=== PATIENT | male | born 1970 | race African-American/Black ===

== ENCOUNTER 2017-07-31 09:08 | Emergency (ER) | payer OTHER ==
[~2017-07-31] VITALS: Ht 177.8 cm; Wt 97.0 kg
[2017-07-31 09:15] VITALS: BP 193/103; PULSE 103; RESP 18; TEMP 98.4; O2SAT 97
[2017-07-31] MEDS ORDERED: MONT10TA4 PO (09:25)
[2017-07-31] MEDS ORDERED: AUGM875T3 PO (09:41)
--- NOTE | 2017-07-31 09:41 | PD ---
HPI Chief Complaint: ENT Complaint Time Seen by Provider: 09:31 Travel History International Travel<30 days: No Contact w/Intl Traveler<30days: No Traveled to known affect area: No History of Present Illness HPI Patient is a 46-year-old male who presents to emergency room with complaints of sinus congestion, sore throat, increased nasal congestion for the past week. Patient reports that his daughter was sick previously with similar symptoms. Patient reports that he has been having subjective fevers and chills. Patient reports that he has noticed a postnasal drip. Denies chest pain or shortness of breath. No other complaints at this time. PFSH Past Medical History Diabetes: Yes Diminished Hearing: No Hypertension: Yes Tetanus Vaccination: Unknown Influenza Vaccination: No Past Surgical History Surgical History: No Previous Surgery Social History Alcohol Use: No Tobacco Use: No Substance Use: No Allergies-Medications (Allergen,Severity, Reaction): Coded Allergies: No Known Allergies (Unverified , 07/31/17) Reported Meds & Prescriptions Reported Meds & Active Scripts Active Reported Montelukast (Montelukast Sodium) 10 Mg Tab 10 Mg PO HS Review of Systems General / Constitutional: Positive: Fever, Chills Eyes: No: Visual changes HENT: Positive: Sore Throat, No: Headaches, Neck Pain Cardiovascular: No: Chest Pain or Discomfort, Palpitations, Irregular Rhythm Respiratory: Positive: Cough, No: Shortness of Breath, Wheezing Gastrointestinal: No: Abdominal Pain Genitourinary: No: Dysuria Musculoskeletal: No: Pain Skin: No Rash Neurologic: No: Weakness Psychiatric: No: Depression Endocrine: No: Polydipsia Hematologic/Lymphatic: No: Easy Bruising Physical Exam Narrative GENERAL: NAD, Nontoxic SKIN: Focused skin assessment warm/dry. HEAD: Atraumatic. Normocephalic. Patient with increased frontal and maxillary sinus pressure on exam EYES: Pupils equal and round. No scleral icterus. No injection or drainage. ENT: No nasal bleeding or discharge. Mucous membranes pink and moist. Patient with injected posterior pharynx NECK: Trachea midline. No JVD. CARDIOVASCULAR: Regular rate and rhythm. No murmur appreciated. RESPIRATORY: No accessory muscle use. Clear to auscultation. Breath sounds equal bilaterally. GASTROINTESTINAL: Abdomen soft, non-tender, nondistended. Hepatic and splenic margins not palpable. MUSCULOSKELETAL: No obvious deformities. No clubbing. No cyanosis. No edema. NEUROLOGICAL: Awake and alert. No obvious cranial nerve deficits. Motor grossly within normal limits. Normal speech. PSYCHIATRIC: Appropriate mood and affect; insight and judgment normal. Data Data Last Documented VS Vital Signs Date Time Temp Pulse Resp B/P (MAP) Pulse Ox O2 Delivery O2 Flow Rate FiO2 07/31/17 09:15 98.4 103 18 193/103 (133) 97 Orders Orders Amoxicil-Clavulanate (Augmentin) (07/31/17 09:45) [facility] Medical Decision Making Medical Screen Exam Complete: Yes Emergency Medical Condition: Yes Medical Record Reviewed: Yes Interpretation(s) Vital Signs Date Time Temp Pulse Resp B/P (MAP) Pulse Ox O2 Delivery O2 Flow Rate FiO2 07/31/17 09:15 98.4 103 18 193/103 (133) 97 Differential Diagnosis Differential includes sinusitis, strep pharyngitis, pneumonia, viral syndrome Narrative Course 46-year-old male who presents to emergency room with complaints of increased sinus congestion, nasal congestion, postnasal drip, cough which has been ongoing for the past week. Reports objective fevers and chills, reports that his 3 year daughter was sick with similar symptoms prior to onset of his symptoms. Patient is nontoxic on evaluation, he has appeared to have increased sinus pressure with post nasal drip. His posterior pharynx is slightly erythematous, patient with no trismus on exam, no airway involvement. Rapid strep as well as strep culture was sent. Plan to treat with Augmentin for sinusitis and pharyngitis. Patient will follow-up with his primary care doctor and will return to emergency room as needed. Diagnosis Primary Impression: Sinusitis, acute Qualified Codes: J01.90 - Acute sinusitis, unspecified Patient Instructions: General Instructions Additional Instructions: Please take all medications as prescribed Please follow-up with your primary care doctor Please follow-up with all cultures from today Return to the emergency room as needed Med/Other Pt SpecificInfo: Prescription(s) given Scripts Amoxicillin-Clavulanate (Augmentin) 875-125 Mg Tab 1 TAB PO BID for Infection for 10 Days, #20 TAB 0 Refills Prov: Jessika Tristan DO 07/31/17 Disposition: 01 DISCHARGE HOME Condition: Stable Jessika Tristan DO Jul 31, 2017 09:41
[2017-07-31] MEDS ORDERED: AMOXICILLIN/CLAVULANATE K 875 MG TAB PO ONE (09:45)
== END 2017-07-31 10:13 | disposition home or self-care (01) ==
LOC: PHED 09:08
DX: J01.90 Acute sinusitis, unspecified (principal)
CPT/HCPCS: 87081; 87880; 99283

== ENCOUNTER 2018-01-30 21:08 | Emergency (ER) | payer OTHER ==
[~2018-01-30] VITALS: Ht 177.8 cm; Wt 98.0 kg
[~2018-01-30 21:08] MED LIST: AUGM875T3 PO; MONT10TA4 PO
[2018-01-30 21:16] VITALS: BP 217/127; PULSE 110; RESP 18; TEMP 100.2; O2SAT 95
[2018-01-30 21:31] VITALS: TEMP 103.1
[2018-01-30] MEDS ORDERED: ACETAMINOPHEN 325 MG TAB PO ONE (21:45)
[2018-01-30] MEDS ORDERED: LABETALOL HCL 100 MG/20 ML VIAL IV PUSH ONE (21:45)
--- NOTE | 2018-01-30 21:45 | PD ---
HPI Chief Complaint: Cold / Flu Symptoms Time Seen by Provider: 21:30 Travel History International Travel<30 days: No Contact w/Intl Traveler<30days: No Traveled to known affect area: No History of Present Illness HPI 47yo M with PMH of HTN, DM, CKD presents to the ED with c/o cough, nasal congestion, fever, headache, throat pain, muscle ache for about 1 week. Said he has not been feeling well and took cold medication this morning. Pt has long standing HTN and takes clonidine, valsartan, metoprolol but ran out of everything except clonidine which he took this morning. Denies any neck pain, visual changes, sob, n/v, abdominal pain, focal weakness or numbness. Pt said he has midsternal chest pain only with cough. PFSH Past Medical History Diabetes: Yes Patient Takes Glucophage: No Diminished Hearing: No Hypertension: Yes Renal Failure: Yes (60 % functioning) Tetanus Vaccination: Unknown Influenza Vaccination: No ?: Not Past Surgical History Surgical History: No Previous Surgery Social History Alcohol Use: No Tobacco Use: No Substance Use: No Allergies-Medications (Allergen,Severity, Reaction): Coded Allergies: No Known Allergies (Verified Allergy, Unknown, 01/30/18) Reported Meds & Prescriptions Reported Meds & Active Scripts Active Valsartan-Hydrochlorothiazide 80-12.5 Mg Tab 1 Tab PO DAILY Metoprolol Tartrate 100 Mg Tab 100 Mg PO BID Tylenol (Acetaminophen) 325 Mg Tab 650 Mg PO Q6H PRN Augmentin (Amoxicillin-Clavulanate) 875-125 Mg Tab 1 Tab PO BID 10 Days Reported Montelukast (Montelukast Sodium) 10 Mg Tab 10 Mg PO HS Review of Systems Except as stated in HPI: all other systems reviewed are Neg Physical Exam Narrative GENERAL: 47yo M in mild distress. SKIN: Focused skin assessment warm/dry. HEAD: Atraumatic. Normocephalic. EYES: Pupils equal and round. No scleral icterus. No injection or drainage. ENT: Mild erythema Uvula. No exudate. NECK: No nuchal rigidity. CARDIOVASCULAR: Regular rate and rhythm. No murmur appreciated. RESPIRATORY: + accessory muscle use. Decreased breath sounds in right lower lung. GASTROINTESTINAL: Abdomen soft, non-tender, nondistended. No rebound tenderness or guarding. MUSCULOSKELETAL: No obvious deformities. No clubbing. No cyanosis. No edema. NEUROLOGICAL: Awake and alert. No obvious cranial nerve deficits. Motor grossly within normal limits in all extremities. Sensation intact. Normal speech. PSYCHIATRIC: Appropriate mood and affect; insight and judgment normal. Data Data Last Documented VS Vital Signs Date Time Temp Pulse Resp B/P (MAP) Pulse Ox O2 Delivery O2 Flow Rate FiO2 01/30/18 23:05 100.3 103 18 163/89 (113) 01/30/18 22:32 100 Room Air Orders Orders Blood Culture (01/30/18 21:37) Complete Blood Count With Diff (01/30/18 21:37) Basic Metabolic Panel (Bmp) (01/30/18 21:37) Prothrombin Time / Inr (Pt) (01/30/18 21:37) Act Partial Throm Time (Ptt) (01/30/18 21:37) Lactic Acid Sepsis Protocol (01/30/18 21:37) Acetaminophen (Tylenol) (01/30/18 21:45) Influenzae A/B Antigen (01/30/18 21:37) Group A Rapid Strep Screen (01/30/18 21:37) Troponin I (01/30/18 21:37) Electrocardiogram (01/30/18 ) Labetalol Inj (Trandate Inj) (01/30/18 21:45) Strep Culture (Group A) (01/30/18 21:53) Chest, Single Ap (01/30/18 ) Metoprolol Tartrate (Lopressor) (01/30/18 23:30) Ed Discharge Order (01/31/18 00:04) Labs Laboratory Tests Test 01/30/18 21:53 White Blood Count 4.4 TH/MM3 Red Blood Count 6.06 MIL/MM3 Hemoglobin 15.6 GM/DL Hematocrit 47.2 % Mean Corpuscular Volume 77.9 FL Mean Corpuscular Hemoglobin 25.7 PG Mean Corpuscular Hemoglobin Concent 33.0 % Red Cell Distribution Width 13.0 % Platelet Count 171 TH/MM3 Mean Platelet Volume 8.6 FL CBC Comment AUTO DIFF Differential Total Cells Counted 100 Neutrophils % (Manual) 67 % Band Neutrophils % 2 % Lymphocytes % 20 % Monocytes % 11 % Neutrophils # (Manual) 3.0 TH/MM3 Differential Comment FINAL DIFF MANUAL Atypical Lymphocytes % Platelet Estimate NORMAL Platelet Morphology Comment NORMAL Red Cell Morphology Comment NORMAL Prothrombin Time 9.8 SEC Prothromb Time International Ratio 1.0 RATIO Activated Partial Thromboplast Time 25.4 SEC Blood Urea Nitrogen 9 MG/DL Creatinine 1.50 MG/DL Random Glucose 317 MG/DL Calcium Level 8.3 MG/DL Sodium Level 134 MEQ/L Potassium Level 3.3 MEQ/L Chloride Level 98 MEQ/L Carbon Dioxide Level 30.6 MEQ/L Anion Gap 5 MEQ/L Estimat Glomerular Filtration Rate 61 ML/MIN Lactic Acid Level 2.0 mmol/L Troponin I 0.02 NG/ML [facility] Medical Decision Making Medical Screen Exam Complete: Yes Emergency Medical Condition: Yes Interpretation(s) EKG: Sinus tachycardia at 115bpm. LAD. No ST segment elevation or depression. Differential Diagnosis Pneumonia vs. influenza vs. bronchitis vs. viral syndrome vs. hypertensive emergency Narrative Course 47yo M with flu like symptoms. Pt initially febrile and tachycardic and hypertensive. Pt has long standing HTN and is suppose to be on 3 medications for HTN but has not taken 2 of them for a long time. Labs reviewed, no leukocytosis. Lactic acid normal. Mild hypokalemia at 3.3, replace orally. Creatinine mildly elevated at 1.50 but pt has history of kidney disease. Glucose elevated at 317, no increased anion gap. Normal CO2. Troponin negative. Positive Flu B antigen. Symptoms has been over a week so will not give tamiflu. Explained to patient and he also does not want tamiflu. Group A strep negative. CXR negative. Pt given labetalol IV and acetaminophen. Temp decreased to 100.3 and pt feels better. BP also improved. Recheck BP was again elevated so metoprolol 100mg given. Pt has clonidine at home so will write prescription for the other 2 HTN meds. Return precautions given. Diagnosis Primary Impression: Influenza B Patient Instructions: General Instructions Departure Forms: Tests/Procedures Additional Instructions: Please follow up with your primary care physician in 2-3 days. Return to the ED if symptoms worsen. Med/Other Pt SpecificInfo: Prescription(s) given Scripts Valsartan-Hydrochlorothiazide (Valsartan-Hydrochlorothiazide) 80-12.5 Mg Tab 1 TAB PO DAILY for Blood Pressure Management, #30 TAB 0 Refills Prov: Nahed Wilson DO 01/31/18 Metoprolol Tartrate (Metoprolol Tartrate) 100 Mg Tab 100 MG PO BID, #60 TAB 0 Refills Prov: Nahed Wilson DO 01/31/18 Acetaminophen (Tylenol) 325 Mg Tab 650 MG PO Q6H Y for PAIN SCALE 1 TO 4, #20 TAB 0 Refills Prov: Nahed Wilson DO 01/31/18 Disposition: 01 DISCHARGE HOME Condition: Stable Nahed Wilson DO Jan 30, 2018 21:45
[2018-01-30 22:09] LABS: HEMATOCRIT 47.2 % (39.0-51.0); HEMOGLOBIN 15.6 GM/DL (13.0-17.0); MEAN CELL VOLUME 77.9 FL (80.0-100.0); MEAN CORPUSCULAR HEMOGLOBIN 25.7 PG (27.0-34.0); MEAN PLATELET VOLUME 8.6 FL (7.0-11.0); PLATELET COUNT 171 TH/MM3 (150-450); RED BLOOD COUNT 6.06 MIL/MM3 (4.50-5.90); WHITE BLOOD COUNT 4.4 TH/MM3 (4.0-11.0)
[2018-01-30 22:29] LABS: BICARBONATE 30.6 MEQ/L (21.0-32.0); CALCIUM 8.3 MG/DL (8.5-10.1)
[2018-01-30 22:32] VITALS: BP 162/93; PULSE 102; RESP 18; O2SAT 100
[2018-01-30 22:33] LABS: CREATININE 1.5 MG/DL (0.60-1.30)
[2018-01-30 22:34] LABS: PROTHROMBIN TIME - PATIENT 9.8 SEC (9.8-11.6)
[2018-01-30 22:37] LABS: TROPONIN I 0.02 NG/ML (0.02-0.05)
[2018-01-30 22:52] LABS: BANDS 2 % (0-6); MONOCYTES 11 % (0-8); POLYS (SEG NEUTROPHILS) 67 % (16-70)
[2018-01-30 22:53] LABS: LYMPHOCYTES 20 % (9-44)
[2018-01-30 23:05] VITALS: BP 163/89; PULSE 103; RESP 18; TEMP 100.3
--- NOTE | 2018-01-30 23:22 | RADRPT ---
EXAM DATE/TIME: 01/30/2018 22:54 [facility] COMPARISON: No previous studies available for comparison. INDICATIONS : Cough and short of breath. MEDICAL HISTORY : Renal failure, acute. SURGICAL HISTORY : None. ENCOUNTER: Initial ACUITY: 1 day PAIN SCORE: 0/10 LOCATION: Bilateral chest FINDINGS: A single view of the chest demonstrates the lungs to be symmetrically aerated without evidence of mas s, infiltrate or effusion. The cardiomediastinal contours are unremarkable. Osseous structures are intact. CONCLUSION: No acute cardiopulmonary disease demonstrated. Nando Segura MD on January 30, 2018 at 23:20 Board Certified Radiologist. This report was verified electronically.
[2018-01-30] MEDS ORDERED: METOPROLOL TARTRATE 50 MG TAB PO ONE (23:30)
[2018-01-30] MEDS ORDERED: METOPROLOL TARTRATE 100 MG TAB PO ONE (23:30)
[2018-01-31] MEDS ORDERED: TYLE325T PO (00:03)
[2018-01-31] MEDS ORDERED: METO100T PO (00:03)
[2018-01-31] MEDS ORDERED: VALS80TA2 PO (00:03)
[2018-01-31 00:15] VITALS: BP 168/97; TEMP 98.9
[2018-01-31] MEDS ORDERED: POTASSIUM CHLORIDE 20 MEQ CONTROLLED RELEASE TAB PO ONE (00:15)
--- NOTE | 2018-01-31 22:41 | EKG ---
Date Performed: 01/30/2018 Time Performed: 21:45:13 PTAGE: 47 years EKG: SINUS TACHYCARDIA BORDERLINE LEFT AXIS DEVIATION MODERATE VOLTAGE CRITERIA FOR LVH, CONSIDE R NORMAL VARIANT NONSPECIFIC ST ELEVATION ABNORMAL RHYTHM ECG NO PREVIOUS TRACING DOCTOR: Shayla Herring Interpretating Date/Time 01/31/2018 22:40:07
== END 2018-01-31 00:17 | disposition home or self-care (01) ==
LOC: PHED 21:08
DX: J10.1 Influenza due to other identified influenza virus with other respiratory manifestations (principal); E11.9 Type 2 diabetes mellitus without complications; I12.9 Hypertensive chronic kidney disease with stage 1 through stage 4 chronic kidney disease, or unspecified chronic kidney disease; R94.31 Abnormal electrocardiogram [ECG] [EKG]
CPT/HCPCS: 71045; 80048; 83605; 84484; 85007; 85027; 85610; 85730; 87040; 87081; 87804; 87880; 93005; 96374

== ENCOUNTER 2018-09-13 22:15 | Inpatient (IN) ==
[2018-09-13] MEDS: niCARdipine Inj 25 MG in Sodium Chlor 0.9% Inj 240 ML IV.CONT PRN (22:30)
--- NOTE | 2018-09-13 22:32 | ED ---
HPI General Chief complaint: Chest Pain Stated complaint: respiratory Time Seen by Provider: 09/13/18 22:20 History of Present Illness HPI narrative: Patient is a 47-year-old male with history of diabetes, high blood pressure presents emergency department with rather acute onset shortness of breath about an hour prior to arrival. Patient called 911 EMS states that his initial room air sat was 84 and he did have one expectoration of red frothy sputum. He was placed on CPAP he was given 2 doses of nitroglycerin sublingually as well as 100 mg Lasix and transported to this emergency department. Patient is complaining of some chest burning in the middle of his chest. He appears significantly short of breath. His history is somewhat limited on his shortness of breath Related Data Home Medications Medication Instructions Recorded Confirmed glyburide-metformin 2 tab PO BID 07/04/18 09/13/18 losartan 50 mg PO DAILY 07/04/18 09/13/18 Allergies Allergy/AdvReac Type Severity Reaction Status Date / Time No Known Allergies Allergy Unverified 07/04/18 08:26 Review of Systems ROS: all other systems reviewed are negative [facility] Social History Social History Substance History: No History of Abuse Second Hand Smoke Exposure: No Smoking Status: Never smoker How Often Do You Have a Drink Containing Alcohol: Never Recent Travel in [facility] within the Last 8 Weeks: No Recent Out of Country Travel within the Last 8 Weeks: No Immunization History Tetanus Immunization: Unsure Exam Narrative Exam Narrative: GENERAL: Well-developed well-nourished, appears significantly short of breath. SKIN: Focused skin assessment warm/dry. HEAD: Atraumatic. Normocephalic. EYES: Pupils equal and round. No scleral icterus. No injection or drainage. ENT: No nasal bleeding or discharge. Mucous membranes pink and moist. NECK: Trachea midline. No JVD. CARDIOVASCULAR: Regular rhythm with tachycardia. No murmur appreciated. RESPIRATORY: Tachypneic, rales throughout both lung higgins. GASTROINTESTINAL: Abdomen soft, non-tender, nondistended. Hepatic and splenic margins not palpable. MUSCULOSKELETAL: No obvious deformities. No clubbing. No cyanosis. No edema. NEUROLOGICAL: Awake and alert. No obvious cranial nerve deficits. Motor grossly within normal limits. Normal speech. PSYCHIATRIC: Appropriate mood and affect; insight and judgment normal. Course Initial Documented Vital Signs Temperature 98.2 F 09/13/18 22:17 Pulse Rate 160 H 09/13/18 22:17 Respiratory Rate 24 09/13/18 22:17 Blood Pressure 224/134 H 09/13/18 22:17 Pulse Oximetry 85 L 09/13/18 22:17 Last Documented Vital Signs Temperature 98.2 F 09/22/18 11:00 Pulse Rate 88 09/22/18 11:00 Respiratory Rate 18 09/22/18 11:00 Blood Pressure 124/86 09/22/18 11:00 Pulse Oximetry 94 L 09/22/18 13:56 Critical Care Time Critical Care Time: Yes Total Critical Care Time: 35 Attestation: Aggregate critical care time was 35 minutes. Time to perform other separately billable procedures was not included in the critical care time. My time did not include minutes spent treating any other patients simultaneously or on activities that did not directly contribute to the patient's treatment. The services I provided to this patient were to treat and/or prevent clinically significant deterioration that could result in: , disability, organ failure I provided critical care services requiring my management, as noted below: Chart data review, documentation time, medication orders and management, vital sign assessments/reviewing monitor data, ordering and reviewing lab tests, ordering and interpreting/reviewing x-rays and diagnostic studies, care of the patient and discussion of the patient with the admitting physicians. Medical Decision Making MDM Narrative Medical decision making narrative: Patient room in the emergency department, started on a Cardene drip, BiPAP, on my first revisit the patient he is feeling much better and his chest pain is resolved. His EKG shows sinus tachycardia without any signs of acute ischemia. Troponin minimally elevated, BNP minimally elevated. Chest x-ray shows acute pulmonary edema bilaterally. Patient is diuresing well with 100 mg of Lasix were administered to him. Shortly after my revisit with the patient he started complaining of nausea and self removed his mask. 8 mg of Zofran was given to him. He did not have any emesis. He again desaturated on nasal cannula down to 89. His nasal cannula was increased to 5 L and he is tolerating it fairly well. With his nausea we are very hesitant to place him back on BiPAP. Patient was discussed with Dr. Haney of the [facility] team to admit and she is agreeable. Medical Screen Exam Complete: Yes Emergency Medical Condition: Yes Lab Data Result diagrams: 09/22/18 03:45 09/22/18 03:45 Lab Results 09/13/18 09/13/18 09/13/18 Range/Units 22:20 22:20 22:20 WBC 9.7 (4.0-11.0) th/mm3 RBC 5.80 (4.50-5.90) mil/mm3 Hgb 14.7 (13.0-17.0) gm/dL Hct 47.0 (39.0-51.0) % MCV 81.0 (80.0-100.0) fL MCH 25.4 L (27.0-34.0) pg MCHC 31.4 L (32.0-36.0) % RDW 14.3 (11.6-17.2) % Plt Count 201 (150-450) th/mm3 MPV 9.6 (7.0-11.0) fL Neut % (Auto) 65.9 (16.0-70.0) % Lymph % (Auto) 24.1 (9.0-44.0) % [place] % (Auto) 7.9 (0.0-8.0) % Eos % (Auto) 1.3 (0.0-4.0) % Baso % (Auto) 0.8 (0.0-2.0) % Neut # (Auto) 6.4 (1.8-7.7) th/mm3 Lymph # (Auto) 2.3 (1.0-4.8) th/mm3 [place] # (Auto) 0.8 (0.0-0.9) th/mm3 Eos # (Auto) 0.1 (0.0-0.4) th/mm3 Baso # (Auto) 0.1 (0.0-0.2) th/mm3 WBC Differential . Differential Comment Auto diff final PT 9.4 L (9.8-11.6) sec INR 0.9 Ratio APTT 24.4 (23.4-31.7) sec Sodium 135 L (136-145) meq/L Potassium 3.4 L (3.5-5.1) meq/L Chloride 102 (98-107) meq/L Carbon Dioxide 24.5 (21.0-32.0) meq/L Anion Gap 9 (5-15) meq/L BUN 20 H (7-18) mg/dL Creatinine 1.84 H (0.60-1.30) mg/dL Estimated GFR 48 L (>89) mL/min POC Glucose (68-110) mg/dl Random Glucose 447 H (74-106) mg/dL Hemoglobin A1c (4.3-6.0) % Lactic Acid (0.4-2.0) mmol/L Calcium 8.6 (8.5-10.1) mg/dL Phosphorus (2.5-4.9) mg/dL Magnesium (1.5-2.5) mg/dL Total Bilirubin 0.5 (0.2-1.0) mg/dL AST 20 (15-37) U/L ALT 24 (12-78) U/L Alkaline Phosphatase 107 (45-117) U/L Total Creatine Kinase (39-308) U/L CK-MB (CK-2) (0.5-3.6) ng/mL CK-MB (CK-2) % (0.0-4.0) % Troponin I 0.11 H (0.02-0.05) ng/mL B-Natriuretic Peptide (0-100) pg/mL Total Protein 7.4 (6.4-8.2) g/dL Albumin 3.4 (3.4-5.0) g/dL Triglycerides (42-150) mg/dL Cholesterol (120-200) mg/dL LDL Cholesterol, Calc (0-99) mg/dL HDL Cholesterol (40.0-60.0) mg/dL Cholesterol/HDL Ratio Ratio Lipase (73-393) U/L TSH 1.760 (0.358-3.740) uIU/mL Urine Color (Yellw/Straw) Urine Clarity (Clear) Urine pH (5.0-8.5) Ur Specific [place] (1.002-1.035) Urine Protein (Neg-Trace) mg/dL Urine Glucose (UA) (Negative) mg/dL Urine Ketones (Negative) mg/dL Urine Occult Blood (Negative) Urine Nitrate (Negative) Urine Bilirubin (Negative) Urine Urobilinogen (Less than 2) mg/dL Ur Leukocyte Esterase (Negative) Urine RBC (0-3) /hpf Urine WBC (0-5) /hpf Ur Squamous Epith Cells (0-5) /hpf Urine Mucus (Occasional) /lpf Micro UA Comment Ur Microscopic Review Urine Culture Comments Urine Eosinophils (None Seen) /HPF Ur Random Creatinine (27-300) mg/dL Ur Random Sodium meq/L Nasal Screen MRSA (PCR) (Negative) 09/13/18 09/14/18 09/14/18 Range/Units 22:20 03:50 04:08 WBC (4.0-11.0) th/mm3 RBC (4.50-5.90) mil/mm3 Hgb (13.0-17.0) gm/dL Hct (39.0-51.0) % MCV (80.0-100.0) fL MCH (27.0-34.0) pg MCHC (32.0-36.0) % RDW (11.6-17.2) % Plt Count (150-450) th/mm3 MPV (7.0-11.0) fL Neut % (Auto) (16.0-70.0) % Lymph % (Auto) (9.0-44.0) % [place] % (Auto) (0.0-8.0) % Eos % (Auto) (0.0-4.0) % Baso % (Auto) (0.0-2.0) % Neut # (Auto) (1.8-7.7) th/mm3 Lymph # (Auto) (1.0-4.8) th/mm3 [place] # (Auto) (0.0-0.9) th/mm3 Eos # (Auto) (0.0-0.4) th/mm3 Baso # (Auto) (0.0-0.2) th/mm3 WBC Differential Differential Comment PT (9.8-11.6) sec INR Ratio APTT (23.4-31.7) sec Sodium (136-145) meq/L Potassium (3.5-5.1) meq/L Chloride (98-107) meq/L Carbon Dioxide (21.0-32.0) meq/L Anion Gap (5-15) meq/L BUN (7-18) mg/dL Creatinine (0.60-1.30) mg/dL Estimated GFR (>89) mL/min POC Glucose 497 H* (68-110) mg/dl Random Glucose (74-106) mg/dL Hemoglobin A1c (4.3-6.0) % Lactic Acid (0.4-2.0) mmol/L Calcium (8.5-10.1) mg/dL Phosphorus (2.5-4.9) mg/dL Magnesium (1.5-2.5) mg/dL Total Bilirubin (0.2-1.0) mg/dL AST (15-37) U/L ALT (12-78) U/L Alkaline Phosphatase (45-117) U/L Total Creatine Kinase (39-308) U/L CK-MB (CK-2) (0.5-3.6) ng/mL CK-MB (CK-2) % (0.0-4.0) % Troponin I (0.02-0.05) ng/mL B-Natriuretic Peptide 428 H (0-100) pg/mL Total Protein (6.4-8.2) g/dL Albumin (3.4-5.0) g/dL Triglycerides (42-150) mg/dL Cholesterol (120-200) mg/dL LDL Cholesterol, Calc (0-99) mg/dL HDL Cholesterol (40.0-60.0) mg/dL Cholesterol/HDL Ratio Ratio Lipase (73-393) U/L TSH (0.358-3.740) uIU/mL Urine Color (Yellw/Straw) Urine Clarity (Clear) Urine pH (5.0-8.5) Ur Specific [place] (1.002-1.035) Urine Protein (Neg-Trace) mg/dL Urine Glucose (UA) (Negative) mg/dL Urine Ketones (Negative) mg/dL Urine Occult Blood (Negative) Urine Nitrate (Negative) Urine Bilirubin (Negative) Urine Urobilinogen (Less than 2) mg/dL Ur Leukocyte Esterase (Negative) Urine RBC (0-3) /hpf Urine WBC (0-5) /hpf Ur Squamous Epith Cells (0-5) /hpf Urine Mucus (Occasional) /lpf Micro UA Comment Ur Microscopic Review Urine Culture Comments Urine Eosinophils (None Seen) /HPF Ur Random Creatinine (27-300) mg/dL Ur Random Sodium meq/L Nasal Screen MRSA (PCR) Not detected (Negative) 09/14/18 09/14/18 09/14/18 Range/Units 05:01 05:01 09:03 WBC 11.2 H (4.0-11.0) th/mm3 RBC 5.55 (4.50-5.90) mil/mm3 Hgb 14.3 (13.0-17.0) gm/dL Hct 44.7 (39.0-51.0) % MCV 80.6 (80.0-100.0) fL MCH 25.8 L (27.0-34.0) pg MCHC 32.0 (32.0-36.0) % RDW 14.1 (11.6-17.2) % Plt Count 201 (150-450) th/mm3 MPV 9.6 (7.0-11.0) fL Neut % (Auto) (16.0-70.0) % Lymph % (Auto) (9.0-44.0) % [place] % (Auto) (0.0-8.0) % Eos % (Auto) (0.0-4.0) % Baso % (Auto) (0.0-2.0) % Neut # (Auto) (1.8-7.7) th/mm3 Lymph # (Auto) (1.0-4.8) th/mm3 [place] # (Auto) (0.0-0.9) th/mm3 Eos # (Auto) (0.0-0.4) th/mm3 Baso # (Auto) (0.0-0.2) th/mm3 WBC Differential Differential Comment PT (9.8-11.6) sec INR Ratio APTT (23.4-31.7) sec Sodium 135 L (136-145) meq/L Potassium 4.0 (3.5-5.1) meq/L Chloride 102 (98-107) meq/L Carbon Dioxide 25.5 (21.0-32.0) meq/L Anion Gap 8 (5-15) meq/L BUN 20 H (7-18) mg/dL Creatinine 1.88 H (0.60-1.30) mg/dL Estimated GFR 47 L (>89) mL/min POC Glucose 315 H (68-110) mg/dl Random Glucose 546 H* (74-106) mg/dL Hemoglobin A1c (4.3-6.0) % Lactic Acid (0.4-2.0) mmol/L Calcium 7.6 L D (8.5-10.1) mg/dL Phosphorus (2.5-4.9) mg/dL Magnesium (1.5-2.5) mg/dL Total Bilirubin (0.2-1.0) mg/dL AST (15-37) U/L ALT (12-78) U/L Alkaline Phosphatase (45-117) U/L Total Creatine Kinase (39-308) U/L CK-MB (CK-2) (0.5-3.6) ng/mL CK-MB (CK-2) % (0.0-4.0) % Troponin I 0.13 H (0.02-0.05) ng/mL B-Natriuretic Peptide (0-100) pg/mL Total Protein (6.4-8.2) g/dL Albumin (3.4-5.0) g/dL Triglycerides (42-150) mg/dL Cholesterol (120-200) mg/dL LDL Cholesterol, Calc (0-99) mg/dL HDL Cholesterol (40.0-60.0) mg/dL Cholesterol/HDL Ratio Ratio Lipase (73-393) U/L TSH (0.358-3.740) uIU/mL Urine Color (Yellw/Straw) Urine Clarity (Clear) Urine pH (5.0-8.5) Ur Specific [place] (1.002-1.035) Urine Protein (Neg-Trace) mg/dL Urine Glucose (UA) (Negative) mg/dL Urine Ketones (Negative) mg/dL Urine Occult Blood (Negative) Urine Nitrate (Negative) Urine Bilirubin (Negative) Urine Urobilinogen (Less than 2) mg/dL Ur Leukocyte Esterase (Negative) Urine RBC (0-3) /hpf Urine WBC (0-5) /hpf Ur Squamous Epith Cells (0-5) /hpf Urine Mucus (Occasional) /lpf Micro UA Comment Ur Microscopic Review Urine Culture Comments Urine Eosinophils (None Seen) /HPF Ur Random Creatinine (27-300) mg/dL Ur Random Sodium meq/L Nasal Screen MRSA (PCR) (Negative) 09/14/18 09/14/18 09/14/18 Range/Units 11:23 11:23 11:52 WBC (4.0-11.0) th/mm3 RBC (4.50-5.90) mil/mm3 Hgb (13.0-17.0) gm/dL Hct (39.0-51.0) % MCV (80.0-100.0) fL MCH (27.0-34.0) pg MCHC (32.0-36.0) % RDW (11.6-17.2) % Plt Count (150-450) th/mm3 MPV (7.0-11.0) fL Neut % (Auto) (16.0-70.0) % Lymph % (Auto) (9.0-44.0) % [place] % (Auto) (0.0-8.0) % Eos % (Auto) (0.0-4.0) % Baso % (Auto) (0.0-2.0) % Neut # (Auto) (1.8-7.7) th/mm3 Lymph # (Auto) (1.0-4.8) th/mm3 [place] # (Auto) (0.0-0.9) th/mm3 Eos # (Auto) (0.0-0.4) th/mm3 Baso # (Auto) (0.0-0.2) th/mm3 WBC Differential Differential Comment PT (9.8-11.6) sec INR Ratio APTT (23.4-31.7) sec Sodium (136-145) meq/L Potassium (3.5-5.1) meq/L Chloride (98-107) meq/L Carbon Dioxide (21.0-32.0) meq/L Anion Gap (5-15) meq/L BUN (7-18) mg/dL Creatinine (0.60-1.30) mg/dL Estimated GFR (>89) mL/min POC Glucose 131 H (68-110) mg/dl Random Glucose (74-106) mg/dL Hemoglobin A1c 16.4 H (4.3-6.0) % Lactic Acid (0.4-2.0) mmol/L Calcium (8.5-10.1) mg/dL Phosphorus (2.5-4.9) mg/dL Magnesium (1.5-2.5) mg/dL Total Bilirubin (0.2-1.0) mg/dL AST (15-37) U/L ALT (12-78) U/L Alkaline Phosphatase (45-117) U/L Total Creatine Kinase (39-308) U/L CK-MB (CK-2) (0.5-3.6) ng/mL CK-MB (CK-2) % (0.0-4.0) % Troponin I 0.11 H (0.02-0.05) ng/mL B-Natriuretic Peptide (0-100) pg/mL Total Protein (6.4-8.2) g/dL Albumin (3.4-5.0) g/dL Triglycerides (42-150) mg/dL Cholesterol (120-200) mg/dL LDL Cholesterol, Calc (0-99) mg/dL HDL Cholesterol (40.0-60.0) mg/dL Cholesterol/HDL Ratio Ratio Lipase (73-393) U/L TSH (0.358-3.740) uIU/mL Urine Color (Yellw/Straw) Urine Clarity (Clear) Urine pH (5.0-8.5) Ur Specific [place] (1.002-1.035) Urine Protein (Neg-Trace) mg/dL Urine Glucose (UA) (Negative) mg/dL Urine Ketones (Negative) mg/dL Urine Occult Blood (Negative) Urine Nitrate (Negative) Urine Bilirubin (Negative) Urine Urobilinogen (Less than 2) mg/dL Ur Leukocyte Esterase (Negative) Urine RBC (0-3) /hpf Urine WBC (0-5) /hpf Ur Squamous Epith Cells (0-5) /hpf Urine Mucus (Occasional) /lpf Micro UA Comment Ur Microscopic Review Urine Culture Comments Urine Eosinophils (None Seen) /HPF Ur Random Creatinine (27-300) mg/dL Ur Random Sodium meq/L Nasal Screen MRSA (PCR) (Negative) 09/14/18 09/14/18 09/14/18 Range/Units 15:06 18:11 19:43 WBC (4.0-11.0) th/mm3 RBC (4.50-5.90) mil/mm3 Hgb (13.0-17.0) gm/dL Hct (39.0-51.0) % MCV (80.0-100.0) fL MCH (27.0-34.0) pg MCHC (32.0-36.0) % RDW (11.6-17.2) % Plt Count (150-450) th/mm3 MPV (7.0-11.0) fL Neut % (Auto) (16.0-70.0) % Lymph % (Auto) (9.0-44.0) % [place] % (Auto) (0.0-8.0) % Eos % (Auto) (0.0-4.0) % Baso % (Auto) (0.0-2.0) % Neut # (Auto) (1.8-7.7) th/mm3 Lymph # (Auto) (1.0-4.8) th/mm3 [place] # (Auto) (0.0-0.9) th/mm3 Eos # (Auto) (0.0-0.4) th/mm3 Baso # (Auto) (0.0-0.2) th/mm3 WBC Differential Differential Comment PT (9.8-11.6) sec INR Ratio APTT (23.4-31.7) sec Sodium (136-145) meq/L Potassium (3.5-5.1) meq/L Chloride (98-107) meq/L Carbon Dioxide (21.0-32.0) meq/L Anion Gap (5-15) meq/L BUN (7-18) mg/dL Creatinine (0.60-1.30) mg/dL Estimated GFR (>89) mL/min POC Glucose 145 H 225 H (68-110) mg/dl Random Glucose (74-106) mg/dL Hemoglobin A1c (4.3-6.0) % Lactic Acid (0.4-2.0) mmol/L Calcium (8.5-10.1) mg/dL Phosphorus (2.5-4.9) mg/dL Magnesium (1.5-2.5) mg/dL Total Bilirubin (0.2-1.0) mg/dL AST (15-37) U/L ALT (12-78) U/L Alkaline Phosphatase (45-117) U/L Total Creatine Kinase (39-308) U/L CK-MB (CK-2) (0.5-3.6) ng/mL CK-MB (CK-2) % (0.0-4.0) % Troponin I 0.10 H (0.02-0.05) ng/mL B-Natriuretic Peptide (0-100) pg/mL Total Protein (6.4-8.2) g/dL Albumin (3.4-5.0) g/dL Triglycerides (42-150) mg/dL Cholesterol (120-200) mg/dL LDL Cholesterol, Calc (0-99) mg/dL HDL Cholesterol (40.0-60.0) mg/dL Cholesterol/HDL Ratio Ratio Lipase (73-393) U/L TSH (0.358-3.740) uIU/mL Urine Color ([place]ellw/Straw) Urine Clarity (Clear) Urine pH (5.0-8.5) Ur Specific [place] (1.002-1.035) Urine Protein (Neg-Trace) mg/dL Urine Glucose (UA) (Negative) mg/dL Urine Ketones (Negative) mg/dL Urine Occult Blood (Negative) Urine Nitrate (Negative) Urine Bilirubin (Negative) Urine Urobilinogen (Less than 2) mg/dL Ur Leukocyte Esterase (Negative) Urine RBC (0-3) /hpf Urine WBC (0-5) /hpf Ur Squamous Epith Cells (0-5) /hpf Urine Mucus (Occasional) /lpf Micro UA Comment Ur Microscopic Review Urine Culture Comments Urine Eosinophils (None Seen) /HPF Ur Random Creatinine (27-300) mg/dL Ur Random Sodium meq/L Nasal Screen MRSA (PCR) (Negative) 09/14/18 09/14/18 09/14/18 Range/Units 22:25 22:25 23:02 WBC (4.0-11.0) th/mm3 RBC (4.50-5.90) mil/mm3 Hgb (13.0-17.0) gm/dL Hct (39.0-51.0) % MCV (80.0-100.0) fL MCH (27.0-34.0) pg MCHC (32.0-36.0) % RDW (11.6-17.2) % Plt Count (150-450) th/mm3 MPV (7.0-11.0) fL Neut % (Auto) (16.0-70.0) % Lymph % (Auto) (9.0-44.0) % [place] % (Auto) (0.0-8.0) % Eos % (Auto) (0.0-4.0) % Baso % (Auto) (0.0-2.0) % Neut # (Auto) (1.8-7.7) th/mm3 Lymph # (Auto) (1.0-4.8) th/mm3 [place] # (Auto) (0.0-0.9) th/mm3 Eos # (Auto) (0.0-0.4) th/mm3 Baso # (Auto) (0.0-0.2) th/mm3 WBC Differential Differential Comment PT (9.8-11.6) sec INR Ratio APTT (23.4-31.7) sec Sodium (136-145) meq/L Potassium (3.5-5.1) meq/L Chloride (98-107) meq/L Carbon Dioxide (21.0-32.0) meq/L Anion Gap (5-15) meq/L BUN (7-18) mg/dL Creatinine (0.60-1.30) mg/dL Estimated GFR (>89) mL/min POC Glucose 211 H (68-110) mg/dl Random Glucose (74-106) mg/dL Hemoglobin A1c (4.3-6.0) % Lactic Acid (0.4-2.0) mmol/L Calcium (8.5-10.1) mg/dL Phosphorus (2.5-4.9) mg/dL Magnesium (1.5-2.5) mg/dL Total Bilirubin (0.2-1.0) mg/dL AST (15-37) U/L ALT (12-78) U/L Alkaline Phosphatase (45-117) U/L Total Creatine Kinase (39-308) U/L CK-MB (CK-2) (0.5-3.6) ng/mL CK-MB (CK-2) % (0.0-4.0) % Troponin I (0.02-0.05) ng/mL B-Natriuretic Peptide (0-100) pg/mL Total Protein (6.4-8.2) g/dL Albumin (3.4-5.0) g/dL Triglycerides (42-150) mg/dL Cholesterol (120-200) mg/dL LDL Cholesterol, Calc (0-99) mg/dL HDL Cholesterol (40.0-60.0) mg/dL Cholesterol/HDL Ratio Ratio Lipase (73-393) U/L TSH (0.358-3.740) uIU/mL Urine Color ([place]ell[place]/Straw) Urine Clarity (Clear) Urine pH (5.0-8.5) Ur Specific [place] (1.002-1.035) Urine Protein (Neg-Trace) mg/dL Urine Glucose (UA) (Negative) mg/dL Urine Ketones (Negative) mg/dL Urine Occult Blood (Negative) Urine Nitrate (Negative) Urine Bilirubin (Negative) Urine Urobilinogen (Less than 2) mg/dL Ur Leukocyte Esterase (Negative) Urine RBC (0-3) /hpf Urine WBC (0-5) /hpf Ur Squamous Epith Cells (0-5) /hpf Urine Mucus (Occasional) /lpf Micro UA Comment Ur Microscopic Review Urine Culture Comments Urine Eosinophils None seen (None Seen) /HPF Ur Random Creatinine 39 (27-300) mg/dL Ur Random Sodium 92 meq/L Nasal Screen MRSA (PCR) (Negative) 09/15/18 09/15/18 09/15/18 Range/Units 01:10 01:10 01:10 WBC 8.6 (4.0-11.0) th/mm3 RBC 5.01 (4.50-5.90) mil/mm3 Hgb 13.1 (13.0-17.0) gm/dL Hct 39.6 (39.0-51.0) % MCV 79.0 L (80.0-100.0) fL MCH 26.1 L (27.0-34.0) pg MCHC 33.1 (32.0-36.0) % RDW 13.8 (11.6-17.2) % Plt Count 187 (150-450) th/mm3 MPV 9.0 (7.0-11.0) fL Neut % (Auto) 58.3 (16.0-70.0) % Lymph % (Auto) 31.4 (9.0-44.0) % [place] % (Auto) 8.2 H (0.0-8.0) % Eos % (Auto) 1.4 (0.0-4.0) % Baso % (Auto) 0.7 (0.0-2.0) % Neut # (Auto) 5.0 (1.8-7.7) th/mm3 Lymph # (Auto) 2.7 (1.0-4.8) th/mm3 [place] # (Auto) 0.7 (0.0-0.9) th/mm3 Eos # (Auto) 0.1 (0.0-0.4) th/mm3 Baso # (Auto) 0.1 (0.0-0.2) th/mm3 WBC Differential . Differential Comment Auto diff final PT 9.7 L (9.8-11.6) sec INR 1.0 Ratio APTT (23.4-31.7) sec Sodium 142 (136-145) meq/L Potassium 3.1 L D (3.5-5.1) meq/L Chloride 105 (98-107) meq/L Carbon Dioxide 29.6 (21.0-32.0) meq/L Anion Gap 7 (5-15) meq/L BUN 23 H (7-18) mg/dL Creatinine 1.76 H (0.60-1.30) mg/dL Estimated GFR 51 L (>89) mL/min POC Glucose (68-110) mg/dl Random Glucose 141 H D (74-106) mg/dL Hemoglobin A1c (4.3-6.0) % Lactic Acid (0.4-2.0) mmol/L Calcium 8.0 L (8.5-10.1) mg/dL Phosphorus 4.0 (2.5-4.9) mg/dL Magnesium 1.9 (1.5-2.5) mg/dL Total Bilirubin 0.3 (0.2-1.0) mg/dL AST 17 (15-37) U/L ALT 19 (12-78) U/L Alkaline Phosphatase 69 (45-117) U/L Total Creatine Kinase 276 (39-308) U/L CK-MB (CK-2) (0.5-3.6) ng/mL CK-MB (CK-2) % (0.0-4.0) % Troponin I 0.09 H (0.02-0.05) ng/mL B-Natriuretic Peptide (0-100) pg/mL Total Protein 6.4 D (6.4-8.2) g/dL Albumin 3.0 L (3.4-5.0) g/dL Triglycerides (42-150) mg/dL Cholesterol (120-200) mg/dL LDL Cholesterol, Calc (0-99) mg/dL HDL Cholesterol (40.0-60.0) mg/dL Cholesterol/HDL Ratio Ratio Lipase 210 (73-393) U/L TSH 0.287 L (0.358-3.740) uIU/mL Urine Color (Yellw/Straw) Urine Clarity (Clear) Urine pH (5.0-8.5) Ur Specific [place] (1.002-1.035) Urine Protein (Neg-Trace) mg/dL Urine Glucose (UA) (Negative) mg/dL Urine Ketones (Negative) mg/dL Urine Occult Blood (Negative) Urine Nitrate (Negative) Urine Bilirubin (Negative) Urine Urobilinogen (Less than 2) mg/dL Ur Leukocyte Esterase (Negative) Urine RBC (0-3) /hpf Urine WBC (0-5) /hpf Ur Squamous Epith Cells (0-5) /hpf Urine Mucus (Occasional) /lpf Micro UA Comment Ur Microscopic Review Urine Culture Comments Urine Eosinophils (None Seen) /HPF Ur Random Creatinine (27-300) mg/dL Ur Random Sodium meq/L Nasal Screen MRSA (PCR) (Negative) 09/15/18 09/15/18 09/15/18 Range/Units 01:10 03:25 08:15 WBC (4.0-11.0) th/mm3 RBC (4.50-5.90) mil/mm3 Hgb (13.0-17.0) gm/dL Hct (39.0-51.0) % MCV (80.0-100.0) fL MCH (27.0-34.0) pg MCHC (32.0-36.0) % RDW (11.6-17.2) % Plt Count (150-450) th/mm3 MPV (7.0-11.0) fL Neut % (Auto) (16.0-70.0) % Lymph % (Auto) (9.0-44.0) % [place] % (Auto) (0.0-8.0) % Eos % (Auto) (0.0-4.0) % Baso % (Auto) (0.0-2.0) % Neut # (Auto) (1.8-7.7) th/mm3 Lymph # (Auto) (1.0-4.8) th/mm3 [place] # (Auto) (0.0-0.9) th/mm3 Eos # (Auto) (0.0-0.4) th/mm3 Baso # (Auto) (0.0-0.2) th/mm3 WBC Differential Differential Comment PT (9.8-11.6) sec INR Ratio APTT (23.4-31.7) sec Sodium (136-145) meq/L Potassium (3.5-5.1) meq/L Chloride (98-107) meq/L Carbon Dioxide (21.0-32.0) meq/L Anion Gap (5-15) meq/L BUN (7-18) mg/dL Creatinine (0.60-1.30) mg/dL Estimated GFR (>89) mL/min POC Glucose 92 218 H (68-110) mg/dl Random Glucose (74-106) mg/dL Hemoglobin A1c (4.3-6.0) % Lactic Acid 1.1 (0.4-2.0) mmol/L Calcium (8.5-10.1) mg/dL Phosphorus (2.5-4.9) mg/dL Magnesium (1.5-2.5) mg/dL Total Bilirubin (0.2-1.0) mg/dL AST (15-37) U/L ALT (12-78) U/L Alkaline Phosphatase (45-117) U/L Total Creatine Kinase (39-308) U/L CK-MB (CK-2) (0.5-3.6) ng/mL CK-MB (CK-2) % (0.0-4.0) % Troponin I (0.02-0.05) ng/mL B-Natriuretic Peptide (0-100) pg/mL Total Protein (6.4-8.2) g/dL Albumin (3.4-5.0) g/dL Triglycerides (42-150) mg/dL Cholesterol (120-200) mg/dL LDL Cholesterol, Calc (0-99) mg/dL HDL Cholesterol (40.0-60.0) mg/dL Cholesterol/HDL Ratio Ratio Lipase (73-393) U/L TSH (0.358-3.740) uIU/mL Urine Color (Yellw/Straw) Urine Clarity (Clear) Urine pH (5.0-8.5) Ur Specific [place] (1.002-1.035) Urine Protein (Neg-Trace) mg/dL Urine Glucose (UA) (Negative) mg/dL Urine Ketones (Negative) mg/dL Urine Occult Blood (Negative) Urine Nitrate (Negative) Urine Bilirubin (Negative) Urine Urobilinogen (Less than 2) mg/dL Ur Leukocyte Esterase (Negative) Urine RBC (0-3) /hpf Urine WBC (0-5) /hpf Ur Squamous Epith Cells (0-5) /hpf Urine Mucus (Occasional) /lpf Micro UA Comment Ur Microscopic Review Urine Culture Comments Urine Eosinophils (None Seen) /HPF Ur Random Creatinine (27-300) mg/dL Ur Random Sodium meq/L Nasal Screen MRSA (PCR) (Negative) 09/15/18 09/15/18 09/15/18 Range/Units 10:56 12:08 16:40 WBC (4.0-11.0) th/mm3 RBC (4.50-5.90) mil/mm3 Hgb (13.0-17.0) gm/dL Hct (39.0-51.0) % MCV (80.0-100.0) fL MCH (27.0-34.0) pg MCHC (32.0-36.0) % RDW (11.6-17.2) % Plt Count (150-450) th/mm3 MPV (7.0-11.0) fL Neut % (Auto) (16.0-70.0) % Lymph % (Auto) (9.0-44.0) % [place] % (Auto) (0.0-8.0) % Eos % (Auto) (0.0-4.0) % Baso % (Auto) (0.0-2.0) % Neut # (Auto) (1.8-7.7) th/mm3 Lymph # (Auto) (1.0-4.8) th/mm3 [place] # (Auto) (0.0-0.9) th/mm3 Eos # (Auto) (0.0-0.4) th/mm3 Baso # (Auto) (0.0-0.2) th/mm3 WBC Differential Differential Comment PT (9.8-11.6) sec INR Ratio APTT (23.4-31.7) sec Sodium (136-145) meq/L Potassium (3.5-5.1) meq/L Chloride (98-107) meq/L Carbon Dioxide (21.0-32.0) meq/L Anion Gap (5-15) meq/L BUN (7-18) mg/dL Creatinine (0.60-1.30) mg/dL Estimated GFR (>89) mL/min POC Glucose 267 H 229 H (68-110) mg/dl Random Glucose (74-106) mg/dL Hemoglobin A1c (4.3-6.0) % Lactic Acid (0.4-2.0) mmol/L Calcium (8.5-10.1) mg/dL Phosphorus (2.5-4.9) mg/dL Magnesium 2.0 (1.5-2.5) mg/dL Total Bilirubin (0.2-1.0) mg/dL AST (15-37) U/L ALT (12-78) U/L Alkaline Phosphatase (45-117) U/L Total Creatine Kinase (39-308) U/L CK-MB (CK-2) (0.5-3.6) ng/mL CK-MB (CK-2) % (0.0-4.0) % Troponin I (0.02-0.05) ng/mL B-Natriuretic Peptide (0-100) pg/mL Total Protein (6.4-8.2) g/dL Albumin (3.4-5.0) g/dL Triglycerides (42-150) mg/dL Cholesterol (120-200) mg/dL LDL Cholesterol, Calc (0-99) mg/dL HDL Cholesterol (40.0-60.0) mg/dL Cholesterol/HDL Ratio Ratio Lipase (73-393) U/L TSH (0.358-3.740) uIU/mL Urine Color (Yellw/Straw) Urine Clarity (Clear) Urine pH (5.0-8.5) Ur Specific [place] (1.002-1.035) Urine Protein (Neg-Trace) mg/dL Urine Glucose (UA) (Negative) mg/dL Urine Ketones (Negative) mg/dL Urine Occult Blood (Negative) Urine Nitrate (Negative) Urine Bilirubin (Negative) Urine Urobilinogen (Less than 2) mg/dL Ur Leukocyte Esterase (Negative) Urine RBC (0-3) /hpf Urine WBC (0-5) /hpf Ur Squamous Epith Cells (0-5) /hpf Urine Mucus (Occasional) /lpf Micro UA Comment Ur Microscopic Review Urine Culture Comments Urine Eosinophils (None Seen) /HPF Ur Random Creatinine (27-300) mg/dL Ur Random Sodium meq/L Nasal Screen MRSA (PCR) (Negative) 09/15/18 09/16/18 09/16/18 Range/Units 20:31 00:13 04:36 WBC (4.0-11.0) th/mm3 RBC (4.50-5.90) mil/mm3 Hgb (13.0-17.0) gm/dL Hct (39.0-51.0) % MCV (80.0-100.0) fL MCH (27.0-34.0) pg MCHC (32.0-36.0) % RDW (11.6-17.2) % Plt Count (150-450) th/mm3 MPV (7.0-11.0) fL Neut % (Auto) (16.0-70.0) % Lymph % (Auto) (9.0-44.0) % [place] % (Auto) (0.0-8.0) % Eos % (Auto) (0.0-4.0) % Baso % (Auto) (0.0-2.0) % Neut # (Auto) (1.8-7.7) th/mm3 Lymph # (Auto) (1.0-4.8) th/mm3 [place] # (Auto) (0.0-0.9) th/mm3 Eos # (Auto) (0.0-0.4) th/mm3 Baso # (Auto) (0.0-0.2) th/mm3 WBC Differential Differential Comment PT (9.8-11.6) sec INR Ratio APTT (23.4-31.7) sec Sodium 140 (136-145) meq/L Potassium 3.0 L (3.5-5.1) meq/L Chloride 105 (98-107) meq/L Carbon Dioxide 27.9 (21.0-32.0) meq/L Anion Gap 7 (5-15) meq/L BUN 28 H (7-18) mg/dL Creatinine 1.74 H (0.60-1.30) mg/dL Estimated GFR 51 L (>89) mL/min POC Glucose 236 H 213 H (68-110) mg/dl Random Glucose 84 (74-106) mg/dL Hemoglobin A1c (4.3-6.0) % Lactic Acid (0.4-2.0) mmol/L Calcium 8.5 (8.5-10.1) mg/dL Phosphorus (2.5-4.9) mg/dL Magnesium 2.0 (1.5-2.5) mg/dL Total Bilirubin (0.2-1.0) mg/dL AST (15-37) U/L ALT (12-78) U/L Alkaline Phosphatase (45-117) U/L Total Creatine Kinase (39-308) U/L CK-MB (CK-2) (0.5-3.6) ng/mL CK-MB (CK-2) % (0.0-4.0) % Troponin I (0.02-0.05) ng/mL B-Natriuretic Peptide (0-100) pg/mL Total Protein (6.4-8.2) g/dL Albumin (3.4-5.0) g/dL Triglycerides (42-150) mg/dL Cholesterol (120-200) mg/dL LDL Cholesterol, Calc (0-99) mg/dL HDL Cholesterol (40.0-60.0) mg/dL Cholesterol/HDL Ratio Ratio Lipase (73-393) U/L TSH (0.358-3.740) uIU/mL Urine Color (Yellw/Straw) Urine Clarity (Clear) Urine pH (5.0-8.5) Ur Specific [place] (1.002-1.035) Urine Protein (Neg-Trace) mg/dL Urine Glucose (UA) (Negative) mg/dL Urine Ketones (Negative) mg/dL Urine Occult Blood (Negative) Urine Nitrate (Negative) Urine Bilirubin (Negative) Urine Urobilinogen (Less than 2) mg/dL Ur Leukocyte Esterase (Negative) Urine RBC (0-3) /hpf Urine WBC (0-5) /hpf Ur Squamous Epith Cells (0-5) /hpf Urine Mucus (Occasional) /lpf Micro UA Comment Ur Microscopic Review Urine Culture Comments Urine Eosinophils (None Seen) /HPF Ur Random Creatinine (27-300) mg/dL Ur Random Sodium meq/L Nasal Screen MRSA (PCR) (Negative) 09/16/18 09/16/18 09/16/18 Range/Units 05:16 11:34 13:40 WBC (4.0-11.0) th/mm3 RBC (4.50-5.90) mil/mm3 Hgb (13.0-17.0) gm/dL Hct (39.0-51.0) % MCV (80.0-100.0) fL MCH (27.0-34.0) pg MCHC (32.0-36.0) % RDW (11.6-17.2) % Plt Count (150-450) th/mm3 MPV (7.0-11.0) fL Neut % (Auto) (16.0-70.0) % Lymph % (Auto) (9.0-44.0) % [place] % (Auto) (0.0-8.0) % Eos % (Auto) (0.0-4.0) % Baso % (Auto) (0.0-2.0) % Neut # (Auto) (1.8-7.7) th/mm3 Lymph # (Auto) (1.0-4.8) th/mm3 [place] # (Auto) (0.0-0.9) th/mm3 Eos # (Auto) (0.0-0.4) th/mm3 Baso # (Auto) (0.0-0.2) th/mm3 WBC Differential Differential Comment PT (9.8-11.6) sec INR Ratio APTT (23.4-31.7) sec Sodium (136-145) meq/L Potassium (3.5-5.1) meq/L Chloride (98-107) meq/L Carbon Dioxide (21.0-32.0) meq/L Anion Gap (5-15) meq/L BUN (7-18) mg/dL Creatinine (0.60-1.30) mg/dL Estimated GFR (>89) mL/min POC Glucose 101 307 H (68-110) mg/dl Random Glucose (74-106) mg/dL Hemoglobin A1c (4.3-6.0) % Lactic Acid (0.4-2.0) mmol/L Calcium (8.5-10.1) mg/dL Phosphorus (2.5-4.9) mg/dL Magnesium (1.5-2.5) mg/dL Total Bilirubin (0.2-1.0) mg/dL AST (15-37) U/L ALT (12-78) U/L Alkaline Phosphatase (45-117) U/L Total Creatine Kinase 602 H (39-308) U/L CK-MB (CK-2) 3.6 (0.5-3.6) ng/mL CK-MB (CK-2) % 0.6 (0.0-4.0) % Troponin I 0.11 H (0.02-0.05) ng/mL B-Natriuretic Peptide (0-100) pg/mL Total Protein (6.4-8.2) g/dL Albumin (3.4-5.0) g/dL Triglycerides (42-150) mg/dL Cholesterol (120-200) mg/dL LDL Cholesterol, Calc (0-99) mg/dL HDL Cholesterol (40.0-60.0) mg/dL Cholesterol/HDL Ratio Ratio Lipase (73-393) U/L TSH (0.358-3.740) uIU/mL Urine Color (Yellw/Straw) Urine Clarity (Clear) Urine pH (5.0-8.5) Ur Specific [place] (1.002-1.035) Urine Protein (Neg-Trace) mg/dL Urine Glucose (UA) (Negative) mg/dL Urine Ketones (Negative) mg/dL Urine Occult Blood (Negative) Urine Nitrate (Negative) Urine Bilirubin (Negative) Urine Urobilinogen (Less than 2) mg/dL Ur Leukocyte Esterase (Negative) Urine RBC (0-3) /hpf Urine WBC (0-5) /hpf Ur Squamous Epith Cells (0-5) /hpf Urine Mucus (Occasional) /lpf Micro UA Comment Ur Microscopic Review Urine Culture Comments Urine Eosinophils (None Seen) /HPF Ur Random Creatinine (27-300) mg/dL Ur Random Sodium meq/L Nasal Screen MRSA (PCR) (Negative) 09/16/18 09/16/18 09/16/18 Range/Units 14:42 16:42 19:10 WBC (4.0-11.0) th/mm3 RBC (4.50-5.90) mil/mm3 Hgb (13.0-17.0) gm/dL Hct (39.0-51.0) % MCV (80.0-100.0) fL MCH (27.0-34.0) pg MCHC (32.0-36.0) % RDW (11.6-17.2) % Plt Count (150-450) th/mm3 MPV (7.0-11.0) fL Neut % (Auto) (16.0-70.0) % Lymph % (Auto) (9.0-44.0) % [place] % (Auto) (0.0-8.0) % Eos % (Auto) (0.0-4.0) % Baso % (Auto) (0.0-2.0) % Neut # (Auto) (1.8-7.7) th/mm3 Lymph # (Auto) (1.0-4.8) th/mm3 [place] # (Auto) (0.0-0.9) th/mm3 Eos # (Auto) (0.0-0.4) th/mm3 Baso # (Auto) (0.0-0.2) th/mm3 WBC Differential Differential Comment PT (9.8-11.6) sec INR Ratio APTT (23.4-31.7) sec Sodium (136-145) meq/L Potassium 4.5 D (3.5-5.1) meq/L Chloride (98-107) meq/L Carbon Dioxide (21.0-32.0) meq/L Anion Gap (5-15) meq/L BUN (7-18) mg/dL Creatinine (0.60-1.30) mg/dL Estimated GFR (>89) mL/min POC Glucose 298 H (68-110) mg/dl Random Glucose (74-106) mg/dL Hemoglobin A1c (4.3-6.0) % Lactic Acid (0.4-2.0) mmol/L Calcium (8.5-10.1) mg/dL Phosphorus (2.5-4.9) mg/dL Magnesium (1.5-2.5) mg/dL Total Bilirubin (0.2-1.0) mg/dL AST (15-37) U/L ALT (12-78) U/L Alkaline Phosphatase (45-117) U/L Total Creatine Kinase 607 H (39-308) U/L CK-MB (CK-2) 3.9 H (0.5-3.6) ng/mL CK-MB (CK-2) % 0.6 (0.0-4.0) % Troponin I 0.06 H (0.02-0.05) ng/mL B-Natriuretic Peptide (0-100) pg/mL Total Protein (6.4-8.2) g/dL Albumin (3.4-5.0) g/dL Triglycerides (42-150) mg/dL Cholesterol (120-200) mg/dL LDL Cholesterol, Calc (0-99) mg/dL HDL Cholesterol (40.0-60.0) mg/dL Cholesterol/HDL Ratio Ratio Lipase (73-393) U/L TSH (0.358-3.740) uIU/mL Urine Color (Yellw/Straw) Urine Clarity (Clear) Urine pH (5.0-8.5) Ur Specific [place] (1.002-1.035) Urine Protein (Neg-Trace) mg/dL Urine Glucose (UA) (Negative) mg/dL Urine Ketones (Negative) mg/dL Urine Occult Blood (Negative) Urine Nitrate (Negative) Urine Bilirubin (Negative) Urine Urobilinogen (Less than 2) mg/dL Ur Leukocyte Esterase (Negative) Urine RBC (0-3) /hpf Urine WBC (0-5) /hpf Ur Squamous Epith Cells (0-5) /hpf Urine Mucus (Occasional) /lpf Micro UA Comment Ur Microscopic Review Urine Culture Comments Urine Eosinophils (None Seen) /HPF Ur Random Creatinine (27-300) mg/dL Ur Random Sodium meq/L Nasal Screen MRSA (PCR) (Negative) 09/16/18 09/16/18 09/17/18 Range/Units 19:38 20:44 05:18 WBC (4.0-11.0) th/mm3 RBC (4.50-5.90) mil/mm3 Hgb (13.0-17.0) gm/dL Hct (39.0-51.0) % MCV (80.0-100.0) fL MCH (27.0-34.0) pg MCHC (32.0-36.0) % RDW (11.6-17.2) % Plt Count (150-450) th/mm3 MPV (7.0-11.0) fL Neut % (Auto) (16.0-70.0) % Lymph % (Auto) (9.0-44.0) % [place] % (Auto) (0.0-8.0) % Eos % (Auto) (0.0-4.0) % Baso % (Auto) (0.0-2.0) % Neut # (Auto) (1.8-7.7) th/mm3 Lymph # (Auto) (1.0-4.8) th/mm3 [place] # (Auto) (0.0-0.9) th/mm3 Eos # (Auto) (0.0-0.4) th/mm3 Baso # (Auto) (0.0-0.2) th/mm3 WBC Differential Differential Comment PT (9.8-11.6) sec INR Ratio APTT (23.4-31.7) sec Sodium 139 (136-145) meq/L Potassium 3.7 D (3.5-5.1) meq/L Chloride 104 (98-107) meq/L Carbon Dioxide 26.1 (21.0-32.0) meq/L Anion Gap 9 (5-15) meq/L BUN 26 H (7-18) mg/dL Creatinine 1.60 H (0.60-1.30) mg/dL Estimated GFR 56 L (>89) mL/min POC Glucose 157 H (68-110) mg/dl Random Glucose 176 H (74-106) mg/dL Hemoglobin A1c (4.3-6.0) % Lactic Acid (0.4-2.0) mmol/L Calcium 8.2 L (8.5-10.1) mg/dL Phosphorus (2.5-4.9) mg/dL Magnesium 2.0 (1.5-2.5) mg/dL Total Bilirubin (0.2-1.0) mg/dL AST (15-37) U/L ALT (12-78) U/L Alkaline Phosphatase (45-117) U/L Total Creatine Kinase (39-308) U/L CK-MB (CK-2) (0.5-3.6) ng/mL CK-MB (CK-2) % (0.0-4.0) % Troponin I 0.09 H (0.02-0.05) ng/mL B-Natriuretic Peptide (0-100) pg/mL Total Protein (6.4-8.2) g/dL Albumin (3.4-5.0) g/dL Triglycerides (42-150) mg/dL Cholesterol (120-200) mg/dL LDL Cholesterol, Calc (0-99) mg/dL HDL Cholesterol (40.0-60.0) mg/dL Cholesterol/HDL Ratio Ratio Lipase (73-393) U/L TSH (0.358-3.740) uIU/mL Urine Color Yellow (Yellw/Straw) Urine Clarity Clear (Clear) Urine pH 6.0 (5.0-8.5) Ur Specific [place] 1.025 (1.002-1.035) Urine Protein Negative (Neg-Trace) mg/dL Urine Glucose (UA) 500 or greater (Negative) mg/dL Urine Ketones Negative (Negative) mg/dL Urine Occult Blood Negative (Negative) Urine Nitrate Negative (Negative) Urine Bilirubin Negative (Negative) Urine Urobilinogen Less than 2 (Less than 2) mg/dL Ur Leukocyte Esterase Negative (Negative) Urine RBC Less than 1 (0-3) /hpf Urine WBC Less than 1 (0-5) /hpf Ur Squamous Epith Cells <1 (0-5) /hpf Urine Mucus Few H (Occasional) /lpf Micro UA Comment Culture not ind Ur Microscopic Review Not Reportable Urine Culture Comments Culture not ind Urine Eosinophils (None Seen) /HPF Ur Random Creatinine (27-300) mg/dL Ur Random Sodium meq/L Nasal Screen MRSA (PCR) (Negative) 09/17/18 09/17/18 09/17/18 Range/Units 05:18 05:18 11:30 WBC (4.0-11.0) th/mm3 RBC (4.50-5.90) mil/mm3 Hgb (13.0-17.0) gm/dL Hct (39.0-51.0) % MCV (80.0-100.0) fL MCH (27.0-34.0) pg MCHC (32.0-36.0) % RDW (11.6-17.2) % Plt Count (150-450) th/mm3 MPV (7.0-11.0) fL Neut % (Auto) (16.0-70.0) % Lymph % (Auto) (9.0-44.0) % [place] % (Auto) (0.0-8.0) % Eos % (Auto) (0.0-4.0) % Baso % (Auto) (0.0-2.0) % Neut # (Auto) (1.8-7.7) th/mm3 Lymph # (Auto) (1.0-4.8) th/mm3 [place] # (Auto) (0.0-0.9) th/mm3 Eos # (Auto) (0.0-0.4) th/mm3 Baso # (Auto) (0.0-0.2) th/mm3 WBC Differential Differential Comment PT (9.8-11.6) sec INR Ratio APTT (23.4-31.7) sec Sodium (136-145) meq/L Potassium (3.5-5.1) meq/L Chloride (98-107) meq/L Carbon Dioxide (21.0-32.0) meq/L Anion Gap (5-15) meq/L BUN (7-18) mg/dL Creatinine (0.60-1.30) mg/dL Estimated GFR (>89) mL/min POC Glucose 295 H (68-110) mg/dl Random Glucose (74-106) mg/dL Hemoglobin A1c (4.3-6.0) % Lactic Acid (0.4-2.0) mmol/L Calcium (8.5-10.1) mg/dL Phosphorus (2.5-4.9) mg/dL Magnesium (1.5-2.5) mg/dL Total Bilirubin (0.2-1.0) mg/dL AST (15-37) U/L ALT (12-78) U/L Alkaline Phosphatase (45-117) U/L Total Creatine Kinase (39-308) U/L CK-MB (CK-2) (0.5-3.6) ng/mL CK-MB (CK-2) % (0.0-4.0) % Troponin I (0.02-0.05) ng/mL B-Natriuretic Peptide 664 H (0-100) pg/mL Total Protein (6.4-8.2) g/dL Albumin (3.4-5.0) g/dL Triglycerides 124 (42-150) mg/dL Cholesterol 261 H (120-200) mg/dL LDL Cholesterol, Calc 195 H (0-99) mg/dL HDL Cholesterol 41.5 (40.0-60.0) mg/dL Cholesterol/HDL Ratio 6.28 Ratio Lipase (73-393) U/L TSH (0.358-3.740) uIU/mL Urine Color ([place]/Straw) Urine Clarity (Clear) Urine pH (5.0-8.5) Ur Specific [place] (1.002-1.035) Urine Protein (Neg-Trace) mg/dL Urine Glucose (UA) (Negative) mg/dL Urine Ketones (Negative) mg/dL Urine Occult Blood (Negative) Urine Nitrate (Negative) Urine Bilirubin (Negative) Urine Urobilinogen (Less than 2) mg/dL Ur Leukocyte Esterase (Negative) Urine RBC (0-3) /hpf Urine WBC (0-5) /hpf Ur Squamous Epith Cells (0-5) /hpf Urine Mucus (Occasional) /lpf Micro UA Comment Ur Microscopic Review Urine Culture Comments Urine Eosinophils (None Seen) /HPF Ur Random Creatinine (27-300) mg/dL Ur Random Sodium meq/L Nasal Screen MRSA (PCR) (Negative) 09/17/18 09/17/18 09/18/18 Range/Units 16:59 21:45 05:50 WBC (4.0-11.0) th/mm3 RBC (4.50-5.90) mil/mm3 Hgb (13.0-17.0) gm/dL Hct (39.0-51.0) % MCV (80.0-100.0) fL MCH (27.0-34.0) pg MCHC (32.0-36.0) % RDW (11.6-17.2) % Plt Count (150-450) th/mm3 MPV (7.0-11.0) fL Neut % (Auto) (16.0-70.0) % Lymph % (Auto) (9.0-44.0) % [place] % (Auto) (0.0-8.0) % Eos % (Auto) (0.0-4.0) % Baso % (Auto) (0.0-2.0) % Neut # (Auto) (1.8-7.7) th/mm3 Lymph # (Auto) (1.0-4.8) th/mm3 [place] # (Auto) (0.0-0.9) th/mm3 Eos # (Auto) (0.0-0.4) th/mm3 Baso # (Auto) (0.0-0.2) th/mm3 WBC Differential Differential Comment PT (9.8-11.6) sec INR Ratio APTT (23.4-31.7) sec Sodium 139 (136-145) meq/L Potassium 3.3 L (3.5-5.1) meq/L Chloride 106 (98-107) meq/L Carbon Dioxide 24.1 (21.0-32.0) meq/L Anion Gap 9 (5-15) meq/L BUN 24 H (7-18) mg/dL Creatinine 1.48 H (0.60-1.30) mg/dL Estimated GFR 62 L (>89) mL/min POC Glucose 109 277 H (68-110) mg/dl Random Glucose 97 (74-106) mg/dL Hemoglobin A1c (4.3-6.0) % Lactic Acid (0.4-2.0) mmol/L Calcium 8.1 L (8.5-10.1) mg/dL Phosphorus (2.5-4.9) mg/dL Magnesium 2.1 (1.5-2.5) mg/dL Total Bilirubin (0.2-1.0) mg/dL AST (15-37) U/L ALT (12-78) U/L Alkaline Phosphatase (45-117) U/L Total Creatine Kinase (39-308) U/L CK-MB (CK-2) (0.5-3.6) ng/mL CK-MB (CK-2) % (0.0-4.0) % Troponin I 0.06 H (0.02-0.05) ng/mL B-Natriuretic Peptide (0-100) pg/mL Total Protein (6.4-8.2) g/dL Albumin (3.4-5.0) g/dL Triglycerides (42-150) mg/dL Cholesterol (120-200) mg/dL LDL Cholesterol, Calc (0-99) mg/dL HDL Cholesterol (40.0-60.0) mg/dL Cholesterol/HDL Ratio Ratio Lipase (73-393) U/L TSH (0.358-3.740) uIU/mL Urine Color ([place]ell[place]/Straw) Urine Clarity (Clear) Urine pH (5.0-8.5) Ur Specific [place] (1.002-1.035) Urine Protein (Neg-Trace) mg/dL Urine Glucose (UA) (Negative) mg/dL Urine Ketones (Negative) mg/dL Urine Occult Blood (Negative) Urine Nitrate (Negative) Urine Bilirubin (Negative) Urine Urobilinogen (Less than 2) mg/dL Ur Leukocyte Esterase (Negative) Urine RBC (0-3) /hpf Urine WBC (0-5) /hpf Ur Squamous Epith Cells (0-5) /hpf Urine Mucus (Occasional) /lpf Micro UA Comment Ur Microscopic Review Urine Culture Comments Urine Eosinophils (None Seen) /HPF Ur Random Creatinine (27-300) mg/dL Ur Random Sodium meq/L Nasal Screen MRSA (PCR) (Negative) 09/18/18 09/18/18 09/18/18 Range/Units 05:50 11:12 16:28 WBC (4.0-11.0) th/mm3 RBC (4.50-5.90) mil/mm3 Hgb (13.0-17.0) gm/dL Hct (39.0-51.0) % MCV (80.0-100.0) fL MCH (27.0-34.0) pg MCHC (32.0-36.0) % RDW (11.6-17.2) % Plt Count (150-450) th/mm3 MPV (7.0-11.0) fL Neut % (Auto) (16.0-70.0) % Lymph % (Auto) (9.0-44.0) % [place] % (Auto) (0.0-8.0) % Eos % (Auto) (0.0-4.0) % Baso % (Auto) (0.0-2.0) % Neut # (Auto) (1.8-7.7) th/mm3 Lymph # (Auto) (1.0-4.8) th/mm3 [place] # (Auto) (0.0-0.9) th/mm3 Eos # (Auto) (0.0-0.4) th/mm3 Baso # (Auto) (0.0-0.2) th/mm3 WBC Differential Differential Comment PT (9.8-11.6) sec INR Ratio APTT (23.4-31.7) sec Sodium (136-145) meq/L Potassium (3.5-5.1) meq/L Chloride (98-107) meq/L Carbon Dioxide (21.0-32.0) meq/L Anion Gap (5-15) meq/L BUN (7-18) mg/dL Creatinine (0.60-1.30) mg/dL Estimated GFR (>89) mL/min POC Glucose 197 H 184 H (68-110) mg/dl Random Glucose (74-106) mg/dL Hemoglobin A1c (4.3-6.0) % Lactic Acid (0.4-2.0) mmol/L Calcium (8.5-10.1) mg/dL Phosphorus (2.5-4.9) mg/dL Magnesium (1.5-2.5) mg/dL Total Bilirubin (0.2-1.0) mg/dL AST (15-37) U/L ALT (12-78) U/L Alkaline Phosphatase (45-117) U/L Total Creatine Kinase (39-308) U/L CK-MB (CK-2) (0.5-3.6) ng/mL CK-MB (CK-2) % (0.0-4.0) % Troponin I (0.02-0.05) ng/mL B-Natriuretic Peptide 491 H (0-100) pg/mL Total Protein (6.4-8.2) g/dL Albumin (3.4-5.0) g/dL Triglycerides (42-150) mg/dL Cholesterol (120-200) mg/dL LDL Cholesterol, Calc (0-99) mg/dL HDL Cholesterol (40.0-60.0) mg/dL Cholesterol/HDL Ratio Ratio Lipase (73-393) U/L TSH (0.358-3.740) uIU/mL Urine Color (Yellw/Straw) Urine Clarity (Clear) Urine pH (5.0-8.5) Ur Specific [place] (1.002-1.035) Urine Protein (Neg-Trace) mg/dL Urine Glucose (UA) (Negative) mg/dL Urine Ketones (Negative) mg/dL Urine Occult Blood (Negative) Urine Nitrate (Negative) Urine Bilirubin (Negative) Urine Urobilinogen (Less than 2) mg/dL Ur Leukocyte Esterase (Negative) Urine RBC (0-3) /hpf Urine WBC (0-5) /hpf Ur Squamous Epith Cells (0-5) /hpf Urine Mucus (Occasional) /lpf Micro UA Comment Ur Microscopic Review Urine Culture Comments Urine Eosinophils (None Seen) /HPF Ur Random Creatinine (27-300) mg/dL Ur Random Sodium meq/L Nasal Screen MRSA (PCR) (Negative) 09/18/18 09/19/18 09/19/18 Range/Units 19:33 04:49 11:46 WBC (4.0-11.0) th/mm3 RBC (4.50-5.90) mil/mm3 Hgb (13.0-17.0) gm/dL Hct (39.0-51.0) % MCV (80.0-100.0) fL MCH (27.0-34.0) pg MCHC (32.0-36.0) % RDW (11.6-17.2) % Plt Count (150-450) th/mm3 MPV (7.0-11.0) fL Neut % (Auto) (16.0-70.0) % Lymph % (Auto) (9.0-44.0) % [place] % (Auto) (0.0-8.0) % Eos % (Auto) (0.0-4.0) % Baso % (Auto) (0.0-2.0) % Neut # (Auto) (1.8-7.7) th/mm3 Lymph # (Auto) (1.0-4.8) th/mm3 [place] # (Auto) (0.0-0.9) th/mm3 Eos # (Auto) (0.0-0.4) th/mm3 Baso # (Auto) (0.0-0.2) th/mm3 WBC Differential Differential Comment PT (9.8-11.6) sec INR Ratio APTT (23.4-31.7) sec Sodium 140 (136-145) meq/L Potassium 3.4 L (3.5-5.1) meq/L Chloride 105 (98-107) meq/L Carbon Dioxide 26.8 (21.0-32.0) meq/L Anion Gap 8 (5-15) meq/L BUN 24 H (7-18) mg/dL Creatinine 1.67 H (0.60-1.30) mg/dL Estimated GFR 54 L (>89) mL/min POC Glucose 266 H 224 H (68-110) mg/dl Random Glucose 127 H (74-106) mg/dL Hemoglobin A1c (4.3-6.0) % Lactic Acid (0.4-2.0) mmol/L Calcium 8.0 L (8.5-10.1) mg/dL Phosphorus (2.5-4.9) mg/dL Magnesium 2.2 (1.5-2.5) mg/dL Total Bilirubin (0.2-1.0) mg/dL AST (15-37) U/L ALT (12-78) U/L Alkaline Phosphatase (45-117) U/L Total Creatine Kinase (39-308) U/L CK-MB (CK-2) (0.5-3.6) ng/mL CK-MB (CK-2) % (0.0-4.0) % Troponin I (0.02-0.05) ng/mL B-Natriuretic Peptide (0-100) pg/mL Total Protein (6.4-8.2) g/dL Albumin (3.4-5.0) g/dL Triglycerides (42-150) mg/dL Cholesterol (120-200) mg/dL LDL Cholesterol, Calc (0-99) mg/dL HDL Cholesterol (40.0-60.0) mg/dL Cholesterol/HDL Ratio Ratio Lipase (73-393) U/L TSH (0.358-3.740) uIU/mL Urine Color (Yellw/Straw) Urine Clarity (Clear) Urine pH (5.0-8.5) Ur Specific [place] (1.002-1.035) Urine Protein (Neg-Trace) mg/dL Urine Glucose (UA) (Negative) mg/dL Urine Ketones (Negative) mg/dL Urine Occult Blood (Negative) Urine Nitrate (Negative) Urine Bilirubin (Negative) Urine Urobilinogen (Less than 2) mg/dL Ur Leukocyte Esterase (Negative) Urine RBC (0-3) /hpf Urine WBC (0-5) /hpf Ur Squamous Epith Cells (0-5) /hpf Urine Mucus (Occasional) /lpf Micro UA Comment Ur Microscopic Review Urine Culture Comments Urine Eosinophils (None Seen) /HPF Ur Random Creatinine (27-300) mg/dL Ur Random Sodium meq/L Nasal Screen MRSA (PCR) (Negative) 09/19/18 09/19/18 09/20/18 Range/Units 17:14 20:36 04:25 WBC (4.0-11.0) th/mm3 RBC (4.50-5.90) mil/mm3 Hgb (13.0-17.0) gm/dL Hct (39.0-51.0) % MCV (80.0-100.0) fL MCH (27.0-34.0) pg MCHC (32.0-36.0) % RDW (11.6-17.2) % Plt Count (150-450) th/mm3 MPV (7.0-11.0) fL Neut % (Auto) (16.0-70.0) % Lymph % (Auto) (9.0-44.0) % [place] % (Auto) (0.0-8.0) % Eos % (Auto) (0.0-4.0) % Baso % (Auto) (0.0-2.0) % Neut # (Auto) (1.8-7.7) th/mm3 Lymph # (Auto) (1.0-4.8) th/mm3 [place] # (Auto) (0.0-0.9) th/mm3 Eos # (Auto) (0.0-0.4) th/mm3 Baso # (Auto) (0.0-0.2) th/mm3 WBC Differential Differential Comment PT (9.8-11.6) sec INR Ratio APTT (23.4-31.7) sec Sodium 139 (136-145) meq/L Potassium 3.7 (3.5-5.1) meq/L Chloride 108 H (98-107) meq/L Carbon Dioxide 22.7 (21.0-32.0) meq/L Anion Gap 8 (5-15) meq/L BUN 21 H (7-18) mg/dL Creatinine 1.56 H (0.60-1.30) mg/dL Estimated GFR 58 L (>89) mL/min POC Glucose 193 H 216 H (68-110) mg/dl Random Glucose 116 H (74-106) mg/dL Hemoglobin A1c (4.3-6.0) % Lactic Acid (0.4-2.0) mmol/L Calcium 8.5 (8.5-10.1) mg/dL Phosphorus (2.5-4.9) mg/dL Magnesium 2.2 (1.5-2.5) mg/dL Total Bilirubin 0.6 (0.2-1.0) mg/dL AST 21 (15-37) U/L ALT 25 (12-78) U/L Alkaline Phosphatase 56 (45-117) U/L Total Creatine Kinase (39-308) U/L CK-MB (CK-2) (0.5-3.6) ng/mL CK-MB (CK-2) % (0.0-4.0) % Troponin I (0.02-0.05) ng/mL B-Natriuretic Peptide (0-100) pg/mL Total Protein 6.4 (6.4-8.2) g/dL Albumin 2.9 L (3.4-5.0) g/dL Triglycerides (42-150) mg/dL Cholesterol (120-200) mg/dL LDL Cholesterol, Calc (0-99) mg/dL HDL Cholesterol (40.0-60.0) mg/dL Cholesterol/HDL Ratio Ratio Lipase (73-393) U/L TSH (0.358-3.740) uIU/mL Urine Color (Yellw/Straw) Urine Clarity (Clear) Urine pH (5.0-8.5) Ur Specific [place] (1.002-1.035) Urine Protein (Neg-Trace) mg/dL Urine Glucose (UA) (Negative) mg/dL Urine Ketones (Negative) mg/dL Urine Occult Blood (Negative) Urine Nitrate (Negative) Urine Bilirubin (Negative) Urine Urobilinogen (Less than 2) mg/dL Ur Leukocyte Esterase (Negative) Urine RBC (0-3) /hpf Urine WBC (0-5) /hpf Ur Squamous Epith Cells (0-5) /hpf Urine Mucus (Occasional) /lpf Micro UA Comment Ur Microscopic Review Urine Culture Comments Urine Eosinophils (None Seen) /HPF Ur Random Creatinine (27-300) mg/dL Ur Random Sodium meq/L Nasal Screen MRSA (PCR) (Negative) 09/20/18 09/20/18 09/20/18 Range/Units 07:48 11:39 16:32 WBC (4.0-11.0) th/mm3 RBC (4.50-5.90) mil/mm3 Hgb (13.0-17.0) gm/dL Hct (39.0-51.0) % MCV (80.0-100.0) fL MCH (27.0-34.0) pg MCHC (32.0-36.0) % RDW (11.6-17.2) % Plt Count (150-450) th/mm3 MPV (7.0-11.0) fL Neut % (Auto) (16.0-70.0) % Lymph % (Auto) (9.0-44.0) % [place] % (Auto) (0.0-8.0) % Eos % (Auto) (0.0-4.0) % Baso % (Auto) (0.0-2.0) % Neut # (Auto) (1.8-7.7) th/mm3 Lymph # (Auto) (1.0-4.8) th/mm3 [place] # (Auto) (0.0-0.9) th/mm3 Eos # (Auto) (0.0-0.4) th/mm3 Baso # (Auto) (0.0-0.2) th/mm3 WBC Differential Differential Comment PT (9.8-11.6) sec INR Ratio APTT (23.4-31.7) sec Sodium (136-145) meq/L Potassium (3.5-5.1) meq/L Chloride (98-107) meq/L Carbon Dioxide (21.0-32.0) meq/L Anion Gap (5-15) meq/L BUN (7-18) mg/dL Creatinine (0.60-1.30) mg/dL Estimated GFR (>89) mL/min POC Glucose 122 H 165 H 187 H (68-110) mg/dl Random Glucose (74-106) mg/dL Hemoglobin A1c (4.3-6.0) % Lactic Acid (0.4-2.0) mmol/L Calcium (8.5-10.1) mg/dL Phosphorus (2.5-4.9) mg/dL Magnesium (1.5-2.5) mg/dL Total Bilirubin (0.2-1.0) mg/dL AST (15-37) U/L ALT (12-78) U/L Alkaline Phosphatase (45-117) U/L Total Creatine Kinase (39-308) U/L CK-MB (CK-2) (0.5-3.6) ng/mL CK-MB (CK-2) % (0.0-4.0) % Troponin I (0.02-0.05) ng/mL B-Natriuretic Peptide (0-100) pg/mL Total Protein (6.4-8.2) g/dL Albumin (3.4-5.0) g/dL Triglycerides (42-150) mg/dL Cholesterol (120-200) mg/dL LDL Cholesterol, Calc (0-99) mg/dL HDL Cholesterol (40.0-60.0) mg/dL Cholesterol/HDL Ratio Ratio Lipase (73-393) U/L TSH (0.358-3.740) uIU/mL Urine Color (Yellw/Straw) Urine Clarity (Clear) Urine pH (5.0-8.5) Ur Specific [place] (1.002-1.035) Urine Protein (Neg-Trace) mg/dL Urine Glucose (UA) (Negative) mg/dL Urine Ketones (Negative) mg/dL Urine Occult Blood (Negative) Urine Nitrate (Negative) Urine Bilirubin (Negative) Urine Urobilinogen (Less than 2) mg/dL Ur Leukocyte Esterase (Negative) Urine RBC (0-3) /hpf Urine WBC (0-5) /hpf Ur Squamous Epith Cells (0-5) /hpf Urine Mucus (Occasional) /lpf Micro UA Comment Ur Microscopic Review Urine Culture Comments Urine Eosinophils (None Seen) /HPF Ur Random Creatinine (27-300) mg/dL Ur Random Sodium meq/L Nasal Screen MRSA (PCR) (Negative) 09/20/18 09/21/18 09/21/18 Range/Units 20:50 04:51 04:51 WBC 7.3 (4.0-11.0) th/mm3 RBC 4.77 (4.50-5.90) mil/mm3 Hgb 12.4 L (13.0-17.0) gm/dL Hct 37.8 L (39.0-51.0) % MCV 79.4 L (80.0-100.0) fL MCH 26.1 L (27.0-34.0) pg MCHC 32.9 (32.0-36.0) % RDW 14.0 (11.6-17.2) % Plt Count 214 (150-450) th/mm3 MPV 9.3 (7.0-11.0) fL Neut % (Auto) 59.9 (16.0-70.0) % Lymph % (Auto) 25.5 (9.0-44.0) % [place] % (Auto) 12.2 H (0.0-8.0) % Eos % (Auto) 1.3 (0.0-4.0) % Baso % (Auto) 1.1 (0.0-2.0) % Neut # (Auto) 4.4 (1.8-7.7) th/mm3 Lymph # (Auto) 1.9 (1.0-4.8) th/mm3 [place] # (Auto) 0.9 (0.0-0.9) th/mm3 Eos # (Auto) 0.1 (0.0-0.4) th/mm3 Baso # (Auto) 0.1 (0.0-0.2) th/mm3 WBC Differential . Differential Comment Auto diff final PT (9.8-11.6) sec INR Ratio APTT (23.4-31.7) sec Sodium 142 (136-145) meq/L Potassium 3.6 (3.5-5.1) meq/L Chloride 110 H (98-107) meq/L Carbon Dioxide 24.5 (21.0-32.0) meq/L Anion Gap 8 (5-15) meq/L BUN 20 H (7-18) mg/dL Creatinine 1.63 H (0.60-1.30) mg/dL Estimated GFR 55 L (>89) mL/min POC Glucose 370 H (68-110) mg/dl Random Glucose 97 (74-106) mg/dL Hemoglobin A1c (4.3-6.0) % Lactic Acid (0.4-2.0) mmol/L Calcium 8.2 L (8.5-10.1) mg/dL Phosphorus (2.5-4.9) mg/dL Magnesium (1.5-2.5) mg/dL Total Bilirubin 0.5 (0.2-1.0) mg/dL AST 31 (15-37) U/L ALT 35 (12-78) U/L Alkaline Phosphatase 64 (45-117) U/L Total Creatine Kinase (39-308) U/L CK-MB (CK-2) (0.5-3.6) ng/mL CK-MB (CK-2) % (0.0-4.0) % Troponin I 0.05 (0.02-0.05) ng/mL B-Natriuretic Peptide (0-100) pg/mL Total Protein 6.4 (6.4-8.2) g/dL Albumin 2.9 L (3.4-5.0) g/dL Triglycerides (42-150) mg/dL Cholesterol (120-200) mg/dL LDL Cholesterol, Calc (0-99) mg/dL HDL Cholesterol (40.0-60.0) mg/dL Cholesterol/HDL Ratio Ratio Lipase (73-393) U/L TSH (0.358-3.740) uIU/mL Urine Color (Yellw/Straw) Urine Clarity (Clear) Urine pH (5.0-8.5) Ur Specific [place] (1.002-1.035) Urine Protein (Neg-Trace) mg/dL Urine Glucose (UA) (Negative) mg/dL Urine Ketones (Negative) mg/dL Urine Occult Blood (Negative) Urine Nitrate (Negative) Urine Bilirubin (Negative) Urine Urobilinogen (Less than 2) mg/dL Ur Leukocyte Esterase (Negative) Urine RBC (0-3) /hpf Urine WBC (0-5) /hpf Ur Squamous Epith Cells (0-5) /hpf Urine Mucus (Occasional) /lpf Micro UA Comment Ur Microscopic Review Urine Culture Comments Urine Eosinophils (None Seen) /HPF Ur Random Creatinine (27-300) mg/dL Ur Random Sodium meq/L Nasal Screen MRSA (PCR) (Negative) 09/21/18 09/21/18 09/21/18 Range/Units 04:51 08:15 09:36 WBC (4.0-11.0) th/mm3 RBC (4.50-5.90) mil/mm3 Hgb (13.0-17.0) gm/dL Hct (39.0-51.0) % MCV (80.0-100.0) fL MCH (27.0-34.0) pg MCHC (32.0-36.0) % RDW (11.6-17.2) % Plt Count (150-450) th/mm3 MPV (7.0-11.0) fL Neut % (Auto) (16.0-70.0) % Lymph % (Auto) (9.0-44.0) % [place] % (Auto) (0.0-8.0) % Eos % (Auto) (0.0-4.0) % Baso % (Auto) (0.0-2.0) % Neut # (Auto) (1.8-7.7) th/mm3 Lymph # (Auto) (1.0-4.8) th/mm3 [place] # (Auto) (0.0-0.9) th/mm3 Eos # (Auto) (0.0-0.4) th/mm3 Baso # (Auto) (0.0-0.2) th/mm3 WBC Differential Differential Comment PT (9.8-11.6) sec INR Ratio APTT (23.4-31.7) sec Sodium (136-145) meq/L Potassium (3.5-5.1) meq/L Chloride (98-107) meq/L Carbon Dioxide (21.0-32.0) meq/L Anion Gap (5-15) meq/L BUN (7-18) mg/dL Creatinine (0.60-1.30) mg/dL Estimated GFR (>89) mL/min POC Glucose 127 H 148 H (68-110) mg/dl Random Glucose (74-106) mg/dL Hemoglobin A1c (4.3-6.0) % Lactic Acid (0.4-2.0) mmol/L Calcium (8.5-10.1) mg/dL Phosphorus 3.3 (2.5-4.9) mg/dL Magnesium 2.0 (1.5-2.5) mg/dL Total Bilirubin (0.2-1.0) mg/dL AST (15-37) U/L ALT (12-78) U/L Alkaline Phosphatase (45-117) U/L Total Creatine Kinase (39-308) U/L CK-MB (CK-2) (0.5-3.6) ng/mL CK-MB (CK-2) % (0.0-4.0) % Troponin I (0.02-0.05) ng/mL B-Natriuretic Peptide (0-100) pg/mL Total Protein (6.4-8.2) g/dL Albumin (3.4-5.0) g/dL Triglycerides (42-150) mg/dL Cholesterol (120-200) mg/dL LDL Cholesterol, Calc (0-99) mg/dL HDL Cholesterol (40.0-60.0) mg/dL Cholesterol/HDL Ratio Ratio Lipase (73-393) U/L TSH (0.358-3.740) uIU/mL Urine Color (Yellw/Straw) Urine Clarity (Clear) Urine pH (5.0-8.5) Ur Specific [place] (1.002-1.035) Urine Protein (Neg-Trace) mg/dL Urine Glucose (UA) (Negative) mg/dL Urine Ketones (Negative) mg/dL Urine Occult Blood (Negative) Urine Nitrate (Negative) Urine Bilirubin (Negative) Urine Urobilinogen (Less than 2) mg/dL Ur Leukocyte Esterase (Negative) Urine RBC (0-3) /hpf Urine WBC (0-5) /hpf Ur Squamous Epith Cells (0-5) /hpf Urine Mucus (Occasional) /lpf Micro UA Comment Ur Microscopic Review Urine Culture Comments Urine Eosinophils (None Seen) /HPF Ur Random Creatinine (27-300) mg/dL Ur Random Sodium meq/L Nasal Screen MRSA (PCR) (Negative) 09/21/18 09/21/18 09/21/18 Range/Units 15:05 17:01 22:06 WBC 7.6 (4.0-11.0) th/mm3 RBC 4.71 (4.50-5.90) mil/mm3 Hgb 12.4 L (13.0-17.0) gm/dL Hct 37.9 L (39.0-51.0) % MCV 80.5 (80.0-100.0) fL MCH 26.3 L (27.0-34.0) pg MCHC 32.7 (32.0-36.0) % RDW 14.0 (11.6-17.2) % Plt Count 222 (150-450) th/mm3 MPV 9.2 (7.0-11.0) fL Neut % (Auto) 80.0 H (16.0-70.0) % Lymph % (Auto) 12.0 (9.0-44.0) % [place] % (Auto) 7.1 (0.0-8.0) % Eos % (Auto) 0.3 (0.0-4.0) % Baso % (Auto) 0.6 (0.0-2.0) % Neut # (Auto) 6.1 (1.8-7.7) th/mm3 Lymph # (Auto) 0.9 L (1.0-4.8) th/mm3 [place] # (Auto) 0.5 (0.0-0.9) th/mm3 Eos # (Auto) 0.0 (0.0-0.4) th/mm3 Baso # (Auto) 0.0 (0.0-0.2) th/mm3 WBC Differential . Differential Comment Auto diff final PT (9.8-11.6) sec INR Ratio APTT (23.4-31.7) sec Sodium (136-145) meq/L Potassium (3.5-5.1) meq/L Chloride (98-107) meq/L Carbon Dioxide (21.0-32.0) meq/L Anion Gap (5-15) meq/L BUN (7-18) mg/dL Creatinine (0.60-1.30) mg/dL Estimated GFR (>89) mL/min POC Glucose 203 H 207 H (68-110) mg/dl Random Glucose (74-106) mg/dL Hemoglobin A1c (4.3-6.0) % Lactic Acid (0.4-2.0) mmol/L Calcium (8.5-10.1) mg/dL Phosphorus (2.5-4.9) mg/dL Magnesium (1.5-2.5) mg/dL Total Bilirubin (0.2-1.0) mg/dL AST (15-37) U/L ALT (12-78) U/L Alkaline Phosphatase (45-117) U/L Total Creatine Kinase (39-308) U/L CK-MB (CK-2) (0.5-3.6) ng/mL CK-MB (CK-2) % (0.0-4.0) % Troponin I (0.02-0.05) ng/mL B-Natriuretic Peptide (0-100) pg/mL Total Protein (6.4-8.2) g/dL Albumin (3.4-5.0) g/dL Triglycerides (42-150) mg/dL Cholesterol (120-200) mg/dL LDL Cholesterol, Calc (0-99) mg/dL HDL Cholesterol (40.0-60.0) mg/dL Cholesterol/HDL Ratio Ratio Lipase (73-393) U/L TSH (0.358-3.740) uIU/mL Urine Color (Yellw/Straw) Urine Clarity (Clear) Urine pH (5.0-8.5) Ur Specific [place] (1.002-1.035) Urine Protein (Neg-Trace) mg/dL Urine Glucose (UA) (Negative) mg/dL Urine Ketones (Negative) mg/dL Urine Occult Blood (Negative) Urine Nitrate (Negative) Urine Bilirubin (Negative) Urine Urobilinogen (Less than 2) mg/dL Ur Leukocyte Esterase (Negative) Urine RBC (0-3) /hpf Urine WBC (0-5) /hpf Ur Squamous Epith Cells (0-5) /hpf Urine Mucus (Occasional) /lpf Micro UA Comment Ur Microscopic Review Urine Culture Comments Urine Eosinophils (None Seen) /HPF Ur Random Creatinine (27-300) mg/dL Ur Random Sodium meq/L Nasal Screen MRSA (PCR) (Negative) 09/22/18 09/22/18 09/22/18 Range/Units 03:45 03:45 11:41 WBC 7.7 (4.0-11.0) th/mm3 RBC 4.56 (4.50-5.90) mil/mm3 Hgb 12.1 L (13.0-17.0) gm/dL Hct 36.6 L (39.0-51.0) % MCV 80.1 (80.0-100.0) fL MCH 26.4 L (27.0-34.0) pg MCHC 33.0 (32.0-36.0) % RDW 13.8 (11.6-17.2) % Plt Count 203 (150-450) th/mm3 MPV 9.2 (7.0-11.0) fL Neut % (Auto) 63.5 (16.0-70.0) % Lymph % (Auto) 24.2 (9.0-44.0) % [place] % (Auto) 10.6 H (0.0-8.0) % Eos % (Auto) 1.0 (0.0-4.0) % Baso % (Auto) 0.7 (0.0-2.0) % Neut # (Auto) 4.9 (1.8-7.7) th/mm3 Lymph # (Auto) 1.9 (1.0-4.8) th/mm3 [place] # (Auto) 0.8 (0.0-0.9) th/mm3 Eos # (Auto) 0.1 (0.0-0.4) th/mm3 Baso # (Auto) 0.1 (0.0-0.2) th/mm3 WBC Differential . Differential Comment Auto diff final PT (9.8-11.6) sec INR Ratio APTT (23.4-31.7) sec Sodium 143 (136-145) meq/L Potassium 3.9 (3.5-5.1) meq/L Chloride 108 H (98-107) meq/L Carbon Dioxide 25.2 (21.0-32.0) meq/L Anion Gap 10 (5-15) meq/L BUN 20 H (7-18) mg/dL Creatinine 1.53 H (0.60-1.30) mg/dL Estimated GFR 59 L (>89) mL/min POC Glucose 166 H (68-110) mg/dl Random Glucose 115 H (74-106) mg/dL Hemoglobin A1c (4.3-6.0) % Lactic Acid (0.4-2.0) mmol/L Calcium 7.8 L (8.5-10.1) mg/dL Phosphorus (2.5-4.9) mg/dL Magnesium (1.5-2.5) mg/dL Total Bilirubin 0.6 (0.2-1.0) mg/dL AST 19 (15-37) U/L ALT 27 (12-78) U/L Alkaline Phosphatase 56 (45-117) U/L Total Creatine Kinase (39-308) U/L CK-MB (CK-2) (0.5-3.6) ng/mL CK-MB (CK-2) % (0.0-4.0) % Troponin I (0.02-0.05) ng/mL B-Natriuretic Peptide (0-100) pg/mL Total Protein 6.1 L (6.4-8.2) g/dL Albumin 2.6 L (3.4-5.0) g/dL Triglycerides (42-150) mg/dL Cholesterol (120-200) mg/dL LDL Cholesterol, Calc (0-99) mg/dL HDL Cholesterol (40.0-60.0) mg/dL Cholesterol/HDL Ratio Ratio Lipase (73-393) U/L TSH (0.358-3.740) uIU/mL Urine Color (Yellw/Straw) Urine Clarity (Clear) Urine pH (5.0-8.5) Ur Specific [place] (1.002-1.035) Urine Protein (Neg-Trace) mg/dL Urine Glucose (UA) (Negative) mg/dL Urine Ketones (Negative) mg/dL Urine Occult Blood (Negative) Urine Nitrate (Negative) Urine Bilirubin (Negative) Urine Urobilinogen (Less than 2) mg/dL Ur Leukocyte Esterase (Negative) Urine RBC (0-3) /hpf Urine WBC (0-5) /hpf Ur Squamous Epith Cells (0-5) /hpf Urine Mucus (Occasional) /lpf Micro UA Comment Ur Microscopic Review Urine Culture Comments Urine Eosinophils (None Seen) /HPF Ur Random Creatinine (27-300) mg/dL Ur Random Sodium meq/L Nasal Screen MRSA (PCR) (Negative) Imaging Data Radiologist's impression: Chest X-Ray 09/13/18 22:20 CONCLUSION: New bilateral pulmonary opacities most characteristic of pulmonary edema. The differential diagnosis includes cardiogenic and noncardiogenic causes. Chest X-Ray 09/14/18 09:40 CONCLUSION: Improving aeration Pulmonary Perfusion Imaging 09/15/18 00:00 CONCLUSION: 1. Negative examination. Venous Doppler Study 09/15/18 00:00 CONCLUSION: 1. No evidence of DVT. Abdomen/Bladder Ultrasound 09/16/18 00:00 CONCLUSION: 1. No evidence of hydronephrosis. 2. Mild increased echogenicity of the renal parenchyma bilaterally. This can be seen with chronic medical renal disease. Chest X-Ray 09/16/18 11:01 CONCLUSION: Mild increased interstitial markings with prominence of the pulmonary vessels suggestive of pulmonary edema. Chest X-Ray 09/21/18 00:00 CONCLUSION: Increased perihilar and lower lung zone airspace consolidation. The appearance could be consistent with pulmonary edema in the appropriate clinical setting. Chest X-Ray 09/22/18 04:00 CONCLUSION: Stable appearance of the chest. Discharge Plan Discharge Disposition Patient Disposition: ED Admit(ED Internal Use Only) Discharge Condition Condition: Fair Discharge Order Discharge Orders: ED Use Only Admit Order (Routine); Ordered 09/14/18 Ordered By: Alberto Feliciano Discharge Details Diagnosis: Malignant hypertension, Pulmonary edema, HTN (hypertension), NSTEMI (non-ST elevated myocardial infarction) Physicians Team ED Provider: Alberto Feliciano Primary Care Provider: UNKNOWN, Attending Provider: Starr Watkins Other Providers: Addy Cobian ; [facility],Insurance ; Jez Preston ; Starr Watkins ; Mike Avendaño Discharge Interventions Interventions: ED Discharge Assessment Last Done: 09/14/18 04:07 Status ED Status: Left Department Discharge Information Discharge Date/Time: 09/14/18 04:08
--- NOTE | 2018-09-13 22:38 | XR ---
EXAM DATE: 09/13/2018 10:32 PM EST AGE/SEX: 47 years / Male INDICATIONS: Short of breath, chest pain CLINICAL DATA: This is the patient's initial encounter. Patient reports that signs and symptoms have been present for 1 day and indicates a pain score of 2/10. MEDICAL/SURGICAL HISTORY: . Diabetes mellitus type II. Hypertension. Sleep apnea None. None. COMPARISON: [facility], CHEST SINGLE AP, 01/30/2018. . FINDINGS: A single AP erect portable view of the chest was obtained and demonstrates new bilateral alveolar opa cities greatest in the perihilar regions and lung bases. There is no distinct effusion. The heart siz e appears mildly prominent. The bony thorax is intact. There are multiple overlying electrocardiogram leads. CONCLUSION: New bilateral pulmonary opacities most characteristic of pulmonary edema. The differential diagnosis includes cardiogenic and noncardiogenic causes. Electronically signed by: Forrest Nova MD 09/13/2018 10:37 PM EST
[2018-09-13 22:48] LABS: Baso # (Auto) 0.1 th/mm3 (0.0-0.2); Baso % (Auto) 0.8 % (0.0-2.0); Eos # (Auto) 0.1 th/mm3 (0.0-0.4); Eos % (Auto) 1.3 % (0.0-4.0); Hemoglobin 14.7 gm/dL (13.0-17.0); Lymph # (Auto) 2.3 th/mm3 (1.0-4.8); Lymph % (Auto) 24.1 % (9.0-44.0); Mean Corpuscular HGB Conc 31.4 % (32.0-36.0); Mean Corpuscular Hemoglobin 25.4 pg (27.0-34.0); Mean Platelet Volume 9.6 fL (7.0-11.0); Mono # (Auto) 0.8 th/mm3 (0.0-0.9); Mono % (Auto) 7.9 % (0.0-8.0); Neut # (Auto) 6.4 th/mm3 (1.8-7.7); Neut % (Auto) 65.9 % (16.0-70.0); Platelet Count 201 th/mm3 (150-450); Red Cell Distribution Width 14.3 % (11.6-17.2); White Blood Count 9.7 th/mm3 (4.0-11.0)
[2018-09-13 23:00] LABS: Activated Partial Thrombo Time 24.4 sec (23.4-31.7); INR 0.9 Ratio; Prothrombin Time 9.4 sec (9.8-11.6)
[2018-09-13 23:13] LABS: Alanine Aminotransferase 24 U/L (12-78); Albumin 3.4 g/dL (3.4-5.0); Anion Gap 9 meq/L (5-15); Aspartate Aminotransferase 20 U/L (15-37); Blood Urea Nitrogen 20 mg/dL (7-18); Calcium 8.6 mg/dL (8.5-10.1); Carbon Dioxide 24.5 meq/L (21.0-32.0); Chloride 102 meq/L (98-107); Glomerular Filtration Rate 48 mL/min (>89); Glucose,Random 447 mg/dL (74-106); Potassium 3.4 meq/L (3.5-5.1); Sodium 135 meq/L (136-145)
[2018-09-13 23:22] LABS: Alkaline Phosphatase 107 U/L (45-117); Total Protein 7.4 g/dL (6.4-8.2); Troponin I 0.11 ng/mL (0.02-0.05)
--- NOTE | 2018-09-14 01:15 | P.HPCC ---
History of Present Illness Service: Critical care medicine Primary Care Physician: UNKNOWN Chief Complaint: SOB History of Present Illness: 47-year-old male with past medical history of hypertension, diabetes, obesity, obstructive sleep apnea presented to [facility] emergency department with acute onset of shortness of breath. When EVAC arrived his room air sats were in the 80s. He had rales on exam and was expectorating pink frothy sputum. He was also hypertensive with blood pressure 220s. He was given nitroglycerin sublingual x2, placed on CPAP and administer Lasix 100 mg IV prior to arrival. CXR demonstrated pulmonary edema. He was complaining of burning pain "throughout his whole chest". EKG demonstrated no ischemic changes. Troponin 0.11. He was started on cardene in the ED to control BP. Ingot [employer] has been consulted for admission. Patient states he has had nonproductive cough for about 2 weeks. No fevers or chills. He did not experience any shortness of breath until tonight. It was associated with diaphoresis. He had some nausea while he was on BiPAP but he has subsequently removed that and is on nasal cannula. Denies prior cardiac history. States he had a stress test and cath about 5 years ago in [place] that were negative. He previously was on multiple antihypertensive medications. A couple of years ago he was going to the gym frequently and lost some weight and then was taken off his antihypertensives. Has now stopped exercising and says his blood pressure has not been very well controlled. He now only takes losartan 50 mg p.o. daily which he did take today. He has diuresed 2 L in the emergency department. He does not have any chest pain currently. No headache or visual changes. He says he has had 2 prior sleep studies want a [place] and another in [place] and was told he needed CPAP but he moved away before he was able to establish with pulmonology or to get CPAP therapy. He is requesting assistance with this issue. - Diagnosis (1) Malignant hypertension (2) Pulmonary edema (3) CKD (chronic kidney disease), stage III (4) Poorly controlled type 2 diabetes mellitus (5) JULIANNE (obstructive sleep apnea) (6) Obesity (BMI 30.0-34.9) (7) Hypokalemia (8) Insomnia Inpatient Certification: I certify that the inpatient services were ordered in accordance with Medicare regulations governing the order. This includes certification that hospital inpatient services are reasonable and necessary and in the case of services not specified as inpatient-only under 42 CFR 419.22(n), that they are appropriately provided as inpatient services in accordance to with the 2-midnight benchmark under 43 CFR 412.3(e) Review of Systems All other systems reviewed negative except as stated in HPI PMFSH - History History Provided By: Patient - Medical History Medical History: Medical History (Last Updated 09/14/18 @ 08:04 by Coco Haney MD) Floaters Diabetes mellitus HTN (hypertension) Sleep apnea - Surgical History Surgical History: Surgical History (Last Reviewed 09/14/18 @ 01:14 by Coco Haney MD) No history of previous surgery - Family History Family History: Family History (Last Updated 09/14/18 @ 08:02 by Coco Haney MD) Father No significant medical problems Mother No significant medical problems - Tobacco History Second Hand Smoke Exposure: No Smoking Status: Never smoker - Alcohol History How Often Do You Have a Drink Containing Alcohol: Never - Substance Use History Substance History: No History of Abuse - Travel History Recent Travel in the [place] Within the Last 8 Weeks: No Recent Travel Out of the Country Within the Last 8 Weeks: No - Immunization History Tetanus Immunization: Unsure Medications and Allergies Active Medications: Active Medications Nicardipine HCl 25 mg/ Sodium (Chloride) 250 mls @ 50 mls/hr IV.CONT TITRATE PRN; Protocol PRN Reason: Per Protocol Last Admin: 09/13/18 22:30 Dose: 5 mg/hr, 50 mls/hr Sodium Chloride (Ns Flush) 2 ml IV.FLUSH UNSCH PRN PRN Reason: FLUSH AFTER USING IV ACCESS Allergies Allergy/AdvReac Type Severity Reaction Status Date / Time No Known Allergies Allergy Unverified 07/04/18 08:26 Home Medications Medication Instructions Recorded Confirmed Type glyburide-metformin 2 tab PO BID 07/04/18 09/13/18 History losartan 50 mg PO DAILY 07/04/18 09/13/18 History Results - Labs CBC & Chem 7: 09/14/18 05:01 09/14/18 05:01 Labs: Short CBC 09/13/18 Range/Units 22:20 WBC 9.7 (4.0-11.0) th/mm3 Hgb 14.7 (13.0-17.0) gm/dL Hct 47.0 (39.0-51.0) % Plt Count 201 (150-450) th/mm3 BMP 09/13/18 22:20 Sodium 135 L Potassium 3.4 L Chloride 102 Carbon Dioxide 24.5 BUN 20 H Creatinine 1.84 H Calcium 8.6 Cardiac Enzymes 09/13/18 Range/Units 22:20 Troponin I 0.11 H (0.02-0.05) ng/mL Liver Function 09/13/18 Range/Units 22:20 Total Bilirubin 0.5 (0.2-1.0) mg/dL AST 20 (15-37) U/L ALT 24 (12-78) U/L Alkaline Phosphatase 107 (45-117) U/L Albumin 3.4 (3.4-5.0) g/dL - Imaging Impressions Chest X-Ray 09/13/18 22:20 CONCLUSION: New bilateral pulmonary opacities most characteristic of pulmonary edema. The differential diagnosis includes cardiogenic and noncardiogenic causes. Exam Vital signs: Vital Signs 09/13/18 22:17 09/13/18 22:20 09/13/18 22:25 Temperature 98.2 F Pulse Rate 160 H 138 H Respiratory Rate 24 24 Blood Pressure 224/134 H 213/127 H Pulse Oximetry 85 L 93 L 94 L 09/13/18 22:55 09/13/18 23:25 09/13/18 23:30 Temperature Pulse Rate 135 H 126 H Respiratory Rate 28 H 28 H Blood Pressure 177/109 H 169/104 H Pulse Oximetry 97 9 L 97 09/14/18 00:00 09/14/18 00:30 Temperature Pulse Rate 124 H 122 H Respiratory Rate 34 H 29 H Blood Pressure 156/87 H 174/80 H Pulse Oximetry 93 L 91 L Intake & Output 09/13/18 09/13/18 09/14/18 06:59 18:59 06:59 Weight 90.718 kg Narrative: GENERAL: Well-nourished, well-developed overweight -[place] male who is sitting straight up in ED stretcher. On nasal cannula. SKIN: Warm and dry. HEAD: Atraumatic. Normocephalic. EYES: Pupils equal and round, 3 mm and reactive. No scleral icterus. No injection or drainage. ENT: No nasal bleeding or discharge. Mucous membranes pink and moist. NECK: Trachea midline. No JVD. CARDIOVASCULAR: Regular rate and rhythm. No murmurs rubs or gallops. RESPIRATORY: Mildly tachypneic but with no accessory muscle use. Bibasilar rales are present. No wheezes or rhonchi. GASTROINTESTINAL: Abdomen soft, non-tender, nondistended. Bowel sounds present. MUSCULOSKELETAL: Extremities without clubbing, cyanosis, or edema. No obvious deformities. NEUROLOGICAL: Awake and alert. No obvious cranial nerve deficits. Motor grossly within normal limits. Five out of 5 muscle strength in the arms and legs. Normal speech. Caprini VTE Risk Assessment Caprini VTE Risk Assessment: Moderate/High Risk (score >= 2) Caprini Risk Assessment Model: Point Value = 1 Point Value = 2 Point Value = 3 Point Value = 5 Age 41-60 Minor surgery BMI > 25 kg/m2 Swollen legs Varicose veins or History of unexplained or recurrent spontaneous Oral contraceptives or hormone replacement Sepsis (< 1 month) Serious lung disease, including pneumonia (< 1 month) Abnormal pulmonary function Acute myocardial infarction Congestive heart failure (< 1 month) History of inflammatory bowel disease Medical patient at bed rest Age 61-74 Arthroscopic surgery Major open surgery (> 45 min) Laparoscopic surgery (> 45 min) Malignancy Confined to bed (> 72 hours) Immobilizing plaster cast Central venous access Age >= 75 History of VTE Family history of VTE Factor V Leiden Prothrombin [id number] Lupus anticoagulant Anticardiolipin antibodies Elevated serum homocysteine Heparin-induced thrombocytopenia Other congenital or acquired thrombophilia Stroke (< 1 month) Elective arthroplasty Hip, pelvis, or leg fracture Acute spinal cord injury (< 1 month) Prophylaxis Regimen: Total Risk Factor Score Risk Level Prophylaxis Regimen 0-1 Low Early ambulation 2 Moderate Order ONE of the following: *Sequential Compression Device (SCD) *Heparin 5000 units SQ BID 3-4 Higher Order ONE of the following medications: *Heparin 5000 units SQ TID *Enoxaparin/Lovenox 40 mg SQ daily (WT < 150 kg, CrCl > 30 mL/min) *Enoxaparin/Lovenox 30 mg SQ daily (WT < 150 kg, CrCl > 10-29 mL/min) *Enoxaparin/Lovenox 30 mg SQ BID (WT < 150 kg, CrCl > 30 mL/min) AND/OR *Sequential Compression Device (SCD) 5 or more Highest Order ONE of the following medications: *Heparin 5000 units SQ TID (Preferred with Epidurals) *Enoxaparin/Lovenox 40 mg SQ daily (WT < 150 kg, CrCl > 30 mL/min) *Enoxaparin/Lovenox 30 mg SQ daily (WT < 150 kg, CrCl > 10-29 mL/min) *Enoxaparin/Lovenox 30 mg SQ BID (WT < 150 kg, CrCl > 30 mL/min) AND *Sequential Compression Device (SCD) Assessment and Plan - Problem List (1) Malignant hypertension Code(s): I10 - Essential (primary) hypertension Status: Acute (2) Pulmonary edema Code(s): J81.1 - Chronic pulmonary edema Status: Acute (3) CKD (chronic kidney disease), stage III Code(s): N18.3 - Chronic kidney disease, stage 3 (moderate) Status: Chronic (4) Poorly controlled type 2 diabetes mellitus Code(s): E11.65 - Type 2 diabetes mellitus with hyperglycemia Status: Chronic (5) JULIANNE (obstructive sleep apnea) Code(s): G47.33 - Obstructive sleep apnea (adult) (pediatric) Status: Chronic (6) Obesity (BMI 30.0-34.9) Code(s): E66.9 - Obesity, unspecified Status: Chronic (7) Hypokalemia Code(s): E87.6 - Hypokalemia Status: Acute (8) Insomnia Code(s): G47.00 - Insomnia, unspecified Status: Chronic - Assessment and Plan Plan: NEURO: Tylenol as needed for pain RESP: Acute pulmonary edema secondary to malignant hypertension Obstructive sleep apnea Blood pressure management as per below. On nasal cannula. Use BiPAP as needed. Received Lasix 100 mg IV prior to arrival. Has diuresed 2 L. Will monitor output and may need to give additional diuretic today. Schedule Lasix 40 mg IV daily. Counseled that JULIANNE can contribute to systemic and pulmonary HTN and should be managed. Patient is agreeable because has been troubled by daytime sleepiness and requests assistance because he has had difficulty getting followup care for home CPAP. Consult pulmonology to establish care and assist with obtaining home CPAP. CV: Malignant hypertension On Cardene drip weaning for systolic blood pressure less than 140 Continue losartan 50 mg p.o. daily Add metoprolol 50 mg p.o. twice daily Chest pain was atypical and resolved quickly with blood pressure control. Troponin is mildly elevated which may be secondary to severe hypertension. Trend troponin and follow-up EKG. Aspirin 162 mg p.o. now Follow-up 2D echo GI: Cardiac diet FEN/RENAL: Hypokalemia Replace with K-Dur 40 mg p.o. Chronic kidney disease stage III Voiding ID: Monitor for signs and symptoms of infection HEME: No acute hematologic issues ENDO: Diabetes mellitus poorly controlled Check hemoglobin A1c. Hold metformin/glyburide. Monitor bedside glucose every 4 hours and administer low-dose insulin sliding scale as indicated. TSH WNL PROPH: SCDs/Lovenox 40 mg subcu daily for DVT prophylaxis. Stress ulcer prophylaxis is not indicated. ACCESS: [facility] is providing adequate access at this time Full code Level 3 H&P
[2018-09-14] MEDS ORDERED: Dextrose 50% in Water 50 ML Vial IV.PUSH PRN (01:38)
[2018-09-14] MEDS ORDERED: Sodium Chloride 0.9% 2 ML Flush PRN IV.FLUSH (01:39)
[2018-09-14] MEDS ORDERED: Potassium Phosphate Inj 30 MMOL in Sodium Chlor 0.9% Inj 250 ML IV.SIG PRN (01:48)
[2018-09-14] MEDS ORDERED: Potassium Chlor 40 mEq Premix 40 MEQ/100 ML PIGGYBACK IV.SIG PRN ×2 (01:48)
[2018-09-14] MEDS ORDERED: Bisacodyl 10 MG Supp RECTAL PRN (01:48)
[2018-09-14] MEDS ORDERED: Potassium Chlor 20 mEq Premix 20 MEQ/100 ML PIGGYBACK IV.SIG PRN ×2 (01:48)
[2018-09-14] MEDS ORDERED: Sodium Phosphate Inj 30 MMOL in Sodium Chlor 0.9% Inj 250 ML IV.SIG PRN (01:48)
[2018-09-14] MEDS ORDERED: Magnesium Oxide 400 MG Tablet PO PRN (01:48)
[2018-09-14] MEDS ORDERED: Potassium Phosphate 500 MG Soluble Tablet PO PRN ×2 (01:48)
[2018-09-14] MEDS ORDERED: Potassium Chloride 25 MEQ Effervescent Tablet PO PRN (01:48)
[2018-09-14] MEDS ORDERED: Magnesium Sulfate Inj 4 GM in Sodium Chlor 0.9% Inj 92 ML IV.SIG PRN (01:48)
[2018-09-14] MEDS ORDERED: Acetaminophen 325 MG Tablet PO PRN (01:48)
[2018-09-14] MEDS ORDERED: Magnesium Sulfate Inj 2 GM in Sodium Chlor 0.9% Inj 96 ML IV.SIG PRN (01:48)
[2018-09-14] MEDS: Metoprolol Tartrate 50 MG Tablet PO SCH ×2 (03:23→20:03)
[2018-09-14] MEDS: niCARdipine Inj 25 MG in Sodium Chlor 0.9% Inj 240 ML IV.CONT PRN (03:59)
[2018-09-14] MEDS ORDERED: Chlorhexidine Gluconate 2% 1 Pack (2 Cloths) TOPICAL PRN (04:00)
[2018-09-14] MEDS: Insulin NovoLOG Aspart Correctional Sugar Inj SQ SCH ×6 (04:13→23:06)
[2018-09-14 05:17] LABS: Hematocrit 44.7 % (39.0-51.0); Hemoglobin 14.3 gm/dL (13.0-17.0); Mean Corpuscular Hemoglobin 25.8 pg (27.0-34.0); Mean Corpuscular Volume 80.6 fL (80.0-100.0); Mean Platelet Volume 9.6 fL (7.0-11.0); Platelet Count 201 th/mm3 (150-450); Red Blood Count 5.55 mil/mm3 (4.50-5.90); Red Cell Distribution Width 14.1 % (11.6-17.2); White Blood Count 11.2 th/mm3 (4.0-11.0)
[2018-09-14] MEDS: Chlorhexidine Gluconate 2% 1 Pack (2 Cloths) TOPICAL SCH (05:24)
[2018-09-14 05:47] LABS: Calcium 7.6 mg/dL (8.5-10.1); Carbon Dioxide 25.5 meq/L (21.0-32.0); Troponin I 0.13 ng/mL (0.02-0.05)
[2018-09-14] MEDS ORDERED: Sodium Chloride 0.9% 2 ML Flush BID IV.FLUSH SCH (09:00)
[2018-09-14] MEDS: Enoxaparin Inj 40 MG/0.4 ML Syringe SQ SCH (09:08)
[2018-09-14] MEDS: Insulin Detemir Inj 1,000 UNIT/10 ML Vial SQ SCH ×2 (09:08→20:04)
[2018-09-14] MEDS: Senna/Docusate Sodium 8.6/50 MG Tablet PO SCH ×2 (09:09→20:03)
--- NOTE | 2018-09-14 10:13 | XR ---
EXAM DATE: 09/14/2018 10:10 AM EST AGE/SEX: 47 years / Male INDICATIONS: Shortness of breath. CLINICAL DATA: This is the patient's subsequent encounter. Patient reports that signs and symptoms h ave been present for 3 days and indicates a pain score of 0/10. MEDICAL/SURGICAL HISTORY: Diabetes mellitus type II. Hypertension. None. [place] [facility] [place]13/[place]. . FINDINGS: There has been decrease in confluence of bilateral infiltrates. Cardiac contours are grossly unchange d. CONCLUSION: Improving aeration Electronically signed by: Nando Maxwell MD 09/14/2018 10:11 AM EST
--- NOTE | 2018-09-14 11:04 | MB ---
cc: Addy Cobian MD DATE: 09/14/2018 PULMONARY CONSULTATION HISTORY OF PRESENT ILLNESS: The patient is a 47-year-old male with past medical history of hypertension, diabetes mellitus, obesity, obstructive sleep apnea, who presented to [facility] with a 2-day history of progressive worsening shortness of breath associated with productive cough and wheezing. The patient denies any chest pain or constitutional symptoms. On arrival to the ED, he had O2 saturation in the 80s on room air and hypertensive with a systolic blood pressure in the 200s. A chest x-ray showed pulmonary edema. He was started on a Cardene drip in the ED and the patient was admitted to ICU under critical care service. He is currently off Cardene drip with current blood pressure of 130/82 and saturation of 95%-98% on 5 liters oxygen. The patient was given Lasix 40 mg IV push this morning. He is feeling overall better. The patient is a nonsmoker. He states that he was diagnosed with obstructive sleep apnea 5 years ago; however, he did not complete the second part of the sleep study. He denies any nausea, vomiting or abdominal pain. PAST MEDICAL HISTORY: Significant for hypertension, diabetes mellitus, obstructive sleep apnea. PAST SURGICAL HISTORY: Unremarkable. SOCIAL HISTORY: Nonsmoker, occasional drinker. ALLERGIES: NO KNOWN DRUG ALLERGIES. FAMILY HISTORY: Unremarkable. MEDICATIONS AT HOME: Include: 1. Losartan. 2. Glyburide/metformin. REVIEW OF SYSTEMS: As per HPI, rest of review of systems is unremarkable. PHYSICAL EXAMINATION: GENERAL: A 47-year-old male lying in bed, in no acute respiratory distress. VITAL SIGNS: Temperature of 98.8, pulse of 100, blood pressure 130/82, saturation of 95%-98% on 5 liters oxygen. HEENT: Atraumatic, normocephalic. Pupils are equal, round and reactive to light and accommodation. Extraocular muscles intact. Conjunctivae pink. Nonicteric sclerae. Oral mucosa within normal. NECK: Supple. No JVD, adenopathy, or thyromegaly. Trachea in the midline. CARDIOVASCULAR: Regular rate and rhythm. Normal S1, S2. No murmurs, rubs or gallops noted. PULMONARY: Bilateral equal air entry with few coarse breath sounds. ABDOMEN: Soft, nontender, nondistended, positive bowel sounds. EXTREMITIES: No cyanosis, clubbing or edema. NEUROLOGIC: No focal sensory deficit. LABORATORY DATA: WBC 11.2, hemoglobin 14.3, hematocrit 44, platelet count of 201. Sodium 135, potassium 4, chloride 102, CO2 of 25, BUN 20, creatinine 1.88, glucose of 315. Troponin 0.13. RADIOGRAPHIC STUDIES: A chest x-ray showed pulmonary edema on arrival. IMPRESSION: 1. Respiratory insufficiency. 2. Pulmonary edema. 3. Hypertensive urgency. 4. Obstructive sleep apnea. 5. Obesity. 6. Acute kidney injury. 7. Hyperglycemia with underlying history of diabetes mellitus. 8. History of hypertension. RECOMMENDATIONS: 1. Continue to wean down oxygen as tolerated and maintain sats above 92%. 2. We will place on bronchodilators in the form of DuoNeb every 4 hours plus 2 hours p.r.n. for shortness of breath. 3. BiPAP p.r.n. for respiratory distress. 4. Repeat chest x-ray obtained this morning showed improving aeration and decrease in confluence of bilateral infiltrates. 5. Followup on echo results. 6. Continue with diuretics. He was placed on Lasix 40 mg IV daily. 7. The patient will need a repeat sleep study as an outpatient. His last sleep study was 5 years ago. 8. Continue with antihypertensive medication. 9. Glycemic control. 10. Gastrointestinal and deep venous thrombosis prophylaxis. 11. Further recommendations will be based on hospital course. Thank you for this consultation and allowing us to participate in this patient's care. MD NAZ Carias/biju , 10:26 AM , 10:36 AM
--- NOTE | 2018-09-14 13:36 | ECHRPT ---
Indication: A-FIB CONCLUSIONS The left ventricular systolic function is moderately reduced with an estimated ejection fraction of 40% Normal left ventricular size. Mild concentric left ventricular hypertrophy. No regional wall motion abnormalities are present. BP: / HR: Rhythm: Sinus MEASUREMENTS (Male / Female) Normal Values Technical Quality:Good 2D ECHO LV Diastolic Diameter PLAX 5.4 cm 4.2 - 5.9 / 3.9 - 5.3 cm LV Systolic Diameter PLAX 4.3 cm IVS Diastolic Thickness 1.3 cm 0.6 - 1.0 / 0.6 - 0.9 cm LVPW Diastolic Thickness 1.3 cm 0.6 - 1.0 / 0.6 - 0.9 cm LV Relative Wall Thickness 0.5 RV Internal Dim ED PLAX 3.1 cm LVOT Diameter 1.9 cm LA Systolic Diameter LX 3.9 cm 3.0 - 4.0 / 2.7 - 3.8 cm LV Ejection Fraction MOD 4C 40.4 % LV Ejection Fraction 4C AL 40.9 % M-MODE LV Diastolic Diameter MM 6.4 cm 4.2 - 5.9 / 3.9 - 5.3 cm LV Systolic Diameter MM 5.1 cm LV Ejection Fraction MM Teich 40.3 % IVS Diastolic Thickness MM 1.3 cm 0.6 - 1.0 / 0.6 - 0.9 cm LVPW Diastolic Thickness MM 1.3 cm 0.6 - 1.0 / 0.6 - 0.9 cm LV Relative Wall Thickness MM 0.4 0.24 - 0.42 / 0.22 - 0.42 Aortic Root Diameter MM 2.8 cm LA Systolic Diameter MM 3.5 cm LA Ao Ratio MM 1.3 AV Cusp Separation MM 2.1 cm DOPPLER AV Peak Velocity 96.4 cm/s AV Peak Gradient 3.7 mmHg LVOT Peak Velocity 65.6 cm/s LVOT Peak Gradient 1.7 mmHg AV Area Cont Eq pk 1.9 cm MV Area PHT 7.1 cm Mitral E Point Velocity 66.1 cm/s Mitral A Point Velocity 58.2 cm/s Mitral E to A Ratio 1.1 FINDINGS LEFT VENTRICLE The left ventricular systolic function is moderately reduced with an estimated ejection fraction of 40%.normal left ventricular size. Mild concentric left ventricular hypertrophy. No regional wall motion abnormalities are present. RIGHT VENTRICLE Normal right ventricular size and systolic function. LEFT ATRIUM The left atrial size is normal. RIGHT ATRIUM The right atrial size is normal. ATRIAL SEPTUM Normal atrial septal thickness without atrial level shunting by limited color doppler interrogation. AORTA The aortic root and proximal ascending aorta are normal in size on limited imaging. MITRAL VALVE Structurally normal mitral valve. No mitral valve stenosis or regurgitation. AORTIC VALVE Trileaflet aortic valve. No aortic valve stenosis or regurgitation. TRICUSPID VALVE Structurally normal tricuspid valve. No tricuspid valve stenosis or regurgitation. PULMONARY VALVE The pulmonary valve is not well visualized. VESSELS The inferior vena cava is normal in size. PERICARDIUM No pericardial effusion. Jez Preston MD, FACC, [facility] (Electronically Signed) Final Date:14 September 2018 13:36
--- NOTE | 2018-09-14 13:43 | ECG ---
Date Performed: 09/14/2018 Time Performed: 08:58:50 PTAGE: 47 years EKG: Sinus rhythm POSSIBLE LEFT ATRIAL ENLARGEMENT MODERATE T-WAVE ABNORMALITY, CONSIDER ANTEROLATERAL ISCHEMIA ABNORM AL ECG Since the PREVIOUS TRACING , no significant change noted PREVIOUS TRACIN09/14/2018 03.56 DOCTOR: Jeremias Willams Interpretating Date/Time 09/14/2018 13:40:43
--- NOTE | 2018-09-14 13:43 | ECG ---
Date Performed: 09/13/2018 Time Performed: 22:22:10 PTAGE: 47 years EKG: SINUS TACHYCARDIA WITH SHORT CA INTERVAL, POSSIBLE ATRIAL FLUTTER NONSPECIFIC T-WAVE ABNORM ALITY ABNORMAL RHYTHM ECG Since the PREVIOUS TRACING , no significant change noted PREVIOUS TRACING 01/30/2018 21.45.13 DOCTOR: Jeremias Willams Interpretating Date/Time 09/14/2018 13:41:34
--- NOTE | 2018-09-14 13:43 | ECG ---
Date Performed: 09/14/2018 Time Performed: 03:56:36 PTAGE: 47 years EKG: Sinus tachycardia. Possible left atrial abnormality Anterolateral T wave changes are nonspe cific Borderline ECG Since the PREVIOUS TRACING , no significant change noted PREVIOUS TRACIN09/13/2018 22.22 DOCTOR: Jeremias Willams Interpretating Date/Time 09/14/2018 13:41:00
[2018-09-14 14:26] LABS: Hemoglobin A1c 16.4 % (4.3-6.0)
[2018-09-15 00:09] LABS: Creatinine,Urine Random 39 mg/dL (27-300); Sodium,Urine Random 92 meq/L
[2018-09-15 01:28] LABS: Baso # (Auto) 0.1 th/mm3 (0.0-0.2); Baso % (Auto) 0.7 % (0.0-2.0); Eos # (Auto) 0.1 th/mm3 (0.0-0.4); Eos % (Auto) 1.4 % (0.0-4.0); Hematocrit 39.6 % (39.0-51.0); Hemoglobin 13.1 gm/dL (13.0-17.0); Lymph # (Auto) 2.7 th/mm3 (1.0-4.8); Lymph % (Auto) 31.4 % (9.0-44.0); Mean Corpuscular HGB Conc 33.1 % (32.0-36.0); Mean Corpuscular Hemoglobin 26.1 pg (27.0-34.0); Mono # (Auto) 0.7 th/mm3 (0.0-0.9); Mono % (Auto) 8.2 % (0.0-8.0); Neut % (Auto) 58.3 % (16.0-70.0); Platelet Count 187 th/mm3 (150-450); Red Blood Count 5.01 mil/mm3 (4.50-5.90); Red Cell Distribution Width 13.8 % (11.6-17.2); White Blood Count 8.6 th/mm3 (4.0-11.0)
[2018-09-15 01:38] LABS: Prothrombin Time 9.7 sec (9.8-11.6)
[2018-09-15 02:11] LABS: Alanine Aminotransferase 19 U/L (12-78); Alkaline Phosphatase 69 U/L (45-117); Anion Gap 7 meq/L (5-15); Aspartate Aminotransferase 17 U/L (15-37); Blood Urea Nitrogen 23 mg/dL (7-18); Carbon Dioxide 29.6 meq/L (21.0-32.0); Chloride 105 meq/L (98-107); Creatine Kinase 276 U/L (39-308); Glomerular Filtration Rate 51 mL/min (>89); Glucose,Random 141 mg/dL (74-106); Lipase 210 U/L (73-393); Magnesium 1.9 mg/dL (1.5-2.5); Potassium 3.1 meq/L (3.5-5.1); Sodium 142 meq/L (136-145); Thyroid Stimulating Hormone 0.287 uIU/mL (0.358-3.740); Total Protein 6.4 g/dL (6.4-8.2); Troponin I 0.09 ng/mL (0.02-0.05)
[2018-09-15] MEDS: Chlorhexidine Gluconate 2% 1 Pack (2 Cloths) TOPICAL SCH (03:29)
[2018-09-15] MEDS: Insulin NovoLOG Aspart Correctional Sugar Inj SQ SCH ×5 (03:29→20:36)
[2018-09-15] MEDS ORDERED: Potassium Chlor 40 mEq Premix 40 MEQ/100 ML PIGGYBACK IV.SIG PRN ×2 (04:00)
[2018-09-15] MEDS ORDERED: Magnesium Sulfate Inj 2 GM in Sodium Chlor 0.9% Inj 96 ML IV.SIG PRN (04:00)
[2018-09-15] MEDS ORDERED: Sodium Phosphate Inj 30 MMOL in Sodium Chlor 0.9% Inj 250 ML IV.SIG PRN (04:00)
[2018-09-15] MEDS ORDERED: Potassium Chlor 20 mEq Premix 20 MEQ/100 ML PIGGYBACK IV.SIG PRN ×2 (04:00)
[2018-09-15] MEDS ORDERED: Magnesium Oxide 400 MG Tablet PO PRN (04:00)
[2018-09-15] MEDS ORDERED: Potassium Phosphate 500 MG Soluble Tablet PO PRN ×2 (04:00)
[2018-09-15] MEDS ORDERED: Magnesium Sulfate Inj 4 GM in Sodium Chlor 0.9% Inj 92 ML IV.SIG PRN (04:00)
[2018-09-15] MEDS ORDERED: Potassium Phosphate Inj 30 MMOL in Sodium Chlor 0.9% Inj 250 ML IV.SIG PRN (04:00)
[2018-09-15] MEDS: Potassium Chloride 25 MEQ Effervescent Tablet PO PRN (06:08)
[2018-09-15] MEDS: Enoxaparin Inj 40 MG/0.4 ML Syringe SQ SCH (08:17)
[2018-09-15] MEDS: Insulin Detemir Inj 1,000 UNIT/10 ML Vial SQ SCH ×3 (08:17→20:36)
[2018-09-15] MEDS: Metoprolol Tartrate 50 MG Tablet PO SCH ×2 (08:17→20:37)
[2018-09-15] MEDS: Senna/Docusate Sodium 8.6/50 MG Tablet PO SCH ×2 (08:17→20:37)
--- NOTE | 2018-09-15 10:20 | P.PN ---
Subjective Interval history: Follow-up HTN. Feels better on NC was on BIPAP. Off cardene Physical Exam Vital signs: Vital Signs 09/14/18 10:30 09/14/18 10:45 09/14/18 11:00 Temperature Pulse Rate 109 H 101 H 101 H Respiratory Rate 36 H 24 24 Blood Pressure 139/88 123/80 112/74 Pulse Oximetry 97 95 95 09/14/18 11:15 09/14/18 11:30 09/14/18 11:45 Temperature Pulse Rate 101 H 100 H 100 H Respiratory Rate 20 21 22 Blood Pressure 104/69 107/68 98/64 L Pulse Oximetry 95 93 L 95 09/14/18 11:50 09/14/18 12:00 09/14/18 13:00 Temperature 98.3 F Pulse Rate 100 H 101 H 102 H Respiratory Rate 18 22 28 H Blood Pressure 109/69 Pulse Oximetry 96 95 09/14/18 14:00 09/14/18 15:00 09/14/18 16:00 Temperature 98.5 F Pulse Rate 101 H 104 H 101 H Respiratory Rate 22 23 29 H Blood Pressure 123/77 Pulse Oximetry 94 L 94 L 09/14/18 16:23 09/14/18 17:00 09/14/18 17:03 Temperature Pulse Rate 104 H 104 H 104 H Respiratory Rate 26 H 22 12 Blood Pressure 123/77 Pulse Oximetry 97 96 94 L 09/14/18 18:00 09/14/18 19:43 09/14/18 20:00 Temperature 98.6 F Pulse Rate 109 H 11 L 112 H Respiratory Rate 30 H 18 19 Blood Pressure 132/79 Pulse Oximetry 93 L 100 93 L 09/14/18 22:00 09/14/18 23:00 09/14/18 23:02 Temperature Pulse Rate 99 H 96 H Respiratory Rate 20 Blood Pressure Pulse Oximetry 98 09/15/18 00:00 09/15/18 02:00 09/15/18 03:00 Temperature 98.6 F Pulse Rate 98 H 93 H 94 H Respiratory Rate 20 20 Blood Pressure 121/75 Pulse Oximetry 96 09/15/18 03:38 09/15/18 04:00 09/15/18 06:00 Temperature 98.6 F Pulse Rate 96 H 105 H Respiratory Rate 20 Blood Pressure 125/80 Pulse Oximetry 100 96 09/15/18 07:27 09/15/18 08:00 Temperature Pulse Rate 104 H Respiratory Rate 15 Blood Pressure Pulse Oximetry 97 98 Intake & Output 09/14/18 09/15/18 09/15/18 18:59 06:59 18:59 Intake Total 1740 / 1740 1060 / 1060 Output Total 1250 / 1250 1660 / 1660 Balance 490 / 490 -600 / -600 Weight 100.5 kg Intake: IV 100 / 100 KCl 20 mEq Premix Inj 20 meq In 100 / 100 100 ml @ 50 mls/hr IV.SIG Q2H PRN Rx#:[id number] Oral 1740 / 1740 960 / 960 Output: Urine 1250 / 1250 1660 / 1660 Other: Date of Last Bowel Movement 09/14/18 09/14/18 09/14/18 Narrative: GENERAL: Well-nourished, well-developed overweight -[place] male on nasal cannula. SKIN: Warm and dry. CARDIOVASCULAR: Regular rate and rhythm. No murmurs rubs or gallops. RESPIRATORY: no accessory muscle use. Bibasilar rales are present. No wheezes or rhonchi. GASTROINTESTINAL: Abdomen soft, non-tender, nondistended. Bowel sounds present. MUSCULOSKELETAL: Extremities without clubbing, cyanosis, or edema. No obvious deformities. NEUROLOGICAL: Awake and alert. No obvious cranial nerve deficits. Motor grossly within normal limits. Five out of 5 muscle strength in the arms and legs. Normal speech. Results - Labs CBC & Chem 7: 09/15/18 01:10 09/15/18 01:10 Laboratory Results - last 24 hr 09/14/18 09/14/18 09/14/18 11:23 11:23 11:52 WBC RBC Hgb Hct MCV MCH MCHC RDW Plt Count MPV Neut % (Auto) Lymph % (Auto) [place] % (Auto) Eos % (Auto) Baso % (Auto) Neut # (Auto) Lymph # (Auto) [place] # (Auto) Eos # (Auto) Baso # (Auto) WBC Differential Differential Comment PT INR Sodium Potassium Chloride Carbon Dioxide Anion Gap BUN Creatinine Estimated GFR POC Glucose 131 H Random Glucose Hemoglobin A1c 16.4 H Lactic Acid Calcium Phosphorus Magnesium Total Bilirubin AST ALT Alkaline Phosphatase Total Creatine Kinase Troponin I 0.11 H Total Protein Albumin Lipase TSH Urine Eosinophils Ur Random Creatinine Ur Random Sodium 09/14/18 09/14/1809/14/18 15:06 18:11 19:43 WBC RBC Hgb Hct MCV MCH MCHC RDW Plt Count MPV Neut % (Auto) Lymph % (Auto) [place] % (Auto) Eos % (Auto) Baso % (Auto) Neut # (Auto) Lymph # (Auto) [place] # (Auto) Eos # (Auto) Baso # (Auto) WBC Differential Differential Comment PT INR Sodium Potassium Chloride Carbon Dioxide Anion Gap BUN Creatinine Estimated GFR POC Glucose 145 H 225 H Random Glucose Hemoglobin A1c Lactic Acid Calcium Phosphorus Magnesium Total Bilirubin AST ALT Alkaline Phosphatase Total Creatine Kinase Troponin I 0.10 H Total Protein Albumin Lipase TSH Urine Eosinophils Ur Random Creatinine Ur Random Sodium 09/14/18 09/14/18 09/14/18 22:25 22:25 23:02 WBC RBC Hgb Hct MCV MCH MCHC RDW Plt Count MPV Neut % (Auto) Lymph % (Auto) [place] % (Auto) Eos % (Auto) Baso % (Auto) Neut # (Auto) Lymph # (Auto) [place] # (Auto) Eos # (Auto) Baso # (Auto) WBC Differential Differential Comment PT INR Sodium Potassium Chloride Carbon Dioxide Anion Gap BUN Creatinine Estimated GFR POC Glucose 211 H Random Glucose Hemoglobin A1c Lactic Acid Calcium Phosphorus Magnesium Total Bilirubin AST ALT Alkaline Phosphatase Total Creatine Kinase Troponin I Total Protein Albumin Lipase TSH Urine Eosinophils None seen Ur Random Creatinine 39 Ur Random Sodium 92 09/15/18 09/15/18 09/15/18 01:10 01:10 01:10 WBC 8.6 RBC 5.01 Hgb 13.1 Hct 39.6 MCV 79.0 L MCH 26.1 L MCHC 33.1 RDW 13.8 Plt Count 187 MPV 9.0 Neut % (Auto) 58.3 Lymph % (Auto) 31.4 [place] % (Auto) 8.2 H Eos % (Auto) 1.4 Baso % (Auto) 0.7 Neut # (Auto) 5.0 Lymph # (Auto) 2.7 [place] # (Auto) 0.7 Eos # (Auto) 0.1 Baso # (Auto) 0.1 WBC Differential . Differential Comment Auto diff final PT 9.7 L INR 1.0 Sodium 142 Potassium 3.1 L D Chloride 105 Carbon Dioxide 29.6 Anion Gap 7 BUN 23 H Creatinine 1.76 H Estimated GFR 51 L POC Glucose Random Glucose 141 H D Hemoglobin A1c Lactic Acid Calcium 8.0 L Phosphorus 4.0 Magnesium 1.9 Total Bilirubin 0.3 AST 17 ALT 19 Alkaline Phosphatase 69 Total Creatine Kinase 276 Troponin I 0.09 H Total Protein 6.4 D Albumin 3.0 L Lipase 210 TSH 0.287 L Urine Eosinophils Ur Random Creatinine Ur Random Sodium 09/15/18 09/15/18 09/15/18 01:10 03:25 08:15 WBC RBC Hgb Hct MCV MCH MCHC RDW Plt Count MPV Neut % (Auto) Lymph % (Auto) [place] % (Auto) Eos % (Auto) Baso % (Auto) Neut # (Auto) Lymph # (Auto) [place] # (Auto) Eos # (Auto) Baso # (Auto) WBC Differential Differential Comment PT INR Sodium Potassium Chloride Carbon Dioxide Anion Gap BUN Creatinine Estimated GFR POC Glucose 92 218 H Random Glucose Hemoglobin A1c Lactic Acid 1.1 Calcium Phosphorus Magnesium Total Bilirubin AST ALT Alkaline Phosphatase Total Creatine Kinase Troponin I Total Protein Albumin Lipase TSH Urine Eosinophils Ur Random Creatinine Ur Random Sodium - Imaging ITS Impressions Chest X-Ray 09/14/18 09:40 CONCLUSION: Improving aeration Assessment and Plan - Plan NEURO: Tylenol as needed for pain RESP: Acute pulmonary edema secondary to malignant hypertension Obstructive sleep apnea Blood pressure management as per below. On nasal cannula. Use BiPAP as needed. Received Lasix 100 mg IV prior to arrival. Has diuresed 2 L. Will monitor output and schedule Lasix 40 mg IV daily. Counseled that JULIANNE can contribute to systemic and pulmonary HTN and should be managed. Patient is agreeable because has been troubled by daytime sleepiness and requests assistance because he has had difficulty getting followup care for home CPAP. Consult pulmonology to establish care and assist with obtaining home CPAP. CV: Malignant hypertension. Improved S/p Cardene drip Continue losartan [address] metoprolol 50 mg p.o. twice daily Chest pain was atypical and resolved quickly with blood pressure control. Troponin is mildly elevated which may be secondary to severe hypertension. Trend troponin and follow-up EKG with lateral T wave inversion. Aspirin daily Follow-up 2D echo showed decreased systolic function EF of 40% Cardiology consult GI: Cardiac diet FEN/RENAL: Hypokalemia Replace with K-Dur 40 mg p.o. Chronic kidney disease stage III Voiding ID: Monitor for signs and symptoms of infection HEME: No acute hematologic issues ENDO: Diabetes mellitus poorly controlled A1c 16 hold metformin/glyburide. Monitor bedside glucose QID with sliding scale coverage with increase Levemir to 10 units twice a day TSH low but not suppressed PROPH: SCDs/Lovenox 40 mg subcu daily for DVT prophylaxis. Stress ulcer prophylaxis is not indicated. ACCESS: [facility] is providing adequate access at this time Full code Follow-up pending VQ scan and Doppler of the bilateral lower extremity Discharge Planning: transfer to [facility] in am if stable
--- NOTE | 2018-09-15 10:53 | P.PNPL ---
Subjective Interval history: Patient is feeling better, denies any SOB. Afebrile. Physical Exam Vital signs: Vital Signs 09/14/18 11:00 09/14/18 11:15 09/14/18 11:30 Temperature Pulse Rate 101 H 101 H 100 H Respiratory Rate 24 20 21 Blood Pressure 112/74 104/69 107/68 Pulse Oximetry 95 95 93 L 09/14/18 11:45 09/14/18 11:50 09/14/18 12:00 Temperature 98.3 F Pulse Rate 100 H 100 H 101 H Respiratory Rate 22 18 22 Blood Pressure 98/64 L 109/69 Pulse Oximetry 95 96 95 09/14/18 13:00 09/14/18 14:00 09/14/18 15:00 Temperature Pulse Rate 102 H 101 H 104 H Respiratory Rate 28 H 22 23 Blood Pressure Pulse Oximetry 94 L 09/14/18 16:00 09/14/18 16:23 09/14/18 17:00 Temperature 98.5 F Pulse Rate 101 H 104 H 104 H Respiratory Rate 29 H 26 H 22 Blood Pressure 123/77 123/77 Pulse Oximetry 94 L 97 96 09/14/18 17:03 09/14/18 18:00 09/14/18 19:43 Temperature Pulse Rate 104 H 109 H 11 L Respiratory Rate 12 30 H 18 Blood Pressure Pulse Oximetry 94 L 93 L 100 09/14/18 20:00 09/14/18 22:00 09/14/18 23:00 Temperature 98.6 F Pulse Rate 112 H 99 H Respiratory Rate 19 Blood Pressure 132/79 Pulse Oximetry 93 L 98 09/14/18 23:02 09/15/18 00:00 09/15/18 02:00 Temperature 98.6 F Pulse Rate 96 H 98 H 93 H Respiratory Rate 20 20 Blood Pressure 121/75 Pulse Oximetry 96 09/15/18 03:00 09/15/18 03:38 09/15/18 04:00 Temperature 98.6 F Pulse Rate 94 H 96 H Respiratory Rate 20 20 Blood Pressure 125/80 Pulse Oximetry 100 96 09/15/18 06:00 09/15/18 07:27 09/15/18 08:00 Temperature Pulse Rate 105 H 104 H Respiratory Rate 15 Blood Pressure Pulse Oximetry 97 98 Intake & Output 09/14/18 09/15/18 09/15/18 18:59 06:59 18:59 Intake Total 1740 / 1740 1060 / 1060 Output Total 1250 / 1250 1660 / 1660 Balance 490 / 490 -600 / -600 Weight 100.5 kg Intake: IV 100 / 100 KCl 20 mEq Premix Inj 20 meq In 100 / 100 100 ml @ 50 mls/hr IV.SIG Q2H PRN Rx#:[id number] Oral 1740 / 1740 960 / 960 Output: Urine 1250 / 1250 1660 / 1660 Other: Date of Last Bowel Movement 09/14/18 09/14/18 09/14/18 - Constitutional no acute distress - Routine HEENT Exam Head: Present: normocephalic, atraumatic Eye: Present: EOMI, PERRL, normal accommodation, conjunctivae pink ENT: Present: mucous membranes moist - Routine Neck Exam Present: supple, full ROM, trachea midline - Routine Respiratory Exam Present: CTA bilaterally - Routine Cardiovascular Exam Present: RRR, S1, S2 - Routine Abdominal Exam Present: soft, normoactive bowel sounds - Routine Extremities Exam Present: full ROM, pulses intact - Routine Skin Exam Present: intact - Routine Neurological Exam Present: alert, oriented X3, CN II-XII intact Assessment and Plan - Assessment (1) Malignant hypertension Code(s): I10 - Essential (primary) hypertension Status: Acute (2) Pulmonary edema Code(s): J81.1 - Chronic pulmonary edema Status: Acute (3) CKD (chronic kidney disease), stage III Code(s): N18.3 - Chronic kidney disease, stage 3 (moderate) Status: Chronic (4) Poorly controlled type 2 diabetes mellitus Code(s): E11.65 - Type 2 diabetes mellitus with hyperglycemia Status: Chronic (5) JULIANNE (obstructive sleep apnea) Code(s): G47.33 - Obstructive sleep apnea (adult) (pediatric) Status: Chronic (6) Obesity (BMI 30.0-34.9) Code(s): E66.9 - Obesity, unspecified Status: Chronic (7) Hypokalemia Code(s): E87.6 - Hypokalemia Status: Acute (8) Insomnia Code(s): G47.00 - Insomnia, unspecified Status: Chronic - Plan 1. Respiratory insufficiency. 2. Pulmonary edema. 3. Hypertensive urgency. 4. Obstructive sleep apnea. 5. Obesity. 6. Acute kidney injury. 7. Hyperglycemia with underlying history of diabetes mellitus. 8. History of hypertension. Plan Continue to wean down oxygen as tolerated and maintain sats >92% Bronchodilators BiPAP p.r.n. for respiratory distress and nocturnally CXR 09/14 showed improving aeration and decrease in confluence of bilateral infiltrates. Echo showed EF 40% Continue Lasix 20 mg IV daily. Will need a repeat sleep study as an outpatient. His last sleep study was 5 years ago. Continue with antihypertensive medication. Glycemic control. Gi/DVT prophylaxis.
--- NOTE | 2018-09-15 12:11 | US ---
EXAM DATE: 09/15/2018 12:08 PM EST AGE/SEX: 47 years / Male INDICATIONS: Bilateral lower extremity edema. CLINICAL DATA: This is the patient's initial encounter. Patient reports that signs and symptoms have been present for 1 day and indicates a pain score of 0/10. MEDICAL/SURGICAL HISTORY: . Diabetes mellitus. Hypertension. Sleep apnea. None. COMPARISON: No prior exams available for comparison. TECHNIQUE: Venous ultrasound of both lower extremities was performed from the inguinal ligament to t he proximal calf. Real-time, color Doppler and spectral tracing, compression and augmentation techni ques were used. FINDINGS: Right Leg: Normal compression of the deep venous system from the inguinal region to the proximal reji f. No echogenic clot is seen. Normal response of the venous system to augmentation and respiration. Left Leg: Normal compression of the deep venous system from the inguinal region to the proximal calf . No echogenic clot is seen. Normal response of the venous system to augmentation and respiration. Other: None. CONCLUSION: 1. No evidence of DVT. Electronically signed by: Gabriel Rockwell MD 09/15/2018 12:09 PM EST
--- NOTE | 2018-09-15 12:31 | MB ---
cc: Jez Preston MD DATE: 09/15/2018 HISTORY OF PRESENT ILLNESS: Adithya is a very pleasant 47-year-old gentleman with a history of hypertension, diabetes. He has a primary care doctor in [place]. He presents with severe chest pain, shortness of breath. Currently, he is asymptomatic, resting in bed, in no acute distress. Denies fever, chills, cough, GI or bleeding, PND, orthopnea, chest pain or dizziness. PAST MEDICAL HISTORY: Per history of present illness, also has a history of sleep apnea. ALLERGIES: NONE. SOCIAL HISTORY: Denies tobacco or alcohol use. MEDICATIONS: 1. Aspirin 81 mg a day. 2. Lovenox 40 mg subcutaneous daily. 3. Lasix 20 mg IV daily. 4. Insulin. 5. Lactulose. 6. Levemir. 7. Cozaar 50 daily. 8. Magnesium oxide 800 p.r.n. 9. Metoprolol 50 mg b.i.d. 10. Nicardipine drip. 11. Potassium supplementation. PHYSICAL EXAMINATION: VITAL SIGNS: Sats 98% on BiPAP earlier. Currently, he is 98% on 4 liters nasal cannula. The last charted blood pressure was 132/79 at 20 hours, 09/14/2018. Initial blood pressure was 224/134. Initial heart rate of 160. GENERAL: He is alert and oriented x3, no acute distress. NECK: Supple. No JVD. No bruit. CARDIOVASCULAR: S1, S2. No murmurs, rubs, gallops. LUNGS: Clear to auscultation bilaterally. ABDOMEN: Soft, nontender, nondistended with positive bowel sounds. EXTREMITIES: No extremity edema. LABORATORY DATA: Chest x-ray: New bilateral pulmonary opacities most characteristic of pulmonary edema. Differential diagnosis includes cardiogenic and "noncardiogenic causes." EKG: Sinus tachycardia at 140 beats per minute, nonspecific ST-T wave changes. Echocardiogram read by myself. EF 40%. Mild concentric left ventricular hypertrophy. LABORATORY DATA: White count 11.2, hemoglobin 14.3, hematocrit 44.7, platelet count 201. INR is 1.0. Sodium 142, potassium 3.1, chloride of 105, bicarbonate 29.6, BUN 23, creatinine 1.76, glucose initially 225. LFTs normal. Troponin 0.09, TSH 0.287. DIAGNOSES: 1. Hypertensive urgency. 2. Non-ST elevation myocardial infarction. 3. Diabetes mellitus. 4. Hypokalemia. 5. Acute renal failure. 6. Sleep apnea. 7. Sinus tachycardia. DISCUSSION: The patient is being appropriately treated with a nicardipine drip in addition to ARB and beta julia. Suspect even though he has multiple risk factors, that his troponin elevation is due to severe increased demand from severe hypertension and tachycardia. As a matter of fact, even with a blood pressure of 220 and a heart rate of 140, the patient has no ischemic ST-T wave changes, essentially meeting the criteria for a negative stress test. At this point in time, we will continue aspirin. Follow trends in troponin. He is being appropriately treated for his cardiomyopathy with Cozaar and Lopressor. Also, need to follow trends in his creatinine. He denies noncompliance or substance abuse. Jez Preston MD AWC/ct , 10:19 AM , 10:27 AM
--- NOTE | 2018-09-15 12:47 | ECG ---
Date Performed: 09/15/2018 Time Performed: 05:58:06 PTAGE: 47 years EKG: Sinus tachycardia. Lateral T wave changes may be due to myocardial ischemia Abnormal ECG Si nce the previous tracing, no significant change noted NO PREVIOUS TRACING DOCTOR: Jeremias Willams Interpretating Date/Time 09/15/2018 12:46:11
--- NOTE | 2018-09-15 12:47 | ECG ---
Date Performed: 09/14/2018 Time Performed: 22:20:50 PTAGE: 47 years EKG: Sinus tachycardia. Inferior/lateral T wave changes may be due to myocardial ischemia Since the PREVIOUS TRACING , no significant change noted PREVIOUS TRACIN09/14/2018 08.58 DOCTOR: Jeremias Willams Interpretating Date/Time 09/15/2018 12:46:28
--- NOTE | 2018-09-15 13:20 | NM ---
EXAM DATE: 09/15/2018 1:11 PM EST AGE/SEX: 47 years / Male INDICATIONS: Shortness of breath. CLINICAL DATA: This is the patient's initial encounter. Patient reports that signs and symptoms have been present for 2 days and indicates a pain score of 0/10. MEDICAL/SURGICAL HISTORY: Diabetes. Hypertension. Sleep apnea. None. COMPARISON: [facility], CHEST 1V SINGLE AP, 09/14/2018. [facility], CHEST 1V SINGLE AP, 09/13/2018. . DOSE: 1.5 mCi Tc99m DTPA aerosol 8.7 mCi Tc99m MAA IV TECHNIQUE: Following five minutes of tidal breathing of DTPA aerosol, planar images of the lungs wer e performed in eight projections. The patient was then injected with MAA, and eight-view perfusion s can was performed. FINDINGS: There is a homogeneous pattern of aerosol delivery to the periphery of both lungs. No focal ventilat ory defects are seen. The perfusion lung scan demonstrates a homogenous pattern of uptake in both lungs. No segmental or s ubsegmental defects are seen. CONCLUSION: 1. Negative examination. Electronically signed by: Alberto Mauro MD 09/15/2018 1:19 PM EST
[2018-09-16] MEDS: Insulin NovoLOG Aspart Correctional Sugar Inj SQ SCH ×6 (00:25→20:32)
[2018-09-16 05:32] LABS: Calcium 8.5 mg/dL (8.5-10.1); Carbon Dioxide 27.9 meq/L (21.0-32.0)
[2018-09-16] MEDS: Chlorhexidine Gluconate 2% 1 Pack (2 Cloths) TOPICAL SCH (05:45)
--- NOTE | 2018-09-16 08:23 | P.PN ---
Subjective Interval history: Follow-up hypertension. Complaining of right chest tightness with shortness of breath scale of 5 out of 10. EKG sinus rhythm with T changes in the lateral leads unchanged from previous. Physical Exam Vital signs: Vital Signs 09/15/18 09:00 09/15/18 10:00 09/15/18 11:00 Temperature Pulse Rate 109 H 100 H 97 H Respiratory Rate 25 H Blood Pressure Pulse Oximetry 96 98 95 09/15/18 12:00 09/15/18 13:00 09/15/18 13:10 Temperature 98.8 F Pulse Rate 98 H 97 H 97 H Respiratory Rate 22 Blood Pressure 121/82 120/83 Pulse Oximetry 95 95 94 L 09/15/18 13:11 09/15/18 14:00 09/15/18 15:00 Temperature Pulse Rate 100 H 109 H 104 H Respiratory Rate Blood Pressure 120/83 Pulse Oximetry 96 97 91 L 09/15/18 15:38 09/15/18 16:00 09/15/18 16:01 Temperature Pulse Rate 103 H 102 H 107 H Respiratory Rate 27 H Blood Pressure 132/89 132/86 Pulse Oximetry 94 L 94 L 95 09/15/18 17:33 09/15/18 17:53 09/15/18 18:10 Temperature Pulse Rate 103 H 107 H Respiratory Rate 22 Blood Pressure Pulse Oximetry 96 09/15/18 20:00 09/15/18 20:49 09/15/18 20:54 Temperature 98.9 F Pulse Rate 112 H 108 H Respiratory Rate 27 H 18 Blood Pressure 146/88 H Pulse Oximetry 98 98 09/15/18 21:00 09/15/18 22:00 09/15/18 23:32 Temperature Pulse Rate 101 H 101 H Respiratory Rate 20 Blood Pressure Pulse Oximetry 97 09/16/18 00:00 09/16/18 02:00 09/16/18 04:00 Temperature 98.7 F Pulse Rate 104 H 96 H 96 H Respiratory Rate 31 H 28 H Blood Pressure 135/85 141/92 H Pulse Oximetry 95 94 L 09/16/18 04:12 09/16/18 06:00 Temperature Pulse Rate 97 H 102 H Respiratory Rate 20 Blood Pressure Pulse Oximetry Intake & Output 09/15/18 09/16/18 09/16/18 18:59 06:59 18:59 Intake Total 900 / 900 Output Total 1200 / 1200 600 / 600 Balance -1200 / -1200 300 / 300 Weight 101 kg Intake: Oral 900 / 900 Output: Urine 1200 / 1200 600 / 600 Other: Date of Last Bowel Movement 09/14/18 09/15/18 # Bowel Movements 1 Narrative: GENERAL: Well-nourished, well-developed overweight -[place] male on nasal cannula. SKIN: Warm and dry. CARDIOVASCULAR: Regular rate and rhythm. No murmurs rubs or gallops. No chest wall tenderness RESPIRATORY: no accessory muscle use. Decreased breath sound. No wheezes or rhonchi. GASTROINTESTINAL: Abdomen soft, non-tender, nondistended. Bowel sounds present. MUSCULOSKELETAL: Extremities without clubbing, cyanosis, or edema. No obvious deformities. NEUROLOGICAL: Awake and alert. No obvious cranial nerve deficits. Motor grossly within normal limits. Five out of 5 muscle strength in the arms and legs. Normal speech. Results - Labs CBC & Chem 7: 09/15/18 01:10 09/16/18 04:36 Laboratory Results - last 24 hr 09/15/18 09/15/18 09/15/18 08:15 10:56 12:08 Sodium Potassium Chloride Carbon Dioxide Anion Gap BUN Creatinine Estimated GFR POC Glucose 218 H 267 H Random Glucose Calcium Magnesium 2.0 09/15/18 09/15/18 09/16/18 16:40 20:31 00:13 Sodium Potassium Chloride Carbon Dioxide Anion Gap BUN Creatinine Estimated GFR POC Glucose 229 H 236 H 213 H Random Glucose Calcium Magnesium 09/16/18 09/16/18 04:36 05:16 Sodium 140 Potassium 3.0 L Chloride 105 Carbon Dioxide 27.9 Anion Gap 7 BUN 28 H Creatinine 1.74 H Estimated GFR 51 L POC Glucose 101 Random Glucose 84 Calcium 8.5 Magnesium 2.0 - Imaging Impressions Pulmonary Perfusion Imaging 09/15/18 00:00 CONCLUSION: 1. Negative examination. Venous Doppler Study 09/15/18 00:00 CONCLUSION: 1. No evidence of DVT. Assessment and Plan - Plan NEURO: Tylenol as needed for pain RESP: Acute pulmonary edema secondary to malignant hypertension. Improved Obstructive sleep apnea rate stable Blood pressure management as per below. On nasal cannula. Use BiPAP as needed. Received Lasix 100 mg IV prior to arrival. Has diuresed 2 L. Will monitor output and schedule Lasix 40 mg IV daily. Counseled that JULIANNE can contribute to systemic and pulmonary HTN and should be managed. Patient is agreeable because has been troubled by daytime sleepiness and requests assistance because he has had difficulty getting followup care for home CPAP. Consult pulmonology to establish care and assist with obtaining home CPAP. CV: Malignant hypertension. Improved NSTEMI S/p Cardene drip Continue losartan 50 mg p.o. daily Increase metoprolol to 75 p.o. twice daily Recurrent chest pain Troponin is mildly elevated which may be secondary to severe hypertension. Trend troponin and follow-up EKG with lateral T wave inversion. Aspirin daily Follow-up 2D echo showed decreased systolic function EF of 40% Cardiology recommends medical management at this time. Left heart catheterization if renal function improved GI: Cardiac diet FEN/RENAL: Hypokalemia Replace electrolytes per protocol Chronic kidney disease stage III Voiding ID: Monitor for signs and symptoms of infection HEME: No acute hematologic issues ENDO: Diabetes mellitus poorly controlled A1c 16 hold metformin/glyburide. Monitor bedside glucose QID with sliding scale coverage with increase Levemir to 10 units twice a day TSH low but not suppressed PROPH: SCDs/Lovenox 40 mg subcu daily for DVT prophylaxis. Stress ulcer prophylaxis is not indicated. ACCESS: [facility] is providing adequate access at this time Full code Negative VQ scan and Doppler of the bilateral lower extremity Discharge Planning: transfer to [facility]
[2018-09-16] MEDS: Enoxaparin Inj 40 MG/0.4 ML Syringe SQ SCH (08:59)
[2018-09-16] MEDS: Metoprolol Tartrate 50 MG Tablet PO SCH ×2 (09:00→20:30)
[2018-09-16] MEDS: Insulin Detemir Inj 1,000 UNIT/10 ML Vial SQ SCH ×2 (09:00→20:32)
[2018-09-16] MEDS: Senna/Docusate Sodium 8.6/50 MG Tablet PO SCH ×2 (09:01→20:31)
--- NOTE | 2018-09-16 10:02 | US ---
EXAM DATE: 09/16/2018 9:58 AM EST AGE/SEX: 47 years / Male INDICATIONS: Increased BUN/creatinine. CLINICAL DATA: This is the patient's initial encounter. Patient reports that signs and symptoms have been present for 1 day and indicates a pain score of 0/10. MEDICAL/SURGICAL HISTORY: Hypertension. Diabetes. Sleep apnea. None. COMPARISON: [facility], CHEST 1V SINGLE AP, 09/14/2018. . MEASUREMENTS: Right Kidney:__10.2 x 4.6 x 5.3 cm Left Kidney:__11.1 x 4.6 x 5.7 cm FINDINGS: Right Kidney: Increased echotexture. No mass or hydronephrosis. Left Kidney: Increased echotexture. No mass or hydronephrosis. Bladder: Within normal limits given the degree of distension. Other: None. CONCLUSION: 1. No evidence of hydronephrosis. 2. Mild increased echogenicity of the renal parenchyma bilaterally. This can be seen with chronic me dical renal disease. Electronically signed by: Gabriel Rockwell MD 09/16/2018 10:01 AM EST
[2018-09-16] MEDS ORDERED: Acetaminophen 500 MG Tablet PO PRN (10:16)
--- NOTE | 2018-09-16 10:52 | P.PNCA ---
Subjective Interval history: having some chest pain intermittently, currently assymptomatic Medications and Allergies Active Medications: Active Medications Acetaminophen (Tylenol) 650 mg PO Q6H PRN PRN Reason: TEMPERATURE > 100.5 F Acetaminophen (Tylenol) 500 mg PO Q4H PRN PRN Reason: HEADACHE Hydrocodone Bitart/Acetaminophen ([place] 7.5/325) 1 tab PO Q4H PRN PRN Reason: PAIN SCALE 1 TO 7 Albuterol (Duoneb Neb (Iris)) 1 ampul NEB Q4HR NEB [facility] Last Admin: 09/16/18 08:41 Dose: 1 ampul Albuterol (Albuterol Neb (Prn)) 2.5 mg NEB Q2HR NEB PRN PRN Reason: DYSPNEA Aspirin (Aspirin Chew) 81 mg PO DAILY [facility] Last Admin: 09/16/18 08:59 Dose: 81 mg Bisacodyl (Dulcolax Supp) 10 mg RECTAL DAILY PRN PRN Reason: SEVERE CONSITIPATION Chlorhexidine Gluconate (Chlorhexidine 2% Cloth) 3 pack TOPICAL DAILY@0400 [facility] Stop: 09/19/18 03:59 Last Admin: 09/16/18 05:45 Dose: 3 pack Chlorhexidine Gluconate (Chlorhexidine 2% Cloth) 3 pack TOPICAL DAILY@0400 PRN PRN Reason: Extra cloth needed Stop: 09/19/18 03:59 Dextrose (D50w Vial) 50 ml IV.PUSH UNSCH PRN PRN Reason: PER HYPOGLYCEMIA PROTOCOL Enoxaparin Sodium (Lovenox Inj) 40 mg SQ DAILY [facility] Last Admin: 09/16/18 08:59 Dose: 40 mg Furosemide (Lasix Inj) 20 mg IV.PUSH DAILY [facility] Last Admin: 09/16/18 08:59 Dose: 20 mg Glucagon (Glucagon Inj) 1 mg OTHER PRN PRN PRN Reason: for Hypoglycemia Protocol Nicardipine HCl 25 mg/ Sodium (Chloride) 250 mls @ 50 mls/hr IV.CONT TITRATE PRN; Protocol PRN Reason: Per Protocol Last Titration: 09/14/18 04:30 Dose: 0 mg/hr, 0 mls/hr Magnesium Sulfate 4 gm/ Sodium (Chloride) 100 mls @ 50 mls/hr IV.SIG UNSCH PRN PRN Reason: For Magnesium 0.9 - 1.1 mg/dL Magnesium Sulfate 2 gm/ Sodium (Chloride) 100 mls @ 50 mls/hr IV.SIG UNSCH PRN PRN Reason: For Magnesium 1.2 - 1.6 mg/dL Potassium Chloride (Kcl 40 Meq Premix Inj) 40 meq in 100 mls @ 25 mls/hr IV.SIG Q2H PRN PRN Reason: For Potassium 2.8 - 3.2 mEq/L Potassium Chloride (Kcl 20 Meq Premix Inj) 20 meq in 100 mls @ 50 mls/hr IV.SIG Q2H PRN PRN Reason: For Potassium 3.3 - 3.5 mEq/L Potassium Chloride (Kcl 40 Meq Premix Inj) 40 meq in 100 mls @ 25 mls/hr IV.SIG UNSCH PRN PRN Reason: For Potassium 3.3 - 3.5 mEq/L Potassium Chloride (Kcl 20 Meq Premix Inj) 20 meq in 100 mls @ 50 mls/hr IV.SIG Q2H PRN PRN Reason: For Potassium 2.8 - 3.2 mEq/L Last Infusion: 09/15/18 06:25 Dose: Infused Potassium Phosphate 30 mmol/ (Sodium Chloride) 260 mls @ 42 mls/hr IV.SIG UNSCH PRN PRN Reason: SEE LABEL COMMENTS Sodium Phosphate 30 mmol/ (Sodium Chloride) 260 mls @ 42 mls/hr IV.SIG UNSCH PRN PRN Reason: For Phosphorus < 2.5 mg/dL Insulin Aspart (Novolog Insulin Correctional Sugar Inj) 0 unit SQ ACHS [facility]; Protocol Insulin Detemir (Levemir Inj) 10 unit SQ BID [facility] Last Admin: 09/16/18 09:00 Dose: 10 unit Lactulose (Lactulose Liq) 30 ml PO DAILY PRN PRN Reason: SEVERE CONSITIPATION Losartan Potassium (Cozaar) 50 mg PO DAILY [facility] Last Admin: 09/16/18 08:59 Dose: 50 mg Magnesium Oxide (Mag-Ox) 800 mg PO UNSCH PRN PRN Reason: For Magnesium 1.2 - 1.6 mg/dL Metoprolol Tartrate (Lopressor) 75 mg PO BID [facility] Last Admin: 09/16/18 09:00 Dose: 75 mg Miscellaneous (Pill Splitter) 1 each OTHER UNSCH PRN PRN Reason: SEE LABEL COMMENTS Morphine Sulfate (Morphine Inj) 2 mg IV.PUSH Q4H PRN PRN Reason: PAIN SCALE 8 TO 10 Nitroglycerin (Nitrostat Sl) 0.4 mg SL Q5M PRN PRN Reason: CHEST PAIN Ondansetron HCl (Zofran Inj) 4 mg IV.PUSH Q6H PRN PRN Reason: NAUSEA OR VOMITING Potassium Bicarb/Potassium Chloride (K-Lyte Cl Eff) 50 meq PO UNSCH PRN PRN Reason: For Potassium 3.3 - 3.5 mEq/L Last Admin: 09/15/18 06:08 Dose: 50 meq Potassium Phosphate (K-Phos Original) 2,000 mg PO Q4H PRN PRN Reason: Phosphorus Less Than 2.5 mg/dL Potassium Phosphate (K-Phos Original) 2,000 mg PO UNSCH PRN PRN Reason: SEE LABEL COMMENTS Senna/Docusate Sodium (Josephine-Colace) 1 tab PO BID [facility] Last Admin: 09/16/18 09:01 Dose: Not Given Sennosides (Senokot) 17.2 mg PO Q12H PRN PRN Reason: Moderate Constipation Sodium Chloride (Ns Flush) 2 ml IV.FLUSH BID [facility] Last Admin: 09/16/18 09:00 Dose: 2 ml Sodium Chloride (Ns Flush) 2 ml IV.FLUSH PRN PRN PRN Reason: FLUSH AFTER USING IV ACCESS Allergies Allergy/AdvReac Type Severity Reaction Status Date / Time No Known Allergies Allergy Unverified 07/04/18 08:26 Home Medications Medication Instructions Recorded Confirmed Type glyburide-metformin 2 tab PO BID 07/04/18 09/13/18 History losartan 50 mg PO DAILY 07/04/18 09/13/18 History Physical Exam Vital signs: Vital Signs 09/15/18 11:00 09/15/18 12:00 09/15/18 13:00 Temperature 98.8 F Pulse Rate 97 H 98 H 97 H Respiratory Rate 22 Blood Pressure 121/82 Pulse Oximetry 95 95 95 09/15/18 13:10 09/15/18 13:11 09/15/18 14:00 Temperature Pulse Rate 97 H 100 H 109 H Respiratory Rate Blood Pressure 120/83 120/83 Pulse Oximetry 94 L 96 97 09/15/18 15:00 09/15/18 15:38 09/15/18 16:00 Temperature Pulse Rate 104 H 103 H 102 H Respiratory Rate Blood Pressure 132/89 Pulse Oximetry 91 L 94 L 94 L 09/15/18 16:01 09/15/18 17:33 09/15/18 17:53 Temperature Pulse Rate 107 H 103 H Respiratory Rate 27 H Blood Pressure 132/86 Pulse Oximetry 95 96 09/15/18 18:10 09/15/18 20:00 09/15/18 20:49 Temperature 98.9 F Pulse Rate 107 H 112 H 108 H Respiratory Rate 22 27 H 18 Blood Pressure 146/88 H Pulse Oximetry 98 09/15/18 20:54 09/15/18 21:00 09/15/18 22:00 Temperature Pulse Rate 101 H Respiratory Rate Blood Pressure Pulse Oximetry 98 97 09/15/18 23:32 09/16/18 00:00 09/16/18 02:00 Temperature 98.7 F Pulse Rate 101 H 104 H 96 H Respiratory Rate 20 31 H Blood Pressure 135/85 Pulse Oximetry 95 09/16/18 04:00 09/16/18 04:12 09/16/18 06:00 Temperature Pulse Rate 96 H 97 H 102 H Respiratory Rate 28 H 20 Blood Pressure 141/92 H Pulse Oximetry 94 L 09/16/18 08:00 09/16/18 08:43 09/16/18 10:00 Temperature 97.6 F Pulse Rate 104 H 107 H 94 H Respiratory Rate 29 H 16 Blood Pressure 156/97 H Pulse Oximetry 97 94 L Intake & Output 09/15/18 09/16/18 09/16/18 18:59 06:59 18:59 Intake Total 900 / 900 Output Total 1200 / 1200 600 / 600 Balance -1200 / -1200 300 / 300 Weight 101 kg Intake: Oral 900 / 900 Output: Urine 1200 / 1200 600 / 600 Other: Date of Last Bowel Movement 09/14/18 09/15/18 09/15/18 # Bowel Movements 1 - Constitutional no acute distress - Routine HEENT Exam Head: Present: normocephalic - Routine Neck Exam Present: supple - Routine Respiratory Exam Present: CTA bilaterally - Routine Cardiovascular Exam Present: S1, S2 - Routine Abdominal Exam Present: soft - Routine Extremities Exam Comments: no jerry Results 09/15/18 01:10 09/16/18 04:36 Cardiac Enzymes 09/14/18 09/14/18 09/15/18 Range/Units 11:23 18:11 01:10 AST 17 (15-37) U/L Troponin I 0.11 H 0.10 H 0.09 H (0.02-0.05) ng/mL Coagulation 09/15/18 Range/Units 01:10 PT 9.7 L (9.8-11.6) sec CBC 09/15/18 Range/Units 01:10 WBC 8.6 (4.0-11.0) th/mm3 RBC 5.01 (4.50-5.90) mil/mm3 Hgb 13.1 (13.0-17.0) gm/dL Hct 39.6 (39.0-51.0) % Plt Count 187 (150-450) th/mm3 Neut # (Auto) 5.0 (1.8-7.7) th/mm3 Lymph # (Auto) 2.7 (1.0-4.8) th/mm3 [place] # (Auto) 0.7 (0.0-0.9) th/mm3 Eos # (Auto) 0.1 (0.0-0.4) th/mm3 Baso # (Auto) 0.1 (0.0-0.2) th/mm3 Comprehensive Metabolic Panel 09/15/18 09/16/18 Range/Units 01:10 04:36 Sodium 142 140 (136-145) meq/L Potassium 3.1 L D 3.0 L (3.5-5.1) meq/L Chloride 105 105 (98-107) meq/L Carbon Dioxide 29.6 27.9 (21.0-32.0) meq/L BUN 23 H 28 H (7-18) mg/dL Creatinine 1.76 H 1.74 H (0.60-1.30) mg/dL Calcium 8.0 L 8.5 (8.5-10.1) mg/dL AST 17 (15-37) U/L ALT 19 (12-78) U/L Alkaline Phosphatase 69 (45-117) U/L Total Protein 6.4 D (6.4-8.2) g/dL Albumin 3.0 L (3.4-5.0) g/dL Intake and Output 09/15/18 09/16/18 09/16/18 22:59 06:59 14:59 Intake Total 900 / 900 Output Total 1200 / 1200 600 / 600 Balance -1200 / -1200 300 / 300 Intake: Oral 900 / 900 Output: Urine 1200 / 1200 600 / 600 Other: Date of Last Bowel Movement 09/15/18 09/15/18 09/15/18 # Bowel Movements 1 Weight 101 kg - Imaging and Cardiology Imaging: Impressions Pulmonary Perfusion Imaging 09/15/18 00:00 CONCLUSION: 1. Negative examination. Venous Doppler Study 09/15/18 00:00 CONCLUSION: 1. No evidence of DVT. Abdomen/Bladder Ultrasound 09/16/18 00:00 CONCLUSION: 1. No evidence of hydronephrosis. 2. Mild increased echogenicity of the renal parenchyma bilaterally. This can be seen with chronic medical renal disease. Assessment and Plan - Assessment (1) HTN (hypertension) Code(s): I10 - Essential (primary) hypertension Status: Acute (2) NSTEMI (non-ST elevated myocardial infarction) Code(s): I21.4 - Non-ST elevation (NSTEMI) myocardial infarction Status: Acute (3) Cardiomyopathy Code(s): I42.9 - Cardiomyopathy, unspecified Status: Acute (4) Renal insufficiency Code(s): N28.9 - Disorder of kidney and ureter, unspecified Status: Acute (5) CKD (chronic kidney disease), stage III Code(s): N18.3 - Chronic kidney disease, stage 3 (moderate) Status: Chronic (6) Pulmonary edema Code(s): J81.1 - Chronic pulmonary edema Status: Acute - Plan 1.) NSTEMI - increase lopressor 75 mg bid, continue aspirin; cath if/when renal function improved; recheck trop 2.) Cardiomyopathy - continue lopressor and coazaar, lasix 3.) HTN - still on nicardipine drip, cautious reduction in bp due to cerebral autoregulation curve in setting of severe htn
[2018-09-16] MEDS: Morphine Sulfate Inj 2 MG/ML Vial IV.PUSH PRN (11:00)
[2018-09-16] MEDS: Potassium Chloride 25 MEQ Effervescent Tablet PO PRN (11:00)
--- NOTE | 2018-09-16 11:07 | P.PNPL ---
Subjective Interval history: Patient is on 1-2L oxygen with good sats. c/o SOB, V/Q scan negative and Doppler US LE negative for DVT. Physical Exam Vital signs: Vital Signs 09/15/18 12:00 09/15/18 13:00 09/15/18 13:10 Temperature 98.8 F Pulse Rate 98 H 97 H 97 H Respiratory Rate 22 Blood Pressure 121/82 120/83 Pulse Oximetry 95 95 94 L 09/15/18 13:11 09/15/18 14:00 09/15/18 15:00 Temperature Pulse Rate 100 H 109 H 104 H Respiratory Rate Blood Pressure 120/83 Pulse Oximetry 96 97 91 L 09/15/18 15:38 09/15/18 16:00 09/15/18 16:01 Temperature Pulse Rate 103 H 102 H 107 H Respiratory Rate 27 H Blood Pressure 132/89 132/86 Pulse Oximetry 94 L 94 L 95 09/15/18 17:33 09/15/18 17:53 09/15/18 18:10 Temperature Pulse Rate 103 H 107 H Respiratory Rate 22 Blood Pressure Pulse Oximetry 96 09/15/18 20:00 09/15/18 20:49 09/15/18 20:54 Temperature 98.9 F Pulse Rate 112 H 108 H Respiratory Rate 27 H 18 Blood Pressure 146/88 H Pulse Oximetry 98 98 09/15/18 21:00 09/15/18 22:00 09/15/18 23:32 Temperature Pulse Rate 101 H 101 H Respiratory Rate 20 Blood Pressure Pulse Oximetry 97 09/16/18 00:00 09/16/18 02:00 09/16/18 04:00 Temperature 98.7 F Pulse Rate 104 H 96 H 96 H Respiratory Rate 31 H 28 H Blood Pressure 135/85 141/92 H Pulse Oximetry 95 94 L 09/16/18 04:12 09/16/18 06:00 09/16/18 08:00 Temperature 97.6 F Pulse Rate 97 H 102 H 104 H Respiratory Rate 20 29 H Blood Pressure 156/97 H Pulse Oximetry 97 09/16/18 08:43 09/16/18 10:00 Temperature Pulse Rate 107 H 94 H Respiratory Rate 16 Blood Pressure Pulse Oximetry 94 L Intake & Output 09/15/18 09/16/18 09/16/18 18:59 06:59 18:59 Intake Total 900 / 900 Output Total 1200 / 1200 600 / 600 Balance -1200 / -1200 300 / 300 Weight 101 kg Intake: Oral 900 / 900 Output: Urine 1200 / 1200 600 / 600 Other: Date of Last Bowel Movement 09/14/18 09/15/18 09/15/18 # Bowel Movements 1 - Constitutional no acute distress - Routine HEENT Exam Head: Present: normocephalic, atraumatic Eye: Present: EOMI, PERRL, normal accommodation, conjunctivae pink ENT: Present: mucous membranes moist - Routine Neck Exam Present: supple, full ROM, trachea midline - Routine Respiratory Exam Present: CTA bilaterally - Routine Cardiovascular Exam Present: RRR, S1, S2 - Routine Abdominal Exam Present: soft, normoactive bowel sounds - Routine Extremities Exam Present: full ROM, pulses intact - Routine Skin Exam Present: intact, dry - Routine Neurological Exam Present: alert, oriented X3, CN II-XII intact Assessment and Plan - Assessment (1) Malignant hypertension Code(s): I10 - Essential (primary) hypertension Status: Acute (2) Pulmonary edema Code(s): J81.1 - Chronic pulmonary edema Status: Acute (3) CKD (chronic kidney disease), stage III Code(s): N18.3 - Chronic kidney disease, stage 3 (moderate) Status: Chronic (4) Poorly controlled type 2 diabetes mellitus Code(s): E11.65 - Type 2 diabetes mellitus with hyperglycemia Status: Chronic (5) JULIANNE (obstructive sleep apnea) Code(s): G47.33 - Obstructive sleep apnea (adult) (pediatric) Status: Chronic (6) Obesity (BMI 30.0-34.9) Code(s): E66.9 - Obesity, unspecified Status: Chronic (7) Hypokalemia Code(s): E87.6 - Hypokalemia Status: Acute (8) Insomnia Code(s): G47.00 - Insomnia, unspecified Status: Chronic - Plan 1. Respiratory insufficiency. 2. Pulmonary edema...resolving 3. Hypertension 4. Obstructive sleep apnea. 5. Obesity. 6. Acute kidney injury. 7. Hyperglycemia, hx DM 8. Hypokalemia Plan Continue with oxygen and maintain sats >92% Bronchodilators BiPAP p.r.n. for respiratory distress and nocturnally Check CXR today CXR 09/14 showed improving aeration and decrease in confluence of bilateral infiltrates. Echo showed EF 40%. Continue Lasix 20 mg IV daily. Cards is following- Dr. Preston. cath when renal function improves 09/15 V/Q scan negative and Doppler US LE negative for DVT. Will need a repeat sleep study as an outpatient. His last sleep study was 5 years ago. Continue with antihypertensive medication. Gi/DVT prophylaxis- On Lovenox 40mg daily
--- NOTE | 2018-09-16 11:45 | XR ---
EXAM DATE: 09/16/2018 11:38 AM EST AGE/SEX: 47 years / Male INDICATIONS: Short of breath CLINICAL DATA: This is the patient's initial encounter. Patient reports that signs and symptoms have been present for 1 day and indicates a pain score of 0/10. MEDICAL/SURGICAL HISTORY: . Hypertension. Diabetes. Sleep apnea . COMPARISON: [facility] [place] CHEST 1V SINGLE AP, 09/14/2018. . FINDINGS: There is some mild increased interstitial markings bilaterally with prominence of the pulmonary vascu lature suggestive of some pulmonary edema. Otherwise, the lungs are grossly clear. The heart size is mildly enlarged but stable. No significant pleural effusions. There is no evidence of any pneumothora x. CONCLUSION: Mild increased interstitial markings with prominence of the pulmonary vessels suggestive of pulmonary edema. Electronically signed by: Gabriel Rockwell MD 09/16/2018 11:44 AM EST
--- NOTE | 2018-09-16 13:01 | ECG ---
Date Performed: 09/16/2018 Time Performed: 10:37:37 PTAGE: 47 years EKG: Sinus rhythm ST DEVIATION AND MODERATE T-WAVE ABNORMALITY, CONSIDER LATERAL ISCHEMIA ABNORMAL ECG Since the PREVIOUS TRACING , no significant change noted PREVIOUS TRACIN09/15/2018 05.58 DOCTOR: Jeremias Willams Interpretating Date/Time 09/16/2018 12:58:35
[2018-09-16 13:12] LABS: Troponin I 0.11 ng/mL (0.02-0.05)
[2018-09-16] MEDS ORDERED: Aluminum/Magnesium/Simethacone Susp 30 ML UDC PO ONE (13:36)
[2018-09-16 13:37] LABS: CKMB Percent 0.6 % (0.0-4.0); Creatine Kinase MB 3.6 ng/mL (0.5-3.6)
[2018-09-16 15:41] LABS: Troponin I 0.06 ng/mL (0.02-0.05)
[2018-09-16 15:53] LABS: CKMB Percent 0.6 % (0.0-4.0); Creatine Kinase MB 3.9 ng/mL (0.5-3.6)
[2018-09-16 21:19] LABS: Bilirubin,Urine Negative (Negative); Clarity,Urine Clear (Clear); Color,Urine Yellow (Yellw/Straw); Glucose,Urine (UA) 500 or Greater mg/dL (Negative); Leukocyte Esterase,Urine Negative (Negative); Mucus,Urine Few /lpf (Occasional); Nitrite,Urine Negative (Negative); Specific Gravity,Urine 1.025 (1.002-1.035); Squamous Epithelial Cell,Urine <1 /hpf (0-5)
[2018-09-17] MEDS: Chlorhexidine Gluconate 2% 1 Pack (2 Cloths) TOPICAL SCH (04:02)
[2018-09-17 07:14] LABS: Calcium 8.2 mg/dL (8.5-10.1); Carbon Dioxide 26.1 meq/L (21.0-32.0); Potassium 3.7 meq/L (3.5-5.1)
[2018-09-17 07:18] LABS: Troponin I 0.09 ng/mL (0.02-0.05)
--- NOTE | 2018-09-17 08:21 | P.PN ---
Subjective Interval history: F/u HTN. Patient complains of congestion but no headache. Having difficulty sleeping. Still on 4 L. Physical Exam Vital signs: Vital Signs 09/16/18 08:43 09/16/18 10:00 09/16/18 11:38 Temperature Pulse Rate 107 H 94 H 95 H Respiratory Rate 16 16 Blood Pressure Pulse Oximetry 94 L 09/16/18 12:00 09/16/18 14:00 09/16/18 15:12 Temperature 98 F Pulse Rate 99 H 92 H 97 H Respiratory Rate 30 H 24 Blood Pressure 115/82 Pulse Oximetry 93 L 09/16/18 16:00 09/16/18 17:52 09/16/18 18:00 Temperature 97.9 F 98.0 F Pulse Rate 100 H 105 H 107 H Respiratory Rate 26 H 18 Blood Pressure 114/82 133/97 H Pulse Oximetry 96 94 L 09/16/18 20:00 09/16/18 21:00 09/16/18 21:24 Temperature 98.2 F Pulse Rate 109 H 105 H 109 H Respiratory Rate 20 Blood Pressure 158/107 H Pulse Oximetry 96 09/16/18 22:00 09/16/18 23:00 09/16/18 23:53 Temperature Pulse Rate 102 H 101 H 101 H Respiratory Rate 22 Blood Pressure Pulse Oximetry 09/16/18 23:54 09/17/18 00:00 09/17/18 01:00 Temperature 98.1 F Pulse Rate 100 H 102 H Respiratory Rate 22 Blood Pressure 136/103 H Pulse Oximetry 90 L 97 09/17/18 02:00 09/17/18 02:01 09/17/18 03:00 Temperature Pulse Rate 103 H 101 H Respiratory Rate Blood Pressure Pulse Oximetry 93 L 09/17/18 04:00 09/17/18 04:02 09/17/18 05:00 Temperature 98.6 F Pulse Rate 103 H 104 H 100 H Respiratory Rate 22 20 Blood Pressure 141/107 H Pulse Oximetry 97 95 09/17/18 05:54 09/17/18 07:48 Temperature Pulse Rate 101 H 105 H Respiratory Rate 16 Blood Pressure Pulse Oximetry 95 Intake & Output 09/16/18 09/17/18 09/17/18 18:59 06:59 18:59 Intake Total 240 / 240 960 / 960 Balance 240 / 240 960 / 960 Weight 97.5 kg Intake: Oral 240 / 240 960 / 960 Other: # Voids 3 Date of Last Bowel Movement 09/15/18 # Bowel Movements 0 Narrative: GENERAL: Well-nourished, well-developed overweight -[place] male on nasal cannula. SKIN: Warm and dry. CARDIOVASCULAR: Regular rate and rhythm. No murmurs rubs or gallops. No chest wall tenderness RESPIRATORY: no accessory muscle use. Decreased breath sound. No wheezes or rhonchi. GASTROINTESTINAL: Abdomen soft, non-tender, nondistended. Bowel sounds present. MUSCULOSKELETAL: Extremities without clubbing, cyanosis, or edema. No obvious deformities. NEUROLOGICAL: Awake and alert. No obvious cranial nerve deficits. Motor grossly within normal limits. Five out of 5 muscle strength in the arms and legs. Normal speech. Results - Labs CBC & Chem 7: 09/15/18 01:10 09/17/18 05:18 Laboratory Results - last 24 hr 09/16/18 09/16/18 09/16/18 11:34 13:40 14:42 Sodium Potassium Chloride Carbon Dioxide Anion Gap BUN Creatinine Estimated GFR POC Glucose 307 H Random Glucose Calcium Magnesium Total Creatine Kinase 602 H 607 H CK-MB (CK-2) 3.6 3.9 H CK-MB (CK-2) % 0.6 0.6 Troponin I 0.11 H 0.06 H B-Natriuretic Peptide Urine Color Urine Clarity Urine pH Ur Specific [place] Urine Protein Urine Glucose (UA) Urine Ketones Urine Occult Blood Urine Nitrate Urine Bilirubin Urine Urobilinogen Ur Leukocyte Esterase Urine RBC Urine WBC Ur Squamous Epith Cells Urine Mucus Micro UA Comment Ur Microscopic Review Urine Culture Comments 09/16/18 09/16/18 09/16/18 16:42 19:10 19:38 Sodium Potassium 4.5 D Chloride Carbon Dioxide Anion Gap BUN Creatinine Estimated GFR POC Glucose 298 H 157 H Random Glucose Calcium Magnesium Total Creatine Kinase CK-MB (CK-2) CK-MB (CK-2) % Troponin I B-Natriuretic Peptide Urine Color Urine Clarity Urine pH Ur Specific [place] Urine Protein Urine Glucose (UA) Urine Ketones Urine Occult Blood Urine Nitrate Urine Bilirubin Urine Urobilinogen Ur Leukocyte Esterase Urine RBC Urine WBC Ur Squamous Epith Cells Urine Mucus Micro UA Comment Ur Microscopic Review Urine Culture Comments 09/16/18 09/17/18 09/17/18 20:44 05:18 05:18 Sodium 139 Potassium 3.7 D Chloride 104 Carbon Dioxide 26.1 Anion Gap 9 BUN 26 H Creatinine 1.60 H Estimated GFR 56 L POC Glucose Random Glucose 176 H Calcium 8.2 L Magnesium 2.0 Total Creatine Kinase CK-MB (CK-2) CK-MB (CK-2) % Troponin I 0.09 H B-Natriuretic Peptide 664 H Urine Color Yellow Urine Clarity Clear Urine pH 6.0 Ur Specific [place] 1.025 Urine Protein Negative Urine Glucose (UA) 500 or greater Urine Ketones Negative Urine Occult Blood Negative Urine Nitrate Negative Urine Bilirubin Negative Urine Urobilinogen Less than 2 Ur Leukocyte Esterase Negative Urine RBC Less than 1 Urine WBC Less than 1 Ur Squamous Epith Cells <1 Urine Mucus Few H Micro UA Comment Culture not ind Ur Microscopic Review Not Reportable Urine Culture Comments Culture not ind - Imaging Impressions Abdomen/Bladder Ultrasound 09/16/18 00:00 CONCLUSION: 1. No evidence of hydronephrosis. 2. Mild increased echogenicity of the renal parenchyma bilaterally. This can be seen with chronic medical renal disease. Chest X-Ray 09/16/18 11:01 CONCLUSION: Mild increased interstitial markings with prominence of the pulmonary vessels suggestive of pulmonary edema. Assessment and Plan - Plan NEURO: Tylenol as needed for pain RESP: Acute pulmonary edema secondary to malignant hypertension. Improved Obstructive sleep apnea rate stable Blood pressure management as per below. On nasal cannula. Use BiPAP as needed. Received Lasix 100 mg IV prior to arrival. Has diuresed 2 L. Will monitor output and schedule Lasix 40 mg IV daily. Counseled that JULIANNE can contribute to systemic and pulmonary HTN and should be managed. Patient is agreeable because has been troubled by daytime sleepiness and requests assistance because he has had difficulty getting followup care for home CPAP. Consult pulmonology to establish care and assist with obtaining home CPAP. CV: Malignant hypertension. Improved NSTEMI S/p Cardene drip Continue losartan 50 mg p.o. daily Increase metoprolol to 100 p.o. twice daily Recurrent chest pain Troponin is mildly elevated which may be secondary to severe hypertension. Trend troponin and follow-up EKG with lateral T wave inversion. Aspirin daily Follow-up 2D echo showed decreased systolic function EF of 40% Cardiology recommends medical management at this time. Left heart catheterization if renal function improved ck lipid profile RF modifications will likely need statin GI: Cardiac diet FEN/RENAL: Hypokalemia Replace electrolytes per protocol Chronic kidney disease stage III Voiding ID: Monitor for signs and symptoms of infection HEME: No acute hematologic issues ENDO: Diabetes mellitus poorly controlled A1c 16 hold metformin/glyburide. Monitor bedside glucose QID with sliding scale coverage with increase Levemir to 20 units in the morning and continue 10 units at bedtime for better coverage TSH low but not suppressed PROPH: SCDs/Lovenox 40 mg subcu daily for DVT prophylaxis. Stress ulcer prophylaxis is not indicated. ACCESS: [facility] is providing adequate access at this time Full code Negative VQ scan and Doppler of the bilateral lower extremity Discharge Planning: when cleared by cards
[2018-09-17] MEDS: Metoprolol Tartrate 50 MG Tablet PO SCH ×2 (08:57→21:46)
[2018-09-17] MEDS: Senna/Docusate Sodium 8.6/50 MG Tablet PO SCH ×2 (08:57→21:46)
[2018-09-17] MEDS: Enoxaparin Inj 40 MG/0.4 ML Syringe SQ SCH (08:58)
[2018-09-17] MEDS: Insulin NovoLOG Aspart Correctional Sugar Inj SQ SCH ×4 (08:58→21:46)
[2018-09-17] MEDS: Insulin Detemir Inj 1,000 UNIT/10 ML Vial SQ SCH ×3 (08:58→21:46)
[2018-09-17 09:41] LABS: Chol/HDL Ratio 6.28 Ratio; HDL Cholesterol 41.5 mg/dL (40.0-60.0)
[2018-09-17] MEDS ORDERED: Sodium Chloride 0.65% Nasal Spray 45 ML Bottle EACH NARE PRN (13:00)
--- NOTE | 2018-09-17 14:07 | P.PNCA ---
Subjective Interval history: assymptomatic, in nad Medications and Allergies Active Medications: Active Medications Acetaminophen (Tylenol) 650 mg PO Q6H PRN PRN Reason: TEMPERATURE > 100.5 F Acetaminophen (Tylenol) 500 mg PO Q4H PRN PRN Reason: HEADACHE Hydrocodone Bitart/Acetaminophen ([place] 7.5/325) 1 tab PO Q4H PRN PRN Reason: PAIN SCALE 1 TO 7 Albuterol (Duoneb Neb (Iris)) 1 ampul NEB Q4HR NEB [facility] Last Admin: 09/17/18 12:03 Dose: Not Given Albuterol (Albuterol Neb (Prn)) 2.5 mg NEB Q2HR NEB PRN PRN Reason: DYSPNEA Aspirin (Aspirin Chew) 81 mg PO DAILY [facility] Last Admin: 09/17/18 08:57 Dose: 81 mg Bisacodyl (Dulcolax Supp) 10 mg RECTAL DAILY PRN PRN Reason: SEVERE CONSITIPATION Calcium Carbonate (Tums Chew) 500 mg CHEW Q6H PRN PRN Reason: DYSPEPSIA OR HEARTBURN Chlorhexidine Gluconate (Chlorhexidine 2% Cloth) 3 pack TOPICAL DAILY@0400 [facility] Stop: 09/19/18 03:59 Last Admin: 09/17/18 04:02 Dose: Not Given Chlorhexidine Gluconate (Chlorhexidine 2% Cloth) 3 pack TOPICAL DAILY@0400 PRN PRN Reason: Extra cloth needed Stop: 09/19/18 03:59 Dextrose (D50w Vial) 50 ml IV.PUSH UNSCH PRN PRN Reason: PER HYPOGLYCEMIA PROTOCOL Enoxaparin Sodium (Lovenox Inj) 40 mg SQ DAILY [facility] Last Admin: 09/17/18 08:58 Dose: 40 mg Furosemide (Lasix Inj) 20 mg IV.PUSH DAILY [facility] Last Admin: 09/17/18 08:57 Dose: 20 mg Glucagon (Glucagon Inj) 1 mg OTHER PRN PRN PRN Reason: for Hypoglycemia Protocol Nicardipine HCl 25 mg/ Sodium (Chloride) 250 mls @ 50 mls/hr IV.CONT TITRATE PRN; Protocol PRN Reason: Per Protocol Last Titration: 09/14/18 04:30 Dose: 0 mg/hr, 0 mls/hr Magnesium Sulfate 4 gm/ Sodium (Chloride) 100 mls @ 50 mls/hr IV.SIG UNSCH PRN PRN Reason: For Magnesium 0.9 - 1.1 mg/dL Magnesium Sulfate 2 gm/ Sodium (Chloride) 100 mls @ 50 mls/hr IV.SIG UNSCH PRN PRN Reason: For Magnesium 1.2 - 1.6 mg/dL Potassium Chloride (Kcl 40 Meq Premix Inj) 40 meq in 100 mls @ 25 mls/hr IV.SIG Q2H PRN PRN Reason: For Potassium 2.8 - 3.2 mEq/L Potassium Chloride (Kcl 20 Meq Premix Inj) 20 meq in 100 mls @ 50 mls/hr IV.SIG Q2H PRN PRN Reason: For Potassium 3.3 - 3.5 mEq/L Potassium Chloride (Kcl 40 Meq Premix Inj) 40 meq in 100 mls @ 25 mls/hr IV.SIG UNSCH PRN PRN Reason: For Potassium 3.3 - 3.5 mEq/L Potassium Chloride (Kcl 20 Meq Premix Inj) 20 meq in 100 mls @ 50 mls/hr IV.SIG Q2H PRN PRN Reason: For Potassium 2.8 - 3.2 mEq/L Last Infusion: 09/15/18 06:25 Dose: Infused Potassium Phosphate 30 mmol/ (Sodium Chloride) 260 mls @ 42 mls/hr IV.SIG UNSCH PRN PRN Reason: SEE LABEL COMMENTS Sodium Phosphate 30 mmol/ (Sodium Chloride) 260 mls @ 42 mls/hr IV.SIG UNSCH PRN PRN Reason: For Phosphorus < 2.5 mg/dL Insulin Aspart (Novolog Insulin Correctional Sugar Inj) 0 unit SQ ACHS [facility]; Protocol Last Admin: 09/17/18 12:21 Dose: 15 unit Insulin Detemir (Levemir Inj) 10 unit SQ HS [facility] Insulin Detemir (Levemir Inj) 20 unit SQ DAILY [facility] Last Admin: 09/17/18 12:22 Dose: Not Given Lactulose (Lactulose Liq) 30 ml PO DAILY PRN PRN Reason: SEVERE CONSITIPATION Losartan Potassium (Cozaar) 50 mg PO DAILY [facility] Last Admin: 09/17/18 08:57 Dose: 50 mg Magnesium Oxide (Mag-Ox) 800 mg PO UNSCH PRN PRN Reason: For Magnesium 1.2 - 1.6 mg/dL Melatonin (Melatonin) 5 mg PO HS PRN PRN Reason: INSOMNIA Metoprolol Tartrate (Lopressor) 100 mg PO BID [facility] Last Admin: 09/17/18 08:57 Dose: 100 mg Miscellaneous (Pill Splitter) 1 each OTHER UNSCH PRN PRN Reason: SEE LABEL COMMENTS Morphine Sulfate (Morphine Inj) 2 mg IV.PUSH Q4H PRN PRN Reason: PAIN SCALE 8-10 Last Admin: 09/16/18 11:00 Dose: 2 mg Ondansetron HCl (Zofran Inj) 4 mg IV.PUSH Q6H PRN PRN Reason: NAUSEA OR VOMITING Pantoprazole Sodium (Protonix) 40 mg PO DAILY [facility] Last Admin: 09/17/18 08:57 Dose: 40 mg Potassium Bicarb/Potassium Chloride (K-Lyte Cl Eff) 50 meq PO UNSCH PRN PRN Reason: For Potassium 3.3 - 3.5 mEq/L Last Admin: 09/16/18 11:00 Dose: 50 meq Potassium Phosphate (K-Phos Original) 2,000 mg PO Q4H PRN PRN Reason: Phosphorus Less Than 2.5 mg/dL Potassium Phosphate (K-Phos Original) 2,000 mg PO UNSCH PRN PRN Reason: SEE LABEL COMMENTS Senna/Docusate Sodium (Josephine-Colace) 1 tab PO BID [facility] Last Admin: 09/17/18 08:57 Dose: 1 tab Sennosides (Senokot) 17.2 mg PO Q12H PRN PRN Reason: Moderate Constipation Sodium Chloride (Ns Flush) 2 ml IV.FLUSH BID [facility] Last Admin: 09/17/18 09:04 Dose: 2 ml Sodium Chloride (Ns Flush) 2 ml IV.FLUSH PRN PRN PRN Reason: FLUSH AFTER USING IV ACCESS Sodium Chloride ([place] Nasal [place]) 2 spray EACH NARE Q4H PRN PRN Reason: congestion Allergies Allergy/AdvReac Type Severity Reaction Status Date / Time No Known Allergies Allergy Unverified 07/04/18 08:26 Home Medications Medication Instructions Recorded Confirmed Type glyburide-metformin 2 tab PO BID 07/04/18 09/13/18 History losartan 50 mg PO DAILY 07/04/18 09/13/18 History Physical Exam Vital signs: Vital Signs 09/16/18 15:12 09/16/18 16:00 09/16/18 17:52 Temperature 97.9 F 98.0 F Pulse Rate 97 H 100 H 105 H Respiratory Rate 24 26 H 18 Blood Pressure 114/82 133/97 H Pulse Oximetry 96 94 L 09/16/18 18:00 09/16/18 20:00 09/16/18 21:00 Temperature 98.2 F Pulse Rate 107 H 109 H 105 H Respiratory Rate 20 Blood Pressure 158/107 H Pulse Oximetry 96 09/16/18 21:24 09/16/18 22:00 09/16/18 23:00 Temperature Pulse Rate 109 H 102 H 101 H Respiratory Rate Blood Pressure Pulse Oximetry 09/16/18 23:53 09/16/18 23:54 09/17/18 00:00 Temperature 98.1 F Pulse Rate 101 H 100 H Respiratory Rate 22 22 Blood Pressure 136/103 H Pulse Oximetry 90 L 97 09/17/18 01:00 09/17/18 02:00 09/17/18 02:01 Temperature Pulse Rate 102 H 103 H Respiratory Rate Blood Pressure Pulse Oximetry 93 L 09/17/18 03:00 09/17/18 04:00 09/17/18 04:02 Temperature 98.6 F Pulse Rate 101 H 103 H 104 H Respiratory Rate 22 20 Blood Pressure 141/107 H Pulse Oximetry 97 95 09/17/18 05:00 09/17/18 05:54 09/17/18 07:00 Temperature Pulse Rate 100 H 101 H 106 H Respiratory Rate Blood Pressure Pulse Oximetry 09/17/18 07:48 09/17/18 08:00 09/17/18 09:00 Temperature 98.8 F Pulse Rate 105 H 100 H 98 H Respiratory Rate 16 20 Blood Pressure 132/102 H Pulse Oximetry 95 96 09/17/18 10:00 09/17/18 11:00 09/17/18 12:00 Temperature Pulse Rate 100 H 96 H 102 H Respiratory Rate Blood Pressure Pulse Oximetry 09/17/18 13:00 Temperature Pulse Rate 99 H Respiratory Rate Blood Pressure Pulse Oximetry Intake & Output 09/16/18 09/17/18 09/17/18 18:59 06:59 18:59 Intake Total 240 / 240 960 / 960 Balance 240 / 240 960 / 960 Weight 97.5 kg Intake: Oral 240 / 240 960 / 960 Other: # Voids 3 Date of Last Bowel Movement 09/15/18 # Bowel Movements 0 - Constitutional no acute distress - Routine HEENT Exam Head: Present: normocephalic - Routine Neck Exam Present: supple - Routine Respiratory Exam Present: CTA bilaterally - Routine Cardiovascular Exam Present: S1, S2 - Routine Abdominal Exam Present: soft - Routine Skin Exam Comments: no jerry Results 09/15/18 01:10 09/17/18 05:18 Cardiac Enzymes 09/16/18 09/16/18 09/17/18 Range/Units 11:34 14:42 05:18 CK-MB (CK-2) 3.6 3.9 H (0.5-3.6) ng/mL Troponin I 0.11 H 0.06 H 0.09 H (0.02-0.05) ng/mL B-Natriuretic Peptide (0-100) pg/mL 09/17/18 Range/Units 05:18 CK-MB (CK-2) (0.5-3.6) ng/mL Troponin I (0.02-0.05) ng/mL B-Natriuretic Peptide 664 H (0-100) pg/mL Coagulation 09/17/18 Range/Units 05:18 B-Natriuretic Peptide 664 H (0-100) pg/mL Lipids 09/17/18 Range/Units 05:18 Triglycerides 124 (42-150) mg/dL Cholesterol 261 H (120-200) mg/dL HDL Cholesterol 41.5 (40.0-60.0) mg/dL Cholesterol/HDL Ratio 6.28 Ratio Comprehensive Metabolic Panel 09/16/18 09/16/18 09/17/18 Range/Units 04:36 19:10 05:18 Sodium 140 139 (136-145) meq/L Potassium 3.0 L 4.5 D 3.7 D (3.5-5.1) meq/L Chloride 105 104 (98-107) meq/L Carbon Dioxide 27.9 26.1 (21.0-32.0) meq/L BUN 28 H 26 H (7-18) mg/dL Creatinine 1.74 H 1.60 H (0.60-1.30) mg/dL Calcium 8.5 8.2 L (8.5-10.1) mg/dL Intake and Output 09/16/18 09/17/18 09/17/18 22:59 06:59 14:59 Intake Total 240 / 240 960 / 960 Balance 240 / 240 960 / 960 Intake: Oral 240 / 240 960 / 960 Other: # Voids 3 Date of Last Bowel Movement 09/15/18 # Bowel Movements 0 Weight 97.5 kg - Imaging and Cardiology Imaging: Impressions Abdomen/Bladder Ultrasound 09/16/18 00:00 CONCLUSION: 1. No evidence of hydronephrosis. 2. Mild increased echogenicity of the renal parenchyma bilaterally. This can be seen with chronic medical renal disease. Chest X-Ray 09/16/18 11:01 CONCLUSION: Mild increased interstitial markings with prominence of the pulmonary vessels suggestive of pulmonary edema. Assessment and Plan - Assessment (1) HTN (hypertension) Code(s): I10 - Essential (primary) hypertension Status: Acute (2) NSTEMI (non-ST elevated myocardial infarction) Code(s): I21.4 - Non-ST elevation (NSTEMI) myocardial infarction Status: Acute (3) Cardiomyopathy Code(s): I42.9 - Cardiomyopathy, unspecified Status: Acute (4) Renal insufficiency Code(s): N28.9 - Disorder of kidney and ureter, unspecified Status: Acute (5) CKD (chronic kidney disease), stage III Code(s): N18.3 - Chronic kidney disease, stage 3 (moderate) Status: Chronic (6) Pulmonary edema Code(s): J81.1 - Chronic pulmonary edema Status: Acute - Plan 1.) NSTEMI - increase lopressor 75 mg bid, continue aspirin; cath if/when renal function improved; recheck trop 2.) Cardiomyopathy - continue lopressor and cozaar, lasix; f/u bnp in am 3.) HTN - improved
--- NOTE | 2018-09-17 17:50 | P.PN ---
Subjective Interval history: Alert and breathing OK. Has some cough with wheezing. No chest pain. On O2 2 L. Physical Exam Vital signs: Vital Signs 09/16/18 17:52 09/16/18 18:00 09/16/18 20:00 Temperature 98.0 F 98.2 F Pulse Rate 105 H 107 H 109 H Respiratory Rate 18 20 Blood Pressure 133/97 H 158/107 H Pulse Oximetry 94 L 96 09/16/18 21:00 09/16/18 21:24 09/16/18 22:00 Temperature Pulse Rate 105 H 109 H 102 H Respiratory Rate Blood Pressure Pulse Oximetry 09/16/18 23:00 09/16/18 23:53 09/16/18 23:54 Temperature Pulse Rate 101 H 101 H Respiratory Rate 22 Blood Pressure Pulse Oximetry 90 L 09/17/18 00:00 09/17/18 01:00 09/17/18 02:00 Temperature 98.1 F Pulse Rate 100 H 102 H 103 H Respiratory Rate 22 Blood Pressure 136/103 H Pulse Oximetry 97 09/17/18 02:01 09/17/18 03:00 09/17/18 04:00 Temperature 98.6 F Pulse Rate 101 H 103 H Respiratory Rate 22 Blood Pressure 141/107 H Pulse Oximetry 93 L 97 09/17/18 04:02 09/17/18 05:00 09/17/18 05:54 Temperature Pulse Rate 104 H 100 H 101 H Respiratory Rate 20 Blood Pressure Pulse Oximetry 95 09/17/18 07:00 09/17/18 07:48 09/17/18 08:00 Temperature 98.8 F Pulse Rate 106 H 105 H 100 H Respiratory Rate 16 20 Blood Pressure 132/102 H Pulse Oximetry 95 96 09/17/18 09:00 09/17/18 10:00 09/17/18 11:00 Temperature Pulse Rate 98 H 100 H 96 H Respiratory Rate Blood Pressure Pulse Oximetry 09/17/18 12:00 09/17/18 13:00 09/17/18 14:00 Temperature Pulse Rate 90 99 H 92 H Respiratory Rate 20 Blood Pressure Pulse Oximetry 09/17/18 17:25 Temperature Pulse Rate 102 H Respiratory Rate 16 Blood Pressure Pulse Oximetry Intake & Output 09/16/18 09/17/18 09/17/18 18:59 06:59 18:59 Intake Total 240 / 240 960 / 960 Balance 240 / 240 960 / 960 Weight 97.5 kg Intake: Oral 240 / 240 960 / 960 Other: # Voids 3 Date of Last Bowel Movement 09/15/18 # Bowel Movements 0 Narrative: GENERAL: Well-nourished, overweight -Citizen Of [place] male on nasal cannula. SKIN: Warm and dry. CARDIOVASCULAR: Regular rate and rhythm. No murmurs rubs or gallops. No chest wall tenderness RESPIRATORY: no accessory muscle use. Decreased breath sound. No wheezes or rhonchi. GASTROINTESTINAL: Abdomen soft, non-tender, nondistended. Bowel sounds present. MUSCULOSKELETAL: Extremities without clubbing, cyanosis, or edema. No obvious deformities. NEUROLOGICAL: Awake and alert. No obvious cranial nerve deficits. Motor grossly within normal limits. Five out of 5 muscle strength in the arms and legs. Normal speech. Results - Labs CBC & Chem 7: 09/15/18 01:10 09/17/18 05:18 Laboratory Results - last 24 hr 09/16/18 09/16/18 09/16/18 19:10 19:38 20:44 Sodium Potassium 4.5 D Chloride Carbon Dioxide Anion Gap BUN Creatinine Estimated GFR POC Glucose 157 H Random Glucose Calcium Magnesium Troponin I B-Natriuretic Peptide Triglycerides Cholesterol LDL Cholesterol, Calc HDL Cholesterol Cholesterol/HDL Ratio Urine Color Yellow Urine Clarity Clear Urine pH 6.0 Ur Specific [place] 1.025 Urine Protein Negative Urine Glucose (UA) 500 or greater Urine Ketones Negative Urine Occult Blood Negative Urine Nitrate Negative Urine Bilirubin Negative Urine Urobilinogen Less than 2 Ur Leukocyte Esterase Negative Urine RBC Less than 1 Urine WBC Less than 1 Ur Squamous Epith Cells <1 Urine Mucus Few H Micro UA Comment Culture not ind Ur Microscopic Review Not Reportable Urine Culture Comments Culture not ind 09/17/18 09/17/18 09/17/18 05:18 05:18 05:18 Sodium 139 Potassium 3.7 D Chloride 104 Carbon Dioxide 26.1 Anion Gap 9 BUN 26 H Creatinine 1.60 H Estimated GFR 56 L POC Glucose Random Glucose 176 H Calcium 8.2 L Magnesium 2.0 Troponin I 0.09 H B-Natriuretic Peptide 664 H Triglycerides 124 Cholesterol 261 H LDL Cholesterol, Calc 195 H HDL Cholesterol 41.5 Cholesterol/HDL Ratio 6.28 Urine Color Urine Clarity Urine pH Ur Specific [place] Urine Protein Urine Glucose (UA) Urine Ketones Urine Occult Blood Urine Nitrate Urine Bilirubin Urine Urobilinogen Ur Leukocyte Esterase Urine RBC Urine WBC Ur Squamous Epith Cells Urine Mucus Micro UA Comment Ur Microscopic Review Urine Culture Comments 09/17/18 09/17/18 11:30 16:59 Sodium Potassium Chloride Carbon Dioxide Anion Gap BUN Creatinine Estimated GFR POC Glucose 295 H 109 Random Glucose Calcium Magnesium Troponin I B-Natriuretic Peptide Triglycerides Cholesterol LDL Cholesterol, Calc HDL Cholesterol Cholesterol/HDL Ratio Urine Color Urine Clarity Urine pH Ur Specific [place] Urine Protein Urine Glucose (UA) Urine Ketones Urine Occult Blood Urine Nitrate Urine Bilirubin Urine Urobilinogen Ur Leukocyte Esterase Urine RBC Urine WBC Ur Squamous Epith Cells Urine Mucus Micro UA Comment Ur Microscopic Review Urine Culture Comments Assessment and Plan - Assessment (1) Insomnia Code(s): G47.00 - Insomnia, unspecified Status: Chronic (2) Allergic rhinitis Code(s): J30.9 - Allergic rhinitis, unspecified Status: Acute (3) Renal insufficiency Code(s): N28.9 - Disorder of kidney and ureter, unspecified Status: Acute (4) Hypothyroidism Code(s): E03.9 - Hypothyroidism, unspecified Status: Acute (5) Sinusitis Code(s): J32.9 - Chronic sinusitis, unspecified Status: Acute (6) CKD (chronic kidney disease), stage III Code(s): N18.3 - Chronic kidney disease, stage 3 (moderate) Status: Chronic (7) Pulmonary edema Code(s): J81.1 - Chronic pulmonary edema Status: Acute - Plan - Plan 1. Respiratory insufficiency. 2. Pulmonary edema...resolving 3. Hypertension 4. Obstructive sleep apnea. 5. Obesity. 6. Acute kidney injury. 7. Hyperglycemia, hx DM 8. Hypokalemia Plan 1.Continue with O2 2 L 2.Duo nebs qid PRN 3.BiPAP p.r.n. for respiratory distress and nocturnally 4.Continue Lasix 20 mg IV daily. 5. Dr. Preston. cath when renal function improves 09/15 V/Q scan negative and Doppler US LE negative for DVT. 6. Will need a repeat sleep study as an outpatient. His last sleep study was 5 years ago. 7. Continue with antihypertensive medication. 8. DVT prophylaxis- On Lovenox 40mg daily (5) Sinusitis Qualifiers: Sinusitis location: unspecified location Chronicity: acute Recurrence: not specified as recurrent Qualified Code(s): J01.90 - Acute sinusitis, unspecified
--- NOTE | 2018-09-17 20:02 | ECG ---
Date Performed: 09/16/2018 Time Performed: 13:16:18 PTAGE: 47 years EKG: Sinus tachycardia. Lateral T wave changes are nonspecific Borderline ECG PREVIOUS TRACING :09/16/2018 @10.37 Since the previous tracing, no significant change noted DOCTOR: Marium Musa Interpretating Date/Time 09/17/2018 19:55:45
[2018-09-17] MEDS: Melatonin 5 MG Tablet PO PRN (21:46)
[2018-09-18] MEDS: Chlorhexidine Gluconate 2% 1 Pack (2 Cloths) TOPICAL SCH (04:00)
[2018-09-18 06:36] LABS: Calcium 8.1 mg/dL (8.5-10.1); Carbon Dioxide 24.1 meq/L (21.0-32.0); Magnesium 2.1 mg/dL (1.5-2.5); Potassium 3.3 meq/L (3.5-5.1)
[2018-09-18 06:40] LABS: Troponin I 0.06 ng/mL (0.02-0.05)
--- NOTE | 2018-09-18 08:36 | P.PN ---
Subjective Interval history: Follow-up [place], pulmonary edema, hypertension and diabetes mellitus. Tolerating room air. Did not sleep well despite melatonin because of coughing fits. Reports of blurriness with near vision Physical Exam Vital signs: Vital Signs 09/17/18 09:00 09/17/18 10:00 09/17/18 11:00 Temperature Pulse Rate 98 H 100 H 96 H Respiratory Rate Blood Pressure Pulse Oximetry 09/17/18 12:00 09/17/18 13:00 09/17/18 14:00 Temperature Pulse Rate 90 99 H 92 H Respiratory Rate 20 Blood Pressure Pulse Oximetry 09/17/18 15:00 09/17/18 16:00 09/17/18 17:00 Temperature Pulse Rate 100 H 100 H 92 H Respiratory Rate 20 Blood Pressure 120/90 Pulse Oximetry 09/17/18 17:25 09/17/18 18:00 09/17/18 19:00 Temperature Pulse Rate 102 H 92 H 105 H Respiratory Rate 16 Blood Pressure Pulse Oximetry 09/17/18 19:46 09/17/18 20:00 09/17/18 21:00 Temperature 98.4 F Pulse Rate 107 H 104 H 105 H Respiratory Rate 15 19 Blood Pressure 122/83 Pulse Oximetry 97 93 L 09/17/18 22:00 09/17/18 23:00 09/18/18 00:00 Temperature 98.6 F Pulse Rate 103 H 96 H 96 H Respiratory Rate 18 Blood Pressure 121/90 Pulse Oximetry 95 09/18/18 01:00 09/18/18 02:00 09/18/18 03:00 Temperature Pulse Rate 97 H 88 95 H Respiratory Rate Blood Pressure Pulse Oximetry 09/18/18 04:00 09/18/18 05:00 09/18/18 05:05 Temperature 98.3 F Pulse Rate 96 H 94 H 73 Respiratory Rate 19 15 Blood Pressure 117/73 Pulse Oximetry 92 L 09/18/18 06:00 09/18/18 07:00 09/18/18 07:22 Temperature Pulse Rate 99 H 98 H 102 H Respiratory Rate 16 Blood Pressure Pulse Oximetry 96 09/18/18 08:00 Temperature 98.3 F Pulse Rate 98 H Respiratory Rate 20 Blood Pressure 135/95 H Pulse Oximetry 94 L Intake & Output 09/17/18 09/18/18 09/18/18 18:59 06:59 18:59 Intake Total 1000 / 1000 240 / 240 Balance 1000 / 1000 240 / 240 Weight 97.8 kg Intake: Oral 1000 / 1000 240 / 240 Other: # Voids 5 2 Date of Last Bowel Movement 09/17/18 Narrative: GENERAL: Well-nourished, overweight -[place] male SKIN: Warm and dry. CARDIOVASCULAR: Regular rate and rhythm. No murmurs rubs or gallops. No chest wall tenderness RESPIRATORY: no accessory muscle use. Decreased breath sound. No wheezes or rhonchi. GASTROINTESTINAL: Abdomen soft, non-tender, nondistended. Bowel sounds present. MUSCULOSKELETAL: Extremities without clubbing, cyanosis, or edema. No obvious deformities. NEUROLOGICAL: Awake and alert. Nonfocal Results - Labs CBC & Chem 7: 09/15/18 01:10 09/18/18 05:50 Laboratory Results - last 24 hr 09/17/18 09/17/18 09/17/18 05:18 11:30 16:59 Sodium Potassium Chloride Carbon Dioxide Anion Gap BUN Creatinine Estimated GFR POC Glucose 295 H 109 Random Glucose Calcium Magnesium Troponin I B-Natriuretic Peptide Triglycerides 124 Cholesterol 261 H LDL Cholesterol, Calc 195 H HDL Cholesterol 41.5 Cholesterol/HDL Ratio 6.28 09/17/18 09/18/18 09/18/18 21:45 05:50 05:50 Sodium 139 Potassium 3.3 L Chloride 106 Carbon Dioxide 24.1 Anion Gap 9 BUN 24 H Creatinine 1.48 H Estimated GFR 62 L POC Glucose 277 H Random Glucose 97 Calcium 8.1 L Magnesium 2.1 Troponin I 0.06 H B-Natriuretic Peptide 491 H Triglycerides Cholesterol LDL Cholesterol, Calc HDL Cholesterol Cholesterol/HDL Ratio - Imaging ITS Impressions Pulmonary Perfusion Imaging 09/15/18 00:00 CONCLUSION: 1. Negative examination. Venous Doppler Study 09/15/18 00:00 CONCLUSION: 1. No evidence of DVT. Abdomen/Bladder Ultrasound 09/16/18 00:00 CONCLUSION: 1. No evidence of hydronephrosis. 2. Mild increased echogenicity of the renal parenchyma bilaterally. This can be seen with chronic medical renal disease. Chest X-Ray 09/16/18 11:01 CONCLUSION: Mild increased interstitial markings with prominence of the pulmonary vessels suggestive of pulmonary edema. Assessment and Plan - Plan NEURO: Tylenol as needed for pain RESP: Acute pulmonary edema secondary to malignant hypertension. Improved Obstructive sleep apnea rate stable Blood pressure management as per below. Prn nasal cannula. Use BiPAP as needed. Received Lasix 100 mg IV prior to arrival. Has diuresed 2 L. Will monitor output and schedule Lasix 40 mg IV daily. Counseled that JULIANNE can contribute to systemic and pulmonary HTN and should be managed. Patient is agreeable because has been troubled by daytime sleepiness and requests assistance because he has had difficulty getting followup care for home CPAP. Consult pulmonology to establish care and assist with obtaining home CPAP will need repeat sleep study. CV: Malignant hypertension. Improved NSTEMI S/p Cardene drip Continue losartan 50 mg p.o. daily Increase metoprolol to 100 p.o. twice daily Recurrent chest pain Troponin is mildly elevated which may be secondary to severe hypertension. Trend troponin and follow-up EKG with lateral T wave inversion. Decreasing troponin and BNP. Aspirin daily Follow-up 2D echo showed decreased systolic function EF of 40% Cardiology recommends medical management at this time. Left heart catheterization if renal function improved RF modifications agrees with statin GI: Cardiac diet FEN/RENAL: Hypokalemia Replace electrolytes per protocol Chronic kidney disease stage III. Improving Voiding ID: Monitor for signs and symptoms of infection HEME: No acute hematologic issues ENDO: Diabetes mellitus poorly controlled A1c 16 hold metformin/glyburide. Monitor bedside glucose QID with sliding scale coverage with increase Levemir to 20 units in the morning and continue 10 units at bedtime for better coverage TSH low but not suppressed Blurred vision likely presbyopia. Needs ophthalmology consultation can be done outpatient PROPH: SCDs/Lovenox 40 mg subcu daily for DVT prophylaxis. Stress ulcer prophylaxis is not indicated. ACCESS: PIV is providing adequate access at this time Full code Negative VQ scan and Doppler of the bilateral lower extremity Discharge Planning: when cleared by cards
[2018-09-18] MEDS: Senna/Docusate Sodium 8.6/50 MG Tablet PO SCH ×2 (09:00→21:11)
[2018-09-18] MEDS: Insulin Detemir Inj 1,000 UNIT/10 ML Vial SQ SCH ×2 (09:00→21:12)
[2018-09-18] MEDS: Enoxaparin Inj 40 MG/0.4 ML Syringe SQ SCH (09:00)
[2018-09-18] MEDS: Metoprolol Tartrate 50 MG Tablet PO SCH ×2 (09:00→21:12)
[2018-09-18] MEDS: Insulin NovoLOG Aspart Correctional Sugar Inj SQ SCH ×4 (10:07→21:12)
--- NOTE | 2018-09-18 11:56 | P.PN ---
Subjective Interval history: Some progress. Off O2 . Did not use BIPAP last PM. Will have cardiac Cath in am Physical Exam Vital signs: Vital Signs 09/17/18 12:00 09/17/18 13:00 09/17/18 14:00 Temperature Pulse Rate 90 99 H 92 H Respiratory Rate 20 Blood Pressure Pulse Oximetry 09/17/18 15:00 09/17/18 16:00 09/17/18 17:00 Temperature Pulse Rate 100 H 100 H 92 H Respiratory Rate 20 Blood Pressure 120/90 Pulse Oximetry 09/17/18 17:25 09/17/18 18:00 09/17/18 19:00 Temperature Pulse Rate 102 H 92 H 105 H Respiratory Rate 16 Blood Pressure Pulse Oximetry 09/17/18 19:46 09/17/18 20:00 09/17/18 21:00 Temperature 98.4 F Pulse Rate 107 H 104 H 105 H Respiratory Rate 15 19 Blood Pressure 122/83 Pulse Oximetry 97 93 L 09/17/18 22:00 09/17/18 23:00 09/18/18 00:00 Temperature 98.6 F Pulse Rate 103 H 96 H 96 H Respiratory Rate 18 Blood Pressure 121/90 Pulse Oximetry 95 09/18/18 01:00 09/18/18 02:00 09/18/18 03:00 Temperature Pulse Rate 97 H 88 95 H Respiratory Rate Blood Pressure Pulse Oximetry 09/18/18 04:00 09/18/18 05:00 09/18/18 05:05 Temperature 98.3 F Pulse Rate 96 H 94 H 73 Respiratory Rate 19 15 Blood Pressure 117/73 Pulse Oximetry 92 L 09/18/18 06:00 09/18/18 07:00 09/18/18 07:22 Temperature Pulse Rate 99 H 98 H 102 H Respiratory Rate 16 Blood Pressure Pulse Oximetry 96 09/18/18 08:00 09/18/18 09:00 09/18/18 10:00 Temperature 98.3 F Pulse Rate 98 H 90 92 H Respiratory Rate 20 Blood Pressure 135/95 H Pulse Oximetry 94 L 09/18/18 11:00 09/18/18 11:51 Temperature Pulse Rate 90 90 Respiratory Rate 18 Blood Pressure 124/98 H Pulse Oximetry 98 Intake & Output 09/17/18 09/18/18 09/18/18 18:59 06:59 18:59 Intake Total 1000 / 1000 240 / 240 Balance 1000 / 999 240 / 240 Weight 97.8 kg Intake: Oral 999 / 999 240 / 240 Other: # Voids 5 2 Date of Last Bowel Movement 09/17/18 Narrative: GENERAL: Well-nourished, overweight -[place] male SKIN: Warm and dry. CARDIOVASCULAR: Regular rate and rhythm. No murmurs rubs or gallops. No chest wall tenderness RESPIRATORY: no accessory muscle use. Decreased breath sound. No wheezes or rhonchi. GASTROINTESTINAL: Abdomen soft, non-tender, nondistended. Bowel sounds present. MUSCULOSKELETAL: Extremities without clubbing, cyanosis, or edema. No obvious deformities. NEUROLOGICAL: Awake and alert. Nonfocal Results - Labs CBC & Chem 7: 09/15/18 01:10 09/18/18 05:50 Laboratory Results - last 24 hr 09/17/18 09/17/18 09/18/18 16:59 21:45 05:50 Sodium 139 Potassium 3.3 L Chloride 106 Carbon Dioxide 24.1 Anion Gap 9 BUN 24 H Creatinine 1.48 H Estimated GFR 62 L POC Glucose 109 277 H Random Glucose 97 Calcium 8.1 L Magnesium 2.1 Troponin I 0.06 H B-Natriuretic Peptide 09/18/18 09/18/18 05:50 11:12 Sodium Potassium Chloride Carbon Dioxide Anion Gap BUN Creatinine Estimated GFR POC Glucose 197 H Random Glucose Calcium Magnesium Troponin I B-Natriuretic Peptide 491 H Assessment and Plan - Assessment (1) Insomnia Code(s): G47.00 - Insomnia, unspecified Status: Chronic (2) Allergic rhinitis Code(s): J30.9 - Allergic rhinitis, unspecified Status: Acute (3) Renal insufficiency Code(s): N28.9 - Disorder of kidney and ureter, unspecified Status: Acute (4) Hypothyroidism Code(s): E03.9 - Hypothyroidism, unspecified Status: Acute (5) Sinusitis Code(s): J32.9 - Chronic sinusitis, unspecified Status: Acute (6) CKD (chronic kidney disease), stage III Code(s): N18.3 - Chronic kidney disease, stage 3 (moderate) Status: Chronic (7) Pulmonary edema Code(s): J81.1 - Chronic pulmonary edema Status: Acute - Plan - Plan 1. Respiratory insufficiency. 2. Pulmonary edema...resolving 3. Hypertension 4. Obstructive sleep apnea. 5. Obesity. 6. Acute kidney injury. 7. Hyperglycemia, hx DM 8. Hypokalemia Plan 1. D/C O2 2 L 2.Duo nebs qid PRN 3.D/C BiPAP p.r.n. 4.Change Lasix 20 mg PO daily. 5. Dr. Preston. for cath in am 12/1 V/Q scan negative and Doppler US LE negative for DVT. 6. Will need a repeat sleep study as an outpatient. His last sleep study was 5 years ago. 7. Continue with antihypertensive medication. 8. DVT prophylaxis- On Lovenox 40mg daily (5) Sinusitis Qualifiers: Sinusitis location: unspecified location Chronicity: acute Recurrence: not specified as recurrent Qualified Code(s): J01.90 - Acute sinusitis, unspecified
[2018-09-18] MEDS: Benzonatate 100 MG Capsule PO PRN (13:58)
--- NOTE | 2018-09-18 14:44 | P.PNCA ---
Subjective Interval history: ambulating in halls in [facility] Medications and Allergies Active Medications: Active Medications Acetaminophen (Tylenol) 650 mg PO Q6H PRN PRN Reason: TEMPERATURE > 100.5 F Acetaminophen (Tylenol) 500 mg PO Q4H PRN PRN Reason: HEADACHE Hydrocodone Bitart/Acetaminophen ([place] 7.5/325) 1 tab PO Q4H PRN PRN Reason: PAIN SCALE 1 TO 7 Albuterol (Albuterol Neb (Prn)) 2.5 mg NEB Q2HR NEB PRN PRN Reason: DYSPNEA Aspirin (Aspirin Chew) 81 mg PO DAILY [facility] Last Admin: 09/18/18 09:00 Dose: 81 mg Atorvastatin Calcium (Lipitor) 40 mg PO HS MARIO Benzonatate (Tessalon Perles) 200 mg PO Q8H PRN PRN Reason: COUGH Last Admin: 09/18/18 13:58 Dose: 200 mg Bisacodyl (Dulcolax Supp) 10 mg RECTAL DAILY PRN PRN Reason: SEVERE CONSITIPATION Calcium Carbonate (Tums Chew) 500 mg CHEW Q6H PRN PRN Reason: DYSPEPSIA OR HEARTBURN Chlorhexidine Gluconate (Chlorhexidine 2% Cloth) 3 pack TOPICAL DAILY@0400 MARIO Stop: 09/19/18 03:59 Last Admin: 09/18/18 04:00 Dose: Not Given Chlorhexidine Gluconate (Chlorhexidine 2% Cloth) 3 pack TOPICAL DAILY@0400 PRN PRN Reason: Extra cloth needed Stop: 09/19/18 03:59 Dextrose (D50w Vial) 50 ml IV.PUSH UNSCH PRN PRN Reason: PER HYPOGLYCEMIA PROTOCOL Enoxaparin Sodium (Lovenox Inj) 40 mg SQ DAILY [facility] Last Admin: 09/18/18 09:00 Dose: 40 mg Furosemide (Lasix) 20 mg PO DAILY [facility] Glucagon (Glucagon Inj) 1 mg OTHER PRN PRN PRN Reason: for Hypoglycemia Protocol Guaifenesin (Mucinex Er) 600 mg PO BID [facility] Nicardipine HCl 25 mg/ Sodium (Chloride) 250 mls @ 50 mls/hr IV.CONT TITRATE PRN; Protocol PRN Reason: Per Protocol Last Titration: 09/14/18 04:30 Dose: 0 mg/hr, 0 mls/hr Magnesium Sulfate 4 gm/ Sodium (Chloride) 100 mls @ 50 mls/hr IV.SIG UNSCH PRN PRN Reason: For Magnesium 0.9 - 1.1 mg/dL Magnesium Sulfate 2 gm/ Sodium (Chloride) 100 mls @ 50 mls/hr IV.SIG UNSCH PRN PRN Reason: For Magnesium 1.2 - 1.6 mg/dL Potassium Chloride (Kcl 40 Meq Premix Inj) 40 meq in 100 mls @ 25 mls/hr IV.SIG Q2H PRN PRN Reason: For Potassium 2.8 - 3.2 mEq/L Potassium Chloride (Kcl 20 Meq Premix Inj) 20 meq in 100 mls @ 50 mls/hr IV.SIG Q2H PRN PRN Reason: For Potassium 3.3 - 3.5 mEq/L Potassium Chloride (Kcl 40 Meq Premix Inj) 40 meq in 100 mls @ 25 mls/hr IV.SIG UNSCH PRN PRN Reason: For Potassium 3.3 - 3.5 mEq/L Potassium Chloride (Kcl 20 Meq Premix Inj) 20 meq in 100 mls @ 50 mls/hr IV.SIG Q2H PRN PRN Reason: For Potassium 2.8 - 3.2 mEq/L Last Infusion: 09/15/18 06:25 Dose: Infused Potassium Phosphate 30 mmol/ (Sodium Chloride) 260 mls @ 42 mls/hr IV.SIG UNSCH PRN PRN Reason: SEE LABEL COMMENTS Sodium Phosphate 30 mmol/ (Sodium Chloride) 260 mls @ 42 mls/hr IV.SIG UNSCH PRN PRN Reason: For Phosphorus < 2.5 mg/dL Insulin Aspart (Novolog Insulin Correctional Sugar Inj) 0 unit SQ [facility]; Protocol Last Admin: 09/18/18 11:19 Dose: 5 unit Insulin Detemir (Levemir Inj) 10 unit SQ [facility] Last Admin: 09/17/18 21:46 Dose: 10 unit Insulin Detemir (Levemir Inj) 20 unit SQ DAILY [facility] Last Admin: 09/18/18 09:00 Dose: 20 unit Lactulose (Lactulose Liq) 30 ml PO DAILY PRN PRN Reason: SEVERE CONSITIPATION Losartan Potassium (Cozaar) 50 mg PO DAILY [facility] Last Admin: 09/18/18 09:00 Dose: 50 mg Magnesium Oxide (Mag-Ox) 800 mg PO UNSCH PRN PRN Reason: For Magnesium 1.2 - 1.6 mg/dL Melatonin (Melatonin) 5 mg PO HS PRN PRN Reason: INSOMNIA Last Admin: 09/17/18 21:46 Dose: 5 mg Metoprolol Tartrate (Lopressor) 100 mg PO BID [facility] Last Admin: 09/18/18 09:00 Dose: 100 mg Miscellaneous (Pill Splitter) 1 each OTHER UNSCH PRN PRN Reason: SEE LABEL COMMENTS Morphine Sulfate (Morphine Inj) 2 mg IV.PUSH Q4H PRN PRN Reason: PAIN SCALE 8-10 Last Admin: 09/16/18 11:00 Dose: 2 mg Ondansetron HCl (Zofran Inj) 4 mg IV.PUSH Q6H PRN PRN Reason: NAUSEA OR VOMITING Pantoprazole Sodium (Protonix) 40 mg PO DAILY [facility] Last Admin: 09/18/18 09:00 Dose: 40 mg Potassium Bicarb/Potassium Chloride (K-Lyte Cl Eff) 50 meq PO UNSCH PRN PRN Reason: For Potassium 3.3 - 3.5 mEq/L Last Admin: 09/16/18 11:00 Dose: 50 meq Potassium Phosphate (K-Phos Original) 2,000 mg PO Q4H PRN PRN Reason: Phosphorus Less Than 2.5 mg/dL Potassium Phosphate (K-Phos Original) 2,000 mg PO UNSCH PRN PRN Reason: SEE LABEL COMMENTS Senna/Docusate Sodium (Josephine-Colace) 1 tab PO BID [facility] Last Admin: 09/18/18 09:00 Dose: 1 tab Sennosides (Senokot) 17.2 mg PO Q12H PRN PRN Reason: Moderate Constipation Sodium Chloride (Ns Flush) 2 ml IV.FLUSH BID [facility] Last Admin: 09/18/18 09:00 Dose: 2 ml Sodium Chloride (Ns Flush) 2 ml IV.FLUSH PRN PRN PRN Reason: FLUSH AFTER USING IV ACCESS Sodium Chloride ([place] Nasal [place]) 2 spray EACH NARE Q4H PRN PRN Reason: congestion Allergies Allergy/AdvReac Type Severity Reaction Status Date / Time No Known Allergies Allergy Unverified 07/04/18 08:26 Home Medications Medication Instructions Recorded Confirmed Type glyburide-metformin 2 tab PO BID 07/04/18 09/13/18 History losartan 50 mg PO DAILY 07/04/18 09/13/18 History Physical Exam Vital signs: Vital Signs 09/17/18 15:00 09/17/18 16:00 09/17/18 17:00 Temperature Pulse Rate 100 H 100 H 92 H Respiratory Rate 20 Blood Pressure 120/90 Pulse Oximetry 09/17/18 17:25 09/17/18 18:00 09/17/18 19:00 Temperature Pulse Rate 102 H 92 H 105 H Respiratory Rate 16 Blood Pressure Pulse Oximetry 09/17/18 19:46 09/17/18 20:00 09/17/18 21:00 Temperature 98.4 F Pulse Rate 107 H 104 H 105 H Respiratory Rate 15 19 Blood Pressure 122/83 Pulse Oximetry 97 93 L 09/17/18 22:00 09/17/18 23:00 09/18/18 00:00 Temperature 98.6 F Pulse Rate 103 H 96 H 96 H Respiratory Rate 18 Blood Pressure 121/90 Pulse Oximetry 95 09/18/18 01:00 09/18/18 02:00 09/18/18 03:00 Temperature Pulse Rate 97 H 88 95 H Respiratory Rate Blood Pressure Pulse Oximetry 09/18/18 04:00 09/18/18 05:00 09/18/18 05:05 Temperature 98.3 F Pulse Rate 96 H 94 H 73 Respiratory Rate 19 15 Blood Pressure 117/73 Pulse Oximetry 92 L 09/18/18 06:00 09/18/18 07:00 09/18/18 07:22 Temperature Pulse Rate 99 H 98 H 102 H Respiratory Rate 16 Blood Pressure Pulse Oximetry 96 09/18/18 08:00 09/18/18 09:00 09/18/18 10:00 Temperature 98.3 F Pulse Rate 98 H 90 92 H Respiratory Rate 20 Blood Pressure 135/95 H Pulse Oximetry 94 L 09/18/18 11:00 09/18/18 11:51 09/18/18 11:52 Temperature Pulse Rate 90 90 72 Respiratory Rate 18 Blood Pressure 124/98 H Pulse Oximetry 98 09/18/18 11:59 09/18/18 13:00 09/18/18 14:00 Temperature Pulse Rate 91 H 90 88 Respiratory Rate 16 Blood Pressure Pulse Oximetry Intake & Output 09/17/18 09/18/18 09/18/18 18:59 06:59 18:59 Intake Total 1000 / 1000 240 / 240 Balance 1000 / 1000 240 / 240 Weight 97.8 kg Intake: Oral 1000 / 1000 240 / 240 Other: # Voids 5 2 Date of Last Bowel Movement 09/17/18 - Constitutional no acute distress - Routine HEENT Exam Head: Present: normocephalic - Routine Neck Exam Present: supple - Routine Respiratory Exam Present: CTA bilaterally - Routine Cardiovascular Exam Present: S1, S2 - Routine Abdominal Exam Present: soft - Routine Extremities Exam Comments: no jerry Results 09/15/18 01:10 09/18/18 05:50 Cardiac Enzymes 09/16/18 09/17/18 09/17/18 Range/Units 14:42 05:18 05:18 CK-MB (CK-2) 3.9 H (0.5-3.6) ng/mL Troponin I 0.06 H 0.09 H (0.02-0.05) ng/mL B-Natriuretic Peptide 664 H (0-100) pg/mL 09/18/18 09/18/18 Range/Units 05:50 05:50 CK-MB (CK-2) (0.5-3.6) ng/mL Troponin I 0.06 H (0.02-0.05) ng/mL B-Natriuretic Peptide 491 H (0-100) pg/mL Coagulation 09/17/18 09/18/18 Range/Units 05:18 05:50 B-Natriuretic Peptide 664 H 491 H (0-100) pg/mL Lipids 09/17/18 Range/Units 05:18 Triglycerides 124 (42-150) mg/dL Cholesterol 261 H (120-200) mg/dL HDL Cholesterol 41.5 (40.0-60.0) mg/dL Cholesterol/HDL Ratio 6.28 Ratio Comprehensive Metabolic Panel 09/16/18 09/17/18 09/18/18 Range/Units 19:10 05:18 05:50 Sodium 139 139 (136-145) meq/L Potassium 4.5 D 3.7 D 3.3 L (3.5-5.1) meq/L Chloride 104 106 (98-107) meq/L Carbon Dioxide 26.1 24.1 (21.0-32.0) meq/L BUN 26 H 24 H (7-18) mg/dL Creatinine 1.60 H 1.48 H (0.60-1.30) mg/dL Calcium 8.2 L 8.1 L (8.5-10.1) mg/dL Intake and Output 09/17/18 09/18/18 09/18/18 22:59 06:59 14:59 Intake Total 1000 / 1000 240 / 240 Balance 1000 / 1000 240 / 240 Intake: Oral 1000 / 1000 240 / 240 Other: # Voids 5 2 Date of Last Bowel Movement 09/17/18 09/17/18 Weight 97.8 kg Assessment and Plan - Assessment (1) HTN (hypertension) Code(s): I10 - Essential (primary) hypertension Status: Acute (2) NSTEMI (non-ST elevated myocardial infarction) Code(s): I21.4 - Non-ST elevation (NSTEMI) myocardial infarction Status: Acute (3) Cardiomyopathy Code(s): I42.9 - Cardiomyopathy, unspecified Status: Acute (4) Renal insufficiency Code(s): N28.9 - Disorder of kidney and ureter, unspecified Status: Acute (5) CKD (chronic kidney disease), stage III Code(s): N18.3 - Chronic kidney disease, stage 3 (moderate) Status: Chronic (6) Pulmonary edema Code(s): J81.1 - Chronic pulmonary edema Status: Acute - Plan 1.) NSTEMI - continue lopressor 100 mg bid, continue aspirin; cath if/when renal function improved; recheck trop 2.) Cardiomyopathy - continue lopressor and cozaar, lasix; f/u bnp in am 3.) HTN - improved
--- NOTE | 2018-09-18 15:59 | P.DIET ---
Nutritional Evaluation Type of nutrition evaluation: initial Nutrition screening: MDC (diet education) Assessment Assessment: [facility] [place] for diet education for diabetes received on 09/17. RD provided printed materials for diabetic education. Pts A1c 16.0%. Pt explained that he had practiced being a vegan for 6 months prior this Thanksgiving and then burned out by consuming a diet not consistent w/ the DM diet. Pt stated he had been taking his DM medications. Pt also mentioned he had reading materials on food lists pertinent to diabetics and also information on how the DM diet works. Pt as receptive, positive about the education and had questions. RD answered pt and encouraged pt to consider the carb consistent diet. Consult RD if pt had any other questions that may arise. Recommendations: Consult RD if pt had any other questions that may arise
[2018-09-18] MEDS: Melatonin 5 MG Tablet PO PRN (21:12)
[2018-09-18] MEDS: guaiFENesin 600 MG ER Tablet PO SCH (21:12)
[2018-09-19 06:58] LABS: Carbon Dioxide 26.8 meq/L (21.0-32.0); Magnesium 2.2 mg/dL (1.5-2.5); Potassium 3.4 meq/L (3.5-5.1)
[2018-09-19] MEDS: Senna/Docusate Sodium 8.6/50 MG Tablet PO SCH ×2 (09:42→20:42)
[2018-09-19] MEDS: Furosemide 20 MG Tablet PO SCH (09:42)
[2018-09-19] MEDS: Insulin NovoLOG Aspart Correctional Sugar Inj SQ SCH ×4 (09:42→20:42)
[2018-09-19] MEDS: guaiFENesin 600 MG ER Tablet PO SCH ×2 (09:42→20:42)
[2018-09-19] MEDS: Metoprolol Tartrate 50 MG Tablet PO SCH ×2 (09:42→20:42)
[2018-09-19] MEDS: Enoxaparin Inj 40 MG/0.4 ML Syringe SQ SCH (09:43)
[2018-09-19] MEDS: Insulin Detemir Inj 1,000 UNIT/10 ML Vial SQ SCH ×2 (09:43→20:43)
--- NOTE | 2018-09-19 11:15 | P.PNIM ---
Subjective Interval history: Current plan is for heart catheterization tomorrow. Primary complaint from the patient today's blurred vision. We discussed correlation of blood sugars and blurred vision. Physical Exam Vital signs: Last Vital Signs Temp 98.2 F 09/19/18 08:00 Pulse 90 09/19/18 10:00 Resp 18 09/19/18 08:00 BP 148/107 H 09/19/18 08:00 Pulse Ox 93 L 09/19/18 10:08 Intake & Output 09/17/18 09/18/18 09/19/18 09/20/18 06:59 06:59 06:59 06:59 Intake Total 1200 / 1200 1240 / 1240 1120 / 1120 Output Total 850 / 850 Balance 1200 / 1200 1240 / 1240 270 / 270 Weight 97.5 kg 97.8 kg 98 kg Narrative: GENERAL: NAD, A&Ox3 HEAD: Normocephalic. NECK: Supple, trachea midline. No lymphadenopathy. EYES: No scleral icterus. No injection or drainage. CARDIOVASCULAR: Regular rate and rhythm without murmurs, gallops, or rubs. RESPIRATORY: Breath sounds equal bilaterally. No accessory muscle use. GASTROINTESTINAL: Abdomen soft, non-tender, nondistended. MUSCULOSKELETAL: No cyanosis, or edema. SKIN: Warm and dry. NEURO: No focal neurological deficits. Results Labs CBC & Chem 7: 09/15/18 01:10 09/19/18 04:49 Assessment and Plan Plan 47-year-old male admitted secondary to acute pulmonary edema and hypertensive urgency with NSTEMI. Malignant hypertension Resolved Continue losartan Continue metoprolol NSTEMI Plan for heart cath tomorrow Cardiology following Ejection fraction of 40% on most recent echocardiogram Continue daily aspirin Acute pulmonary edema This was secondary to malignant hypertension This has resolved Follow clinically Obstructive sleep apnea No acute changes Outpatient sleep study CPAP recommended Hypokalemia Monitor potassium and replace as needed Chronic kidney disease stage III IV hydration pre-heart cath IV hydration to continue after heart cath Follow renal function Diabetes mellitus type 2, uncontrolled Blurred vision (secondary to uncontrolled DM2) Follow blood sugars Insulin sliding scale Diabetic diet Levemir will be continued at an increased dose, after heart cath For now increase aspart insulin provide with meals as patient will be n.p.o. after midnight Adjuuse insulins for control DVT Prophylaxis Lovenox Progress Note: Quality VTE Deep Vein Thrombosis/Pulmonary Embolism Present on Admission: No
[2018-09-19] MEDS: Sod Chloride 0.9% Inj 1,000 ML IV.CONT SCH (12:50)
--- NOTE | 2018-09-19 13:51 | P.PNCA ---
Subjective Interval history: assymptomatic in nad Medications and Allergies Active Medications: Active Medications Acetaminophen (Tylenol) 650 mg PO Q6H PRN PRN Reason: TEMPERATURE > 100.5 F Acetaminophen (Tylenol) 500 mg PO Q4H PRN PRN Reason: HEADACHE Hydrocodone Bitart/Acetaminophen ([place] 7.5/325) 1 tab PO Q4H PRN PRN Reason: PAIN SCALE 1 TO 7 Albuterol (Albuterol Neb (Prn)) 2.5 mg NEB Q2HR NEB PRN PRN Reason: DYSPNEA Last Admin: 09/18/18 22:02 Dose: 2.5 mg Aspirin (Aspirin Chew) 81 mg PO DAILY [facility] Last Admin: 09/19/18 09:42 Dose: 81 mg Atorvastatin Calcium (Lipitor) 40 mg PO HS [facility] Last Admin: 09/18/18 21:11 Dose: 40 mg Benzonatate (Tessalon Perles) 200 mg PO Q8H PRN PRN Reason: COUGH Last Admin: 09/18/18 13:58 Dose: 200 mg Bisacodyl (Dulcolax Supp) 10 mg RECTAL DAILY PRN PRN Reason: SEVERE CONSITIPATION Calcium Carbonate (Tums Chew) 500 mg CHEW Q6H PRN PRN Reason: DYSPEPSIA OR HEARTBURN Dextrose (D50w Vial) 50 ml IV.PUSH UNSCH PRN PRN Reason: PER HYPOGLYCEMIA PROTOCOL Enoxaparin Sodium (Lovenox Inj) 40 mg SQ DAILY [facility] Last Admin: 09/19/18 09:43 Dose: 40 mg Furosemide (Lasix) 20 mg PO DAILY [facility] Last Admin: 09/19/18 09:42 Dose: 20 mg Glucagon (Glucagon Inj) 1 mg OTHER PRN PRN PRN Reason: for Hypoglycemia Protocol Guaifenesin (Mucinex Er) 600 mg PO BID [facility] Last Admin: 09/19/18 09:42 Dose: 600 mg Nicardipine HCl 25 mg/ Sodium (Chloride) 250 mls @ 50 mls/hr IV.CONT TITRATE PRN; Protocol PRN Reason: Per Protocol Last Titration: 09/14/18 04:30 Dose: 0 mg/hr, 0 mls/hr Magnesium Sulfate 4 gm/ Sodium (Chloride) 100 mls @ 50 mls/hr IV.SIG UNSCH PRN PRN Reason: For Magnesium 0.9 - 1.1 mg/dL Magnesium Sulfate 2 gm/ Sodium (Chloride) 100 mls @ 50 mls/hr IV.SIG UNSCH PRN PRN Reason: For Magnesium 1.2 - 1.6 mg/dL Potassium Chloride (Kcl 40 Meq Premix Inj) 40 meq in 100 mls @ 25 mls/hr IV.SIG Q2H PRN PRN Reason: For Potassium 2.8 - 3.2 mEq/L Potassium Chloride (Kcl 20 Meq Premix Inj) 20 meq in 100 mls @ 50 mls/hr IV.SIG Q2H PRN PRN Reason: For Potassium 3.3 - 3.5 mEq/L Potassium Chloride (Kcl 40 Meq Premix Inj) 40 meq in 100 mls @ 25 mls/hr IV.SIG UNSCH PRN PRN Reason: For Potassium 3.3 - 3.5 mEq/L Potassium Chloride (Kcl 20 Meq Premix Inj) 20 meq in 100 mls @ 50 mls/hr IV.SIG Q2H PRN PRN Reason: For Potassium 2.8 - 3.2 mEq/L Last Infusion: 09/15/18 06:25 Dose: Infused Potassium Phosphate 30 mmol/ (Sodium Chloride) 260 mls @ 42 mls/hr IV.SIG UNSCH PRN PRN Reason: SEE LABEL COMMENTS Sodium Phosphate 30 mmol/ (Sodium Chloride) 260 mls @ 42 mls/hr IV.SIG UNSCH PRN PRN Reason: For Phosphorus < 2.5 mg/dL Sodium Chloride (Ns Inj) 1,000 mls @ 50 mls/hr IV.CONT .Q20H [facility] Last Admin: 09/19/18 12:50 Dose: 50 mls/hr Insulin Aspart (Novolog Insulin Correctional Sugar Inj) 0 unit SQ ACHS [facility]; Protocol Last Admin: 09/19/18 12:49 Dose: 4 unit Insulin Detemir (Levemir Inj) 10 unit SQ HS [facility] Last Admin: 09/18/18 21:12 Dose: 10 unit Insulin Detemir (Levemir Inj) 20 unit SQ DAILY [facility] Last Admin: 09/19/18 09:43 Dose: 20 unit Lactulose (Lactulose Liq) 30 ml PO DAILY PRN PRN Reason: SEVERE CONSITIPATION Losartan Potassium (Cozaar) 50 mg PO DAILY [facility] Last Admin: 09/19/18 09:42 Dose: 50 mg Magnesium Oxide (Mag-Ox) 800 mg PO UNSCH PRN PRN Reason: For Magnesium 1.2 - 1.6 mg/dL Melatonin (Melatonin) 5 mg PO HS PRN PRN Reason: INSOMNIA Last Admin: 09/18/18 21:12 Dose: 5 mg Metoprolol Tartrate (Lopressor) 100 mg PO BID [facility] Last Admin: 09/19/18 09:42 Dose: 100 mg Miscellaneous (Pill Splitter) 1 each OTHER UNSCH PRN PRN Reason: SEE LABEL COMMENTS Morphine Sulfate (Morphine Inj) 2 mg IV.PUSH Q4H PRN PRN Reason: PAIN SCALE 8-10 Last Admin: 09/16/18 11:00 Dose: 2 mg Ondansetron HCl (Zofran Inj) 4 mg IV.PUSH Q6H PRN PRN Reason: NAUSEA OR VOMITING Pantoprazole Sodium (Protonix) 40 mg PO DAILY [facility] Last Admin: 09/19/18 09:42 Dose: 40 mg Potassium Bicarb/Potassium Chloride (K-Lyte Cl Eff) 50 meq PO UNSCH PRN PRN Reason: For Potassium 3.3 - 3.5 mEq/L Last Admin: 09/16/18 11:00 Dose: 50 meq Potassium Phosphate (K-Phos Original) 2,000 mg PO Q4H PRN PRN Reason: Phosphorus Less Than 2.5 mg/dL Potassium Phosphate (K-Phos Original) 2,000 mg PO UNSCH PRN PRN Reason: SEE LABEL COMMENTS Senna/Docusate Sodium (Josephine-Colace) 1 tab PO BID [facility] Last Admin: 09/19/18 09:42 Dose: 1 tab Sennosides (Senokot) 17.2 mg PO Q12H PRN PRN Reason: Moderate Constipation Sodium Chloride (Ns Flush) 2 ml IV.FLUSH BID [facility] Last Admin: 09/19/18 09:43 Dose: 2 ml Sodium Chloride (Ns Flush) 2 ml IV.FLUSH PRN PRN PRN Reason: FLUSH AFTER USING IV ACCESS Sodium Chloride ([place] Nasal [place]) 2 spray EACH NARE Q4H PRN PRN Reason: congestion Allergies Allergy/AdvReac Type Severity Reaction Status Date / Time No Known Allergies Allergy Unverified 07/04/18 08:26 Home Medications Medication Instructions Recorded Confirmed Type glyburide-metformin 2 tab PO BID 07/04/18 09/13/18 History losartan 50 mg PO DAILY 07/04/18 09/13/18 History Physical Exam Vital signs: Vital Signs 09/18/18 14:00 09/18/18 15:00 09/18/18 16:00 Temperature Pulse Rate 88 98 H 96 H Respiratory Rate 20 Blood Pressure 131/86 Pulse Oximetry 95 09/18/18 17:00 09/18/18 18:00 09/18/18 19:00 Temperature Pulse Rate 92 H 90 106 H Respiratory Rate Blood Pressure Pulse Oximetry 09/18/18 20:00 09/18/18 21:00 09/18/18 22:00 Temperature 97.7 F Pulse Rate 96 H 104 H 102 H Respiratory Rate 20 Blood Pressure 164/93 H Pulse Oximetry 92 L 09/18/18 22:06 09/18/18 22:07 09/18/18 23:00 Temperature Pulse Rate 104 H 89 Respiratory Rate 18 Blood Pressure Pulse Oximetry 97 09/19/18 00:00 09/19/18 01:00 09/19/18 02:00 Temperature 97.9 F Pulse Rate 92 H 89 90 Respiratory Rate 17 Blood Pressure 128/89 Pulse Oximetry 92 L 09/19/18 03:00 09/19/18 04:00 09/19/18 05:00 Temperature 97.9 F Pulse Rate 97 H 96 H 101 H Respiratory Rate 15 Blood Pressure 126/88 Pulse Oximetry 94 L 09/19/18 06:00 09/19/18 07:00 09/19/18 08:00 Temperature 98.2 F Pulse Rate 101 H 96 H 98 H Respiratory Rate 18 Blood Pressure 148/107 H Pulse Oximetry 98 09/19/18 09:00 09/19/18 10:00 09/19/18 10:08 Temperature Pulse Rate 95 H 90 Respiratory Rate Blood Pressure Pulse Oximetry 93 L 09/19/18 11:00 09/19/18 13:00 Temperature 98.2 F Pulse Rate 95 H Respiratory Rate 16 Blood Pressure 141/113 H 120/87 Pulse Oximetry 95 Intake & Output 09/18/18 09/19/18 09/19/18 18:59 06:59 18:59 Intake Total 880 / 880 240 / 240 Output Total 850 / 850 Balance 30 / 30 240 / 240 Weight 98 kg Intake: Oral 880 / 880 240 / 240 Output: Urine 850 / 850 Other: Date of Last Bowel Movement 09/17/18 09/17/18 - Constitutional no acute distress - Routine HEENT Exam Head: Present: normocephalic - Routine Neck Exam Present: supple - Routine Respiratory Exam Present: CTA bilaterally - Routine Cardiovascular Exam Present: S1, S2 - Routine Abdominal Exam Present: soft - Routine Extremities Exam Comments: no jerry Results 09/15/18 01:10 09/19/18 04:49 Cardiac Enzymes 09/18/18 09/18/18 Range/Units 05:50 05:50 Troponin I 0.06 H (0.02-0.05) ng/mL B-Natriuretic Peptide 491 H (0-100) pg/mL Coagulation 09/18/18 Range/Units 05:50 B-Natriuretic Peptide 491 H (0-100) pg/mL Comprehensive Metabolic Panel 09/18/18 09/19/18 Range/Units 05:50 04:49 Sodium 139 140 (136-145) meq/L Potassium 3.3 L 3.4 L (3.5-5.1) meq/L Chloride 106 105 (98-107) meq/L Carbon Dioxide 24.1 26.8 (21.0-32.0) meq/L BUN 24 H 24 H (7-18) mg/dL Creatinine 1.48 H 1.67 H (0.60-1.30) mg/dL Calcium 8.1 L 8.0 L (8.5-10.1) mg/dL Intake and Output 09/18/18 09/19/18 09/19/18 22:59 06:59 14:59 Intake Total 880 / 880 240 / 240 Output Total 850 / 850 Balance 30 / 30 240 / 240 Intake: Oral 880 / 880 240 / 240 Output: Urine 850 / 850 Other: Date of Last Bowel Movement 09/17/18 09/17/18 09/17/18 Weight 98 kg Assessment and Plan - Assessment (1) HTN (hypertension) Code(s): I10 - Essential (primary) hypertension Status: Acute (2) NSTEMI (non-ST elevated myocardial infarction) Code(s): I21.4 - Non-ST elevation (NSTEMI) myocardial infarction Status: Acute (3) Cardiomyopathy Code(s): I42.9 - Cardiomyopathy, unspecified Status: Acute (4) Renal insufficiency Code(s): N28.9 - Disorder of kidney and ureter, unspecified Status: Acute (5) CKD (chronic kidney disease), stage III Code(s): N18.3 - Chronic kidney disease, stage 3 (moderate) Status: Chronic (6) Pulmonary edema Code(s): J81.1 - Chronic pulmonary edema Status: Acute - Plan 1.) NSTEMI - continue lopressor 100 mg bid, continue aspirin; possible cath 09/21 2.) Cardiomyopathy - continue lopressor and cozaar, lasix; f/u bnp in am 3.) HTN - improved
--- NOTE | 2018-09-19 19:07 | P.PN ---
Subjective Interval history: Alert and Off O2. No chest pains. Will go for cardiac cath in am. Good output and renal profile better. Physical Exam Vital signs: Vital Signs 09/18/18 20:00 09/18/18 21:00 09/18/18 22:00 Temperature 97.7 F Pulse Rate 96 H 104 H 102 H Respiratory Rate 20 Blood Pressure 164/93 H Pulse Oximetry 92 L 09/18/18 22:06 09/18/18 22:07 09/18/18 23:00 Temperature Pulse Rate 104 H 89 Respiratory Rate 18 Blood Pressure Pulse Oximetry 97 09/19/18 00:00 09/19/18 01:00 09/19/18 02:00 Temperature 97.9 F Pulse Rate 92 H 89 90 Respiratory Rate 17 Blood Pressure 128/89 Pulse Oximetry 92 L 09/19/18 03:00 09/19/18 04:00 09/19/18 05:00 Temperature 97.9 F Pulse Rate 97 H 96 H 101 H Respiratory Rate 15 Blood Pressure 126/88 Pulse Oximetry 94 L 09/19/18 06:00 09/19/18 07:00 09/19/18 08:00 Temperature 98.2 F Pulse Rate 101 H 96 H 98 H Respiratory Rate 18 Blood Pressure 148/107 H Pulse Oximetry 98 09/19/18 09:00 09/19/18 10:00 09/19/18 10:08 Temperature Pulse Rate 95 H 90 Respiratory Rate Blood Pressure Pulse Oximetry 93 L 09/19/18 11:00 09/19/18 12:00 09/19/18 13:00 Temperature 98.2 F Pulse Rate 95 H 90 92 H Respiratory Rate 16 Blood Pressure 141/113 H 120/87 Pulse Oximetry 95 09/19/18 14:00 09/19/18 15:00 09/19/18 16:00 Temperature 98.7 F Pulse Rate 96 H 98 H 98 H Respiratory Rate 16 Blood Pressure 136/92 H Pulse Oximetry 97 09/19/18 17:00 09/19/18 18:00 Temperature Pulse Rate 94 H 102 H Respiratory Rate Blood Pressure Pulse Oximetry Intake & Output 09/19/18 09/19/18 09/20/18 06:59 18:59 06:59 Intake Total 240 / 240 960 / 960 Balance 240 / 240 960 / 960 Weight 98 kg Intake: Oral 240 / 240 960 / 960 Other: # Voids 1 Date of Last Bowel Movement 09/17/18 09/17/18 Narrative: GENERAL: Obese mid aged male ,NAD, A&Ox3 HEAD: Normocephalic. NECK: Supple, trachea midline. No lymphadenopathy. EYES: No scleral icterus. No injection or drainage. CARDIOVASCULAR: Regular rate and rhythm without murmurs, gallops, or rubs. RESPIRATORY: Breath sounds equal bilaterally. No accessory muscle use.No wheezing. GASTROINTESTINAL: Abdomen soft, non-tender, nondistended. MUSCULOSKELETAL: No cyanosis, or edema. SKIN: Warm and dry. NEURO: No focal neurological deficits. Results - Labs CBC & Chem 7: 09/15/18 01:10 09/19/18 04:49 Laboratory Results - last 24 hr 09/18/18 09/19/18 09/19/18 19:33 04:49 11:46 Sodium 140 Potassium 3.4 L Chloride 105 Carbon Dioxide 26.8 Anion Gap 8 BUN 24 H Creatinine 1.67 H Estimated GFR 54 L POC Glucose 266 H 224 H Random Glucose 127 H Calcium 8.0 L Magnesium 2.2 09/19/18 17:14 Sodium Potassium Chloride Carbon Dioxide Anion Gap BUN Creatinine Estimated GFR POC Glucose 193 H Random Glucose Calcium Magnesium Assessment and Plan - Assessment (1) Insomnia Code(s): G47.00 - Insomnia, unspecified Status: Chronic (2) Allergic rhinitis Code(s): J30.9 - Allergic rhinitis, unspecified Status: Acute (3) Renal insufficiency Code(s): N28.9 - Disorder of kidney and ureter, unspecified Status: Acute (4) Hypothyroidism Code(s): E03.9 - Hypothyroidism, unspecified Status: Acute (5) Sinusitis Code(s): J32.9 - Chronic sinusitis, unspecified Status: Acute (6) CKD (chronic kidney disease), stage III Code(s): N18.3 - Chronic kidney disease, stage 3 (moderate) Status: Chronic (7) Pulmonary edema Code(s): J81.1 - Chronic pulmonary edema Status: Acute - Plan - Plan 1. Respiratory insufficiency. 2. Pulmonary edema...resolving 3. Hypertension 4. Obstructive sleep apnea. 5. Obesity. 6. Acute kidney injury. 7. Hyperglycemia, hx DM 8. Hypokalemia Plan 1. D/C O2 2. Duo nebs qid PRN 3. Ok for cardiac cath. 4.Cont Lasix 20 mg PO daily. 5. Dr. Preston. for cath in am 12/ V/Q scan negative and Doppler US LE negative for DVT. 6. Will need a repeat sleep study as an outpatient. His last sleep study was 5 years ago. 7. Continue with antihypertensive medication. 8. Cont Lovenox 40 mg S/Q (5) Sinusitis Qualifiers: Sinusitis location: unspecified location Chronicity: acute Recurrence: not specified as recurrent Qualified Code(s): J01.90 - Acute sinusitis, unspecified
[2018-09-19] MEDS: Melatonin 5 MG Tablet PO PRN (20:42)
[2018-09-20 04:59] LABS: Albumin 2.9 g/dL (3.4-5.0); Anion Gap 8 meq/L (5-15); Aspartate Aminotransferase 21 U/L (15-37); Blood Urea Nitrogen 21 mg/dL (7-18); Calcium 8.5 mg/dL (8.5-10.1); Carbon Dioxide 22.7 meq/L (21.0-32.0); Chloride 108 meq/L (98-107); Glomerular Filtration Rate 58 mL/min (>89); Glucose,Random 116 mg/dL (74-106); Magnesium 2.2 mg/dL (1.5-2.5); Potassium 3.7 meq/L (3.5-5.1); Sodium 139 meq/L (136-145)
[2018-09-20 05:00] LABS: Alanine Aminotransferase 25 U/L (12-78)
[2018-09-20 05:02] LABS: Alkaline Phosphatase 56 U/L (45-117); Total Protein 6.4 g/dL (6.4-8.2)
[2018-09-20] MEDS: Furosemide 20 MG Tablet PO SCH (08:18)
[2018-09-20] MEDS: Enoxaparin Inj 40 MG/0.4 ML Syringe SQ SCH (08:19)
[2018-09-20] MEDS: Senna/Docusate Sodium 8.6/50 MG Tablet PO SCH ×2 (08:19→20:47)
[2018-09-20] MEDS: Metoprolol Tartrate 50 MG Tablet PO SCH ×2 (08:19→20:47)
[2018-09-20] MEDS: Insulin Detemir Inj 1,000 UNIT/10 ML Vial SQ SCH ×2 (08:19→21:00)
[2018-09-20] MEDS: guaiFENesin 600 MG ER Tablet PO SCH ×2 (08:19→20:47)
[2018-09-20] MEDS: Insulin NovoLOG Aspart Correctional Sugar Inj SQ SCH ×2 (08:19→21:00)
[2018-09-20] MEDS: Sod Chloride 0.9% Inj 1,000 ML IV.CONT SCH (08:28)
--- NOTE | 2018-09-20 11:08 | P.PNIM ---
Subjective Interval history: Renal function improved on light IV hydration. We will continue IV hydration preprocedure and postprocedure. Blood sugar slightly improved, further adjustments needed. Physical Exam Vital signs: Last Vital Signs Temp 98.2 F 09/20/18 07:00 Pulse 101 H 09/20/18 07:00 Resp 16 09/20/18 07:00 BP 142/97 H 09/20/18 07:00 Pulse Ox 95 09/20/18 09:42 Intake & Output 09/18/18 09/19/18 09/20/18 09/21/18 06:59 06:59 06:59 06:59 Intake Total 1240 / 1240 1120 / 1120 1680 / 1680 1000 / 1000 Output Total 850 / 850 500 / 500 Balance 1240 / 1240 270 / 270 1180 / 1180 1000 / 1000 Weight 97.8 kg 98 kg 100.9 kg Narrative: GENERAL: NAD, A&Ox3 HEAD: Normocephalic. NECK: Supple, trachea midline. No lymphadenopathy. EYES: No scleral icterus. No injection or drainage. CARDIOVASCULAR: Regular rate and rhythm without murmurs, gallops, or rubs. RESPIRATORY: Breath sounds equal bilaterally. No accessory muscle use. GASTROINTESTINAL: Abdomen soft, non-tender, nondistended. MUSCULOSKELETAL: No cyanosis, or edema. SKIN: Warm and dry. NEURO: No focal neurological deficits. Results Labs CBC & Chem 7: 09/15/18 01:10 09/20/18 04:25 Assessment and Plan Plan 47-year-old male admitted secondary to acute pulmonary edema and hypertensive urgency with NSTEMI. Increase mealtime insulins for now adding 6 units of aspart insulin pre-meal in addition to sliding scale. Blurred vision remains a complaint from this patient. Improved blood sugars control should improve his blurred vision. Heart cath planned for tomorrow. Continue monitoring renal function and continue light IV hydration. Malignant hypertension Resolved Continue losartan Continue metoprolol NSTEMI Plan for heart cath tomorrow Cardiology following Ejection fraction of 40% on most recent echocardiogram Continue daily aspirin Acute pulmonary edema This was secondary to malignant hypertension This has resolved Follow clinically Obstructive sleep apnea No acute changes Outpatient sleep study CPAP recommended Hypokalemia Monitor potassium and replace as needed Chronic kidney disease stage III IV hydration pre-heart cath IV hydration to continue after heart cath Follow renal function Diabetes mellitus type 2, uncontrolled Blurred vision (secondary to uncontrolled DM2) Follow blood sugars Insulin sliding scale Diabetic diet Levemir will be continued at an increased dose, after heart cath For now increase aspart insulin provide with meals as patient will be n.p.o. after midnight Adjuuse insulins for control DVT Prophylaxis Lovenox Progress Note: Quality VTE Deep Vein Thrombosis/Pulmonary Embolism Present on Admission: No
[2018-09-20] MEDS ORDERED: Insulin NovoLOG Aspart Correctional Sugar Inj SQ SCH (12:00)
[2018-09-20] MEDS: Melatonin 5 MG Tablet PO PRN (20:47)
[2018-09-21] MEDS: Sod Chloride 0.9% Inj 1,000 ML IV.CONT SCH (03:31)
[2018-09-21 06:25] LABS: Baso # (Auto) 0.1 th/mm3 (0.0-0.2); Baso % (Auto) 1.1 % (0.0-2.0); Eos # (Auto) 0.1 th/mm3 (0.0-0.4); Eos % (Auto) 1.3 % (0.0-4.0); Hematocrit 37.8 % (39.0-51.0); Hemoglobin 12.4 gm/dL (13.0-17.0); Lymph # (Auto) 1.9 th/mm3 (1.0-4.8); Lymph % (Auto) 25.5 % (9.0-44.0); Mean Corpuscular HGB Conc 32.9 % (32.0-36.0); Mean Corpuscular Hemoglobin 26.1 pg (27.0-34.0); Mean Corpuscular Volume 79.4 fL (80.0-100.0); Mean Platelet Volume 9.3 fL (7.0-11.0); Mono # (Auto) 0.9 th/mm3 (0.0-0.9); Mono % (Auto) 12.2 % (0.0-8.0); Neut # (Auto) 4.4 th/mm3 (1.8-7.7); Neut % (Auto) 59.9 % (16.0-70.0); Platelet Count 214 th/mm3 (150-450); Red Blood Count 4.77 mil/mm3 (4.50-5.90); White Blood Count 7.3 th/mm3 (4.0-11.0)
[2018-09-21] MEDS: Benzonatate 100 MG Capsule PO PRN (06:25)
[2018-09-21 06:44] LABS: Albumin 2.9 g/dL (3.4-5.0); Anion Gap 8 meq/L (5-15); Aspartate Aminotransferase 31 U/L (15-37); Blood Urea Nitrogen 20 mg/dL (7-18); Calcium 8.2 mg/dL (8.5-10.1); Carbon Dioxide 24.5 meq/L (21.0-32.0); Chloride 110 meq/L (98-107); Glomerular Filtration Rate 55 mL/min (>89); Glucose,Random 97 mg/dL (74-106); Potassium 3.6 meq/L (3.5-5.1); Sodium 142 meq/L (136-145)
[2018-09-21 06:45] LABS: Alanine Aminotransferase 35 U/L (12-78)
[2018-09-21 06:48] LABS: Alkaline Phosphatase 64 U/L (45-117); Total Protein 6.4 g/dL (6.4-8.2); Troponin I 0.05 ng/mL (0.02-0.05)
[2018-09-21] MEDS: Enoxaparin Inj 40 MG/0.4 ML Syringe SQ SCH (08:16)
[2018-09-21] MEDS: guaiFENesin 600 MG ER Tablet PO SCH ×2 (08:16→21:30)
[2018-09-21] MEDS: Insulin Detemir Inj 1,000 UNIT/10 ML Vial SQ SCH ×2 (08:17→22:15)
[2018-09-21] MEDS: Furosemide 20 MG Tablet PO SCH (08:17)
[2018-09-21] MEDS: Insulin NovoLOG Aspart Correctional Sugar Inj SQ SCH ×4 (08:17→22:16)
[2018-09-21] MEDS: Metoprolol Tartrate 50 MG Tablet PO SCH ×2 (08:17→21:30)
[2018-09-21] MEDS: Senna/Docusate Sodium 8.6/50 MG Tablet PO SCH ×2 (08:17→22:17)
[2018-09-21] MEDS ORDERED: Heparin/NS PF Inj 1,000 ML ONE (08:44)
[2018-09-21] MEDS ORDERED: fentaNYL Citrate Inj 100 MCG/2 ML Ampul ONE (08:45)
[2018-09-21] MEDS ORDERED: Lidocaine 2% Inj 50 ML Vial ONE (08:46)
--- NOTE | 2018-09-21 09:37 | CATHPROC ---
[employer] HIS Report Study Information Study Number Admission Scheduled Start Study Start [id number] Sep 14 2018 12:44AM 09/21/2018 Sep 21 2018 8:38AM [place] [facility] Cardiac Catheterization Admit Source Facility Department Other [facility] [place] Writer / Runner Physician and Clinical Staff Initial Jez Love Hogshead Stripper Jessika Weller,RN Recorder Ca Ochoa ,RT(R) Scrub Quintin Maradiaga,RT(R) Procedures Performed Procedure Location (Site) Vessel Name Coronary Angiograms LCA Left Coronary Coronary Angiograms RCA Right Coronary L Heart Cath LV Gram-hand inj. LV LV Ventricle Equipment Time Drill Operator Automatic Description Size Mfg Part Number Used/Scraped TRANSDUCER, TRUWAVE [id number] 08:39 SCOTT DURÁN * Used W/STOCKCOCK *[id number] [id number] *[id number] *[id number] 08:39 [employer] BLANKET,WARM AIR CCL * Used *[id number] 08:39 [employer] PACK, CCL CUSTOM * Used *[id number] 08:39 [employer] IMS PACER PEN, SKIN DUAL W/ RULER * Used *[id number] 08:39 [employer] WIRE, 3MMJ .035 180CM 180CM Used *[id number] 08:39 NAMIC MANIFOLD, 4 PORT * Used *[id number] 08:39 [employer] OMNIPAQUE, 350 MG, 150ML 150ML [id number] Used [id number] 08:39 TERUMO MEDICAL SHEATH, FR4 TERUMO (10CM) FR 4 Used *[id number] History: Current Medications Medication Dosage/Unit Route Frequency Last Date/Time Taken COZAAR LIPITOR LOPRESSOR ASA LOVENOX History: Allergies Allergy Reaction No Known Allergies History: Risk Factors Family History of Hypertension Dyslipidemia Previous [place] Previous Heart Failure Premature CAD Yes Yes Yes No No Prior Valve Prior PCI Prior CABG Surgery No No No Cerebrovascular Peripheral Artery Chronic Lung On Dialysis Diabetes Diabetes Therapy Disease Disease Disease No No No No Yes Insulin History: Stress Tests Stress or Imaging Studies Performed Yes Standard Exercise Stress Test No Stress Echo No Stress Test CMR No Cardiac CTA Coronary Calcium Score No No Labs Hgb (g/dl) Hct (%) WBC (l/cumm) Platelets (thousands) 11.60-17.00 35.00-51.00 4.00-11.00 150.00-450.00 12.4 37.8 7.3 214 Glucose (mg/dl) BUN (mg/dl) Creatinine (mg/dl) BUN:Creatinine (1:x) 74.00-106.00 7.00-18.00 0.50-1.30 10.00-20.00 97 20 1.6 12.5 Na (meq/l) K (meq/l) 136.00-145.00 3.50-5.10 142 3.6 Troponin I (ng/ml) CPK-MB (ng/ML) 0.02-0.05 0.50-3.60 0.06 Not Drawn Medication Medication Total Dose (Bolus/Oral) Medication Total Dosage/Unit 1% XYLOCAINE 15 mL FENTANYL 25 mcg OXYGEN 6 l/min VERSED 1 mg Medications (Bolus/Oral) Medication Time Given Dosage/Unit Administered By Reason VERSED 09/21/2018 9:07:18 AM 1 mg Jessika Weller 1 mg VERSED given in lab by Jessika Weller RN in Right Antecubital via Peripheral IV. Ordered by Jez Thompson. FENTANYL 09/21/2018 9:08:32 AM 25 mcg Jessika Weller 25 mcg FENTANYL given in lab by Jessika Weller RN via Peripheral IV. Ordered by Jez Preston. 1% XYLOCAINE 09/21/2018 9:12:19 AM 15 mL Jez Preston 15 mL 1% XYLOCAINE given in lab by Jez Preston in Right Groin via Subcutaneous. Ordered by Jez Marte. OXYGEN 09/21/2018 9:12:55 AM 6 l/min Jessika Weller 6 l/min OXYGEN given in lab by Jessika Weller RN via Nasal. Ordered by Jez Preston. Medication (Drip) Medication Time Given Dosage/Unit Concentration/Unit Diluent (ml) Solution IV Solutions 09/21/2018 8:47:49 AM 0 mL (IV) NaCl .9 IV Solutions given in lab by Jessika Weller RN in Right Antecubital via Peripheral IV. Pump/Drip Fl ow = 100 ml/hr using NaCl .9. Initial Case Assessment Cardiovascular HR NIBP Chest Pain 100 160/120 0 Edema Present Skin color Skin None Normal Warm Dry Circulatory - Right Pulses Dorsalis Pedis Femoral 2 2 Scale (0,1,2,3,4,d) Circulatory - Left Pulses Dorsalis Pedis Femoral 2 2 Scale (0,1,2,3,4,d) Neurological State Oriented to time-place- Alert Moves all extremities person Respiration - General Respiration Rate SpO2 (%) O2 (lpm) (B/min) 20 91 4 Final Case Assessment Cardiovascular HR NIBP Chest Pain 100 148/117 0 Edema Present Skin color Skin None Normal Warm Dry Circulatory - Right Pulses Dorsalis Pedis Femoral 2 2 Scale (0,1,2,3,4,d) Circulatory - Left Pulses Dorsalis Pedis Femoral 2 2 Scale (0,1,2,3,4,d) Neurological State Oriented to time-place- Alert Moves all extremities person Respiration - General Respiration Rate SpO2 (%) O2 (lpm) (B/min) 20 89 6 Chronological Log Time Study Chronological Log 8:38:39 Patient arrived via Bed. 8:38:40 Patient Name, D.O.B, / Armband Verified By R.N. 8:39:14 Dr. Preston was notified of creatine going up. And also was notified that the patient was given lovenox at 0813 Vitals capture started with the following parameters, Patient=Adult, Interval=5 min, Initial Pr nrhrzi=492 mmHg, 8:45:18 Deflation Rate=5 mmHg, Cuff placed on Right Arm 8:46:35 UY=877 bpm, IMDJ=831/120 mmhg, SpO2=87.0 %, Resp=24 B/min, Pain=0, Capo=10, Pulido=2 8:47:14 Patient has been NPO for More than 6Hrs. 8:47:16 Skin Breakdown-, none per pt 8:47:24 Patient Warmer Placed on the Table. 8:47:26 Trudy Prominences Protected 8:47:33 A # 20 IV was noted in the Antecubital (right). Grade = 0 IV Solutions given in lab by Jessika Weller, OSVALDO in Right Antecubital via Peripheral IV. Pump/D rip Flow = 100 ml/hr 8:47:49 using NaCl .9. 8:49:00 Consent signed by the physician and the patient and verified by the [place] Writer / Runner staff. 8:49:00 Pre-op and post- op instructions given; patient acknowledges understanding of instructions. 8:49:01 Verbal Stimulation=2 Physical Stimulation=2 Airway=2 Respiration=2 TOTAL=8. (0=absent, 1=li mited, 2=present) 8:49:10 History and physical on the chart or being dictated. Assessment: Initial Case, AI=455 BPM, QPIF=599/120 mmhg, Chest Pain=0, Edema=None, Color=Normal, Skin = Warm, Dry Right Pulses: Jabari Ped=2, Femoral=2 8:49:10 Left Pulses: Jabari Ped=2, Femoral=2 Neurological: State=Alert, Ox3, CHAVEZ Respiration: Resp=20 B/min, SpO2=91 %, O2=4 lpm 8:50:43 Bilateral groins prepped with 2% chlorhexidine, and draped after a 3 minute waiting time. 8:50:59 FW=200 bpm, QAYH=719/113 mmhg, SpO2=90.0 %, Resp=19 B/min, Pain=0, Capo=10, Pulido=2 8:53:00 MD paged 8:53:29 MD responded 8:56:02 HR=95 bpm, YMII=668/113 mmhg, SpO2=92.0 %, Resp=28 B/min 8:56:10 Pressure channel 2 zeroed. 9:01:40 HR=96 bpm, HVVU=578/119 mmhg, SpO2=94.0 %, Resp=19 B/min, Pain=0, Capo=10, Pulido=2 9:06:45 HR=81 bpm, YNKY=282/111 mmhg, SpO2=94.0 %, Resp=13 B/min 9:07:04 MD arrived. 9:07:18 1 mg VERSED given in lab by Jessika Weller, RN in Right Antecubital via Peripheral IV. Orde red by Jez Preston. 9:08:32 25 mcg FENTANYL given in lab by Jessika Weller, OSVALDO via Peripheral IV. Ordered by Jez Preston. 9:09:02 Reference ECG taken Time Out. Correct patient, correct procedure, correct physician, labs, allergies, and equipment verified with union laborer 9:10:52 team present. Fire risk assesment completed (see hard stop sheet for coding). Time Out Concu rred by MD and individual staff in procedure. 9:11:01 HR=99 bpm, WAYA=498/118 mmhg, SpO2=91.0 %, Resp=17 B/min 9:12:14 Case Start 15 mL 1% XYLOCAINE given in lab by Jez Preston in Right Groin via Subcutaneous. Ordered by Mohan, 9:12:19 Jez. 9:12:55 6 l/min OXYGEN given in lab by Jessika Weller RN via Nasal. Ordered by Jez Preston. 9:14:36 Access site was Right Femoral Artery. 9:14:42 A SHEATH, FR4 TERUMO (10CM) FR 4 was advanced into the Fem Art (right) using the Percutaneou s technique. A JR 4.0 INFINITI CATHETER FR 4 was advanced over a wire. OMNIPAQUE, 350 MG, 150ML 150ML was use d for 9:15:08 injections. 9:16:02 HR=96 bpm, WXBU=155/117 mmhg, SpO2=89.0 %, Resp=23 B/min Recorded Pressure: LV, HR=80, Condition=Condition 1 9:16:30 (Left Ventricle) LV 151/28/54 Recorded Pressure: LV, Ao, HR=96, Condition=Condition 1 9:16:40 (Left Ventricle) LV 149/29/55, (Aorta) Ao 149/114/130 9:16:51 The LV was manually injected with 10 cc's and visualized. OMNIPAQUE, 350 MG, 150ML 150ML use d. 9:17:28 The RCA was injected and visualized at various angles. OMNIPAQUE, 350 MG, 150ML 150ML used. After removing the current catheter a JL 4.0 INFINITI CATHETER FR 4 was advanced over a WIRE, 3M MJ .035 180CM 9:18:15 180CM. 9:19:17 The LCA was injected and visualized at various angles. OMNIPAQUE, 350 MG, 150ML 150ML used. Recorded Pressure: Ao, HR=94, Condition=Condition 1 9:19:27 (Aorta) Ao 142/107/123 9:21:03 HR=95 bpm, TQBO=543/117 mmhg, SpO2=92.0 %, Resp=26 B/min 9:21:32 Case End (Physician broke scrub) Assessment: Final Case, YY=212 BPM, [facility]=796/117 mmhg, Chest Pain=0, Edema=None, Color=Normal, Skin = Warm, Dry Right Pulses: Jabari Ped=2, Femoral=2 9:23:04 Left Pulses: Jabari Ped=2, Femoral=2 Neurological: State=Alert, Ox3, CHAVEZ Respiration: Resp=20 B/min, SpO2=89 %, O2=6 lpm 9:23:23 Catheter(s) removed without difficulty 9:23:27 In the Fem Art (right) the SHEATH, FR4 TERUMO (10CM) FR [address] by Quintin Caldwell RT(R). 9:23:35 Sterile dressing applied to site 9:23:37 No case complications noted. 9:23:38 Cine recording checked. 9:23:40 Bedside Report will be given. 9:23:47 A Left Heart Cath was performed. 9:23:58 patient is going to be transported back to room with oxygen 9:25:54 Vitals capture stopped. 9:29:51 Patient moved to [facility] End Study - Contrast Media Used In Study Contrast Total Opened (mL) Total Used (mL) Total Wasted (mL) Omnipaque 35 35 0 End Study - Maximum Contrast Load Max Contrast Load (mL) 315.6 End Study - Radiation Exposure Fluoro Time (minutes) 1.3 End Study - Patient Disposition Complications Transferred To Interventional Outcome No Telemetry Bed No attempt made
--- NOTE | 2018-09-21 10:16 | MR ---
cc: Jez Preston MD DATE: 09/21/2018 PROCEDURE: Left heart catheterization, left ventriculography, coronary angiography. INDICATIONS: Non-STEMI ,CHF, hypertension, diabetes, chronic renal insufficiency, multiple cardiac risk factors. DETAILS OF PROCEDURE: The patient was pretreated with a liter of normal saline prior to procedure. The right femoral artery region was locally anesthetized with 10 mL of 1% lidocaine. A 4-[place] sheath was placed in right common femoral artery. A 4-[place] JR4 and JL4 catheter were used to perform left coronary angiography and left ventriculography. FINDINGS: LV pressure is 150/8-30. EF is 40%, global hypokinesis. Right coronary artery is large and dominant. There is no significant disease angiographically. Left main coronary has no significant disease angiographically. Left circumflex vessel has no significant disease angiographically. First obtuse marginal vessel comes off the mid AV groove of left circumflex vessel. It is a large vessel, 3.5 mm reference vessel diameter. The proximal segment has a bifurcation in the mid segment with no significant disease in either the medial or lateral branches. The remainder of the AV groove left circumflex vessel is a small diminutive vessel with no significant obstructive disease. LAD is transapical, supplies the distal inferoapical wall. There is no significant disease angiographically. The 1st diagonal artery is a small artery reference vessel diameter 2 mm. No significant obstructive disease. Second diagonal artery is a large vessel 3.0 reference vessel diameter in the proximal segment with no significant disease angiographically. CONCLUSION: 1. Angiographically no significant coronary artery disease in a right dominant system as detailed above. 2. Cardiomyopathy with ejection fraction 40%. Markedly elevated LVEDP equal to 30. Note, the patient required wedging to 30 degrees due to severe orthopnea during the procedure. 3. Recommend optimal medical therapy for congestive heart failure. Obviously, this will be difficult given the patient's baseline chronic renal insufficiency. We will need to optimize medicines as tolerated from a renal standpoint. Jez Preston MD AWC/carey , 09:38 AM , 09:44 AM
[2018-09-21] MEDS ORDERED: Iohexol 350 MG/ML 50 ML Vial (for Cath Lab) IVCONTRAST ONE (10:28)
--- NOTE | 2018-09-21 11:17 | P.PNIM ---
Subjective Interval history: Patient is status post heart catheterization this morning. Findings are significantly elevated LVEDP. After the procedure he is having shortness of breath and diaphoresis. Pulmonary edema appears to be etiology. Physical Exam Vital signs: Last Vital Signs Temp 98.5 F 09/21/18 07:00 Pulse 105 H 09/21/18 07:00 Resp 16 09/21/18 07:00 BP 158/110 H 09/21/18 07:00 Pulse Ox 95 09/21/18 10:55 Intake & Output 09/19/18 09/20/18 09/21/18 09/22/18 06:59 06:59 06:59 06:59 Intake Total 1120 / 1120 1680 / 1680 3200 / 3200 Output Total 850 / 850 500 / 500 Balance 270 / 270 1180 / 1180 3200 / 3200 Weight 98 kg 100.9 kg 101 kg Narrative: GENERAL: NAD, A&Ox3, diaphoretic. HEAD: Normocephalic. NECK: Supple, trachea midline. No lymphadenopathy. EYES: No scleral icterus. No injection or drainage. CARDIOVASCULAR: Regular rate and rhythm without murmurs, gallops, or rubs. RESPIRATORY: Breath sounds equal bilaterally. No accessory muscle use. SOB, increased respiratory rate. Crackles at bases. GASTROINTESTINAL: Abdomen soft, non-tender, nondistended. MUSCULOSKELETAL: No cyanosis, or edema. SKIN: Warm and dry. NEURO: No focal neurological deficits. Results Labs CBC & Chem 7: 09/21/18 04:51 09/21/18 04:51 Assessment and Plan Plan 47-year-old male admitted secondary to acute pulmonary edema and hypertensive urgency with NSTEMI. Respiratory distress and diaphoresis after procedure. Provide Lasix and monitor closely. If no benefit or if worsening occurs will transfer to ICU. Blood sugars have improved. Pulmonary HTN secondary to LVEDP Acute Pulmonary edema Light diuresis and repeat if beneficial Malignant hypertension Resolved Continue losartan Continue metoprolol NSTEMI Systolic CHF Diastolic CHF No CAD on cath today Etiology for elevated troponins is likely demand realted Cardiology following Ejection fraction of 40% on most recent echocardiogram Continue daily aspirin Acute pulmonary edema This was secondary to malignant hypertension This has resolved Follow clinically Obstructive sleep apnea No acute changes Outpatient sleep study CPAP recommended Hypokalemia Monitor potassium and replace as needed Chronic kidney disease stage III IV hydration pre-heart cath IV hydration to continue after heart cath Follow renal function Diabetes mellitus type 2, uncontrolled Blurred vision (secondary to uncontrolled DM2) Follow blood sugars Insulin sliding scale Diabetic diet Levemir will be continued at an increased dose, after heart cath For now increase aspart insulin provide with meals as patient will be n.p.o. after midnight Adjuuse insulins for control DVT Prophylaxis Lovenox Progress Note: Quality VTE Deep Vein Thrombosis/Pulmonary Embolism Present on Admission: No
--- NOTE | 2018-09-21 11:21 | P.PN ---
Subjective Interval history: He went fo cardiac cath and found to have elevated LVEDP. No significant CAD. Now in pulmonary edema. On O2 6 L.SOB at rest. Physical Exam Vital signs: Vital Signs 09/20/18 12:00 09/20/18 13:00 09/20/18 14:00 Temperature Pulse Rate 90 100 H 100 H Respiratory Rate Blood Pressure Pulse Oximetry 09/20/18 15:00 09/20/18 16:00 09/20/18 17:00 Temperature 98.4 F Pulse Rate 96 H 99 H 102 H Respiratory Rate 16 Blood Pressure 119/87 Pulse Oximetry 95 09/20/18 18:00 09/20/18 19:00 09/20/18 19:59 Temperature 98.3 F Pulse Rate 101 H 105 H Respiratory Rate 18 Blood Pressure 141/96 H Pulse Oximetry 95 95 09/20/18 20:00 09/20/18 21:00 09/20/18 22:00 Temperature Pulse Rate 103 H 101 H 95 H Respiratory Rate Blood Pressure Pulse Oximetry 97 09/20/18 23:00 09/21/18 00:00 09/21/18 01:00 Temperature 98.1 F Pulse Rate 95 H 94 H 97 H Respiratory Rate 15 Blood Pressure 139/94 H Pulse Oximetry 94 L 09/21/18 02:00 09/21/18 03:00 09/21/18 04:00 Temperature 98 F Pulse Rate 98 H 101 H 96 H Respiratory Rate 18 Blood Pressure 150/107 H Pulse Oximetry 98 09/21/18 05:00 09/21/18 06:00 09/21/18 07:00 Temperature 98.5 F Pulse Rate 80 99 H 105 H Respiratory Rate 16 Blood Pressure 158/110 H Pulse Oximetry 93 L 09/21/18 08:00 09/21/18 10:55 Temperature Pulse Rate Respiratory Rate Blood Pressure Pulse Oximetry 93 L 95 Intake & Output 09/20/18 09/21/18 09/21/18 18:59 06:59 18:59 Intake Total 1720 / 1720 1480 / 1480 Balance 1720 / 1720 1480 / 1480 Weight 101 kg Intake: IV 1000 / 1000 1000 / 1000 NS Inj 1,000 ML @ 50 mls/hr IV. 1000 / 1000 1000 / 1000 CONT .Q20H MARIO Rx#:[id number] Oral 720 / 720 480 / 480 Other: # Voids 6 2 Date of Last Bowel Movement 09/20/18 09/17/18 09/20/18 # Bowel Movements 3 Narrative: GENERAL: In distress, A&Ox3, diaphoretic. HEAD: Normocephalic. NECK: Supple, trachea midline. No lymphadenopathy. EYES: No scleral icterus. No injection or drainage. CARDIOVASCULAR: Regular rate and rhythm without murmurs, gallops, or rubs. RESPIRATORY: Breath sounds equal bilaterally. accessory muscle use. SOB, increased respiratory rate. Crackles at bases. GASTROINTESTINAL: Abdomen soft, non-tender, nondistended. MUSCULOSKELETAL: No cyanosis, but has edema. SKIN: Warm and dry. NEURO: No focal neurological deficits. Results - Labs CBC & Chem 7: 09/21/18 04:51 09/21/18 04:51 Laboratory Results - last 24 hr 09/20/18 09/20/18 09/20/18 11:39 16:32 20:50 WBC RBC Hgb Hct MCV MCH MCHC RDW Plt Count MPV Neut % (Auto) Lymph % (Auto) [place] % (Auto) Eos % (Auto) Baso % (Auto) Neut # (Auto) Lymph # (Auto) [place] # (Auto) Eos # (Auto) Baso # (Auto) WBC Differential Differential Comment Sodium Potassium Chloride Carbon Dioxide Anion Gap BUN Creatinine Estimated GFR POC Glucose 165 H 187 H 370 H Random Glucose Calcium Total Bilirubin AST ALT Alkaline Phosphatase Troponin I Total Protein Albumin 09/21/18 09/21/18 09/21/18 04:51 04:51 08:15 WBC 7.3 RBC 4.77 Hgb 12.4 L Hct 37.8 L MCV 79.4 L MCH 26.1 L MCHC 32.9 RDW 14.0 Plt Count 214 MPV 9.3 Neut % (Auto) 59.9 Lymph % (Auto) 25.5 [place] % (Auto) 12.2 H Eos % (Auto) 1.3 Baso % (Auto) 1.1 Neut # (Auto) 4.4 Lymph # (Auto) 1.9 [place] # (Auto) 0.9 Eos # (Auto) 0.1 Baso # (Auto) 0.1 WBC Differential . Differential Comment Auto diff final Sodium 142 Potassium 3.6 Chloride 110 H Carbon Dioxide 24.5 Anion Gap 8 BUN 20 H Creatinine 1.63 H Estimated GFR 55 L POC Glucose 127 H Random Glucose 97 Calcium 8.2 L Total Bilirubin 0.5 AST 31 ALT 35 Alkaline Phosphatase 64 Troponin I 0.05 Total Protein 6.4 Albumin 2.9 L 09/21/18 09:36 WBC RBC Hgb Hct MCV MCH MCHC RDW Plt Count MPV Neut % (Auto) Lymph % (Auto) [place] % (Auto) Eos % (Auto) Baso % (Auto) Neut # (Auto) Lymph # (Auto) [place] # (Auto) Eos # (Auto) Baso # (Auto) WBC Differential Differential Comment Sodium Potassium Chloride Carbon Dioxide Anion Gap BUN Creatinine Estimated GFR POC Glucose 148 H Random Glucose Calcium Total Bilirubin AST ALT Alkaline Phosphatase Troponin I Total Protein Albumin Assessment and Plan - Assessment (1) Insomnia Code(s): G47.00 - Insomnia, unspecified Status: Chronic (2) Allergic rhinitis Code(s): J30.9 - Allergic rhinitis, unspecified Status: Acute (3) Renal insufficiency Code(s): N28.9 - Disorder of kidney and ureter, unspecified Status: Acute (4) Hypothyroidism Code(s): E03.9 - Hypothyroidism, unspecified Status: Acute (5) Sinusitis Code(s): J32.9 - Chronic sinusitis, unspecified Status: Acute (6) CKD (chronic kidney disease), stage III Code(s): N18.3 - Chronic kidney disease, stage 3 (moderate) Status: Chronic (7) Pulmonary edema Code(s): J81.1 - Chronic pulmonary edema Status: Acute - Plan - Plan 1. Respiratory insufficiency. 2. Pulmonary edema...resolving 3. Hypertension 4. Obstructive sleep apnea. 5. Obesity. 6. Acute kidney injury. 7. Hyperglycemia, hx DM 8. Hypokalemia Plan 1. O2 50 % Ventimask and wean 2. Duo nebs qid PRN 3. CXR today 4.Cont Lasix 20 mg PO daily. 5.Add IV Lasix 20 mg X1 6. Will need a repeat sleep study as an outpatient. His last sleep study was 5 years ago. 7. Continue with antihypertensive medication. 8. Cont Lovenox 40 mg S/Q (5) Sinusitis Qualifiers: Sinusitis location: unspecified location Chronicity: acute Recurrence: not specified as recurrent Qualified Code(s): J01.90 - Acute sinusitis, unspecified
[2018-09-21] MEDS ORDERED: Labetalol HCl Inj 100 MG/20 ML Vial ONE (12:06)
[2018-09-21] MEDS ORDERED: Labetalol HCl Inj 100 MG/20 ML Vial IV.PUSH PRN (12:19)
[2018-09-21] MEDS ORDERED: hydrALAZINE HCl Inj 20 MG/ML Vial IV.PUSH PRN (12:20)
--- NOTE | 2018-09-21 12:26 | XR ---
EXAM DATE: 09/21/2018 12:14 PM EST AGE/SEX: 47 years / Male INDICATIONS: Evaluate for respiratory failure. CLINICAL DATA: This is the patient's initial encounter. Patient reports that signs and symptoms have been present for 1 day and indicates a pain score of 0/10. MEDICAL/SURGICAL HISTORY: . Hypertension. Diabetes. Sleep apnea. None. COMPARISON: [facility] [place], CHEST 1V SINGLE AP, 09/16/2018. . FINDINGS: Portable AP view of the chest demonstrates cardiac silhouette size at the upper limits for normal. Th ere is perihilar and lower lung zone airspace opacity that is relatively symmetric. No pneumothorax i s visualized. No definite pleural effusion is seen. CONCLUSION: Increased perihilar and lower lung zone airspace consolidation. The appearance could be consistent wi th pulmonary edema in the appropriate clinical setting. Electronically signed by: Nando Cobos MD 09/21/2018 12:25 PM EST
[2018-09-21] MEDS: niCARdipine Inj 25 MG in Sodium Chlor 0.9% Inj 240 ML IV.CONT PRN (12:34)
[2018-09-21] MEDS: Morphine Sulfate Inj 2 MG/ML Vial IV.PUSH PRN (12:48)
--- NOTE | 2018-09-21 14:48 | P.CONCC ---
History of Present Illness Service: ICU Consult date: 09/21/18 Requesting Physician: Jez Preston Primary Care Provider: Respiratory distress Chief Complaint: SOB History of Present Illness: This is a 47-year-old male that was admitted earlier this week with NSTEMI and hypertensive urgency. The patient underwent cardiac catheterization this morning, and postoperatively came dyspneic, diaphoretic with noted hypertensive urgency. The patient was sent to CV ICU placed on partial nonrebreather. The patient had received 20 mg of Lasix IV prior to consultation. The patient's past medical history significant for CKD stage III, JULIANNE, systolic CHF as well as diastolic dysfunction . Critical care medicine's was consulted for management. Upon my arrival to examine the patient the patient's BP was noted to be 206/115, the patient was tachypneic and diaphoretic. Nicardipine infusion was reinstituted, Lasix 20 mg had already been given. A Rivera catheter was placed for accuracy of I&O in the setting of diuretics. The patient began to diurese and a nebulizer treatment was provided. Review of Systems All other systems reviewed negative except as stated in HPI PMFSH - History History Provided By: Patient - Medical History Medical History: Medical History (Last Reviewed 09/18/18 @ 07:44 by Agustina Castellanos) Floaters Diabetes mellitus HTN (hypertension) Sleep apnea - Surgical History Surgical History: Surgical History (Last Reviewed 09/18/18 @ 10:47 by Ca Cabezas) No history of previous surgery - Family History Family History: Family History (Last Reviewed 09/18/18 @ 10:47 by Ca Cabezas) Father No significant medical problems Mother No significant medical problems - Tobacco History Second Hand Smoke Exposure: No Smoking Status: Never smoker - Alcohol History How Often Do You Have a Drink Containing Alcohol: Never - Substance Use History Substance History: No History of Abuse - Travel History Recent Travel in the [place] Within the Last 8 Weeks: No Recent Travel Out of the Country Within the Last 8 Weeks: No - Immunization History Tetanus Immunization: Unsure Medications and Allergies Active Medications: Active Medications Acetaminophen (Tylenol) 650 mg PO Q6H PRN PRN Reason: TEMPERATURE > 100.5 F Acetaminophen (Tylenol) 500 mg PO Q4H PRN PRN Reason: HEADACHE Hydrocodone Bitart/Acetaminophen ([place] 7.5/325) 1 tab PO Q4H PRN PRN Reason: PAIN SCALE 1 TO 7 Albuterol (Albuterol Neb (Prn)) 2.5 mg NEB Q2HR NEB PRN PRN Reason: DYSPNEA Last Admin: 09/21/18 12:35 Dose: 2.5 mg Aspirin (Aspirin Chew) 81 mg PO DAILY [facility] Last Admin: 09/21/18 08:16 Dose: 81 mg Atorvastatin Calcium (Lipitor) 40 mg PO HS [facility] Last Admin: 09/20/18 20:47 Dose: 40 mg Benzonatate (Tessalon Perles) 200 mg PO Q8H PRN PRN Reason: COUGH Last Admin: 09/21/18 06:25 Dose: 200 mg Bisacodyl (Dulcolax Supp) 10 mg RECTAL DAILY PRN PRN Reason: SEVERE CONSITIPATION Calcium Carbonate (Tums Chew) 500 mg CHEW Q6H PRN PRN Reason: DYSPEPSIA OR HEARTBURN Clonidine HCl (Catapres) 0.1 mg PO Q6H PRN PRN Reason: SYS BP GREATER THAN 160 MMHG Dextrose (D50w Vial) 50 ml IV.PUSH UNSCH PRN PRN Reason: PER HYPOGLYCEMIA PROTOCOL Enoxaparin Sodium (Lovenox Inj) 40 mg SQ DAILY [facility] Last Admin: 09/21/18 08:16 Dose: 40 mg Furosemide (Lasix) 20 mg PO DAILY [facility] Last Admin: 09/21/18 08:17 Dose: 20 mg Glucagon (Glucagon Inj) 1 mg OTHER PRN PRN PRN Reason: for Hypoglycemia Protocol Guaifenesin (Mucinex Er) 600 mg PO BID [facility] Last Admin: 09/21/18 08:16 Dose: 600 mg Hydralazine HCl (Apresoline Inj) 10 mg IV.PUSH Q6H PRN PRN Reason: SYS BP GREATER THAN 160 MMHG Nicardipine HCl 25 mg/ Sodium (Chloride) 250 mls @ 50 mls/hr IV.CONT TITRATE PRN; Protocol PRN Reason: Per Protocol Last Admin: 09/21/18 12:34 Dose: 5 mg/hr, 50 mls/hr Sodium Chloride (Ns Inj) 1,000 mls @ 50 mls/hr IV.CONT .Q20H [facility] Last Admin: 09/21/18 03:31 Dose: 50 mls/hr Insulin Aspart (Novolog Insulin Correctional Sugar Inj) 0 unit SQ ACHS [facility]; Protocol Last Admin: 09/21/18 13:04 Dose: Not Given Insulin Detemir (Levemir Inj) 10 unit SQ HS [facility] Last Admin: 09/20/18 21:00 Dose: 10 unit Insulin Detemir (Levemir Inj) 20 unit SQ DAILY [facility] Last Admin: 09/21/18 08:17 Dose: Not Given Labetalol HCl (Trandate Inj) 20 mg IV.PUSH Q4H PRN PRN Reason: SYS BP GREATER THAN 160 MMHG Lactulose (Lactulose Liq) 30 ml PO DAILY PRN PRN Reason: SEVERE CONSITIPATION Losartan Potassium (Cozaar) 50 mg PO DAILY [facility] Last Admin: 09/21/18 08:16 Dose: 50 mg Melatonin (Melatonin) 5 mg PO HS PRN PRN Reason: INSOMNIA Last Admin: 09/20/18 20:47 Dose: 5 mg Metoprolol Tartrate (Lopressor) 100 mg PO BID [facility] Last Admin: 09/21/18 08:17 Dose: 100 mg Miscellaneous (Pill Splitter) 1 each OTHER UNSCH PRN PRN Reason: SEE LABEL COMMENTS Morphine Sulfate (Morphine Inj) 2 mg IV.PUSH Q4H PRN PRN Reason: PAIN SCALE 8-10 Last Admin: 09/21/18 12:48 Dose: 2 mg Ondansetron HCl (Zofran Inj) 4 mg IV.PUSH Q6H PRN PRN Reason: NAUSEA OR VOMITING Pantoprazole Sodium (Protonix) 40 mg PO DAILY [facility] Last Admin: 09/21/18 08:16 Dose: 40 mg Senna/Docusate Sodium (Josephine-Colace) 1 tab PO BID [facility] Last Admin: 09/21/18 08:17 Dose: Not Given Sennosides (Senokot) 17.2 mg PO Q12H PRN PRN Reason: Moderate Constipation Sodium Chloride (Ns Flush) 2 ml IV.FLUSH BID [facility] Last Admin: 09/21/18 08:17 Dose: Not Given Sodium Chloride (Ns Flush) 2 ml IV.FLUSH PRN PRN PRN Reason: FLUSH AFTER USING IV ACCESS Sodium Chloride ([place] Nasal [place]) 2 spray EACH NARE Q4H PRN PRN Reason: congestion Allergies Allergy/AdvReac Type Severity Reaction Status Date / Time No Known Allergies Allergy Unverified 07/04/18 08:26 Home Medications Medication Instructions Recorded Confirmed Type glyburide-metformin 2 tab PO BID 07/04/18 09/13/18 History losartan 50 mg PO DAILY 07/04/18 09/13/18 History Physical Exam Vital signs: Vital Signs 09/20/18 15:00 09/20/18 16:00 09/20/18 17:00 Temperature 98.4 F Pulse Rate 96 H 99 H 102 H Respiratory Rate 16 Blood Pressure 119/87 Pulse Oximetry 95 09/20/18 18:00 09/20/18 19:00 09/20/18 19:59 Temperature 98.3 F Pulse Rate 101 H 105 H Respiratory Rate 18 Blood Pressure 141/96 H Pulse Oximetry 95 95 09/20/18 20:00 09/20/18 21:00 09/20/18 22:00 Temperature Pulse Rate 103 H 101 H 95 H Respiratory Rate Blood Pressure Pulse Oximetry 97 09/20/18 23:00 09/21/18 00:00 09/21/18 01:00 Temperature 98.1 F Pulse Rate 95 H 94 H 97 H Respiratory Rate 15 Blood Pressure 139/94 H Pulse Oximetry 94 L 09/21/18 02:00 09/21/18 03:00 09/21/18 04:00 Temperature 98 F Pulse Rate 98 H 101 H 96 H Respiratory Rate 18 Blood Pressure 150/107 H Pulse Oximetry 98 09/21/18 05:00 09/21/18 06:00 09/21/18 07:00 Temperature 98.5 F Pulse Rate 80 99 H 105 H Respiratory Rate 16 Blood Pressure 158/110 H Pulse Oximetry 93 L 09/21/18 08:00 09/21/18 10:00 09/21/18 10:55 Temperature Pulse Rate 100 H 92 H Respiratory Rate Blood Pressure Pulse Oximetry 93 L 95 09/21/18 11:00 09/21/18 11:22 09/21/18 12:00 Temperature Pulse Rate 99 H 99 H Respiratory Rate Blood Pressure Pulse Oximetry 98 09/21/18 12:33 09/21/18 12:53 09/21/18 13:00 Temperature Pulse Rate 106 H 99 H Respiratory Rate 24 Blood Pressure Pulse Oximetry 98 09/21/18 13:59 Temperature Pulse Rate 97 H Respiratory Rate Blood Pressure Pulse Oximetry Intake & Output 09/20/18 09/21/18 09/21/18 18:59 06:59 18:59 Intake Total 1720 / 1720 1480 / 1480 250 / 250 Balance 1720 / 1720 1480 / 1480 250 / 250 Weight 101 kg Intake: IV 1000 / 1000 1000 / 1000 250 / 250 NS Inj 1,000 ML @ 50 mls/hr IV. 1000 / 1000 1000 / 1000 CONT .Q20H [facility] Rx#:[id number] Cardene Inj 25 MG In NS Inj 240 250 / 250 ML @ 5 MG/HR 50 mls/hr IV.CONT TITRATE PRN Rx#:[id number] Oral 720 / 720 480 / 480 Other: # Voids 6 2 Date of Last Bowel Movement 09/20/18 09/17/18 09/20/18 # Bowel Movements 3 - Constitutional moderate distress, obese - Routine HEENT Exam Head: Present: normocephalic Eye: Present: EOMI, PERRL, normal accommodation ENT: Present: mucous membranes moist, dentition normal, external ear normal - Routine Neck Exam Present: supple, full ROM, JVD - Routine Respiratory Exam Present: accessory muscle use, decreased breath sounds, respiratory distress - Routine Cardiovascular Exam Present: S1, S2, tachycardia - Routine Abdominal Exam Present: soft, normoactive bowel sounds (Obese) - Routine Extremities Exam Present: full ROM, pulses intact, normal capillary refill - Routine Skin Exam Present: intact, warm (Diaphoretic) - Routine Neurological Exam Present: alert, oriented X3, CN II-XII intact, normal reflexes, moving all extremities, normal tone, vision grossly intact, hearing grossly intact, normal speech - Detailed Neurological Exam: Coma Scale Eye Opening: Spontaneous Verbal Response: Oriented Motor Response: Obey commands Ivonne Coma Scale Total: 15 - Routine Psychiatric Exam Present: normal affect, normal thought process - Urinary Catheter Management Indwelling Temp Sensing Catheter Cath placed during this visit: yes Reason for continuing: Hourly intake/output Insertion date: 09/21/18 Insertion time: 13:09 Assessment and Plan - Problem List (1) Malignant hypertension Code(s): I10 - Essential (primary) hypertension Status: Acute (2) Pulmonary edema Code(s): J81.1 - Chronic pulmonary edema Status: Acute (3) CKD (chronic kidney disease), stage III Code(s): N18.3 - Chronic kidney disease, stage 3 (moderate) Status: Chronic (4) Poorly controlled type 2 diabetes mellitus Code(s): E11.65 - Type 2 diabetes mellitus with hyperglycemia Status: Chronic (5) JULIANNE (obstructive sleep apnea) Code(s): G47.33 - Obstructive sleep apnea (adult) (pediatric) Status: Chronic (6) Obesity (BMI 30.0-34.9) Code(s): E66.9 - Obesity, unspecified Status: Chronic (7) Hypokalemia Code(s): E87.6 - Hypokalemia Status: Acute (8) Insomnia Code(s): G47.00 - Insomnia, unspecified Status: Chronic - Assessment and Plan Plan: Assessment This is a 47-year-old male with multiple comorbidities status post cardiac catheterization this a.m. now with hypertensive urgency and pulmonary edema with subsequent respiratory distress. Patient to remain in CVICU. NEURO: Tylenol as needed for pain RESP: Acute pulmonary edema secondary to malignant hypertension Obstructive sleep apnea Blood pressure management as per below. On partial nonrebreather continue to wean to nasal cannula. Use BiPAP at night. Received Lasix 20mg IV prior to my arrival. Has diuresed 1L. Patient received additional dose of 20 mg of Lasix. Lasix 40 mg daily. Pulmonology following CV: Malignant hypertension Resume Cardene drip weaning for systolic blood pressure less than 140 Continue losartan 50 mg p.o. daily Add metoprolol 50 mg p.o. twice daily Patient denies chest pain. Continue aspirin 81mg p.o. daily /status post cardiac catheterization-noted significantly elevated LVEDP GI: Cardiac diet FEN/RENAL: Hypokalemia Replace with K-Dur 40 mg p.o. Chronic kidney disease stage III Rivera catheter placed for strict I&O with multiple doses of diuretics ID: Monitor for signs and symptoms of infection HEME: No acute hematologic issues ENDO: Diabetes mellitus poorly controlled Hold metformin/glyburide. Monitor bedside glucose every 4 hours and administer low-dose insulin sliding scale as indicated. TSH WNL PROPH: SCDs/Lovenox 40 mg subcu daily for DVT prophylaxis. Stress ulcer prophylaxis is not indicated. ACCESS: [facility] is providing adequate access at this time Full code Level 3 H&P Code Status: Full Discussed Condition With: CV UTILITY SYSTEMS REPAIRER OPERATOR at bedside
[2018-09-21 15:42] LABS: Phosphorus 3.3 mg/dL (2.5-4.9)
[2018-09-21 15:52] LABS: Baso % (Auto) 0.6 % (0.0-2.0); Eos % (Auto) 0.3 % (0.0-4.0); Hematocrit 37.9 % (39.0-51.0); Hemoglobin 12.4 gm/dL (13.0-17.0); Lymph # (Auto) 0.9 th/mm3 (1.0-4.8); Mean Corpuscular HGB Conc 32.7 % (32.0-36.0); Mean Corpuscular Hemoglobin 26.3 pg (27.0-34.0); Mean Corpuscular Volume 80.5 fL (80.0-100.0); Mean Platelet Volume 9.2 fL (7.0-11.0); Mono # (Auto) 0.5 th/mm3 (0.0-0.9); Mono % (Auto) 7.1 % (0.0-8.0); Neut # (Auto) 6.1 th/mm3 (1.8-7.7); Platelet Count 222 th/mm3 (150-450); Red Blood Count 4.71 mil/mm3 (4.50-5.90); White Blood Count 7.6 th/mm3 (4.0-11.0)
[2018-09-22 05:02] LABS: Baso # (Auto) 0.1 th/mm3 (0.0-0.2); Baso % (Auto) 0.7 % (0.0-2.0); Eos # (Auto) 0.1 th/mm3 (0.0-0.4); Hematocrit 36.6 % (39.0-51.0); Hemoglobin 12.1 gm/dL (13.0-17.0); Lymph # (Auto) 1.9 th/mm3 (1.0-4.8); Lymph % (Auto) 24.2 % (9.0-44.0); Mean Corpuscular Hemoglobin 26.4 pg (27.0-34.0); Mean Corpuscular Volume 80.1 fL (80.0-100.0); Mean Platelet Volume 9.2 fL (7.0-11.0); Mono # (Auto) 0.8 th/mm3 (0.0-0.9); Mono % (Auto) 10.6 % (0.0-8.0); Neut # (Auto) 4.9 th/mm3 (1.8-7.7); Neut % (Auto) 63.5 % (16.0-70.0); Platelet Count 203 th/mm3 (150-450); Red Blood Count 4.56 mil/mm3 (4.50-5.90); Red Cell Distribution Width 13.8 % (11.6-17.2); White Blood Count 7.7 th/mm3 (4.0-11.0)
--- NOTE | 2018-09-22 05:12 | XR ---
EXAM DATE: 09/22/2018 4:56 AM EST AGE/SEX: 47 years / Male INDICATIONS: Shortness of breath, possible pulmonary disease. CLINICAL DATA: This is the patient's subsequent encounter. Patient reports that signs and symptoms h ave been present for 1 week and indicates a pain score of 0/10. MEDICAL/SURGICAL HISTORY: . Hypertension. Diabetes. Sleep apnea. None. COMPARISON: [facility] [place] 1[place] S[place], 09/21/2018. . FINDINGS: There is cardiomegaly, bilateral consolidation greatest in the left lower lobe. Bilateral effusions a re also suspected. Osseous structures are intact. CONCLUSION: Stable appearance of the chest. Electronically signed by: Kb Lorenzana MD 09/22/2018 5:11 AM EST
[2018-09-22 05:31] LABS: Alanine Aminotransferase 27 U/L (12-78); Albumin 2.6 g/dL (3.4-5.0); Anion Gap 10 meq/L (5-15); Aspartate Aminotransferase 19 U/L (15-37); Blood Urea Nitrogen 20 mg/dL (7-18); Calcium 7.8 mg/dL (8.5-10.1); Carbon Dioxide 25.2 meq/L (21.0-32.0); Chloride 108 meq/L (98-107); Glomerular Filtration Rate 59 mL/min (>89); Glucose,Random 115 mg/dL (74-106); Potassium 3.9 meq/L (3.5-5.1); Sodium 143 meq/L (136-145)
[2018-09-22 05:34] LABS: Alkaline Phosphatase 56 U/L (45-117); Total Protein 6.1 g/dL (6.4-8.2)
[2018-09-22] MEDS: Sod Chloride 0.9% Inj 1,000 ML IV.CONT SCH ×2 (07:15→20:33)
[2018-09-22] MEDS: Enoxaparin Inj 40 MG/0.4 ML Syringe SQ SCH (08:45)
[2018-09-22] MEDS: guaiFENesin 600 MG ER Tablet PO SCH ×2 (08:47→20:32)
[2018-09-22] MEDS: Insulin Detemir Inj 1,000 UNIT/10 ML Vial SQ SCH ×2 (08:47→20:31)
[2018-09-22] MEDS: Senna/Docusate Sodium 8.6/50 MG Tablet PO SCH ×2 (08:47→20:32)
[2018-09-22] MEDS: Metoprolol Tartrate 50 MG Tablet PO SCH ×2 (08:48→20:32)
[2018-09-22] MEDS: Insulin NovoLOG Aspart Correctional Sugar Inj SQ SCH ×4 (08:48→20:31)
[2018-09-22] MEDS: Furosemide 20 MG Tablet PO SCH (08:48)
--- NOTE | 2018-09-22 08:59 | P.PNCA ---
Subjective Interval history: alert in nad Medications and Allergies Active Medications: Active Medications Acetaminophen (Tylenol) 650 mg PO Q6H PRN PRN Reason: TEMPERATURE > 100.5 F Acetaminophen (Tylenol) 500 mg PO Q4H PRN PRN Reason: HEADACHE Hydrocodone Bitart/Acetaminophen ([place] 7.5/325) 1 tab PO Q4H PRN PRN Reason: PAIN SCALE 1 TO 7 Albuterol (Albuterol Neb (Prn)) 2.5 mg NEB Q2HR NEB PRN PRN Reason: DYSPNEA Last Admin: 09/21/18 12:35 Dose: 2.5 mg Aspirin (Aspirin Chew) 81 mg PO DAILY [facility] Last Admin: 09/22/18 08:47 Dose: 81 mg Atorvastatin Calcium (Lipitor) 40 mg PO HS [facility] Last Admin: 09/21/18 21:30 Dose: 40 mg Benzonatate (Tessalon Perles) 200 mg PO Q8H PRN PRN Reason: COUGH Last Admin: 09/21/18 06:25 Dose: 200 mg Bisacodyl (Dulcolax Supp) 10 mg RECTAL DAILY PRN PRN Reason: SEVERE CONSITIPATION Calcium Carbonate (Tums Chew) 500 mg CHEW Q6H PRN PRN Reason: DYSPEPSIA OR HEARTBURN Clonidine HCl (Catapres) 0.1 mg PO Q6H PRN PRN Reason: SYS BP GREATER THAN 160 MMHG Dextrose (D50w Vial) 50 ml IV.PUSH UNSCH PRN PRN Reason: PER HYPOGLYCEMIA PROTOCOL Enoxaparin Sodium (Lovenox Inj) 40 mg SQ DAILY [facility] Last Admin: 09/22/18 08:45 Dose: 40 mg Furosemide (Lasix) 20 mg PO DAILY [facility] Last Admin: 09/22/18 08:48 Dose: 20 mg Glucagon (Glucagon Inj) 1 mg OTHER PRN PRN PRN Reason: for Hypoglycemia Protocol Guaifenesin (Mucinex Er) 600 mg PO BID [facility] Last Admin: 09/22/18 08:47 Dose: 600 mg Hydralazine HCl (Apresoline Inj) 10 mg IV.PUSH Q6H PRN PRN Reason: SYS BP GREATER THAN 160 MMHG Nicardipine HCl 25 mg/ Sodium (Chloride) 250 mls @ 50 mls/hr IV.CONT TITRATE PRN; Protocol PRN Reason: Per Protocol Last Titration: 09/21/18 18:04 Dose: 2.5 mg/hr, 25 mls/hr Sodium Chloride (Ns Inj) 1,000 mls @ 50 mls/hr IV.CONT .Q20H [facility] Last Admin: 09/22/18 07:15 Dose: Not Given Insulin Aspart (Novolog Insulin Correctional Sugar Inj) 0 unit SQ [facility]; Protocol Last Admin: 09/22/18 08:48 Dose: Not Given Insulin Detemir (Levemir Inj) 10 unit SQ [facility] Last Admin: 09/21/18 22:15 Dose: 10 unit Insulin Detemir (Levemir Inj) 20 unit SQ DAILY [facility] Last Admin: 09/22/18 08:47 Dose: 20 unit Labetalol HCl (Trandate Inj) 20 mg IV.PUSH Q4H PRN PRN Reason: SYS BP GREATER THAN 160 MMHG Lactulose (Lactulose Liq) 30 ml PO DAILY PRN PRN Reason: SEVERE CONSITIPATION Losartan Potassium (Cozaar) 50 mg PO DAILY [facility] Last Admin: 09/22/18 08:48 Dose: 50 mg Melatonin (Melatonin) 5 mg PO HS PRN PRN Reason: INSOMNIA Last Admin: 09/20/18 20:47 Dose: 5 mg Metoprolol Tartrate (Lopressor) 100 mg PO BID [facility] Last Admin: 09/22/18 08:48 Dose: 100 mg Miscellaneous (Pill Splitter) 1 each OTHER UNSCH PRN PRN Reason: SEE LABEL COMMENTS Morphine Sulfate (Morphine Inj) 2 mg IV.PUSH Q4H PRN PRN Reason: PAIN SCALE 8-10 Last Admin: 09/21/18 12:48 Dose: 2 mg Ondansetron HCl (Zofran Inj) 4 mg IV.PUSH Q6H PRN PRN Reason: NAUSEA OR VOMITING Pantoprazole Sodium (Protonix) 40 mg PO DAILY [facility] Last Admin: 09/22/18 08:48 Dose: 40 mg Senna/Docusate Sodium (Josephine-Colace) 1 tab PO BID [facility] Last Admin: 09/22/18 08:47 Dose: Not Given Sennosides (Senokot) 17.2 mg PO Q12H PRN PRN Reason: Moderate Constipation Sodium Chloride (Ns Flush) 2 ml IV.FLUSH BID [facility] Last Admin: 09/22/18 08:45 Dose: 2 ml Sodium Chloride (Ns Flush) 2 ml IV.FLUSH PRN PRN PRN Reason: FLUSH AFTER USING IV ACCESS Sodium Chloride ([place] Nasal [place]) 2 spray EACH NARE Q4H PRN PRN Reason: congestion Allergies Allergy/AdvReac Type Severity Reaction Status Date / Time No Known Allergies Allergy Unverified 07/04/18 08:26 Home Medications Medication Instructions Recorded Confirmed Type glyburide-metformin 2 tab PO BID 07/04/18 09/13/18 History losartan 50 mg PO DAILY 07/04/18 09/13/18 History Physical Exam Vital signs: Vital Signs 09/21/18 10:00 09/21/18 10:55 09/21/18 11:00 Temperature Pulse Rate 92 H 99 H Respiratory Rate Blood Pressure Pulse Oximetry 95 09/21/18 11:22 09/21/18 12:00 09/21/18 12:15 Temperature Pulse Rate 99 H Respiratory Rate Blood Pressure Pulse Oximetry 98 97 09/21/18 12:33 09/21/18 12:53 09/21/18 13:00 Temperature Pulse Rate 106 H 99 H Respiratory Rate 24 Blood Pressure Pulse Oximetry 98 09/21/18 13:59 09/21/18 14:54 09/21/18 14:57 Temperature 97.5 F L Pulse Rate 97 H 92 H 95 H Respiratory Rate 22 Blood Pressure 100/62 Pulse Oximetry 98 09/21/18 16:17 09/21/18 17:06 09/21/18 18:06 Temperature Pulse Rate 91 H 93 H 93 H Respiratory Rate Blood Pressure Pulse Oximetry 09/21/18 19:00 09/21/18 19:46 09/21/18 20:00 Temperature 98.3 F Pulse Rate 97 H 101 H Respiratory Rate 18 Blood Pressure 105/60 Pulse Oximetry 95 99 97 09/21/18 21:00 09/21/18 22:00 09/21/18 23:00 Temperature 97.9 F Pulse Rate 92 H 87 90 Respiratory Rate 21 Blood Pressure 108/78 Pulse Oximetry 98 09/22/18 00:00 09/22/18 01:00 09/22/18 02:00 Temperature Pulse Rate 95 H 97 H 97 H Respiratory Rate Blood Pressure Pulse Oximetry 09/22/18 03:00 09/22/18 04:00 09/22/18 05:00 Temperature 98.2 F Pulse Rate 117 H 117 H 95 H Respiratory Rate 22 Blood Pressure 110/60 Pulse Oximetry 09/22/18 06:00 09/22/18 07:00 09/22/18 07:59 Temperature 98.0 F Pulse Rate 93 H 95 H Respiratory Rate 18 Blood Pressure 145/90 H Pulse Oximetry 94 L 09/22/18 08:00 09/22/18 08:20 Temperature Pulse Rate Respiratory Rate Blood Pressure Pulse Oximetry 98 92 L Intake & Output 09/21/18 09/22/18 09/22/18 18:59 06:59 18:59 Intake Total 618 / 618 1240 / 1240 Output Total 1455 / 1455 600 / 600 Balance -837 / -837 640 / 640 Intake: IV 418 / 418 Cardene Inj 25 MG In NS Inj 240 418 / 418 ML @ 5 MG/HR 50 mls/hr IV.CONT TITRATE PRN Rx#:[id number] Oral 200 / 200 1240 / 1240 Output: Urine Amount (Catheter) 1455 / 1455 600 / 600 Indwelling Temp Sensing 1455 / 1455 600 / 600 Catheter Other: Date of Last Bowel Movement 09/20/18 09/20/18 09/20/18 # Bowel Movements 0 0 - Constitutional no acute distress - Routine HEENT Exam Head: Present: normocephalic - Routine Neck Exam Present: supple - Routine Respiratory Exam Present: decreased breath sounds - Routine Cardiovascular Exam Present: S1, S2 - Routine Abdominal Exam Present: soft - Routine Extremities Exam Comments: no jerry - Urinary Catheter Management Indwelling Temp Sensing Catheter Cath placed during this visit: yes Reason for continuing: Hourly intake/output Insertion date: 09/21/18 Insertion time: 13:09 Results 09/22/18 03:45 09/22/18 03:45 Cardiac Enzymes 09/21/18 09/22/18 Range/Units 04:51 03:45 AST 31 19 (15-37) U/L Troponin I 0.05 (0.02-0.05) ng/mL CBC 09/21/18 09/21/18 09/22/18 Range/Units 04:51 15:05 03:45 WBC 7.3 7.6 7.7 (4.0-11.0) th/mm3 RBC 4.77 4.71 4.56 (4.50-5.90) mil/mm3 Hgb 12.4 L 12.4 L 12.1 L (13.0-17.0) gm/dL Hct 37.8 L 37.9 L 36.6 L (39.0-51.0) % Plt Count 214 222 203 (150-450) th/mm3 Neut # (Auto) 4.4 6.1 4.9 (1.8-7.7) th/mm3 Lymph # (Auto) 1.9 0.9 L 1.9 (1.0-4.8) th/mm3 [place]once # (Auto) 0.9 0.5 0.8 (0.0-0.9) th/mm3 Eos # (Auto) 0.1 0.0 0.1 (0.0-0.4) th/mm3 Baso # (Auto) 0.1 0.0 0.1 (0.0-0.2) th/mm3 Comprehensive Metabolic Panel 09/21/18 09/22/18 Range/Units 04:51 03:45 Sodium 142 143 (136-145) meq/L Potassium 3.6 3.9 (3.5-5.1) meq/L Chloride 110 H 108 H (98-107) meq/L Carbon Dioxide 24.5 25.2 (21.0-32.0) meq/L BUN 20 H 20 H (7-18) mg/dL Creatinine 1.63 H 1.53 H (0.60-1.30) mg/dL Calcium 8.2 L 7.8 L (8.5-10.1) mg/dL AST 31 19 (15-37) U/L ALT 35 27 (12-78) U/L Alkaline Phosphatase 64 56 (45-117) U/L Total Protein 6.4 6.1 L (6.4-8.2) g/dL Albumin 2.9 L 2.6 L (3.4-5.0) g/dL Intake and Output 09/21/18 09/22/18 09/22/18 22:59 06:59 14:59 Intake Total 368 / 368 1240 / 1240 Output Total 1455 / 1455 600 / 600 Balance -1087 / -1087 640 / 640 Intake: IV 168 / 168 Cardene Inj 25 MG In NS Inj 240 168 / 168 ML @ 5 MG/HR 50 mls/hr IV.CONT TITRATE PRN Rx#:[id number] Oral 200 / 200 1240 / 1240 Output: Urine Amount (Catheter) 1455 / 1455 600 / 600 Indwelling Temp Sensing 1455 / 1455 600 / 600 Catheter Other: Date of Last Bowel Movement 09/20/18 09/20/18 09/20/18 # Bowel Movements 0 0 - Imaging and Cardiology Imaging: Impressions Chest X-Ray 09/21/18 00:00 CONCLUSION: Increased perihilar and lower lung zone airspace consolidation. The appearance could be consistent with pulmonary edema in the appropriate clinical setting. Chest X-Ray 09/22/18 04:00 CONCLUSION: Stable appearance of the chest. Assessment and Plan - Assessment (1) HTN (hypertension) Code(s): I10 - Essential (primary) hypertension Status: Acute (2) NSTEMI (non-ST elevated myocardial infarction) Code(s): I21.4 - Non-ST elevation (NSTEMI) myocardial infarction Status: Acute (3) Cardiomyopathy Code(s): I42.9 - Cardiomyopathy, unspecified Status: Acute (4) Renal insufficiency Code(s): N28.9 - Disorder of kidney and ureter, unspecified Status: Acute (5) CKD (chronic kidney disease), stage III Code(s): N18.3 - Chronic kidney disease, stage 3 (moderate) Status: Chronic (6) Pulmonary edema Code(s): J81.1 - Chronic pulmonary edema Status: Acute - Plan 1.) NICM - lvedp=35, orthopnic, cm working on getting him medicaid so he can be referred to a transplant team for further eval and management, continue lopressor 100 mg bid, diuresis difficult due to cri/arf, f/u bmp/bnp, d/w patient and spouse 09/21/18
--- NOTE | 2018-09-22 09:59 | P.PNCC ---
Subjective Subjective Remarks/Hospital Course: This is a 47-year-old male that was admitted earlier this week with NSTEMI and hypertensive urgency. The patient underwent cardiac catheterization this morning, and postoperatively came dyspneic, diaphoretic with noted hypertensive urgency. The patient was sent to CV ICU placed on partial nonrebreather. The patient had received 20 mg of Lasix IV prior to consultation. The patient's past medical history significant for CKD stage III, JULIANNE, systolic CHF as well as diastolic dysfunction . Critical care medicine's was consulted for management. Upon my arrival to examine the patient the patient's BP was noted to be 206/115, the patient was tachypneic and diaphoretic. Nicardipine infusion was reinstituted, Lasix 20 mg had already been given. A Rivera catheter was placed for accuracy of I&O in the setting of diuretics. The patient began to diurese and a nebulizer treatment was provided. 09/22: Patient currently sitting up in chair currently on nasal cannula at 6 L, maintaining oxygen saturation 94%. Good urine output with Lasix. I will place patient on Lasix 40 mg IV x1 and 20 mg every 12. Chest x-ray shows persistent pulmonary edema Objective Vital Signs / I&O: Vital Signs 09/21/18 10:00 09/21/18 10:55 09/21/18 11:00 Temperature Pulse Rate 92 H 99 H Respiratory Rate Blood Pressure Pulse Oximetry 95 09/21/18 11:22 09/21/18 12:00 09/21/18 12:15 Temperature Pulse Rate 99 H Respiratory Rate Blood Pressure Pulse Oximetry 98 97 09/21/18 12:33 09/21/18 12:53 09/21/18 13:00 Temperature Pulse Rate 106 H 99 H Respiratory Rate 24 Blood Pressure Pulse Oximetry 98 09/21/18 13:59 09/21/18 14:54 09/21/18 14:57 Temperature 97.5 F L Pulse Rate 97 H 92 H 95 H Respiratory Rate 22 Blood Pressure 100/62 Pulse Oximetry 98 09/21/18 16:17 09/21/18 17:06 09/21/18 18:06 Temperature Pulse Rate 91 H 93 H 93 H Respiratory Rate Blood Pressure Pulse Oximetry 09/21/18 19:00 09/21/18 19:46 09/21/18 20:00 Temperature 98.3 F Pulse Rate 97 H 101 H Respiratory Rate 18 Blood Pressure 105/60 Pulse Oximetry 95 99 97 09/21/18 21:00 09/21/18 22:00 09/21/18 23:00 Temperature 97.9 F Pulse Rate 92 H 87 90 Respiratory Rate 21 Blood Pressure 108/78 Pulse Oximetry 98 09/22/18 00:00 09/22/18 01:00 09/22/18 02:00 Temperature Pulse Rate 95 H 97 H 97 H Respiratory Rate Blood Pressure Pulse Oximetry 09/22/18 03:00 09/22/18 04:00 09/22/18 05:00 Temperature 98.2 F Pulse Rate 117 H 117 H 95 H Respiratory Rate 22 Blood Pressure 110/60 Pulse Oximetry 09/22/18 06:00 09/22/18 07:00 09/22/18 07:59 Temperature 98.0 F Pulse Rate 93 H 95 H Respiratory Rate 18 Blood Pressure 145/90 H Pulse Oximetry 94 L 09/22/18 08:00 09/22/18 08:20 Temperature Pulse Rate Respiratory Rate Blood Pressure Pulse Oximetry 98 92 L Intake & Output 09/21/18 09/22/18 09/22/18 18:59 06:59 18:59 Intake Total 618 / 618 1240 / 1240 Output Total 1455 / 1455 600 / 600 Balance -837 / -837 640 / 640 Intake: IV 418 / 418 Cardene Inj 25 MG In NS Inj 240 418 / 418 ML @ 5 MG/HR 50 mls/hr IV.CONT TITRATE PRN Rx#:[id number] Oral 200 / 200 1240 / 1240 Output: Urine Amount (Catheter) 1455 / 1455 600 / 600 Indwelling Temp Sensing 1455 / 1455 600 / 600 Catheter Other: Date of Last Bowel Movement 09/20/18 09/20/18 09/20/18 # Bowel Movements 0 0 Result Diagrams: 09/22/18 03:45 09/22/18 03:45 Objective Remarks: - Constitutional Alert awake sitting up in chair - Routine HEENT Exam Head: normocephalic Eye: PERRL ENT: Present: mucous membranes moist - Routine Neck Exam Present: supple, full ROM, JVD - Routine Respiratory Exam Present: No accessory muscle use, decreased breath sounds, few basilar coarse crackles - Routine Cardiovascular Exam Present: S1, S2, no murmurs - Routine Abdominal Exam Present: soft, normoactive bowel sounds (Obese) - Routine Extremities Exam Present: full ROM, pulses intact, normal capillary refill - Routine Skin Exam Present: intact, warm (Diaphoretic) - Routine Neurological Exam Present: alert, oriented X3, CN II-XII intact, normal reflexes, moving all extremities, normal tone, vision grossly intact, hearing grossly intact, normal speech Assessment and Plan - Problem List (1) Malignant hypertension Code(s): I10 - Essential (primary) hypertension Status: Acute (2) Pulmonary edema Code(s): J81.1 - Chronic pulmonary edema Status: Acute (3) CKD (chronic kidney disease), stage III Code(s): N18.3 - Chronic kidney disease, stage 3 (moderate) Status: Chronic (4) Poorly controlled type 2 diabetes mellitus Code(s): E11.65 - Type 2 diabetes mellitus with hyperglycemia Status: Chronic (5) JULIANNE (obstructive sleep apnea) Code(s): G47.33 - Obstructive sleep apnea (adult) (pediatric) Status: Chronic (6) Obesity (BMI 30.0-34.9) Code(s): E66.9 - Obesity, unspecified Status: Chronic (7) Hypokalemia Code(s): E87.6 - Hypokalemia Status: Acute (8) Insomnia Code(s): G47.00 - Insomnia, unspecified Status: Chronic - Assessment and Plan Plan: Assessment This is a 47-year-old male with multiple comorbidities status post cardiac catheterization this a.m. now with hypertensive urgency and pulmonary edema with subsequent respiratory distress. Patient to remain in CVICU. NEURO: Tylenol as needed for pain RESP: Acute pulmonary edema secondary to malignant hypertension Obstructive sleep apnea Blood pressure management as per below. On NC Use BiPAP at night. IV Lasix 40 mg now and 20 mg every 12. DC p.o. Lasix Pulmonology following CV: Malignant hypertension Wean off Cardene Continue losartan 50 mg p.o. daily Continue metoprolol 50 mg p.o. twice daily Patient denies chest pain. Continue aspirin 81mg p.o. daily 12/status post cardiac catheterization-noted significantly elevated LVEDP, NICM GI: Cardiac diet FEN/RENAL: Hypokalemia Replace with K-Dur 40 mg p.o. Chronic kidney disease stage III Rivera catheter placed for strict I&O with multiple doses of diuretics May DC Rivera today ID: Monitor for signs and symptoms of infection HEME: No acute hematologic issues ENDO: Diabetes mellitus poorly controlled Hold metformin/glyburide. Monitor bedside glucose every 4 hours and administer low-dose insulin sliding scale as indicated. TSH WNL PROPH: SCDs/Lovenox 40 mg subcu daily for DVT prophylaxis. Stress ulcer prophylaxis is not indicated. ACCESS: [facility] is providing adequate access at this time Full code Level 2 Consult hospitalist to assume care in a.m.
--- NOTE | 2018-09-23 04:52 | XR ---
EXAM DATE: 09/23/2018 4:41 AM EST AGE/SEX: 47 years / Male INDICATIONS: Shortness of breath, possible pulmonary disease. CLINICAL DATA: This is the patient's subsequent encounter. Patient reports that signs and symptoms h ave been present for 1 week and indicates a pain score of 4/10. MEDICAL/SURGICAL HISTORY: Hypertension. Diabetes. Sleep apnea. None. COMPARISON: [facility] [place]ST 1V SINGLE AP, 09/22/2018. . FINDINGS: There is consolidation in the lower lobes. Cardiomegaly is seen. Small effusions are suspected. [place] us structures are intact. CONCLUSION: Stable appearance of the chest. Electronically signed by: Kb Lorenzana MD 09/23/2018 4:50 AM EST
[2018-09-23 05:09] LABS: Baso # (Auto) 0.1 th/mm3 (0.0-0.2); Baso % (Auto) 0.8 % (0.0-2.0); Eos # (Auto) 0.1 th/mm3 (0.0-0.4); Eos % (Auto) 1.9 % (0.0-4.0); Hematocrit 38.4 % (39.0-51.0); Hemoglobin 12.3 gm/dL (13.0-17.0); Lymph % (Auto) 30.7 % (9.0-44.0); Mean Corpuscular HGB Conc 32.1 % (32.0-36.0); Mean Corpuscular Volume 81.1 fL (80.0-100.0); Mean Platelet Volume 8.9 fL (7.0-11.0); Mono # (Auto) 0.8 th/mm3 (0.0-0.9); Mono % (Auto) 12.3 % (0.0-8.0); Neut # (Auto) 3.6 th/mm3 (1.8-7.7); Neut % (Auto) 54.3 % (16.0-70.0); Platelet Count 196 th/mm3 (150-450); Red Blood Count 4.74 mil/mm3 (4.50-5.90); Red Cell Distribution Width 13.9 % (11.6-17.2); White Blood Count 6.6 th/mm3 (4.0-11.0)
[2018-09-23 05:34] LABS: Alanine Aminotransferase 24 U/L (12-78); Albumin 2.8 g/dL (3.4-5.0); Anion Gap 9 meq/L (5-15); Aspartate Aminotransferase 16 U/L (15-37); Blood Urea Nitrogen 19 mg/dL (7-18); Calcium 7.8 mg/dL (8.5-10.1); Carbon Dioxide 26.7 meq/L (21.0-32.0); Chloride 105 meq/L (98-107); Glomerular Filtration Rate 58 mL/min (>89); Glucose,Random 83 mg/dL (74-106); Potassium 3.2 meq/L (3.5-5.1); Sodium 141 meq/L (136-145)
[2018-09-23 05:36] LABS: Alkaline Phosphatase 57 U/L (45-117); Total Protein 6.5 g/dL (6.4-8.2)
[2018-09-23] MEDS: Insulin NovoLOG Aspart Correctional Sugar Inj SQ SCH ×4 (07:22→20:23)
[2018-09-23] MEDS: guaiFENesin 600 MG ER Tablet PO SCH ×2 (08:27→20:24)
[2018-09-23] MEDS: Insulin Detemir Inj 1,000 UNIT/10 ML Vial SQ SCH ×3 (08:27→18:34)
[2018-09-23] MEDS: Enoxaparin Inj 40 MG/0.4 ML Syringe SQ SCH (08:28)
[2018-09-23] MEDS: Metoprolol Tartrate 50 MG Tablet PO SCH ×2 (08:28→20:24)
[2018-09-23] MEDS: Senna/Docusate Sodium 8.6/50 MG Tablet PO SCH ×2 (08:28→20:24)
--- NOTE | 2018-09-23 10:33 | P.PNCA ---
Subjective Interval history: alert in nad Medications and Allergies Active Medications: Active Medications Acetaminophen (Tylenol) 650 mg PO Q6H PRN PRN Reason: TEMPERATURE > 100.5 F Acetaminophen (Tylenol) 500 mg PO Q4H PRN PRN Reason: HEADACHE Hydrocodone Bitart/Acetaminophen ([place] 7.5/325) 1 tab PO Q4H PRN PRN Reason: PAIN SCALE 1 TO 7 Albuterol (Albuterol Neb (Prn)) 2.5 mg NEB Q2HR NEB PRN PRN Reason: DYSPNEA Last Admin: 09/21/18 12:35 Dose: 2.5 mg Aspirin (Aspirin Chew) 81 mg PO DAILY [facility] Last Admin: 09/23/18 08:27 Dose: 81 mg Atorvastatin Calcium (Lipitor) 40 mg PO HS [facility] Last Admin: 09/22/18 20:32 Dose: 40 mg Benzonatate (Tessalon Perles) 200 mg PO Q8H PRN PRN Reason: COUGH Last Admin: 09/21/18 06:25 Dose: 200 mg Bisacodyl (Dulcolax Supp) 10 mg RECTAL DAILY PRN PRN Reason: SEVERE CONSITIPATION Calcium Carbonate (Tums Chew) 500 mg CHEW Q6H PRN PRN Reason: DYSPEPSIA OR HEARTBURN Clonidine HCl (Catapres) 0.1 mg PO Q6H PRN PRN Reason: SYS BP GREATER THAN 160 MMHG Dextrose (D50w Vial) 50 ml IV.PUSH UNSCH PRN PRN Reason: PER HYPOGLYCEMIA PROTOCOL Enoxaparin Sodium (Lovenox Inj) 40 mg SQ DAILY [facility] Last Admin: 09/23/18 08:28 Dose: 40 mg Furosemide (Lasix Inj) 20 mg IV.PUSH BID@0900,1800 [facility] Last Admin: 09/23/18 08:26 Dose: 20 mg Glucagon (Glucagon Inj) 1 mg OTHER PRN PRN PRN Reason: for Hypoglycemia Protocol Guaifenesin (Mucinex Er) 600 mg PO BID [facility] Last Admin: 09/23/18 08:27 Dose: 600 mg Hydralazine HCl (Apresoline Inj) 10 mg IV.PUSH Q6H PRN PRN Reason: SYS BP GREATER THAN 160 MMHG Nicardipine HCl 25 mg/ Sodium (Chloride) 250 mls @ 50 mls/hr IV.CONT TITRATE PRN; Protocol PRN Reason: Per Protocol Last Titration: 09/22/18 19:00 Dose: 0 mg/hr, 0 mls/hr Sodium Chloride (Ns Inj) 1,000 mls @ 50 mls/hr IV.CONT .Q20H [facility] Last Admin: 09/22/18 20:33 Dose: Not Given Insulin Aspart (Novolog Insulin Correctional Sugar Inj) 0 unit SQ ACHS [facility]; Protocol Last Admin: 09/23/18 07:22 Dose: Not Given Insulin Detemir (Levemir Inj) 30 unit SQ DAILY [facility] Last Admin: 09/23/18 09:25 Dose: 30 unit Labetalol HCl (Trandate Inj) 20 mg IV.PUSH Q4H PRN PRN Reason: SYS BP GREATER THAN 160 MMHG Lactulose (Lactulose Liq) 30 ml PO DAILY PRN PRN Reason: SEVERE CONSITIPATION Losartan Potassium (Cozaar) 50 mg PO DAILY [facility] Last Admin: 09/23/18 08:33 Dose: 50 mg Melatonin (Melatonin) 5 mg PO HS PRN PRN Reason: INSOMNIA Last Admin: 09/20/18 20:47 Dose: 5 mg Metoprolol Tartrate (Lopressor) 100 mg PO BID [facility] Last Admin: 09/23/18 08:28 Dose: 100 mg Miscellaneous (Pill Splitter) 1 each OTHER UNSCH PRN PRN Reason: SEE LABEL COMMENTS Morphine Sulfate (Morphine Inj) 2 mg IV.PUSH Q4H PRN PRN Reason: PAIN SCALE 8-10 Last Admin: 09/21/18 12:48 Dose: 2 mg Ondansetron HCl (Zofran Inj) 4 mg IV.PUSH Q6H PRN PRN Reason: NAUSEA OR VOMITING Pantoprazole Sodium (Protonix) 40 mg PO DAILY [facility] Last Admin: 09/23/18 08:27 Dose: 40 mg Senna/Docusate Sodium (Josephine-Colace) 1 tab PO BID [facility] Last Admin: 09/23/18 08:28 Dose: Not Given Sennosides (Senokot) 17.2 mg PO Q12H PRN PRN Reason: Moderate Constipation Sodium Chloride (Ns Flush) 2 ml IV.FLUSH BID [facility] Last Admin: 09/23/18 08:28 Dose: 2 ml Sodium Chloride (Ns Flush) 2 ml IV.FLUSH PRN PRN PRN Reason: FLUSH AFTER USING IV ACCESS Sodium Chloride ([place] Nasal [place]) 2 spray EACH NARE Q4H PRN PRN Reason: congestion Allergies Allergy/AdvReac Type Severity Reaction Status Date / Time No Known Allergies Allergy Unverified 07/04/18 08:26 Home Medications Medication Instructions Recorded Confirmed Type glyburide-metformin 2 tab PO BID 07/04/18 09/13/18 History losartan 50 mg PO DAILY 07/04/18 09/13/18 History Physical Exam Vital signs: Vital Signs 09/22/18 11:00 09/22/18 12:24 09/22/18 13:56 Temperature 98.2 F Pulse Rate 88 Respiratory Rate 18 Blood Pressure 124/86 Pulse Oximetry 97 95 94 L 09/22/18 15:00 09/22/18 19:00 09/22/18 20:00 Temperature 98.2 F 98.8 F Pulse Rate 100 H 100 H Respiratory Rate 18 18 Blood Pressure 156/104 H 142/95 H Pulse Oximetry 95 96 96 09/22/18 20:46 09/22/18 23:10 09/23/18 00:00 Temperature 98.6 F Pulse Rate 90 Respiratory Rate 18 Blood Pressure 158/105 H 144/97 H Pulse Oximetry 96 96 09/23/18 03:00 09/23/18 06:59 09/23/18 07:00 Temperature 98.6 F 98.7 F Pulse Rate 87 90 90 Respiratory Rate 16 18 Blood Pressure 141/90 H 144/86 H Pulse Oximetry 96 95 09/23/18 08:00 09/23/18 08:39 Temperature Pulse Rate Respiratory Rate Blood Pressure Pulse Oximetry 95 95 Intake & Output 09/22/18 09/23/18 09/23/18 18:59 06:59 18:59 Intake Total 1550 / 1550 480 / 480 Output Total 1925 / 1925 800 / 800 Balance -375 / -375 -320 / -320 Weight 101.5 kg Intake: Oral 1550 / 1550 480 / 480 Output: Urine 1750 / 1750 800 / 800 Urine Amount (Catheter) 175 / 175 Indwelling Temp Sensing 175 / 175 Catheter Other: Date of Last Bowel Movement 09/20/18 09/22/18 # Bowel Movements 0 1 - Constitutional no acute distress - Routine HEENT Exam Head: Present: normocephalic - Routine Neck Exam Present: supple - Routine Respiratory Exam Present: CTA bilaterally - Routine Cardiovascular Exam Present: S1, S2 - Routine Abdominal Exam Present: soft - Routine Extremities Exam Comments: no jerry - Urinary Catheter Management Indwelling Temp Sensing Catheter Cath placed during this visit: yes Reason for continuing: Hourly intake/output Insertion date: 09/21/18 Insertion time: 13:09 Results 09/23/18 03:30 09/23/18 03:30 Cardiac Enzymes 09/22/18 09/23/18 09/23/18 Range/Units 03:45 03:30 03:30 AST 19 16 (15-37) U/L B-Natriuretic Peptide 520 H (0-100) pg/mL Coagulation 09/23/18 Range/Units 03:30 B-Natriuretic Peptide 520 H (0-100) pg/mL CBC 09/21/18 09/22/18 09/23/18 Range/Units 15:05 03:45 03:30 WBC 7.6 7.7 6.6 (4.0-11.0) th/mm3 RBC 4.71 4.56 4.74 (4.50-5.90) mil/mm3 Hgb 12.4 L 12.1 L 12.3 L (13.0-17.0) gm/dL Hct 37.9 L 36.6 L 38.4 L (39.0-51.0) % Plt Count 222 203 196 (150-450) th/mm3 Neut # (Auto) 6.1 4.9 3.6 (1.8-7.7) th/mm3 Lymph # (Auto) 0.9 L 1.9 2.0 (1.0-4.8) th/mm3 Christian # (Auto) 0.5 0.8 0.8 (0.0-0.9) th/mm3 Eos # (Auto) 0.0 0.1 0.1 (0.0-0.4) th/mm3 Baso # (Auto) 0.0 0.1 0.1 (0.0-0.2) th/mm3 Comprehensive Metabolic Panel 09/22/18 09/23/18 Range/Units 03:45 03:30 Sodium 143 141 (136-145) meq/L Potassium 3.9 3.2 L (3.5-5.1) meq/L Chloride 108 H 105 (98-107) meq/L Carbon Dioxide 25.2 26.7 (21.0-32.0) meq/L BUN 20 H 19 H (7-18) mg/dL Creatinine 1.53 H 1.56 H (0.60-1.30) mg/dL Calcium 7.8 L 7.8 L (8.5-10.1) mg/dL AST 19 16 (15-37) U/L ALT 27 24 (12-78) U/L Alkaline Phosphatase 56 57 (45-117) U/L Total Protein 6.1 L 6.5 (6.4-8.2) g/dL Albumin 2.6 L 2.8 L (3.4-5.0) g/dL Intake and Output 09/22/18 09/23/18 09/23/18 22:59 06:59 14:59 Intake Total 1550 / 1550 480 / 480 Output Total 1925 / 1925 800 / 800 Balance -375 / -375 -320 / -320 Intake: Oral 1550 / 1550 480 / 480 Output: Urine 1750 / 1750 800 / 800 Urine Amount (Catheter) 175 / 175 Indwelling Temp Sensing 175 / 175 Catheter Other: Date of Last Bowel Movement 09/22/18 # Bowel Movements 0 1 Weight 101.5 kg - Imaging and Cardiology Imaging: Impressions Chest X-Ray 09/21/18 00:00 CONCLUSION: Increased perihilar and lower lung zone airspace consolidation. The appearance could be consistent with pulmonary edema in the appropriate clinical setting. Chest X-Ray 09/22/18 04:00 CONCLUSION: Stable appearance of the chest. Chest X-Ray 09/23/18 06:00 CONCLUSION: Stable appearance of the chest. Assessment and Plan - Assessment (1) HTN (hypertension) Code(s): I10 - Essential (primary) hypertension Status: Acute (2) NSTEMI (non-ST elevated myocardial infarction) Code(s): I21.4 - Non-ST elevation (NSTEMI) myocardial infarction Status: Acute (3) Cardiomyopathy Code(s): I42.9 - Cardiomyopathy, unspecified Status: Acute (4) Renal insufficiency Code(s): N28.9 - Disorder of kidney and ureter, unspecified Status: Acute (5) CKD (chronic kidney disease), stage III Code(s): N18.3 - Chronic kidney disease, stage 3 (moderate) Status: Chronic (6) Pulmonary edema Code(s): J81.1 - Chronic pulmonary edema Status: Acute - Plan 1.) NICM - lvedp=35, orthopnic, cm consult placed for referral to a transplant team for further eval and management, continue lopressor 100 mg bid, diuresis difficult due to cri/arf, f/u bmp/bnp, d/w patient, nurse and spouse 09/23/18
--- NOTE | 2018-09-23 12:24 | P.PNIM ---
Subjective Interval history: Patient is slowly improving, needing less oxygen. No distress. Further course of treatment for cardiac interventions is being determined. Physical Exam Vital signs: Last Vital Signs Temp 98.6 F 09/23/18 11:00 Pulse 84 09/23/18 11:00 Resp 20 09/23/18 11:00 BP 141/104 H 09/23/18 11:00 Pulse Ox 98 09/23/18 11:00 Intake & Output 09/21/18 09/22/18 09/23/18 09/24/18 06:59 06:59 06:59 06:59 Intake Total 3200 / 3200 1858 / 1858 2029 / 2029 Output Total 2054 / 2054 2725 / 2725 Balance 3200 / 3200 -197 / -197 -695 / -695 Weight 101 kg 101.5 kg Narrative: GENERAL: NAD, A&Ox3, diaphoretic. HEAD: Normocephalic. NECK: Supple, trachea midline. No lymphadenopathy. EYES: No scleral icterus. No injection or drainage. CARDIOVASCULAR: Regular rate and rhythm without murmurs, gallops, or rubs. RESPIRATORY: Breath sounds equal bilaterally. No accessory muscle use. SOB, increased respiratory rate. Crackles at bases. GASTROINTESTINAL: Abdomen soft, non-tender, nondistended. MUSCULOSKELETAL: No cyanosis, or edema. SKIN: Warm and dry. NEURO: No focal neurological deficits. Urinary Catheter Management Indwelling Temp Sensing Catheter: Cath placed during this visit: yes Urethral indwelling: No Insertion date: 09/21/18 Insertion time: 13:09 Results Labs CBC & Chem 7: 09/23/18 03:30 09/23/18 03:30 Imaging Imaging: Impressions Chest X-Ray 09/23/18 06:00 CONCLUSION: Stable appearance of the chest. Assessment and Plan (1) Malignant hypertension: Code(s): I10 - Essential (primary) hypertension Status: Acute (2) Pulmonary edema: Code(s): J81.1 - Chronic pulmonary edema Status: Acute (3) CKD (chronic kidney disease), stage III: Code(s): N18.3 - Chronic kidney disease, stage 3 (moderate) Status: Chronic (4) Poorly controlled type 2 diabetes mellitus: Code(s): E11.65 - Type 2 diabetes mellitus with hyperglycemia Status: Chronic (5) JULIANNE (obstructive sleep apnea): Code(s): G47.33 - Obstructive sleep apnea (adult) (pediatric) Status: Chronic (6) Obesity (BMI 30.0-34.9): Code(s): E66.9 - Obesity, unspecified Status: Chronic (7) Hypokalemia: Code(s): E87.6 - Hypokalemia Status: Acute (8) Insomnia: Code(s): G47.00 - Insomnia, unspecified Status: Chronic Plan 47-year-old male admitted secondary to acute pulmonary edema and hypertensive urgency with NSTEMI. Previous respiratory distress improving. Continue diuretics. Continue oxygen supplementation as needed. Stable for transfer out of ICU today. Pulmonary HTN secondary to LVEDP Acute Pulmonary edema Light diuresis and repeat if beneficial Malignant hypertension Resolved Continue losartan Continue metoprolol NSTEMI Systolic CHF Diastolic CHF No CAD on cath today Etiology for elevated troponins is likely demand realted Cardiology following Ejection fraction of 40% on most recent echocardiogram Continue daily aspirin Acute pulmonary edema This was secondary to malignant hypertension This has resolved Follow clinically Obstructive sleep apnea No acute changes Outpatient sleep study CPAP recommended Hypokalemia Monitor potassium and replace as needed Chronic kidney disease stage III IV hydration pre-heart cath IV hydration to continue after heart cath Follow renal function Diabetes mellitus type 2, uncontrolled Blurred vision (secondary to uncontrolled DM2) Follow blood sugars Insulin sliding scale Diabetic diet Levemir will be continued at an increased dose, after heart cath For now increase aspart insulin provide with meals as patient will be n.p.o. after midnight Adjuuse insulins for control DVT Prophylaxis Lovenox Progress Note: Quality VTE Deep Vein Thrombosis/Pulmonary Embolism Present on Admission: No _ (1) Pulmonary edema Qualifiers: Chronicity: (2) Insomnia Qualifiers: Insomnia type:
[2018-09-23] MEDS: Sod Chloride 0.9% Inj 1,000 ML IV.CONT SCH (16:44)
[2018-09-24 04:49] LABS: Baso # (Auto) 0.1 th/mm3 (0.0-0.2); Baso % (Auto) 0.9 % (0.0-2.0); Eos # (Auto) 0.1 th/mm3 (0.0-0.4); Eos % (Auto) 2.4 % (0.0-4.0); Hematocrit 37.9 % (39.0-51.0); Hemoglobin 12.2 gm/dL (13.0-17.0); Lymph # (Auto) 2.1 th/mm3 (1.0-4.8); Lymph % (Auto) 34.2 % (9.0-44.0); Mean Corpuscular HGB Conc 32.3 % (32.0-36.0); Mean Corpuscular Hemoglobin 25.9 pg (27.0-34.0); Mean Corpuscular Volume 80.2 fL (80.0-100.0); Mono # (Auto) 0.7 th/mm3 (0.0-0.9); Mono % (Auto) 12.1 % (0.0-8.0); Neut # (Auto) 3.1 th/mm3 (1.8-7.7); Neut % (Auto) 50.4 % (16.0-70.0); Platelet Count 207 th/mm3 (150-450); Red Blood Count 4.72 mil/mm3 (4.50-5.90); Red Cell Distribution Width 13.8 % (11.6-17.2); White Blood Count 6.1 th/mm3 (4.0-11.0)
[2018-09-24 05:14] LABS: Alanine Aminotransferase 22 U/L (12-78); Albumin 2.9 g/dL (3.4-5.0); Alkaline Phosphatase 56 U/L (45-117); Anion Gap 10 meq/L (5-15); Aspartate Aminotransferase 15 U/L (15-37); Blood Urea Nitrogen 17 mg/dL (7-18); Carbon Dioxide 29.4 meq/L (21.0-32.0); Chloride 104 meq/L (98-107); Glomerular Filtration Rate 56 mL/min (>89); Glucose,Random 111 mg/dL (74-106); Magnesium 1.9 mg/dL (1.5-2.5); Sodium 143 meq/L (136-145); Total Protein 6.4 g/dL (6.4-8.2)
[2018-09-24 05:15] LABS: Potassium 2.9 meq/L (3.5-5.1)
[2018-09-24] MEDS ORDERED: Potassium Chlor 20 mEq Premix 20 MEQ/100 ML PIGGYBACK IV.SIG ONE (05:24)
[2018-09-24] MEDS: Insulin NovoLOG Aspart Correctional Sugar Inj SQ SCH ×4 (08:10→20:45)
[2018-09-24] MEDS: Insulin Detemir Inj 1,000 UNIT/10 ML Vial SQ SCH (08:47)
[2018-09-24] MEDS: Enoxaparin Inj 40 MG/0.4 ML Syringe SQ SCH (08:47)
[2018-09-24] MEDS: guaiFENesin 600 MG ER Tablet PO SCH ×2 (08:47→20:46)
[2018-09-24] MEDS: Metoprolol Tartrate 50 MG Tablet PO SCH ×2 (08:48→20:46)
[2018-09-24] MEDS: Senna/Docusate Sodium 8.6/50 MG Tablet PO SCH ×2 (08:48→20:46)
--- NOTE | 2018-09-24 11:12 | P.PNIM ---
Subjective Interval history: No acute distress. Energy returning. Patient still reports blurred vision. Potassium level low this morning. Physical Exam Vital signs: Last Vital Signs Temp 98.1 F 09/24/18 11:00 Pulse 84 09/24/18 11:00 Resp 20 09/24/18 11:00 BP 141/101 H 09/24/18 11:00 Pulse Ox 92 L 09/24/18 11:00 Intake & Output 09/22/18 09/23/18 09/24/18 09/25/18 06:59 06:59 06:59 06:59 Intake Total 8 / 8 2029 2760 / 2760 100 / 100 Output Total 2054 / 2054 2725 / 2725 2750 / 2750 Balance -197 / -197 -695 / -695 100 / 100 Weight 101.5 kg 100 kg Narrative: GENERAL: NAD, A&Ox3, diaphoretic. HEAD: Normocephalic. NECK: Supple, trachea midline. No lymphadenopathy. EYES: No scleral icterus. No injection or drainage. CARDIOVASCULAR: Regular rate and rhythm without murmurs, gallops, or rubs. RESPIRATORY: Breath sounds equal bilaterally. No accessory muscle use. SOB, increased respiratory rate. Crackles at bases. GASTROINTESTINAL: Abdomen soft, non-tender, nondistended. MUSCULOSKELETAL: No cyanosis, or edema. SKIN: Warm and dry. NEURO: No focal neurological deficits. Urinary Catheter Management Indwelling Temp Sensing Catheter: Cath placed during this visit: yes Urethral indwelling: No Insertion date: 09/21/18 Insertion time: 13:09 Results Labs CBC & Chem 7: 09/24/18 03:32 09/24/18 03:32 Assessment and Plan (1) Malignant hypertension: Code(s): I10 - Essential (primary) hypertension Status: Acute (2) Pulmonary edema: Code(s): J81.1 - Chronic pulmonary edema Status: Acute (3) CKD (chronic kidney disease), stage III: Code(s): N18.3 - Chronic kidney disease, stage 3 (moderate) Status: Chronic (4) Poorly controlled type 2 diabetes mellitus: Code(s): E11.65 - Type 2 diabetes mellitus with hyperglycemia Status: Chronic (5) JULIANNE (obstructive sleep apnea): Code(s): G47.33 - Obstructive sleep apnea (adult) (pediatric) Status: Chronic (6) Obesity (BMI 30.0-34.9): Code(s): E66.9 - Obesity, unspecified Status: Chronic (7) Hypokalemia: Code(s): E87.6 - Hypokalemia Status: Acute (8) Insomnia: Code(s): G47.00 - Insomnia, unspecified Status: Chronic Plan 47-year-old male admitted secondary to acute pulmonary edema and hypertensive urgency with NSTEMI. Slowly improving respiratory distress.. Continue diuretics. Continue oxygen supplementation as needed. Potassium supplementation today for hypokalemia. Continue managing and adjusting blood sugars as needed. Pulmonary HTN secondary to LVEDP Acute Pulmonary edema Light diuresis and repeat if beneficial Malignant hypertension Resolved Continue losartan Continue metoprolol Hypokalemia Monitor and replace as needed NSTEMI Systolic CHF Diastolic CHF No CAD on cath today Etiology for elevated troponins is likely demand realted Cardiology following Ejection fraction of 40% on most recent echocardiogram Continue daily aspirin Acute pulmonary edema This was secondary to malignant hypertension This has resolved Follow clinically Obstructive sleep apnea No acute changes Outpatient sleep study CPAP recommended Hypokalemia Monitor potassium and replace as needed Chronic kidney disease stage III IV hydration pre-heart cath IV hydration to continue after heart cath Follow renal function Diabetes mellitus type 2, uncontrolled Blurred vision (secondary to uncontrolled DM2) Follow blood sugars Insulin sliding scale Diabetic diet Levemir will be continued at an increased dose, after heart cath For now increase aspart insulin provide with meals as patient will be n.p.o. after midnight Adjuuse insulins for control DVT Prophylaxis Lovenox Progress Note: Quality VTE Deep Vein Thrombosis/Pulmonary Embolism Present on Admission: No _ (1) Pulmonary edema Qualifiers: Chronicity: (2) Insomnia Qualifiers: Insomnia type:
[2018-09-24] MEDS: Sod Chloride 0.9% Inj 1,000 ML IV.CONT SCH (16:33)
--- NOTE | 2018-09-24 16:50 | P.PNCA ---
Subjective Interval history: off O2, assymptomatic, in nad Medications and Allergies Active Medications: Active Medications Acetaminophen (Tylenol) 650 mg PO Q6H PRN PRN Reason: TEMPERATURE > 100.5 F Acetaminophen (Tylenol) 500 mg PO Q4H PRN PRN Reason: HEADACHE Hydrocodone Bitart/Acetaminophen ([place] 7.5/325) 1 tab PO Q4H PRN PRN Reason: PAIN SCALE 1 TO 7 Albuterol (Albuterol Neb (Prn)) 2.5 mg NEB Q2HR NEB PRN PRN Reason: DYSPNEA Last Admin: 09/21/18 12:35 Dose: 2.5 mg Aspirin (Aspirin Chew) 81 mg PO DAILY [facility] Last Admin: 09/24/18 08:47 Dose: 81 mg Atorvastatin Calcium (Lipitor) 40 mg PO HS [facility] Last Admin: 09/23/18 20:24 Dose: 40 mg Benzonatate (Tessalon Perles) 200 mg PO Q8H PRN PRN Reason: COUGH Last Admin: 09/21/18 06:25 Dose: 200 mg Bisacodyl (Dulcolax Supp) 10 mg RECTAL DAILY PRN PRN Reason: SEVERE CONSITIPATION Calcium Carbonate (Tums Chew) 500 mg CHEW Q6H PRN PRN Reason: DYSPEPSIA OR HEARTBURN Clonidine HCl (Catapres) 0.1 mg PO Q6H PRN PRN Reason: SYS BP GREATER THAN 160 MMHG Dextrose (D50w Vial) 50 ml IV.PUSH UNSCH PRN PRN Reason: PER HYPOGLYCEMIA PROTOCOL Enoxaparin Sodium (Lovenox Inj) 40 mg SQ DAILY [facility] Last Admin: 09/24/18 08:47 Dose: 40 mg Furosemide (Lasix Inj) 20 mg IV.PUSH BID@0900,1800 [facility] Last Admin: 09/24/18 08:46 Dose: 20 mg Glucagon (Glucagon Inj) 1 mg OTHER PRN PRN PRN Reason: for Hypoglycemia Protocol Guaifenesin (Mucinex Er) 600 mg PO BID [facility] Last Admin: 09/24/18 08:47 Dose: 600 mg Hydralazine HCl (Apresoline Inj) 10 mg IV.PUSH Q6H PRN PRN Reason: SYS BP GREATER THAN 160 MMHG Nicardipine HCl 25 mg/ Sodium (Chloride) 250 mls @ 50 mls/hr IV.CONT TITRATE PRN; Protocol PRN Reason: Per Protocol Last Titration: 09/22/18 19:00 Dose: 0 mg/hr, 0 mls/hr Insulin Aspart (Novolog Insulin Correctional Sugar Inj) 0 unit SQ ACHS [facility]; Protocol Last Admin: 09/24/18 12:04 Dose: 7 unit Insulin Detemir (Levemir Inj) 30 unit SQ DAILY [facility] Last Admin: 09/24/18 08:47 Dose: 30 unit Labetalol HCl (Trandate Inj) 20 mg IV.PUSH Q4H PRN PRN Reason: SYS BP GREATER THAN 160 MMHG Lactulose (Lactulose Liq) 30 ml PO DAILY PRN PRN Reason: SEVERE CONSITIPATION Losartan Potassium (Cozaar) 50 mg PO DAILY [facility] Last Admin: 09/24/18 08:47 Dose: 50 mg Melatonin (Melatonin) 5 mg PO HS PRN PRN Reason: INSOMNIA Last Admin: 09/20/18 20:47 Dose: 5 mg Metoprolol Tartrate (Lopressor) 100 mg PO BID [facility] Last Admin: 09/24/18 08:48 Dose: 100 mg Miscellaneous (Pill Splitter) 1 each OTHER UNSCH PRN PRN Reason: SEE LABEL COMMENTS Morphine Sulfate (Morphine Inj) 2 mg IV.PUSH Q4H PRN PRN Reason: PAIN SCALE 8-10 Last Admin: 09/21/18 12:48 Dose: 2 mg Ondansetron HCl (Zofran Inj) 4 mg IV.PUSH Q6H PRN PRN Reason: NAUSEA OR VOMITING Pantoprazole Sodium (Protonix) 40 mg PO DAILY [facility] Last Admin: 09/24/18 08:48 Dose: 40 mg Senna/Docusate Sodium (Josephine-Colace) 1 tab PO BID [facility] Last Admin: 09/24/18 08:48 Dose: 1 tab Sennosides (Senokot) 17.2 mg PO Q12H PRN PRN Reason: Moderate Constipation Sodium Chloride (Ns Flush) 2 ml IV.FLUSH BID [facility] Last Admin: 09/24/18 08:48 Dose: 2 ml Sodium Chloride (Ns Flush) 2 ml IV.FLUSH PRN PRN PRN Reason: FLUSH AFTER USING IV ACCESS Sodium Chloride ([place] Nasal [place]) 2 spray EACH NARE Q4H PRN PRN Reason: congestion Allergies Allergy/AdvReac Type Severity Reaction Status Date / Time No Known Allergies Allergy Unverified 07/04/18 08:26 Home Medications Medication Instructions Recorded Confirmed Type glyburide-metformin 2 tab PO BID 07/04/18 09/13/18 History losartan 50 mg PO DAILY 07/04/18 09/13/18 History Physical Exam Vital signs: Vital Signs 09/23/18 17:10 09/23/18 19:00 09/23/18 20:00 Temperature 98.9 F Pulse Rate 95 H Respiratory Rate 18 Blood Pressure 135/91 H Pulse Oximetry 94 L 96 95 09/23/18 23:22 09/24/18 03:20 09/24/18 07:00 Temperature 98.6 F 98.6 F 98.7 F Pulse Rate 87 82 79 Respiratory Rate 15 15 20 Blood Pressure 147/98 H 141/93 H 145/99 H Pulse Oximetry 95 94 L 93 L 09/24/18 07:38 09/24/18 08:00 09/24/18 11:00 Temperature 98.1 F Pulse Rate 84 Respiratory Rate 20 Blood Pressure 141/101 H Pulse Oximetry 92 L 93 L 92 L 09/24/18 15:00 Temperature 98.4 F Pulse Rate 87 Respiratory Rate 20 Blood Pressure 131/86 Pulse Oximetry 95 Intake & Output 09/23/18 09/24/18 09/24/18 18:59 06:59 18:59 Intake Total 1800 / 1800 960 / 960 100 / 100 Output Total 1450 / 1450 1300 / 1300 Balance 350 / 350 -340 / -340 100 / 100 Weight 100 kg Intake: IV 100 / 100 KCl 20 mEq Premix Inj 20 meq In 100 / 100 100 ml @ 50 mls/hr IV.SIG ONCE ONE Rx#:[id number] Oral 1800 / 1800 960 / 960 Output: Urine 1450 / 1450 1300 / 1300 Other: Date of Last Bowel Movement 09/22/18 09/24/18 # Bowel Movements 0 - Constitutional no acute distress - Routine HEENT Exam Head: Present: normocephalic - Routine Neck Exam Present: supple - Routine Respiratory Exam Present: CTA bilaterally - Routine Cardiovascular Exam Present: S1, S2 - Routine Abdominal Exam Present: soft - Routine Extremities Exam Comments: no jerry - Urinary Catheter Management Indwelling Temp Sensing Catheter Cath placed during this visit: yes Urethral indwelling: No Reason for continuing: Hourly intake/output Insertion date: 09/21/18 Insertion time: 13:09 Results 09/24/18 03:32 09/24/18 14:01 Cardiac Enzymes 09/23/18 09/23/18 09/24/18 Range/Units 03:30 03:30 03:32 AST 16 15 (15-37) U/L B-Natriuretic Peptide 520 H (0-100) pg/mL 09/24/18 Range/Units 03:32 AST (15-37) U/L B-Natriuretic Peptide 371 H (0-100) pg/mL Coagulation 09/23/18 09/24/18 Range/Units 03:30 03:32 B-Natriuretic Peptide 520 H 371 H (0-100) pg/mL CBC 09/23/18 09/24/18 Range/Units 03:30 03:32 WBC 6.6 6.1 (4.0-11.0) th/mm3 RBC 4.74 4.72 (4.50-5.90) mil/mm3 Hgb 12.3 L 12.2 L (13.0-17.0) gm/dL Hct 38.4 L 37.9 L (39.0-51.0) % Plt Count 196 207 (150-450) th/mm3 Neut # (Auto) 3.6 3.1 (1.8-7.7) th/mm3 Lymph # (Auto) 2.0 2.1 (1.0-4.8) th/mm3 [place] # (Auto) 0.8 0.7 (0.0-0.9) th/mm3 Eos # (Auto) 0.1 0.1 (0.0-0.4) th/mm3 Baso # (Auto) 0.1 0.1 (0.0-0.2) th/mm3 Comprehensive Metabolic Panel 09/23/18 09/24/18 09/24/18 Range/Units 03:30 03:32 14:01 Sodium 141 143 (136-145) meq/L Potassium 3.2 L 2.9 L* 3.7 D (3.5-5.1) meq/L Chloride 105 104 (98-107) meq/L Carbon Dioxide 26.7 29.4 (21.0-32.0) meq/L BUN 19 H 17 (7-18) mg/dL Creatinine 1.56 H 1.60 H (0.60-1.30) mg/dL Calcium 7.8 L 8.0 L (8.5-10.1) mg/dL AST 16 15 (15-37) U/L ALT 24 22 (12-78) U/L Alkaline Phosphatase 57 56 (45-117) U/L Total Protein 6.5 6.4 (6.4-8.2) g/dL Albumin 2.8 L 2.9 L (3.4-5.0) g/dL Intake and Output 09/24/18 09/24/18 09/24/18 06:59 14:59 22:59 Intake Total 960 / 960 100 / 100 Output Total 1300 / 1300 Balance -340 / -340 100 / 100 Intake: IV 100 / 100 KCl 20 mEq Premix Inj 20 meq In 100 / 100 100 ml @ 50 mls/hr IV.SIG ONCE ONE Rx#:[id number] Oral 960 / 960 Output: Urine 1300 / 1300 Other: Date of Last Bowel Movement 09/24/18 09/24/18 Weight 100 kg - Imaging and Cardiology Imaging: Impressions Chest X-Ray 09/23/18 06:00 CONCLUSION: Stable appearance of the chest. Assessment and Plan - Assessment (1) HTN (hypertension) Code(s): I10 - Essential (primary) hypertension Status: Acute (2) NSTEMI (non-ST elevated myocardial infarction) Code(s): I21.4 - Non-ST elevation (NSTEMI) myocardial infarction Status: Acute (3) Cardiomyopathy Code(s): I42.9 - Cardiomyopathy, unspecified Status: Acute (4) Renal insufficiency Code(s): N28.9 - Disorder of kidney and ureter, unspecified Status: Acute (5) CKD (chronic kidney disease), stage III Code(s): N18.3 - Chronic kidney disease, stage 3 (moderate) Status: Chronic (6) Pulmonary edema Code(s): J81.1 - Chronic pulmonary edema Status: Acute - Plan 1.) NICM - lvedp=35, clinically improved, off O2, cm consult placed for referral to a transplant team for further eval and management, continue lopressor 100 mg bid, diuresis difficult due to cri/arf, f/u bmp/bnp, d/w patient, nurse 09/24/18
--- NOTE | 2018-09-24 18:37 | P.PN ---
Subjective Interval history: Stable off O2. Good diuresis still. No chest pains. Physical Exam Vital signs: Vital Signs 09/23/18 19:00 09/23/18 20:00 09/23/18 23:22 Temperature 98.9 F 98.6 F Pulse Rate 95 H 87 Respiratory Rate 18 15 Blood Pressure 135/91 H 147/98 H Pulse Oximetry 96 95 95 09/24/18 03:20 09/24/18 07:00 09/24/18 07:38 Temperature 98.6 F 98.7 F Pulse Rate 82 79 Respiratory Rate 15 20 Blood Pressure 141/93 H 145/99 H Pulse Oximetry 94 L 93 L 92 L 09/24/18 08:00 09/24/18 11:00 09/24/18 15:00 Temperature 98.1 F 98.4 F Pulse Rate 84 87 Respiratory Rate 20 20 Blood Pressure 141/101 H 131/86 Pulse Oximetry 93 L 92 L 95 Intake & Output 09/23/18 09/24/18 09/24/18 18:59 06:59 18:59 Intake Total 1800 / 1800 960 / 960 1060 / 1060 Output Total 1450 / 1450 1300 / 1300 500 / 500 Balance 350 / 350 -340 / -340 560 / 560 Weight 100 kg Intake: IV 100 / 100 KCl 20 mEq Premix Inj 20 meq In 100 / 100 100 ml @ 50 mls/hr IV.SIG ONCE ONE Rx#:[id number] Oral 1800 / 1800 960 / 960 960 / 960 Output: Urine 1450 / 1450 1300 / 1300 500 / 500 Other: # Voids 3 Date of Last Bowel Movement 09/22/18 09/24/18 # Bowel Movements 0 2 Narrative: GENERAL: NAD, A&Ox3. HEAD: Normocephalic. NECK: Supple, trachea midline. No lymphadenopathy. EYES: No scleral icterus. No injection or drainage. CARDIOVASCULAR: Regular rate and rhythm without murmurs, gallops, or rubs. RESPIRATORY: Breath sounds equal bilaterally. No accessory muscle use. Crackles at bases. GASTROINTESTINAL: Abdomen soft, non-tender, nondistended. MUSCULOSKELETAL: No cyanosis, or edema. SKIN: Warm and dry. NEURO: No focal neurological deficits. - Urinary Catheter Management Indwelling Temp Sensing Catheter Cath placed during this visit: yes Urethral indwelling: No Reason for continuing: Hourly intake/output Insertion date: 09/21/18 Insertion time: 13:09 Results - Labs CBC & Chem 7: 09/24/18 03:32 09/24/18 14:01 Laboratory Results - last 24 hr 09/23/18 09/24/18 09/24/18 20:20 03:32 03:32 WBC RBC Hgb Hct MCV MCH MCHC RDW Plt Count MPV Neut % (Auto) Lymph % (Auto) [place] % (Auto) Eos % (Auto) Baso % (Auto) Neut # (Auto) Lymph # (Auto) [place] # (Auto) Eos # (Auto) Baso # (Auto) WBC Differential Differential Comment Sodium 143 Potassium 2.9 L* Chloride 104 Carbon Dioxide 29.4 Anion Gap 10 BUN 17 Creatinine 1.60 H Estimated GFR 56 L POC Glucose 241 H Random Glucose 111 H Calcium 8.0 L Magnesium 1.9 Total Bilirubin 0.6 AST 15 ALT 22 Alkaline Phosphatase 56 B-Natriuretic Peptide 371 H Total Protein 6.4 Albumin 2.9 L 09/24/18 09/24/18 09/24/18 03:32 07:45 11:50 WBC 6.1 RBC 4.72 Hgb 12.2 L Hct 37.9 L MCV 80.2 MCH 25.9 L MCHC 32.3 RDW 13.8 Plt Count 207 MPV 9.0 Neut % (Auto) 50.4 Lymph % (Auto) 34.2 [place] % (Auto) 12.1 H Eos % (Auto) 2.4 Baso % (Auto) 0.9 Neut # (Auto) 3.1 Lymph # (Auto) 2.1 [place] # (Auto) 0.7 Eos # (Auto) 0.1 Baso # (Auto) 0.1 WBC Differential . Differential Comment Auto diff final Sodium Potassium Chloride Carbon Dioxide Anion Gap BUN Creatinine Estimated GFR POC Glucose 137 H 251 H Random Glucose Calcium Magnesium Total Bilirubin AST ALT Alkaline Phosphatase B-Natriuretic Peptide Total Protein Albumin 09/24/18 09/24/18 14:01 16:47 WBC RBC Hgb Hct MCV MCH MCHC RDW Plt Count MPV Neut % (Auto) Lymph % (Auto) [place] % (Auto) Eos % (Auto) Baso % (Auto) Neut # (Auto) Lymph # (Auto) [place] # (Auto) Eos # (Auto) Baso # (Auto) WBC Differential Differential Comment Sodium Potassium 3.7 D Chloride Carbon Dioxide Anion Gap BUN Creatinine Estimated GFR POC Glucose 157 H Random Glucose Calcium Magnesium Total Bilirubin AST ALT Alkaline Phosphatase B-Natriuretic Peptide Total Protein Albumin Assessment and Plan - Assessment (1) Insomnia Code(s): G47.00 - Insomnia, unspecified Status: Chronic (2) Allergic rhinitis Code(s): J30.9 - Allergic rhinitis, unspecified Status: Acute (3) Renal insufficiency Code(s): N28.9 - Disorder of kidney and ureter, unspecified Status: Acute (4) Hypothyroidism Code(s): E03.9 - Hypothyroidism, unspecified Status: Acute (5) Sinusitis Code(s): J32.9 - Chronic sinusitis, unspecified Status: Acute (6) CKD (chronic kidney disease), stage III Code(s): N18.3 - Chronic kidney disease, stage 3 (moderate) Status: Chronic (7) Pulmonary edema Code(s): J81.1 - Chronic pulmonary edema Status: Acute - Plan - Plan 1. Respiratory insufficiency. 2. Pulmonary edema...resolving 3. Hypertension 4. Obstructive sleep apnea. 5. Obesity. 6. Acute kidney injury. 7. Hyperglycemia, hx DM 8. Hypokalemia Plan 1. O2 2 L PRN 2. Duo nebs qid PRN 3. CXR in am 4.Cont Lasix 40 mg daily. 5. Referral to tertiary care for pulm HTN when stable 6. Will need a repeat sleep study as an outpatient. His last sleep study was 5 years ago. 7. Continue with antihypertensive medication. 8. Cont Lovenox 40 mg S/Q (5) Sinusitis Qualifiers: Sinusitis location: unspecified location Chronicity: acute Recurrence: not specified as recurrent Qualified Code(s): J01.90 - Acute sinusitis, unspecified
[2018-09-25 03:18] LABS: Baso # (Auto) 0.1 th/mm3 (0.0-0.2); Baso % (Auto) 1.2 % (0.0-2.0); Eos # (Auto) 0.2 th/mm3 (0.0-0.4); Eos % (Auto) 2.9 % (0.0-4.0); Hematocrit 39.2 % (39.0-51.0); Hemoglobin 12.6 gm/dL (13.0-17.0); Lymph # (Auto) 2.2 th/mm3 (1.0-4.8); Lymph % (Auto) 34.9 % (9.0-44.0); Mean Corpuscular HGB Conc 32.1 % (32.0-36.0); Mean Corpuscular Hemoglobin 25.8 pg (27.0-34.0); Mean Corpuscular Volume 80.3 fL (80.0-100.0); Mean Platelet Volume 8.5 fL (7.0-11.0); Mono # (Auto) 0.8 th/mm3 (0.0-0.9); Mono % (Auto) 12.2 % (0.0-8.0); Neut # (Auto) 3.1 th/mm3 (1.8-7.7); Neut % (Auto) 48.8 % (16.0-70.0); Platelet Count 206 th/mm3 (150-450); Red Blood Count 4.88 mil/mm3 (4.50-5.90); Red Cell Distribution Width 13.7 % (11.6-17.2); White Blood Count 6.3 th/mm3 (4.0-11.0)
[2018-09-25 03:33] LABS: Albumin 2.9 g/dL (3.4-5.0); Anion Gap 8 meq/L (5-15); Blood Urea Nitrogen 15 mg/dL (7-18); Carbon Dioxide 28.2 meq/L (21.0-32.0); Chloride 105 meq/L (98-107); Glucose,Random 135 mg/dL (74-106); Potassium 3.1 meq/L (3.5-5.1); Sodium 141 meq/L (136-145)
[2018-09-25 03:37] LABS: Alanine Aminotransferase 21 U/L (12-78); Alkaline Phosphatase 60 U/L (45-117); Aspartate Aminotransferase 15 U/L (15-37); Glomerular Filtration Rate 58 mL/min (>89); Total Protein 6.6 g/dL (6.4-8.2)
[2018-09-25] MEDS: Insulin NovoLOG Aspart Correctional Sugar Inj SQ SCH ×4 (09:24→20:57)
[2018-09-25] MEDS: Insulin Detemir Inj 1,000 UNIT/10 ML Vial SQ SCH (09:25)
[2018-09-25] MEDS: Enoxaparin Inj 40 MG/0.4 ML Syringe SQ SCH (09:25)
[2018-09-25] MEDS: guaiFENesin 600 MG ER Tablet PO SCH ×2 (09:26→20:55)
[2018-09-25] MEDS: Senna/Docusate Sodium 8.6/50 MG Tablet PO SCH ×2 (09:26→20:55)
[2018-09-25] MEDS: Metoprolol Tartrate 50 MG Tablet PO SCH ×2 (09:26→20:55)
--- NOTE | 2018-09-25 11:14 | P.PN ---
Subjective Interval history: Follow-up pulmonary hypertension 2/2 LVEDP September 25, 2018-patient seen and examined, reports some improvement of shortness of breath. No acute event overnight. Physical Exam Vital signs: Vital Signs 09/24/18 15:00 09/24/18 19:51 09/24/18 20:00 Temperature 98.4 F 98.4 F Pulse Rate 87 100 H Respiratory Rate 20 18 Blood Pressure 131/86 126/89 Pulse Oximetry 95 94 L 94 L 09/24/18 23:00 09/25/18 03:00 09/25/18 07:00 Temperature 98.3 F 98.3 F 98.4 F Pulse Rate 80 89 88 Respiratory Rate 15 14 20 Blood Pressure 140/95 H 175/105 H 161/109 H Pulse Oximetry 94 L 95 93 L Intake & Output 09/24/18 09/25/18 09/25/18 18:59 06:59 18:59 Intake Total 1060 / 1060 420 / 420 Output Total 500 / 500 600 / 600 Balance 560 / 560 -180 / -180 Weight 98.7 kg Intake: IV 100 / 100 KCl 20 mEq Premix Inj 20 meq In 100 / 100 100 ml @ 50 mls/hr IV.SIG ONCE ONE Rx#:[id number] Oral 960 / 960 420 / 420 Output: Urine 500 / 500 600 / 600 Other: # Voids 3 2 Date of Last Bowel Movement 09/24/18 09/24/18 09/24/18 # Bowel Movements 2 Narrative: GENERAL: NAD SKIN: Warm and dry. HEAD: Atraumatic. Normocephalic. EYES: Pupils equal and round. No scleral icterus. No injection or drainage. ENT: No nasal bleeding or discharge. Mucous membranes pink and moist. NECK: Trachea midline. No JVD. CARDIOVASCULAR: Regular rate and rhythm. RESPIRATORY: No accessory muscle use. Clear to auscultation. Breath sounds equal bilaterally. GASTROINTESTINAL: Abdomen soft, non-tender, nondistended. Hepatic and splenic margins not palpable. MUSCULOSKELETAL: Extremities without clubbing, cyanosis, or edema. No obvious deformities. NEUROLOGICAL: Awake and alert. No obvious cranial nerve deficits. Motor grossly within normal limits. Five out of 5 muscle strength in the arms and legs. Normal speech. PSYCHIATRIC: Appropriate mood and affect; insight and judgment normal. - Urinary Catheter Management Indwelling Temp Sensing Catheter Cath placed during this visit: yes Urethral indwelling: No Reason for continuing: Hourly intake/output Insertion date: 09/21/18 Insertion time: 13:09 Results - Labs CBC & Chem 7: 09/25/18 02:57 09/25/18 02:57 Laboratory Results - last 24 hr 09/24/18 09/24/18 09/24/18 11:50 14:01 16:47 WBC RBC Hgb Hct MCV MCH MCHC RDW Plt Count MPV Neut % (Auto) Lymph % (Auto) [place] % (Auto) Eos % (Auto) Baso % (Auto) Neut # (Auto) Lymph # (Auto) [place] # (Auto) Eos # (Auto) Baso # (Auto) WBC Differential Differential Comment Sodium Potassium 3.7 D Chloride Carbon Dioxide Anion Gap BUN Creatinine Estimated GFR POC Glucose 251 H 157 H Random Glucose Calcium Total Bilirubin AST ALT Alkaline Phosphatase B-Natriuretic Peptide Total Protein Albumin 09/24/18 09/25/18 09/25/18 20:44 02:57 02:57 WBC 6.3 RBC 4.88 Hgb 12.6 L Hct 39.2 MCV 80.3 MCH 25.8 L MCHC 32.1 RDW 13.7 Plt Count 206 MPV 8.5 Neut % (Auto) 48.8 Lymph % (Auto) 34.9 [place] % (Auto) 12.2 H Eos % (Auto) 2.9 Baso % (Auto) 1.2 Neut # (Auto) 3.1 Lymph # (Auto) 2.2 [place] # (Auto) 0.8 Eos # (Auto) 0.2 Baso # (Auto) 0.1 WBC Differential . Differential Comment Auto diff final Sodium 141 Potassium 3.1 L Chloride 105 Carbon Dioxide 28.2 Anion Gap 8 BUN 15 Creatinine 1.56 H Estimated GFR 58 L POC Glucose 154 H Random Glucose 135 H Calcium 8.0 L Total Bilirubin 0.5 AST 15 ALT 21 Alkaline Phosphatase 60 B-Natriuretic Peptide Total Protein 6.6 Albumin 2.9 L 09/25/18 09/25/18 02:57 07:32 WBC RBC Hgb Hct MCV MCH MCHC RDW Plt Count MPV Neut % (Auto) Lymph % (Auto) [place] % (Auto) Eos % (Auto) Baso % (Auto) Neut # (Auto) Lymph # (Auto) [place] # (Auto) Eos # (Auto) Baso # (Auto) WBC Differential Differential Comment Sodium Potassium Chloride Carbon Dioxide Anion Gap BUN Creatinine Estimated GFR POC Glucose 114 H Random Glucose Calcium Total Bilirubin AST ALT Alkaline Phosphatase B-Natriuretic Peptide 424 H Total Protein Albumin Assessment and Plan - Assessment (1) Malignant hypertension Code(s): I10 - Essential (primary) hypertension Status: Acute (2) Pulmonary edema Code(s): J81.1 - Chronic pulmonary edema Status: Acute (3) CKD (chronic kidney disease), stage III Code(s): N18.3 - Chronic kidney disease, stage 3 (moderate) Status: Chronic (4) Poorly controlled type 2 diabetes mellitus Code(s): E11.65 - Type 2 diabetes mellitus with hyperglycemia Status: Chronic (5) JULIANNE (obstructive sleep apnea) Code(s): G47.33 - Obstructive sleep apnea (adult) (pediatric) Status: Chronic (6) Obesity (BMI 30.0-34.9) Code(s): E66.9 - Obesity, unspecified Status: Chronic (7) Hypokalemia Code(s): E87.6 - Hypokalemia Status: Acute (8) Insomnia Code(s): G47.00 - Insomnia, unspecified Status: Chronic - Plan 47-year-old man with Pulmonary HTN secondary to LVEDP Acute Pulmonary edema-resolved Currently on Lasix 20 mg IV twice daily Awaiting for referral to tertiary center Management per cardiology Malignant hypertension-resolved Hypertension Currently on losartan and Lopressor Hypokalemia Monitor and replace as needed NSTEMI Systolic CHF Diastolic CHF Management per cardiology Ejection fraction of 40% on most recent echocardiogram Continue daily aspirin Acute pulmonary edema-resolved Obstructive sleep apnea Outpatient sleep study CPAP recommended Hypokalemia Give additional 20mEQ of K today Chronic kidney disease stage III Renal indices improving Diabetes mellitus type 2, uncontrolled Blurred vision (secondary to uncontrolled DM2) Currently on Levemir 30 units at bedtime, insulin sliding scale with fingerstick blood glucose monitoring DVT Prophylaxis Lovenox
--- NOTE | 2018-09-25 14:33 | P.PNCA ---
Subjective Interval history: feels better in nad Medications and Allergies Active Medications: Active Medications Acetaminophen (Tylenol) 650 mg PO Q6H PRN PRN Reason: TEMPERATURE > 100.5 F Acetaminophen (Tylenol) 500 mg PO Q4H PRN PRN Reason: HEADACHE Hydrocodone Bitart/Acetaminophen ([place] 7.5/325) 1 tab PO Q4H PRN PRN Reason: PAIN SCALE 1 TO 7 Albuterol (Albuterol Neb (Prn)) 2.5 mg NEB Q2HR NEB PRN PRN Reason: DYSPNEA Last Admin: 09/21/18 12:35 Dose: 2.5 mg Aspirin (Aspirin Chew) 81 mg PO DAILY [facility] Last Admin: 09/25/18 09:26 Dose: 81 mg Atorvastatin Calcium (Lipitor) 40 mg PO HS [facility] Last Admin: 09/24/18 20:45 Dose: 40 mg Benzonatate (Tessalon Perles) 200 mg PO Q8H PRN PRN Reason: COUGH Last Admin: 09/21/18 06:25 Dose: 200 mg Bisacodyl (Dulcolax Supp) 10 mg RECTAL DAILY PRN PRN Reason: SEVERE CONSITIPATION Calcium Carbonate (Tums Chew) 500 mg CHEW Q6H PRN PRN Reason: DYSPEPSIA OR HEARTBURN Clonidine HCl (Catapres) 0.1 mg PO Q6H PRN PRN Reason: SYS BP GREATER THAN 160 MMHG Last Admin: 09/25/18 06:54 Dose: 0.1 mg Dextrose (D50w Vial) 50 ml IV.PUSH UNSCH PRN PRN Reason: PER HYPOGLYCEMIA PROTOCOL Enoxaparin Sodium (Lovenox Inj) 40 mg SQ DAILY [facility] Last Admin: 09/25/18 09:25 Dose: 40 mg Furosemide (Lasix Inj) 20 mg IV.PUSH BID@0900,1800 [facility] Last Admin: 09/25/18 09:25 Dose: 20 mg Glucagon (Glucagon Inj) 1 mg OTHER PRN PRN PRN Reason: for Hypoglycemia Protocol Guaifenesin (Mucinex Er) 600 mg PO BID [facility] Last Admin: 09/25/18 09:26 Dose: 600 mg Hydralazine HCl (Apresoline Inj) 10 mg IV.PUSH Q6H PRN PRN Reason: SYS BP GREATER THAN 160 MMHG Insulin Aspart (Novolog Insulin Correctional Sugar Inj) 0 unit SQ ACHS [facility]; Protocol Last Admin: 09/25/18 13:31 Dose: 7 unit Insulin Detemir (Levemir Inj) 30 unit SQ DAILY [facility] Last Admin: 09/25/18 09:25 Dose: 30 unit Labetalol HCl (Trandate Inj) 20 mg IV.PUSH Q4H PRN PRN Reason: SYS BP GREATER THAN 160 MMHG Lactulose (Lactulose Liq) 30 ml PO DAILY PRN PRN Reason: SEVERE CONSITIPATION Losartan Potassium (Cozaar) 50 mg PO DAILY [facility] Last Admin: 09/25/18 09:26 Dose: 50 mg Melatonin (Melatonin) 5 mg PO HS PRN PRN Reason: INSOMNIA Last Admin: 09/20/18 20:47 Dose: 5 mg Metoprolol Tartrate (Lopressor) 100 mg PO BID [facility] Last Admin: 09/25/18 09:26 Dose: 100 mg Miscellaneous (Pill Splitter) 1 each OTHER UNSCH PRN PRN Reason: SEE LABEL COMMENTS Morphine Sulfate (Morphine Inj) 2 mg IV.PUSH Q4H PRN PRN Reason: PAIN SCALE 8-10 Last Admin: 09/21/18 12:48 Dose: 2 mg Ondansetron HCl (Zofran Inj) 4 mg IV.PUSH Q6H PRN PRN Reason: NAUSEA OR VOMITING Pantoprazole Sodium (Protonix) 40 mg PO DAILY [facility] Last Admin: 09/25/18 09:26 Dose: 40 mg Senna/Docusate Sodium (Josephine-Colace) 1 tab PO BID [facility] Last Admin: 09/25/18 09:26 Dose: Not Given Sennosides (Senokot) 17.2 mg PO Q12H PRN PRN Reason: Moderate Constipation Sodium Chloride (Ns Flush) 2 ml IV.FLUSH BID [facility] Last Admin: 09/25/18 09:27 Dose: 2 ml Sodium Chloride (Ns Flush) 2 ml IV.FLUSH PRN PRN PRN Reason: FLUSH AFTER USING IV ACCESS Sodium Chloride (P[place]y Nasal [place]) 2 spray EACH NARE Q4H PRN PRN Reason: congestion Allergies Allergy/AdvReac Type Severity Reaction Status Date / Time No Known Allergies Allergy Unverified 07/04/18 08:26 Home Medications Medication Instructions Recorded Confirmed Type glyburide-metformin 2 tab PO BID 07/04/18 09/13/18 History losartan 50 mg PO DAILY 07/04/18 09/13/18 History Physical Exam Vital signs: Vital Signs 09/24/18 15:00 09/24/18 19:51 09/24/18 20:00 Temperature 98.4 F 98.4 F Pulse Rate 87 100 H Respiratory Rate 20 18 Blood Pressure 131/86 126/89 Pulse Oximetry 95 94 L 94 L 09/24/18 23:00 09/25/18 03:00 09/25/18 07:00 Temperature 98.3 F 98.3 F 98.4 F Pulse Rate 80 89 88 Respiratory Rate 15 14 20 Blood Pressure 140/95 H 175/105 H 161/109 H Pulse Oximetry 94 L 95 93 L 09/25/18 11:00 09/25/18 13:20 Temperature 98.3 F Pulse Rate 82 87 Respiratory Rate 20 Blood Pressure Pulse Oximetry 94 L Intake & Output 09/24/18 09/25/18 09/25/18 18:59 06:59 18:59 Intake Total 1060 / 1060 420 / 420 Output Total 500 / 500 600 / 600 Balance 560 / 560 -180 / -180 Weight 98.7 kg Intake: IV 100 / 100 KCl 20 mEq Premix Inj 20 meq In 100 / 100 100 ml @ 50 mls/hr IV.SIG ONCE ONE Rx#:[id number] Oral 960 / 960 420 / 420 Output: Urine 500 / 500 600 / 600 Other: # Voids 3 2 Date of Last Bowel Movement 09/24/18 09/24/18 09/24/18 # Bowel Movements 2 - Constitutional no acute distress - Routine HEENT Exam Head: Present: normocephalic - Routine Neck Exam Present: supple - Routine Respiratory Exam Present: CTA bilaterally - Routine Cardiovascular Exam Present: S1, S2 - Routine Abdominal Exam Present: soft - Routine Extremities Exam Comments: no jerry - Urinary Catheter Management Indwelling Temp Sensing Catheter Cath placed during this visit: yes Urethral indwelling: No Reason for continuing: Hourly intake/output Insertion date: 09/21/18 Insertion time: 13:09 Results 09/25/18 02:57 09/25/18 02:57 Cardiac Enzymes 09/24/18 09/24/18 09/25/18 Range/Units 03:32 03:32 02:57 AST 15 15 (15-37) U/L B-Natriuretic Peptide 371 H (0-100) pg/mL 09/25/18 Range/Units 02:57 AST (15-37) U/L B-Natriuretic Peptide 424 H (0-100) pg/mL Coagulation 09/24/18 09/25/18 Range/Units 03:32 02:57 B-Natriuretic Peptide 371 H 424 H (0-100) pg/mL CBC 09/24/18 09/25/18 Range/Units 03:32 02:57 WBC 6.1 6.3 (4.0-11.0) th/mm3 RBC 4.72 4.88 (4.50-5.90) mil/mm3 Hgb 12.2 L 12.6 L (13.0-17.0) gm/dL Hct 37.9 L 39.2 (39.0-51.0) % Plt Count 207 206 (150-450) th/mm3 Neut # (Auto) 3.1 3.1 (1.8-7.7) th/mm3 Lymph # (Auto) 2.1 2.2 (1.0-4.8) th/mm3 [place] # (Auto) 0.7 0.8 (0.0-0.9) th/mm3 Eos # (Auto) 0.1 0.2 (0.0-0.4) th/mm3 Baso # (Auto) 0.1 0.1 (0.0-0.2) th/mm3 Comprehensive Metabolic Panel 09/24/18 09/24/18 09/25/18 Range/Units 03:32 14:01 02:57 Sodium 143 141 (136-145) meq/L Potassium 2.9 L* 3.7 D 3.1 L (3.5-5.1) meq/L Chloride 104 105 (98-107) meq/L Carbon Dioxide 29.4 28.2 (21.0-32.0) meq/L BUN 17 15 (7-18) mg/dL Creatinine 1.60 H 1.56 H (0.60-1.30) mg/dL Calcium 8.0 L 8.0 L (8.5-10.1) mg/dL AST 15 15 (15-37) U/L ALT 22 21 (12-78) U/L Alkaline Phosphatase 56 60 (45-117) U/L Total Protein 6.4 6.6 (6.4-8.2) g/dL Albumin 2.9 L 2.9 L (3.4-5.0) g/dL Intake and Output 09/24/18 09/25/18 09/25/18 22:59 06:59 14:59 Intake Total 960 / 960 420 / 420 Output Total 500 / 500 600 / 600 Balance 460 / 460 -180 / -180 Intake: Oral 960 / 960 420 / 420 Output: Urine 500 / 500 600 / 600 Other: # Voids 3 2 Date of Last Bowel Movement 09/24/18 09/24/18 09/24/18 # Bowel Movements 2 Weight 98.7 kg Assessment and Plan - Assessment (1) HTN (hypertension) Code(s): I10 - Essential (primary) hypertension Status: Acute (2) NSTEMI (non-ST elevated myocardial infarction) Code(s): I21.4 - Non-ST elevation (NSTEMI) myocardial infarction Status: Acute (3) Cardiomyopathy Code(s): I42.9 - Cardiomyopathy, unspecified Status: Acute (4) Renal insufficiency Code(s): N28.9 - Disorder of kidney and ureter, unspecified Status: Acute (5) CKD (chronic kidney disease), stage III Code(s): N18.3 - Chronic kidney disease, stage 3 (moderate) Status: Chronic (6) Pulmonary edema Code(s): J81.1 - Chronic pulmonary edema Status: Acute - Plan 1.) NICM - lvedp=35, clinically improved, off O2, cm consult placed for referral to a transplant team for further eval and management, continue lopressor 100 mg bid, diuresis difficult due to cri/arf, f/u bmp/bnp, d/w patient
--- NOTE | 2018-09-25 19:10 | P.PN ---
Subjective Interval history: Feels better today . Off O2. No chest pains. Walks in room. Awaiting referral to tertiary center for pulmonary HTN Physical Exam Vital signs: Vital Signs 09/24/18 19:51 09/24/18 20:00 09/24/18 23:00 Temperature 98.4 F 98.3 F Pulse Rate 100 H 80 Respiratory Rate 18 15 Blood Pressure 126/89 140/95 H Pulse Oximetry 94 L 94 L 94 L 09/25/18 03:00 09/25/18 07:00 09/25/18 11:00 Temperature 98.3 F 98.4 F 98.3 F Pulse Rate 89 88 82 Respiratory Rate 14 20 20 Blood Pressure 175/105 H 161/109 H Pulse Oximetry 95 93 L 94 L 09/25/18 13:20 09/25/18 15:06 09/25/18 16:18 Temperature 98.5 F Pulse Rate 87 86 86 Respiratory Rate 18 Blood Pressure 129/84 Pulse Oximetry Intake & Output 09/25/18 09/25/18 09/26/18 06:59 18:59 06:59 Intake Total 420 / 420 1220 / 1220 Output Total 600 / 600 1750 / 1750 Balance -180 / -180 -530 / -530 Weight 98.7 kg Intake: Oral 420 / 420 1220 / 1220 Output: Urine 600 / 600 1750 / 1750 Other: # Voids 2 Date of Last Bowel Movement 09/24/18 09/24/18 Narrative: GENERAL: Obese mid aged male in NAD SKIN: Warm and dry. HEAD: Atraumatic. Normocephalic. EYES: Pupils equal and round. No scleral icterus. No injection or drainage. ENT: No nasal bleeding or discharge. Mucous membranes pink and moist. NECK: Trachea midline. No JVD. CARDIOVASCULAR: Regular rate and rhythm. RESPIRATORY: No accessory muscle use. Clear to auscultation. Breath sounds equal bilaterally. GASTROINTESTINAL: Abdomen soft, non-tender, nondistended. Hepatic and splenic margins not palpable. MUSCULOSKELETAL: Extremities without clubbing, cyanosis, or edema. No obvious deformities. NEUROLOGICAL: Awake and alert. No obvious cranial nerve deficits. Motor grossly within normal limits. Normal speech. PSYCHIATRIC: Appropriate mood and affect; insight and judgment normal. - Urinary Catheter Management Indwelling Temp Sensing Catheter Cath placed during this visit: yes Urethral indwelling: No Reason for continuing: Hourly intake/output Insertion date: 09/21/18 Insertion time: 13:09 Results - Labs CBC & Chem 7: 09/25/18 02:57 09/25/18 02:57 Laboratory Results - last 24 hr 09/24/18 09/25/18 09/25/18 20:44 02:57 02:57 WBC 6.3 RBC 4.88 Hgb 12.6 L Hct 39.2 MCV 80.3 MCH 25.8 L MCHC 32.1 RDW 13.7 Plt Count 206 MPV 8.5 Neut % (Auto) 48.8 Lymph % (Auto) 34.9 [place] % (Auto) 12.2 H Eos % (Auto) 2.9 Baso % (Auto) 1.2 Neut # (Auto) 3.1 Lymph # (Auto) 2.2 [place] # (Auto) 0.8 Eos # (Auto) 0.2 Baso # (Auto) 0.1 WBC Differential . Differential Comment Auto diff final Sodium 141 Potassium 3.1 L Chloride 105 Carbon Dioxide 28.2 Anion Gap 8 BUN 15 Creatinine 1.56 H Estimated GFR 58 L POC Glucose 154 H Random Glucose 135 H Calcium 8.0 L Total Bilirubin 0.5 AST 15 ALT 21 Alkaline Phosphatase 60 B-Natriuretic Peptide Total Protein 6.6 Albumin 2.9 L 09/25/18 09/25/18 09/25/18 02:57 07:32 12:37 WBC RBC Hgb Hct MCV MCH MCHC RDW Plt Count MPV Neut % (Auto) Lymph % (Auto) [place] % (Auto) Eos % (Auto) Baso % (Auto) Neut # (Auto) Lymph # (Auto) [place] # (Auto) Eos # (Auto) Baso # (Auto) WBC Differential Differential Comment Sodium Potassium Chloride Carbon Dioxide Anion Gap BUN Creatinine Estimated GFR POC Glucose 114 H 275 H Random Glucose Calcium Total Bilirubin AST ALT Alkaline Phosphatase B-Natriuretic Peptide 424 H Total Protein Albumin 09/25/18 16:55 WBC RBC Hgb Hct MCV MCH MCHC RDW Plt Count MPV Neut % (Auto) Lymph % (Auto) [place] % (Auto) Eos % (Auto) Baso % (Auto) Neut # (Auto) Lymph # (Auto) [place] # (Auto) Eos # (Auto) Baso # (Auto) WBC Differential Differential Comment Sodium Potassium Chloride Carbon Dioxide Anion Gap BUN Creatinine Estimated GFR POC Glucose 105 Random Glucose Calcium Total Bilirubin AST ALT Alkaline Phosphatase B-Natriuretic Peptide Total Protein Albumin Assessment and Plan - Assessment (1) Insomnia Code(s): G47.00 - Insomnia, unspecified Status: Chronic (2) Allergic rhinitis Code(s): J30.9 - Allergic rhinitis, unspecified Status: Acute (3) Renal insufficiency Code(s): N28.9 - Disorder of kidney and ureter, unspecified Status: Acute (4) Hypothyroidism Code(s): E03.9 - Hypothyroidism, unspecified Status: Acute (5) Sinusitis Code(s): J32.9 - Chronic sinusitis, unspecified Status: Acute (6) CKD (chronic kidney disease), stage III Code(s): N18.3 - Chronic kidney disease, stage 3 (moderate) Status: Chronic (7) Pulmonary edema Code(s): J81.1 - Chronic pulmonary edema Status: Acute - Plan - Plan 1. Respiratory insufficiency. 2. Pulmonary edema...resolving 3. Hypertension 4. Obstructive sleep apnea. 5. Obesity. 6. Acute kidney injury. 7. Hyperglycemia, hx DM 8. Hypokalemia Plan 1. D/C O2 2. Duo nebs qid PRN 3. Up in halls 4. Cont Lasix 40 mg daily. 5. Referral to tertiary care for pulm HTN when stable 6. Will need a repeat sleep study as an outpatient. His last sleep study was 5 years ago. 7. Continue with antihypertensive medication. 8. Cont Lovenox 40 mg S/Q daily (5) Sinusitis Qualifiers: Sinusitis location: unspecified location Chronicity: acute Recurrence: not specified as recurrent Qualified Code(s): J01.90 - Acute sinusitis, unspecified
[2018-09-26 05:49] LABS: Baso # (Auto) 0.1 th/mm3 (0.0-0.2); Baso % (Auto) 0.9 % (0.0-2.0); Eos # (Auto) 0.2 th/mm3 (0.0-0.4); Hematocrit 38.6 % (39.0-51.0); Hemoglobin 12.3 gm/dL (13.0-17.0); Lymph # (Auto) 2.2 th/mm3 (1.0-4.8); Lymph % (Auto) 33.3 % (9.0-44.0); Mean Corpuscular HGB Conc 31.9 % (32.0-36.0); Mean Corpuscular Hemoglobin 25.7 pg (27.0-34.0); Mean Corpuscular Volume 80.4 fL (80.0-100.0); Mean Platelet Volume 8.5 fL (7.0-11.0); Mono # (Auto) 0.8 th/mm3 (0.0-0.9); Mono % (Auto) 12.1 % (0.0-8.0); Neut # (Auto) 3.4 th/mm3 (1.8-7.7); Neut % (Auto) 50.7 % (16.0-70.0); Platelet Count 203 th/mm3 (150-450); Red Cell Distribution Width 13.7 % (11.6-17.2); White Blood Count 6.7 th/mm3 (4.0-11.0)
[2018-09-26 06:05] LABS: Anion Gap 8 meq/L (5-15); Aspartate Aminotransferase 16 U/L (15-37); Blood Urea Nitrogen 20 mg/dL (7-18); Calcium 8.5 mg/dL (8.5-10.1); Carbon Dioxide 26.7 meq/L (21.0-32.0); Chloride 105 meq/L (98-107); Glomerular Filtration Rate 54 mL/min (>89); Glucose,Random 126 mg/dL (74-106); Potassium 3.3 meq/L (3.5-5.1); Sodium 140 meq/L (136-145)
[2018-09-26 06:06] LABS: Alanine Aminotransferase 23 U/L (12-78)
[2018-09-26 06:08] LABS: Alkaline Phosphatase 59 U/L (45-117); Total Protein 6.6 g/dL (6.4-8.2)
[2018-09-26 08:17] VITALS: RESP 20
[2018-09-26] MEDS: Insulin NovoLOG Aspart Correctional Sugar Inj SQ SCH ×2 (08:51→12:02)
[2018-09-26] MEDS: Senna/Docusate Sodium 8.6/50 MG Tablet PO SCH (08:52)
[2018-09-26] MEDS: Metoprolol Tartrate 50 MG Tablet PO SCH (08:52)
[2018-09-26] MEDS: guaiFENesin 600 MG ER Tablet PO SCH (08:52)
[2018-09-26] MEDS: Enoxaparin Inj 40 MG/0.4 ML Syringe SQ SCH (08:53)
[2018-09-26] MEDS: Insulin Detemir Inj 1,000 UNIT/10 ML Vial SQ SCH (08:53)
--- NOTE | 2018-09-26 10:27 | P.PN ---
Subjective Interval history: Follow-up pulmonary hypertension 2/2 LVEDP September 25, 2018-patient seen and examined, reports some improvement of shortness of breath. No acute event overnight. September 26, 2018-patient seen and examined, denies any chest pain, shortness of breath or heart palpitations. Patient has been denied transfer to [facility]. Physical Exam Vital signs: Vital Signs 09/25/18 11:00 09/25/18 13:20 09/25/18 15:06 Temperature 98.3 F Pulse Rate 82 87 86 Respiratory Rate 20 Blood Pressure Pulse Oximetry 94 L 09/25/18 16:18 09/25/18 19:00 09/25/18 20:00 Temperature 98.5 F 98.7 F Pulse Rate 86 94 H 92 H Respiratory Rate 18 18 Blood Pressure 129/84 134/87 Pulse Oximetry 09/25/18 20:53 09/25/18 21:00 09/25/18 22:00 Temperature Pulse Rate 94 H 86 Respiratory Rate Blood Pressure Pulse Oximetry 98 09/25/18 23:00 09/26/18 00:00 09/26/18 03:00 Temperature 98.5 F 98.6 F Pulse Rate 81 84 81 Respiratory Rate 18 18 Blood Pressure 117/67 129/89 Pulse Oximetry 96 96 09/26/18 04:00 09/26/18 05:00 09/26/18 05:49 Temperature Pulse Rate 82 88 82 Respiratory Rate Blood Pressure Pulse Oximetry 09/26/18 07:00 09/26/18 08:00 09/26/18 08:26 Temperature 98.3 F Pulse Rate 61 96 H Respiratory Rate 20 Blood Pressure 153/99 H Pulse Oximetry 96 96 09/26/18 09:00 Temperature Pulse Rate 92 H Respiratory Rate Blood Pressure Pulse Oximetry Intake & Output 09/25/18 09/26/18 09/26/18 18:59 06:59 18:59 Intake Total 1220 / 1220 480 / 480 Output Total 1750 / 1750 925 / 925 Balance -530 / -530 -445 / -445 Weight 99 kg Intake: Oral 1220 / 1220 480 / 480 Output: Urine 1750 / 1750 925 / 925 Other: Date of Last Bowel Movement 09/24/18 09/24/18 09/24/18 Narrative: GENERAL: NAD SKIN: Warm and dry. HEAD: Atraumatic. Normocephalic. EYES: Pupils equal and round. No scleral icterus. No injection or drainage. ENT: No nasal bleeding or discharge. Mucous membranes pink and moist. NECK: Trachea midline. No JVD. CARDIOVASCULAR: Regular rate and rhythm. RESPIRATORY: No accessory muscle use. Clear to auscultation. Breath sounds equal bilaterally. GASTROINTESTINAL: Abdomen soft, non-tender, nondistended. Hepatic and splenic margins not palpable. MUSCULOSKELETAL: Extremities without clubbing, cyanosis, or edema. No obvious deformities. NEUROLOGICAL: Awake and alert. No obvious cranial nerve deficits. Motor grossly within normal limits. Normal speech. PSYCHIATRIC: Appropriate mood and affect; insight and judgment normal. - Urinary Catheter Management Indwelling Temp Sensing Catheter Cath placed during this visit: yes Urethral indwelling: No Reason for continuing: Hourly intake/output Insertion date: 09/21/18 Insertion time: 13:09 Results - Labs CBC & Chem 7: 09/26/18 04:28 09/26/18 04:28 Laboratory Results - last 24 hr 09/25/18 09/25/18 09/25/18 12:37 16:55 19:58 WBC RBC Hgb Hct MCV MCH MCHC RDW Plt Count MPV Neut % (Auto) Lymph % (Auto) [place] % (Auto) Eos % (Auto) Baso % (Auto) Neut # (Auto) Lymph # (Auto) [place] # (Auto) Eos # (Auto) Baso # (Auto) WBC Differential Differential Comment Sodium Potassium Chloride Carbon Dioxide Anion Gap BUN Creatinine Estimated GFR POC Glucose 275 H 105 125 H Random Glucose Calcium Total Bilirubin AST ALT Alkaline Phosphatase B-Natriuretic Peptide Total Protein Albumin 09/26/18 09/26/18 09/26/18 04:28 04:28 04:28 WBC 6.7 RBC 4.80 Hgb 12.3 L Hct 38.6 L MCV 80.4 MCH 25.7 L MCHC 31.9 L RDW 13.7 Plt Count 203 MPV 8.5 Neut % (Auto) 50.7 Lymph % (Auto) 33.3 [place] % (Auto) 12.1 H Eos % (Auto) 3.0 Baso % (Auto) 0.9 Neut # (Auto) 3.4 Lymph # (Auto) 2.2 [place] # (Auto) 0.8 Eos # (Auto) 0.2 Baso # (Auto) 0.1 WBC Differential . Differential Comment Auto diff final Sodium 140 Potassium 3.3 L Chloride 105 Carbon Dioxide 26.7 Anion Gap 8 BUN 20 H Creatinine 1.66 H Estimated GFR 54 L POC Glucose Random Glucose 126 H Calcium 8.5 Total Bilirubin 0.4 AST 16 ALT 23 Alkaline Phosphatase 59 B-Natriuretic Peptide 351 H Total Protein 6.6 Albumin 3.0 L 09/26/18 07:40 WBC RBC Hgb Hct MCV MCH MCHC RDW Plt Count MPV Neut % (Auto) Lymph % (Auto) [place] % (Auto) Eos % (Auto) Baso % (Auto) Neut # (Auto) Lymph # (Auto) [place] # (Auto) Eos # (Auto) Baso # (Auto) WBC Differential Differential Comment Sodium Potassium Chloride Carbon Dioxide Anion Gap BUN Creatinine Estimated GFR POC Glucose 125 H Random Glucose Calcium Total Bilirubin AST ALT Alkaline Phosphatase B-Natriuretic Peptide Total Protein Albumin - Procedures None Assessment and Plan - Assessment (1) Malignant hypertension Code(s): I10 - Essential (primary) hypertension Status: Acute (2) Pulmonary edema Code(s): J81.1 - Chronic pulmonary edema Status: Acute (3) CKD (chronic kidney disease), stage III Code(s): N18.3 - Chronic kidney disease, stage 3 (moderate) Status: Chronic (4) Poorly controlled type 2 diabetes mellitus Code(s): E11.65 - Type 2 diabetes mellitus with hyperglycemia Status: Chronic (5) JULIANNE (obstructive sleep apnea) Code(s): G47.33 - Obstructive sleep apnea (adult) (pediatric) Status: Chronic (6) Obesity (BMI 30.0-34.9) Code(s): E66.9 - Obesity, unspecified Status: Chronic (7) Hypokalemia Code(s): E87.6 - Hypokalemia Status: Acute (8) Insomnia Code(s): G47.00 - Insomnia, unspecified Status: Chronic - Plan 47-year-old man with Pulmonary HTN secondary to LVEDP-clinically improving Acute Pulmonary edema-resolved Currently on Lasix 20 mg IV twice daily Patient was denied transfer to [facility] for evaluation Management per cardiology Malignant hypertension-resolved Hypertension Currently on losartan and Lopressor Hypokalemia Monitor and replace as needed NSTEMI Systolic CHF Diastolic CHF Management per cardiology Ejection fraction of 40% on most recent echocardiogram Continue daily aspirin Acute pulmonary edema-resolved Obstructive sleep apnea Outpatient sleep study CPAP recommended Hypokalemia Give additional 20mEQ of K today Chronic kidney disease stage III Renal indices improving Diabetes mellitus type 2, uncontrolled Blurred vision (secondary to uncontrolled DM2) Currently on Levemir 30 units at bedtime, insulin sliding scale with fingerstick blood glucose monitoring DVT Prophylaxis Lovenox
[2018-09-26 10:57] VITALS: BP 146/81; TEMP 98.1; O2SAT 98
--- NOTE | 2018-09-26 13:03 | P.PNCA ---
Subjective Interval history: alert in nad Medications and Allergies Active Medications: Active Medications Acetaminophen (Tylenol) 650 mg PO Q6H PRN PRN Reason: TEMPERATURE > 100.5 F Acetaminophen (Tylenol) 500 mg PO Q4H PRN PRN Reason: HEADACHE Hydrocodone Bitart/Acetaminophen ([place] 7.5/325) 1 tab PO Q4H PRN PRN Reason: PAIN SCALE 1 TO 7 Albuterol (Albuterol Neb (Prn)) 2.5 mg NEB Q2HR NEB PRN PRN Reason: DYSPNEA Last Admin: 09/21/18 12:35 Dose: 2.5 mg Aspirin (Aspirin Chew) 81 mg PO DAILY [facility] Last Admin: 09/26/18 08:52 Dose: 81 mg Atorvastatin Calcium (Lipitor) 40 mg PO HS [facility] Last Admin: 09/25/18 20:55 Dose: 40 mg Benzonatate (Tessalon Perles) 200 mg PO Q8H PRN PRN Reason: COUGH Last Admin: 09/21/18 06:25 Dose: 200 mg Bisacodyl (Dulcolax Supp) 10 mg RECTAL DAILY PRN PRN Reason: SEVERE CONSITIPATION Calcium Carbonate (Tums Chew) 500 mg CHEW Q6H PRN PRN Reason: DYSPEPSIA OR HEARTBURN Clonidine HCl (Catapres) 0.1 mg PO Q6H PRN PRN Reason: SYS BP GREATER THAN 160 MMHG Last Admin: 09/25/18 06:54 Dose: 0.1 mg Dextrose (D50w Vial) 50 ml IV.PUSH UNSCH PRN PRN Reason: PER HYPOGLYCEMIA PROTOCOL Enoxaparin Sodium (Lovenox Inj) 40 mg SQ DAILY [facility] Last Admin: 09/26/18 08:53 Dose: 40 mg Furosemide (Lasix Inj) 20 mg IV.PUSH BID@0900,1800 [facility] Last Admin: 09/26/18 08:53 Dose: 20 mg Glucagon (Glucagon Inj) 1 mg OTHER PRN PRN PRN Reason: for Hypoglycemia Protocol Guaifenesin (Mucinex Er) 600 mg PO BID [facility] Last Admin: 09/26/18 08:52 Dose: 600 mg Hydralazine HCl (Apresoline Inj) 10 mg IV.PUSH Q6H PRN PRN Reason: SYS BP GREATER THAN 160 MMHG Insulin Aspart (Novolog Insulin [place] Sugar Inj) 0 unit SQ ACHS [facility]; Protocol Last Admin: 09/26/18 12:02 Dose: 4 unit Insulin Detemir (Levemir Inj) 30 unit SQ DAILY [facility] Last Admin: 09/26/18 08:53 Dose: 30 unit Labetalol HCl (Trandate Inj) 20 mg IV.PUSH Q4H PRN PRN Reason: SYS BP GREATER THAN 160 MMHG Lactulose (Lactulose Liq) 30 ml PO DAILY PRN PRN Reason: SEVERE CONSITIPATION Losartan Potassium (Cozaar) 50 mg PO DAILY [facility] Last Admin: 09/26/18 08:53 Dose: 50 mg Melatonin (Melatonin) 5 mg PO HS PRN PRN Reason: INSOMNIA Last Admin: 09/20/18 20:47 Dose: 5 mg Metoprolol Tartrate (Lopressor) 100 mg PO BID [facility] Last Admin: 09/26/18 08:52 Dose: 100 mg Miscellaneous (Pill Splitter) 1 each OTHER UNSCH PRN PRN Reason: SEE LABEL COMMENTS Morphine Sulfate (Morphine Inj) 2 mg IV.PUSH Q4H PRN PRN Reason: PAIN SCALE 8-10 Last Admin: 09/21/18 12:48 Dose: 2 mg Ondansetron HCl (Zofran Inj) 4 mg IV.PUSH Q6H PRN PRN Reason: NAUSEA OR VOMITING Pantoprazole Sodium (Protonix) 40 mg PO DAILY [facility] Last Admin: 09/26/18 08:53 Dose: 40 mg Senna/Docusate Sodium (Josephine-Colace) 1 tab PO BID [facility] Last Admin: 09/26/18 08:52 Dose: 1 tab Sennosides (Senokot) 17.2 mg PO Q12H PRN PRN Reason: Moderate Constipation Sodium Chloride (Ns Flush) 2 ml IV.FLUSH BID [facility] Last Admin: 09/26/18 08:53 Dose: 2 ml Sodium Chloride (Ns Flush) 2 ml IV.FLUSH PRN PRN PRN Reason: FLUSH AFTER USING IV ACCESS Sodium Chloride ([place] Nasal [place]) 2 spray EACH NARE Q4H PRN PRN Reason: congestion Allergies Allergy/AdvReac Type Severity Reaction Status Date / Time No Known Allergies Allergy Unverified 07/04/18 08:26 Home Medications Medication Instructions Recorded Confirmed Type glyburide-metformin 2 tab PO BID 07/04/18 09/13/18 History losartan 50 mg PO DAILY 07/04/18 09/13/18 History Physical Exam Vital signs: Vital Signs 09/25/18 13:20 09/25/18 15:06 09/25/18 16:18 Temperature 98.5 F Pulse Rate 87 86 86 Respiratory Rate 18 Blood Pressure 129/84 Pulse Oximetry 09/25/18 19:00 09/25/18 20:00 09/25/18 20:53 Temperature 98.7 F Pulse Rate 94 H 92 H Respiratory Rate 18 Blood Pressure 134/87 Pulse Oximetry 98 09/25/18 21:00 09/25/18 22:00 09/25/18 23:00 Temperature 98.5 F Pulse Rate 94 H 86 81 Respiratory Rate 18 Blood Pressure 117/67 Pulse Oximetry 96 09/26/18 00:00 09/26/18 03:00 09/26/18 04:00 Temperature 98.6 F Pulse Rate 84 81 82 Respiratory Rate 18 Blood Pressure 129/89 Pulse Oximetry 96 09/26/18 05:00 09/26/18 05:49 09/26/18 07:00 Temperature 98.3 F Pulse Rate 88 82 61 Respiratory Rate 20 Blood Pressure 153/99 H Pulse Oximetry 09/26/18 08:00 09/26/18 08:26 09/26/18 09:00 Temperature Pulse Rate 96 H 92 H Respiratory Rate Blood Pressure Pulse Oximetry 96 96 09/26/18 10:00 09/26/18 10:53 09/26/18 11:00 Temperature 98.1 F Pulse Rate 87 84 81 Respiratory Rate 20 Blood Pressure 146/81 H Pulse Oximetry 98 09/26/18 12:00 Temperature Pulse Rate 78 Respiratory Rate Blood Pressure Pulse Oximetry Intake & Output 09/25/18 09/26/18 09/26/18 18:59 06:59 18:59 Intake Total 1220 / 1220 480 / 480 Output Total 1750 / 1750 925 / 925 Balance -530 / -530 -445 / -445 Weight 99 kg Intake: Oral 1220 / 1220 480 / 480 Output: Urine 1750 / 1750 925 / 925 Other: Date of Last Bowel Movement 09/24/18 09/24/18 09/24/18 - Constitutional no acute distress - Routine HEENT Exam Head: Present: normocephalic - Routine Neck Exam Present: supple - Routine Respiratory Exam Present: CTA bilaterally - Routine Cardiovascular Exam Present: S1, S2 - Routine Abdominal Exam Present: soft - Routine Extremities Exam Comments: no jerry - Urinary Catheter Management Indwelling Temp Sensing Catheter Cath placed during this visit: yes Urethral indwelling: No Reason for continuing: Hourly intake/output Insertion date: 09/21/18 Insertion time: 13:09 Results 09/26/18 04:28 09/26/18 04:28 Cardiac Enzymes 09/25/18 09/25/18 09/26/18 Range/Units 02:57 02:57 04:28 AST 15 16 (15-37) U/L B-Natriuretic Peptide 424 H (0-100) pg/mL 09/26/18 Range/Units 04:28 AST (15-37) U/L B-Natriuretic Peptide 351 H (0-100) pg/mL Coagulation 09/25/18 09/26/18 Range/Units 02:57 04:28 B-Natriuretic Peptide 424 H 351 H (0-100) pg/mL CBC 09/25/18 09/26/18 Range/Units 02:57 04:28 WBC 6.3 6.7 (4.0-11.0) th/mm3 RBC 4.88 4.80 (4.50-5.90) mil/mm3 Hgb 12.6 L 12.3 L (13.0-17.0) gm/dL Hct 39.2 38.6 L (39.0-51.0) % Plt Count 206 203 (150-450) th/mm3 Neut # (Auto) 3.1 3.4 (1.8-7.7) th/mm3 Lymph # (Auto) 2.2 2.2 (1.0-4.8) th/mm3 [place] # (Auto) 0.8 0.8 (0.0-0.9) th/mm3 Eos # (Auto) 0.2 0.2 (0.0-0.4) th/mm3 Baso # (Auto) 0.1 0.1 (0.0-0.2) th/mm3 Comprehensive Metabolic Panel 09/24/18 09/25/18 09/26/18 Range/Units 14:01 02:57 04:28 Sodium 141 140 (136-145) meq/L Potassium 3.7 D 3.1 L 3.3 L (3.5-5.1) meq/L Chloride 105 105 (98-107) meq/L Carbon Dioxide 28.2 26.7 (21.0-32.0) meq/L BUN 15 20 H (7-18) mg/dL Creatinine 1.56 H 1.66 H (0.60-1.30) mg/dL Calcium 8.0 L 8.5 (8.5-10.1) mg/dL AST 15 16 (15-37) U/L ALT 21 23 (12-78) U/L Alkaline Phosphatase 60 59 (45-117) U/L Total Protein 6.6 6.6 (6.4-8.2) g/dL Albumin 2.9 L 3.0 L (3.4-5.0) g/dL Intake and Output 09/25/18 09/26/18 09/26/18 22:59 06:59 14:59 Intake Total 1220 / 1220 480 / 480 Output Total 1750 / 1750 925 / 925 Balance -530 / -530 -445 / -445 Intake: Oral 1220 / 1220 480 / 480 Output: Urine 1750 / 1750 925 / 925 Other: Date of Last Bowel Movement 09/24/18 09/24/18 09/24/18 Weight 99 kg Assessment and Plan - Assessment (1) HTN (hypertension) Code(s): I10 - Essential (primary) hypertension Status: Acute (2) NSTEMI (non-ST elevated myocardial infarction) Code(s): I21.4 - Non-ST elevation (NSTEMI) myocardial infarction Status: Acute (3) Cardiomyopathy Code(s): I42.9 - Cardiomyopathy, unspecified Status: Acute (4) Renal insufficiency Code(s): N28.9 - Disorder of kidney and ureter, unspecified Status: Acute (5) CKD (chronic kidney disease), stage III Code(s): N18.3 - Chronic kidney disease, stage 3 (moderate) Status: Chronic (6) Pulmonary edema Code(s): J81.1 - Chronic pulmonary edema Status: Acute - Plan 1.) NICM - lvedp=35, clinically improved, off O2, cm consult placed for referral to a transplant team for further eval and management, continue lopressor 100 mg bid, diuresis difficult due to cri/arf, f/u bmp/bnp, d/w patient; clinically improving, now NYHA class 1-2, not euvolemic by bnp, could consider discharge with f/u @ [facility] outpatient heart transplant clinic
--- NOTE | 2018-09-26 13:33 | P.DS ---
Date of admission: 09/14/18 00:44 Primary care physician: UNKNOWN Brief History from admission: 47-year-old male with past medical history of hypertension, diabetes, obesity, obstructive sleep apnea presented to [facility] emergency department with acute onset of shortness of breath. When [facility] arrived his room air sats were in the 80s. He had rales on exam and was expectorating pink frothy sputum. He was also hypertensive with blood pressure 220s. He was given nitroglycerin sublingual x2, placed on CPAP and administer Lasix 100 mg IV prior to arrival. CXR demonstrated pulmonary edema. He was complaining of burning pain "throughout his whole chest". EKG demonstrated no ischemic changes. Troponin 0.11. He was started on cardene in the ED to control BP. [employer] has been consulted for admission. Patient states he has had nonproductive cough for about 2 weeks. No fevers or chills. He did not experience any shortness of breath until tonight. It was associated with diaphoresis. He had some nausea while he was on BiPAP but he has subsequently removed that and is on nasal cannula. Denies prior cardiac history. States he had a stress test and cath about 5 years ago in [place] that were negative. He previously was on multiple antihypertensive medications. A couple of years ago he was going to the gym frequently and lost some weight and then was taken off his antihypertensives. Has now stopped exercising and says his blood pressure has not been very well controlled. He now only takes losartan 50 mg p.o. daily which he did take today. He has diuresed 2 L in the emergency department. He does not have any chest pain currently. No headache or visual changes. He says he has had 2 prior sleep studies want a [facility] and another in [place] and was told he needed CPAP but he moved away before he was able to establish with pulmonology or to get CPAP therapy. He is requesting assistance with this issue. DS: Diagnosis - Discharge Diagnosis (1) Malignant hypertension Status: Acute (2) Pulmonary edema Status: Acute (3) CKD (chronic kidney disease), stage III Status: Chronic (4) Poorly controlled type 2 diabetes mellitus Status: Chronic (5) JULIANNE (obstructive sleep apnea) Status: Chronic (6) Obesity (BMI 30.0-34.9) Status: Chronic (7) Hypokalemia Status: Acute (8) Insomnia Status: Chronic DS: Medications - Discharge Medications Prescriptions: aspirin 81 mg PO DAILY #30 tab atorvastatin 40 mg PO HS #30 tab furosemide [Lasix] 20 mg PO BID #60 tab insulin aspart U-100 [Novolog U-100 Insulin aspart] 0 unit SUBCUT ACHS #100 ml insulin detemir U-100 [Levemir U-100 Insulin] 30 unit SUBCUT DAILY #100 ml losartan 50 mg PO DAILY #30 tab metoprolol tartrate 100 mg PO BID #60 tab potassium 10 meq PO DAILY #30 tab DS: Summary Hospital Course: While in the hospital, the patient was treated for: Pulmonary HTN secondary to LVEDP-clinically improving Acute Pulmonary edema-resolved Currently on Lasix 20 mg IV twice daily Patient was denied transfer to [facility] for evaluation Management per cardiology Malignant hypertension-resolved Hypertension Currently on losartan and Lopressor Hypokalemia Monitor and replace as needed NSTEMI Systolic CHF Diastolic CHF Management per cardiology Ejection fraction of 40% on most recent echocardiogram Continue daily aspirin Acute pulmonary edema-resolved Obstructive sleep apnea Outpatient sleep study CPAP recommended Hypokalemia Give additional 20mEQ of K today Chronic kidney disease stage III Renal indices improving Diabetes mellitus type 2, uncontrolled Blurred vision (secondary to uncontrolled DM2) Currently on Levemir 30 units at bedtime, insulin sliding scale with fingerstick blood glucose monitoring DVT Prophylaxis Lovenox - Time Spent with Patient Total time spent providing and/or coordinating discharge services: Less than 30 minutes - Quality: VTE Deep Vein Thrombosis/Pulmonary Embolism Present on Admission: No Exam Vital signs: Vital Signs 09/25/18 15:06 09/25/18 16:18 09/25/18 19:00 Temperature 98.5 F 98.7 F Pulse Rate 86 86 94 H Respiratory Rate 18 18 Blood Pressure 129/84 134/87 Pulse Oximetry 09/25/18 20:00 09/25/18 20:53 09/25/18 21:00 Temperature Pulse Rate 92 H 94 H Respiratory Rate Blood Pressure Pulse Oximetry 98 09/25/18 22:00 09/25/18 23:00 09/26/18 00:00 Temperature 98.5 F Pulse Rate 86 81 84 Respiratory Rate 18 Blood Pressure 117/67 Pulse Oximetry 96 09/26/18 03:00 09/26/18 04:00 09/26/18 05:00 Temperature 98.6 F Pulse Rate 81 82 88 Respiratory Rate 18 Blood Pressure 129/89 Pulse Oximetry 96 09/26/18 05:49 09/26/18 07:00 09/26/18 08:00 Temperature 98.3 F Pulse Rate 82 61 96 H Respiratory Rate 20 Blood Pressure 153/99 H Pulse Oximetry 96 09/26/18 08:26 09/26/18 09:00 09/26/18 10:00 Temperature Pulse Rate 92 H 87 Respiratory Rate Blood Pressure Pulse Oximetry 96 09/26/18 10:53 09/26/18 11:00 09/26/18 12:00 Temperature 98.1 F Pulse Rate 84 81 78 Respiratory Rate 20 Blood Pressure 146/81 H Pulse Oximetry 98 09/26/18 13:00 Temperature Pulse Rate 88 Respiratory Rate Blood Pressure Pulse Oximetry Intake & Output 09/25/18 09/26/18 09/26/18 18:59 06:59 18:59 Intake Total 1220 / 1220 480 / 480 Output Total 1750 / 1750 925 / 925 Balance -530 / -530 -445 / -445 Weight 99 kg Intake: Oral 1220 / 1220 480 / 480 Output: Urine 1750 / 1750 925 / 925 Other: Date of Last Bowel Movement 09/24/18 09/24/18 09/24/18 Narrative: GENERAL: NAD SKIN: Warm and dry. HEAD: Atraumatic. Normocephalic. EYES: Pupils equal and round. No scleral icterus. No injection or drainage. ENT: No nasal bleeding or discharge. Mucous membranes pink and moist. NECK: Trachea midline. No JVD. CARDIOVASCULAR: Regular rate and rhythm. RESPIRATORY: No accessory muscle use. Clear to auscultation. Breath sounds equal bilaterally. GASTROINTESTINAL: Abdomen soft, non-tender, nondistended. Hepatic and splenic margins not palpable. MUSCULOSKELETAL: Extremities without clubbing, cyanosis, or edema. No obvious deformities. NEUROLOGICAL: Awake and alert. No obvious cranial nerve deficits. Motor grossly within normal limits. Normal speech. PSYCHIATRIC: Appropriate mood and affect; insight and judgment normal. Results Procedures completed during hospitalization: None Labs on day of discharge: Labs from last 24 hours 09/26/18 09/26/18 09/26/18 10:48 07:40 04:28 WBC RBC Hgb Hct MCV MCH MCHC RDW Plt Count MPV Neut % (Auto) Lymph % (Auto) [place] % (Auto) Eos % (Auto) Baso % (Auto) Neut # (Auto) Lymph # (Auto) [place] # (Auto) Eos # (Auto) Baso # (Auto) WBC Differential Differential Comment Sodium Potassium Chloride Carbon Dioxide Anion Gap BUN Creatinine Estimated GFR POC Glucose 231 H 125 H Random Glucose Calcium Total Bilirubin AST ALT Alkaline Phosphatase B-Natriuretic Peptide 351 H Total Protein Albumin 09/26/18 09/26/18 09/25/18 04:28 04:28 19:58 WBC 6.7 RBC 4.80 Hgb 12.3 L Hct 38.6 L MCV 80.4 MCH 25.7 L MCHC 31.9 L RDW 13.7 Plt Count 203 MPV 8.5 Neut % (Auto) 50.7 Lymph % (Auto) 33.3 [place] % (Auto) 12.1 H Eos % (Auto) 3.0 Baso % (Auto) 0.9 Neut # (Auto) 3.4 Lymph # (Auto) 2.2 [place] # (Auto) 0.8 Eos # (Auto) 0.2 Baso # (Auto) 0.1 WBC Differential . Differential Comment Auto diff final Sodium 140 Potassium 3.3 L Chloride 105 Carbon Dioxide 26.7 Anion Gap 8 BUN 20 H Creatinine 1.66 H Estimated GFR 54 L POC Glucose 125 H Random Glucose 126 H Calcium 8.5 Total Bilirubin 0.4 AST 16 ALT 23 Alkaline Phosphatase 59 B-Natriuretic Peptide Total Protein 6.6 Albumin 3.0 L 09/25/18 16:55 WBC RBC Hgb Hct MCV MCH MCHC RDW Plt Count MPV Neut % (Auto) Lymph % (Auto) [place] % (Auto) Eos % (Auto) Baso % (Auto) Neut # (Auto) Lymph # (Auto) [place] # (Auto) Eos # (Auto) Baso # (Auto) WBC Differential Differential Comment Sodium Potassium Chloride Carbon Dioxide Anion Gap BUN Creatinine Estimated GFR POC Glucose 105 Random Glucose Calcium Total Bilirubin AST ALT Alkaline Phosphatase B-Natriuretic Peptide Total Protein Albumin - Impressions ITS Impressions Pulmonary Perfusion Imaging 09/15/18 00:00 CONCLUSION: 1. Negative examination. Venous Doppler Study 09/15/18 00:00 CONCLUSION: 1. No evidence of DVT. Abdomen/Bladder Ultrasound 09/16/18 00:00 CONCLUSION: 1. No evidence of hydronephrosis. 2. Mild increased echogenicity of the renal parenchyma bilaterally. This can be seen with chronic medical renal disease. Chest X-Ray 09/23/18 06:00 CONCLUSION: Stable appearance of the chest. Discharge Plan - Discharge Disposition Patient Disposition: 01 Discharge Home - Discharge Condition Condition: Fair - Discharge Order Discharge Orders: Discharge Order (Routine); Ordered 09/26/18 Ordered By: [place]ito Jackson - Physicians Team Primary Care Provider: UNKNOWN, Attending Provider: [place] Jackson Other Providers: Addy Cobian MD ; [facility] ; Jez Preston MD ; Starr Watkins MD
[2018-09-26 14:13] VITALS: PULSE 79
== END 2018-09-26 15:45 | disposition home or self-care (01) ==
LOC: NEPC 22:15 → NEDA 09-14 00:44 → HIMC 09-14 03:45 → HCIS 09-16 17:30 → HCVI 09-21 11:42 → HCPC 09-25 11:06
PROVIDERS: ADMIT Hospitalist; ATTEND Hospitalist
DX: Z79.84 Long term (current) use of oral hypoglycemic drugs; I50.42 Chronic combined systolic (congestive) and diastolic (congestive) heart failure; I13.0 Hypertensive heart and chronic kidney disease with heart failure and stage 1 through stage 4 chronic kidney disease, or unspecified chronic kidney disease; J32.9 Chronic sinusitis, unspecified; N18.3 Chronic kidney disease, stage 3 (moderate); H52.4 Presbyopia; E66.9 Obesity, unspecified; R00.0 Tachycardia, unspecified; J30.9 Allergic rhinitis, unspecified; E03.9 Hypothyroidism, unspecified; G47.33 Obstructive sleep apnea (adult) (pediatric); G47.00 Insomnia, unspecified; I27.20 Pulmonary hypertension, unspecified; N17.9 Acute kidney failure, unspecified; I21.4 Non-ST elevation (NSTEMI) myocardial infarction; E11.65 Type 2 diabetes mellitus with hyperglycemia; E11.22 Type 2 diabetes mellitus with diabetic chronic kidney disease; I42.9 Cardiomyopathy, unspecified; E87.6 Hypokalemia; R06.03 Acute respiratory distress; Z68.30 Body mass index [BMI] 30.0-30.9, adult; Z79.899 Other long term (current) drug therapy; I16.0 Hypertensive urgency; H53.8 Other visual disturbances